=== PATIENT | female | born 1940 | race Caucasian/White ===

== ENCOUNTER 2016-07-24 18:14 | Emergency (ER) | payer MEDICARE, OTHER ==
[~2016-07-24 18:14] MED LIST: /CELE20CA OR; ARTISOL10 OU; AVAP150T OR; BABY81CH OR; CLARINEX OR; Centrum Silver OR; GLUC500T3 OR; HYDR25TA6 OR; NORV5TAB OR; ROSU10TA OR; SYNT100T OR; VIACTIVE OR; tylenol OR
[2016-07-24] MEDS ORDERED: traMADol 50 MG TAB As Ordered ONE (23:08)
--- NOTE | 2016-07-24 23:31 | EDDOCDS ---
Nurse's Notes [facility] Name: Rocio Lyles Age: 76 yrs Sex: Female : 1940 Arrival Date: 07/24/2016 Time: 18:14 Bed 8 Private MD: Omar Cifuentes A. Diagnosis: Nondisplaced fracture of lateral malleolus of left fibula;Contusion of left hip Presentation: 07/24 18:25 Presenting complaint: EMS states: pain to left ankle left hip after fall around 1400 ttb today on ice. No LOC. Adult Sepsis Screening: The patient does not have new or worsening altered mentation. Patient's respiratory rate is less than 22. Systolic blood pressure is greater than 100. Patient has a qSOFA score of 0- Negative Sepsis Screen. Suicide/Homicide risk assessment- the patient denies having any suicidal and/or homicidal ideations and does not present with any other emotional, behavioral or mental health complaints. Status: Patient is not a inpatient services director or dependent. Transition of care: patient was not received from another setting of care. 18:25 Acuity: ELIZABETH Level 4 ttb 18:25 Method Of Arrival: Ambulance ttb Triage Assessment: 18:30 General: Appears in no apparent distress, comfortable, well nourished, well groomed, ttb Behavior is anxious, appropriate for age, cooperative, pleasant. Pain: Location: left ankle. Neurological: Level of Consciousness is awake, alert. Cardiovascular: Chest pain is denied. Respiratory: No deficits noted. Airway is patent Denies cough, shortness of breath. GI: Denies nausea, vomiting, pain. Derm: Skin is normal. Musculoskeletal: Reports pain in left ankle. Musculoskeletal: Reports pain in left hip. Injury Description: pt fell from standing. Historical: - Allergies: Bactrimmouth sores; Codeine Sulfate (Upset stomach); Ibuprofen (Hives); Latextrouble breathing; PENICILLINS (Hives); - Home Meds: 1. amlodipine 2.5 mg Oral tab 1 tab once daily (Last dose: 07/23/2016) 2. irbesartan-hydrochlorothiazide 150-12.5 mg oral tab 2 tabs once daily (Last dose: 07/24/2016 08:00) 3. azelastine 0.15 % (205.5 mcg) nasal spry 2 sprays 2 times per day (Last dose: 07/23/2016) 4. Synthroid 100 mcg Oral tab 1 tab once daily (Last dose: 07/24/2016 07:00) 5. metoprolol tartrate 25 mg Oral tab 1 tab once daily (Last dose: 07/23/2016) 6. Clarinex 5 mg Oral tab 1 tab once daily (Last dose: 07/24/2016 08:00) 7. Crestor 10 mg Oral tab 1 tab once daily (Last dose: 07/23/2016) 8. Sertraline 50 mg daily (Last dose: 07/23/2016 17:00) 9. meloxicam 15 mg oral tab 1 tab once daily (Last dose: 07/23/2016 17:00) - PMHx: High Cholesterol; Hypertension; Hypothyroidism; melanoma; neck pain; Anxiety; - PSHx: incisional hernia repair; melanoma removal; cardiac cath; vaginal polypectomy; Cataract Surgery- Bilateral; D & C; Hysterectomy; Cholecystectomy; - The history from nurses notes was reviewed: and I agree with what is documented. - Social history: Smoking status: Patient states former smoker of tobacco. Patient uses alcohol on a daily basis. Patient/guardian denies using street drugs, No barriers to communication noted, The patient speaks fluent Jamaican, Speaks appropriately for age. - : The pt / caregiver states he / she is not on anticoagulants. Home medication list is obtained from the patient. - Hospitalizations: : No recent hospitalization is reported. - Exposure Risk Screening:: None identified. - Immunization history:: All immunizations up-to-date. - Family history: Not pertinent. - Social history:: the patient is a non-smoker, the patient does not drink alcohol. Screenin:37 Screening information is obtained from the patient. Fall risk: At risk due to prior ttb history of falls, The following interventions are performed due to a positive Fall Risk Screen: Fall Risk is added to Special Handling on the patient Summary Screen. A Fall Risk Bracelet was applied to the patient. Side Rails are placed in the up position. A Call Austin is given with instruction to call for help when getting out of bed. Assistance ADL's: requires no assistance with activities of daily living. Abuse/DV Screen: The patient / caregiver reports he/she is: not in a situation that causes fear, pain or injury. Nutritional screening: No deficits noted. Advance Directives: Currently, there is no health care proxy. home support is adequate. Assessment: 18:37 General: see triage assessment. Pt resting on stretcher. NAD noted. . ttb 19:00 General: report given to JARRETT Alanis to continue care.. ttb 19:05 General: Verbal report given by Cathy Orozco RN. Assumed care of patient at this time..kas2 19:38 General: Appears in no apparent distress, uncomfortable, well nourished, well groomed, kas2 Behavior is appropriate for age, cooperative. Pain: Location: back and left ankle Pain currently is 7 out of 10 on a pain scale. Neurological: Level of Consciousness is awake, alert, Oriented to person, place, time. Cardiovascular: Capillary refill < 3 seconds Heart tones S1 S2 present Rhythm is regular. Respiratory: Airway is patent Respiratory effort is even, unlabored, Respiratory pattern is regular, symmetrical, Breath sounds are clear bilaterally. Derm: Skin is intact, Skin is dry, Skin is pink, warm & dry. Skin temperature is warm. Musculoskeletal: No deficits noted. Injury Description: No known injury. 19:45 Injury Description: pt fell from standing. kas2 20:45 General: Appears in no apparent distress, uncomfortable, Behavior is appropriate for kas2 age, cooperative. Neurological: Level of Consciousness is awake, alert, Oriented to person, place, time. Respiratory: Airway is patent Respiratory effort is even, unlabored, Respiratory pattern is regular, symmetrical. Derm: Skin is intact, Skin is dry, Skin is pink, warm & dry. Skin temperature is warm. 21:28 General: Patient being fed at this time.. kas2 22:51 General: Appears in no apparent distress, Behavior is appropriate for age, cooperative. kas2 Neurological: Level of Consciousness is awake, alert, Oriented to person, place, time. Respiratory: Airway is patent Respiratory effort is even, unlabored, Respiratory pattern is regular, symmetrical. Derm: Skin is intact, Skin is dry, Skin is pink, warm & dry. Skin temperature is warm. Vital Signs: 18:30 Pulse 76; Resp 20; Pulse Ox 96% on R/A; Weight 77.11 kg; Height 5 ft. 4 in. (162.56 ttb cm); Pain 5/10; 18:37 BP 179 / 78; ttb 20:32 Temp 98.0(O); mdr 23:05 BP 180 / 85; Pulse 78; Resp 18; Temp 97.6(O); Pulse Ox 96% on R/A; alex 18:30 Body Mass Index 29.18 (77.11 kg, 162.56 cm) ttb Vitals: 18:30 Log In Time N/A - ambulance arrival. ttb ED Course: 18:15 Patient visited by Jess Lofton, Needle Board Repairer. lbd 18:15 Omar Cifuentes is Private Physician. lbd 18:15 Patient moved to Waiting lbd 18:16 Patient moved to 8 lbd 18:26 Triage Initiated ttb 18:37 The patient / caregiver is instructed regarding the plan of care and ED course. Patient ttb has correct armband on for positive identification. Bed in low position. Call light in reach. Side rails up X2. 18:38 Patient visited by Cathy Carreon RN. ttb 19:03 Annabelle Perez RN is Primary Nurse. kas2 19:05 Patient visited by Annabelle Perez RN. kas2 19:46 Patient visited by Cathy Carreon RN. ttb 19:46 Patient visited by Annabelle Perez RN. kas2 20:25 Brayden Mejia MD is Attending Physician. pc 20:29 Patient visited by Brayden Mejia MD. pc 20:33 Patient visited by Jad Macias PCA. mdr 20:33 Patient visited by Annabelle Perez RN. kas2 20:46 Patient visited by Annabelle Perez RN. kas2 21:23 Patient visited by Annabelle Perez RN. kas2 21:24 Patient visited by Annabelle Perez RN. kas2 21:29 Patient visited by Annabelle Perez RN. kas2 22:08 Patient visited by Annabelle Perez RN. kas2 22:51 Patient visited by Annabelle Perez RN. kas2 22:52 Patient visited by Annabelle Perez RN. kas2 23:02 [facility] pc 23:05 Patient visited by Laurence Strickland PCA. alex 23:09 [facility] Payment Agreement was scanned into [employer] and attached to record. zo 23:15 Patient visited by Annabelle Perez RN. kas2 23:28 No IV's were initiated during this patient's visit. No procedures done that require kas2 assistance. Crutch training done. Administered Medications: 23:14 Drug: traMADol 50mg- 4 pack 1 packets [tramadol 50 mg tablet (1 tabs)] {Co-Signature: edda tm5 (Yeni Fox RN).} Route: PO; Order Results: There are currently no results for this order. Outcome: 23:02 Discharge ordered by Provider. 23:28 Discharge Assessment: patient administered narcotics - no. The following High Risk [facility] Discharge criteria are identified: None. Discharged to home via wheelchair, with crutches, with family. Condition: good Condition: stable Condition: improved. No special radiology studies were completed. Property :Personal belongings accompany Pt. 23:29 Patient left the ED. kas Signatures: Brayden Mejia MD MD pc Jess Lofton, Needle Board Repairer Unit lbd Katt Pryor Destiny, HEEL SEAT FILLER HEEL SEAT FILLER Cathy Smith RN RN ttb Jad Macias, HEEL SEAT FILLER HEEL SEAT FILLER Annabelle Ambriz RN RN kas2 Yeni Fox RN tm5 Corrections: (The following items were deleted from the chart) 18:37 18:21 Presenting complaint: ttb ttb MTDD
--- NOTE | 2016-07-24 23:31 | EDDOCDS ---
Physician Documentation [facility] Name: Rocio Lyles Age: 76 yrs Sex: Female : 1940 Arrival Date: 07/24/2016 Time: 18:14 Bed 8 Private MD: Omar Cifuentes A. Disposition: 07/24 22:59 Critical Care: Critical care not applicable. pc Disposition: 07/24/16 23:02 Discharged to Home/Self Care. Impression: Nondisplaced fracture of lateral malleolus of left fibula, Contusion of left hip. - Condition is Stable. - Discharge Instructions: Ankle Fracture, Contusion. - Prescriptions for Ultram 50 mg Oral Tablet - take 1 tablet by ORAL route every 6 hours As needed MDD: 4 tabs; 20 tablet. - Medication Reconciliation, [facility] Followup, Local Pharmacy Hours form. - Follow up: Orthopaedics, [facility]; When: Call to arrange an appointment; Reason: To establish care. - Problem is new. - Symptoms have improved. HPI: 20:30 This 76 yrs old Female presents to ER via Ambulance with complaints of Fall pc Injury. 20:30 The history is obtained from the patient. She slipped on an icy walkway at 2:30pm, pc twisting her left ankle and landing on her left hip. She complains of pain and swelling in her ankle and pain in her left hip laterally. She did not hit her head and did not have a LOC. At their worst, the symptoms were a 7 out of 10. In the emergency department, the symptoms are a 5 out of 10. The patient has not experienced similar symptoms in the past. The patient has been recently seen by their primary care provider, for a routine, regularly scheduled appointment. Historical: - Allergies: Bactrimmouth sores; Codeine Sulfate (Upset stomach); Ibuprofen (Hives); Latextrouble breathing; PENICILLINS (Hives); - Home Meds: 1. amlodipine 2.5 mg Oral tab 1 tab once daily (Last dose: 07/23/2016) 2. irbesartan-hydrochlorothiazide 150-12.5 mg oral tab 2 tabs once daily (Last dose: 07/24/2016 08:00) 3. azelastine 0.15 % (205.5 mcg) nasal spry 2 sprays 2 times per day (Last dose: 07/23/2016) 4. Synthroid 100 mcg Oral tab 1 tab once daily (Last dose: 07/24/2016 07:00) 5. metoprolol tartrate 25 mg Oral tab 1 tab once daily (Last dose: 07/23/2016) 6. Clarinex 5 mg Oral tab 1 tab once daily (Last dose: 07/24/2016 08:00) 7. Crestor 10 mg Oral tab 1 tab once daily (Last dose: 07/23/2016) 8. Sertraline 50 mg daily (Last dose: 07/23/2016 17:00) 9. meloxicam 15 mg oral tab 1 tab once daily (Last dose: 07/23/2016 17:00) - PMHx: High Cholesterol; Hypertension; Hypothyroidism; melanoma; neck pain; Anxiety; - PSHx: incisional hernia repair; melanoma removal; cardiac cath; vaginal polypectomy; Cataract Surgery- Bilateral; D & C; Hysterectomy; Cholecystectomy; - The history from nurses notes was reviewed: and I agree with what is documented. - Social history: Smoking status: Patient states former smoker of tobacco. Patient uses alcohol on a daily basis. Patient/guardian denies using street drugs, No barriers to communication noted, The patient speaks fluent Belarusian, Speaks appropriately for age. - : The pt / caregiver states he / she is not on anticoagulants. Home medication list is obtained from the patient. - Hospitalizations: : No recent hospitalization is reported. - Exposure Risk Screening:: None identified. - Immunization history:: All immunizations up-to-date. - Family history: Not pertinent. - Social history:: the patient is a non-smoker, the patient does not drink alcohol. ROS: 20:30 All systems are negative except as listed. pc Exam: 20:30 General Appearance: no acute distress, alert. pc 20:30 Extremities: grossly normal except: noted in the left hip: tenderness, ROM normal, NVT normal distally, noted in the left ankle: decreased ROM, ecchymosis, pain, swelling, NVT normal. 20:30 Neuro: no motor deficits, no sensory deficits. Vital Signs: 18:30 Pulse 76; Resp 20; Pulse Ox 96% on R/A; Weight 77.11 kg / 170 lbs; Height 5 ft. 4 in. ttb (162.56 cm); Pain 5/10; 18:37 BP 179 / 78; ttb 20:32 Temp 98.0(O); mdr 23:05 BP 180 / 85; Pulse 78; Resp 18; Temp 97.6(O); Pulse Ox 96% on R/A; alex 18:30 Body Mass Index 29.18 (77.11 kg, 162.56 cm) ttb Procedures: 23:00 Fracture care/splinting: (Restorative Care) Splint applied to left leg using Orthoglass pc splint, applied by myself. Examined by me, post splint application: neurovascular intact, 2+ distal pulses palpable, brisk capillary refill noted, Patient tolerated well. MDM: 20:31 Ankle, Complete Ordered. EDMS 20:31 Hip,AP,LAT to include Pelvis Ordered. EDMS 20:34 Differential Diagnosis: fall on ice; left hip contusion r/o fracture; left ankle sprain pc r/o fracture. Plan: analgesia (declined). imaging. 21:57 Financial registration complete. zo 22:59 Data reviewed: old medical records, vital signs, nurses notes, all radiology studies pc and available results. Test interpretation: X-RAY - interpreted by me, Ankle Left Fracture - distal fibula Transverse Hip Left Normal Pelvis Normal. The patient has been re-examined and re-evaluated. The patient's symptoms have markedly improved after treatment. Disposition: The historical points, examination findings, and any diagnostic results supporting the provided diagnosis, were discussed with the patient or legal guardian. The need for outpatient follow up with the provider listed on their discharge instructions was discussed. They were encouraged to return to [facility], or the nearest ED, if symptoms worsen/persist, or for any other questions/concerns. 23:01 traMADol 50mg- 4 pack 1 packets PO Per package directions; Dispense with patient. 1 po pc q6h prn ordered. 23:01 Crutches ordered. pc 23:09 [facility] [place] Payment Agreement was scanned into [email or web address] and attached to record. zo Administered Medications: 23:14 Drug: traMADol 50mg- 4 pack 1 packets [tramadol 50 mg tablet (1 tabs)] {Co-Signature: [email or web address] tm5 (Yeni Fox RN).} Route: PO; Signatures: Dispatcher [employer] EDMS Brayden Mejia MD MD pc Olin, Zoeann zo Conner, Teresa, RN RN ttb Annabelle Perez RN RN kas2 Yeni Fox RN tm5 The chart was reviewed and I authenticate all verbal orders and agree with the evaluation and treatment provided.Attachments: 23:09 [facility] Payment Agreement zo MTDD
--- NOTE | 2016-07-25 08:41 | REP ---
Pelvis, left hip: Three views. History: Trauma. Findings: The bony pelvic ring is intact. No pelvic, hip or sacral fracture is seen. Left femoral head is smooth and rounded and hip joint space is intact. Periarticular soft tissues are unremarkable. Impression: No fracture noted. Signed by Damon Barcenas MD 07/25/2016 02:59 P
--- NOTE | 2016-07-25 08:41 | REP ---
Left ankle series: Four views. History: Trauma. Findings: There is a transverse fracture through the distal fibular metaphysis. There is diffuse osteoporosis. No displacement is seen. Osteoarthritic spurring is seen at the ankle. Plantar and Achilles calcaneal spurring and midfoot osteoarthritic spurring are seen. Anterolateral swelling. Impression: Distal fibular fracture nondisplaced. Osteoporosis and heel and midfoot and ankle osteoarthritic spurring. Signed by Damon Barcenas MD 07/25/2016 02:59 P
--- NOTE | 2016-07-27 00:29 | EDDOCDS ---
Physician Documentation [facility] Name: Rocio Lyles Age: 76 yrs Sex: Female : 1940 Arrival Date: 07/24/2016 Time: 18:14 Bed 8 Private MD: Omar Cifuentes A. Disposition: 07/24 22:59 Critical Care: Critical care not applicable. pc Disposition: 07/24/16 23:02 Discharged to Home/Self Care. Impression: Nondisplaced fracture of lateral malleolus of left fibula, Contusion of left hip. - Condition is Stable. - Discharge Instructions: Ankle Fracture, Contusion. - Prescriptions for Ultram 50 mg Oral Tablet - take 1 tablet by ORAL route every 6 hours As needed MDD: 4 tabs; 20 tablet. - Medication Reconciliation, [facility] Followup, Local Pharmacy Hours form. - Follow up: Orthopaedics, [facility]; When: Call to arrange an appointment; Reason: To establish care. - Problem is new. - Symptoms have improved. HPI: 20:30 This 76 yrs old Female presents to ER via Ambulance with complaints of Fall pc Injury. 20:30 The history is obtained from the patient. She slipped on an icy walkway at 2:30pm, pc twisting her left ankle and landing on her left hip. She complains of pain and swelling in her ankle and pain in her left hip laterally. She did not hit her head and did not have a LOC. At their worst, the symptoms were a 7 out of 10. In the emergency department, the symptoms are a 5 out of 10. The patient has not experienced similar symptoms in the past. The patient has been recently seen by their primary care provider, for a routine, regularly scheduled appointment. Historical: - Allergies: Bactrimmouth sores; Codeine Sulfate (Upset stomach); Ibuprofen (Hives); Latextrouble breathing; PENICILLINS (Hives); - Home Meds: 1. amlodipine 2.5 mg Oral tab 1 tab once daily (Last dose: 07/23/2016) 2. irbesartan-hydrochlorothiazide 150-12.5 mg oral tab 2 tabs once daily (Last dose: 07/24/2016 08:00) 3. azelastine 0.15 % (205.5 mcg) nasal spry 2 sprays 2 times per day (Last dose: 07/23/2016) 4. Synthroid 100 mcg Oral tab 1 tab once daily (Last dose: 07/24/2016 07:00) 5. metoprolol tartrate 25 mg Oral tab 1 tab once daily (Last dose: 07/23/2016) 6. Clarinex 5 mg Oral tab 1 tab once daily (Last dose: 07/24/2016 08:00) 7. Crestor 10 mg Oral tab 1 tab once daily (Last dose: 07/23/2016) 8. Sertraline 50 mg daily (Last dose: 07/23/2016 17:00) 9. meloxicam 15 mg oral tab 1 tab once daily (Last dose: 07/23/2016 17:00) - PMHx: High Cholesterol; Hypertension; Hypothyroidism; melanoma; neck pain; Anxiety; - PSHx: incisional hernia repair; melanoma removal; cardiac cath; vaginal polypectomy; Cataract Surgery- Bilateral; D & C; Hysterectomy; Cholecystectomy; - The history from nurses notes was reviewed: and I agree with what is documented. - Social history: Smoking status: Patient states former smoker of tobacco. Patient uses alcohol on a daily basis. Patient/guardian denies using street drugs, No barriers to communication noted, The patient speaks fluent Welsh, Speaks appropriately for age. - : The pt / caregiver states he / she is not on anticoagulants. Home medication list is obtained from the patient. - Hospitalizations: : No recent hospitalization is reported. - Exposure Risk Screening:: None identified. - Immunization history:: All immunizations up-to-date. - Family history: Not pertinent. - Social history:: the patient is a non-smoker, the patient does not drink alcohol. ROS: 20:30 All systems are negative except as listed. pc Exam: 20:30 General Appearance: no acute distress, alert. pc 20:30 Extremities: grossly normal except: noted in the left hip: tenderness, ROM normal, NVT normal distally, noted in the left ankle: decreased ROM, ecchymosis, pain, swelling, NVT normal. 20:30 Neuro: no motor deficits, no sensory deficits. Vital Signs: 18:30 Pulse 76; Resp 20; Pulse Ox 96% on R/A; Weight 77.11 kg / 170 lbs; Height 5 ft. 4 in. ttb (162.56 cm); Pain 5/10; 18:37 BP 179 / 78; ttb 20:32 Temp 98.0(O); mdr 23:05 BP 180 / 85; Pulse 78; Resp 18; Temp 97.6(O); Pulse Ox 96% on R/A; alex 18:30 Body Mass Index 29.18 (77.11 kg, 162.56 cm) ttb Procedures: 23:00 Fracture care/splinting: (Restorative Care) Splint applied to left leg using Orthoglass pc splint, applied by myself. Examined by me, post splint application: neurovascular intact, 2+ distal pulses palpable, brisk capillary refill noted, Patient tolerated well. MDM: 20:31 Ankle, Complete Ordered. EDMS 20:31 Hip,AP,LAT to include Pelvis Ordered. EDMS 20:34 Differential Diagnosis: fall on ice; left hip contusion r/o fracture; left ankle sprain pc r/o fracture. Plan: analgesia (declined). imaging. 21:57 Financial registration complete. zo 22:59 Data reviewed: old medical records, vital signs, nurses notes, all radiology studies pc and available results. Test interpretation: X-RAY - interpreted by me, Ankle Left Fracture - distal fibula Transverse Hip Left Normal Pelvis Normal. The patient has been re-examined and re-evaluated. The patient's symptoms have markedly improved after treatment. Disposition: The historical points, examination findings, and any diagnostic results supporting the provided diagnosis, were discussed with the patient or legal guardian. The need for outpatient follow up with the provider listed on their discharge instructions was discussed. They were encouraged to return to [facility], or the nearest ED, if symptoms worsen/persist, or for any other questions/concerns. 23:01 traMADol 50mg- 4 pack 1 packets PO Per package directions; Dispense with patient. 1 po pc q6h prn ordered. 23:01 Crutches ordered. pc 23:09 [facility] Payment Agreement was scanned into [email or web address] and attached to record. zo 07/25 10:12 PCR was scanned into [email or web address] and attached to record. gb Administered Medications: 07/24 23:14 Drug: traMADol 50mg- 4 pack 1 packets [tramadol 50 mg tablet (1 tabs)] {Co-Signature: [email or web address] [email or web address] (Yeni Fox RN).} Route: PO; Signatures: Dispatcher [employer] EDMS Chafe, Brayden, MD MD pc Barnhardt, Fabiola, Tavo Reg Katt Brown Teresa RN RN ttb Annabelle Perez RN RN kas2 Yeni Fox RN tm5 The chart was reviewed and I authenticate all verbal orders and agree with the evaluation and treatment provided.Attachments: 23:09 [facility] Payment Agreement zo Chart Complete MTDD
--- NOTE | 2016-07-27 00:29 | EDDOCDS ---
Physician Documentation [facility] Name: Rocio Lyles Age: 76 yrs Sex: Female : 1940 Arrival Date: 07/24/2016 Time: 18:14 Bed 8 Private MD: Omar Cifuentes A. Disposition: 07/24 22:59 Critical Care: Critical care not applicable. pc Disposition: 07/24/16 23:02 Discharged to Home/Self Care. Impression: Nondisplaced fracture of lateral malleolus of left fibula, Contusion of left hip. - Condition is Stable. - Discharge Instructions: Ankle Fracture, Contusion. - Prescriptions for Ultram 50 mg Oral Tablet - take 1 tablet by ORAL route every 6 hours As needed MDD: 4 tabs; 20 tablet. - Medication Reconciliation, [facility] Followup, Local Pharmacy Hours form. - Follow up: Orthopaedics, [facility]; When: Call to arrange an appointment; Reason: To establish care. - Problem is new. - Symptoms have improved. HPI: 20:30 This 76 yrs old Female presents to ER via Ambulance with complaints of Fall pc Injury. 20:30 The history is obtained from the patient. She slipped on an icy walkway at 2:30pm, pc twisting her left ankle and landing on her left hip. She complains of pain and swelling in her ankle and pain in her left hip laterally. She did not hit her head and did not have a LOC. At their worst, the symptoms were a 7 out of 10. In the emergency department, the symptoms are a 5 out of 10. The patient has not experienced similar symptoms in the past. The patient has been recently seen by their primary care provider, for a routine, regularly scheduled appointment. Historical: - Allergies: Bactrimmouth sores; Codeine Sulfate (Upset stomach); Ibuprofen (Hives); Latextrouble breathing; PENICILLINS (Hives); - Home Meds: 1. amlodipine 2.5 mg Oral tab 1 tab once daily (Last dose: 07/23/2016) 2. irbesartan-hydrochlorothiazide 150-12.5 mg oral tab 2 tabs once daily (Last dose: 07/24/2016 08:00) 3. azelastine 0.15 % (205.5 mcg) nasal spry 2 sprays 2 times per day (Last dose: 07/23/2016) 4. Synthroid 100 mcg Oral tab 1 tab once daily (Last dose: 07/24/2016 07:00) 5. metoprolol tartrate 25 mg Oral tab 1 tab once daily (Last dose: 07/23/2016) 6. Clarinex 5 mg Oral tab 1 tab once daily (Last dose: 07/24/2016 08:00) 7. Crestor 10 mg Oral tab 1 tab once daily (Last dose: 07/23/2016) 8. Sertraline 50 mg daily (Last dose: 07/23/2016 17:00) 9. meloxicam 15 mg oral tab 1 tab once daily (Last dose: 07/23/2016 17:00) - PMHx: High Cholesterol; Hypertension; Hypothyroidism; melanoma; neck pain; Anxiety; - PSHx: incisional hernia repair; melanoma removal; cardiac cath; vaginal polypectomy; Cataract Surgery- Bilateral; D & C; Hysterectomy; Cholecystectomy; - The history from nurses notes was reviewed: and I agree with what is documented. - Social history: Smoking status: Patient states former smoker of tobacco. Patient uses alcohol on a daily basis. Patient/guardian denies using street drugs, No barriers to communication noted, The patient speaks fluent Kinyarwanda, Speaks appropriately for age. - : The pt / caregiver states he / she is not on anticoagulants. Home medication list is obtained from the patient. - Hospitalizations: : No recent hospitalization is reported. - Exposure Risk Screening:: None identified. - Immunization history:: All immunizations up-to-date. - Family history: Not pertinent. - Social history:: the patient is a non-smoker, the patient does not drink alcohol. ROS: 20:30 All systems are negative except as listed. pc Exam: 20:30 General Appearance: no acute distress, alert. pc 20:30 Extremities: grossly normal except: noted in the left hip: tenderness, ROM normal, NVT normal distally, noted in the left ankle: decreased ROM, ecchymosis, pain, swelling, NVT normal. 20:30 Neuro: no motor deficits, no sensory deficits. Vital Signs: 18:30 Pulse 76; Resp 20; Pulse Ox 96% on R/A; Weight 77.11 kg / 170 lbs; Height 5 ft. 4 in. ttb (162.56 cm); Pain 5/10; 18:37 BP 179 / 78; ttb 20:32 Temp 98.0(O); mdr 23:05 BP 180 / 85; Pulse 78; Resp 18; Temp 97.6(O); Pulse Ox 96% on R/A; alex 18:30 Body Mass Index 29.18 (77.11 kg, 162.56 cm) ttb Procedures: 23:00 Fracture care/splinting: (Restorative Care) Splint applied to left leg using Orthoglass pc splint, applied by myself. Examined by me, post splint application: neurovascular intact, 2+ distal pulses palpable, brisk capillary refill noted, Patient tolerated well. MDM: 20:31 Ankle, Complete Ordered. EDMS 20:31 Hip,AP,LAT to include Pelvis Ordered. EDMS 20:34 Differential Diagnosis: fall on ice; left hip contusion r/o fracture; left ankle sprain pc r/o fracture. Plan: analgesia (declined). imaging. 21:57 Financial registration complete. zo 22:59 Data reviewed: old medical records, vital signs, nurses notes, all radiology studies pc and available results. Test interpretation: X-RAY - interpreted by me, Ankle Left Fracture - distal fibula Transverse Hip Left Normal Pelvis Normal. The patient has been re-examined and re-evaluated. The patient's symptoms have markedly improved after treatment. Disposition: The historical points, examination findings, and any diagnostic results supporting the provided diagnosis, were discussed with the patient or legal guardian. The need for outpatient follow up with the provider listed on their discharge instructions was discussed. They were encouraged to return to [facility], or the nearest ED, if symptoms worsen/persist, or for any other questions/concerns. 23:01 traMADol 50mg- 4 pack 1 packets PO Per package directions; Dispense with patient. 1 po pc q6h prn ordered. 23:01 Crutches ordered. pc 23:09 [facility] Payment Agreement was scanned into [employer] and attached to record. zo 07/25 10:12 PCR was scanned into [employer] and attached to record. gb Administered Medications: 07/24 23:14 Drug: traMADol 50mg- 4 pack 1 packets [tramadol 50 mg tablet (1 tabs)] {Co-Signature: kas2 tm5 (Yeni Fox RN).} Route: PO; Signatures: Dispatcher [employer] EDMS Chafe, Brayden, MD MD pc Barnhardt, Fabiola, Tavo Reg Katt Brown Teresa RN RN ttb Annabelle Perez RN RN kas2 Yeni Fox RN tm5 The chart was reviewed and I authenticate all verbal orders and agree with the evaluation and treatment provided.Attachments: 23:09 [facility] Payment Agreement zo Chart Complete MTDD
--- NOTE | 2016-07-27 00:29 | EDDOCDS ---
Nurse's Notes [facility] Name: Rocio Lyles Age: 76 yrs Sex: Female : 1940 Arrival Date: 07/24/2016 Time: 18:14 Bed 8 Private MD: Omar Cifuentes A. Diagnosis: Nondisplaced fracture of lateral malleolus of left fibula;Contusion of left hip Presentation: 07/24 18:25 Presenting complaint: EMS states: pain to left ankle left hip after fall around 1400 ttb today on ice. No LOC. Adult Sepsis Screening: The patient does not have new or worsening altered mentation. Patient's respiratory rate is less than 22. Systolic blood pressure is greater than 100. Patient has a qSOFA score of 0- Negative Sepsis Screen. Suicide/Homicide risk assessment- the patient denies having any suicidal and/or homicidal ideations and does not present with any other emotional, behavioral or mental health complaints. Status: Patient is not a agricultural services director or dependent. Transition of care: patient was not received from another setting of care. 18:25 Acuity: ELIZABETH Level 4 ttb 18:25 Method Of Arrival: Ambulance ttb Triage Assessment: 18:30 General: Appears in no apparent distress, comfortable, well nourished, well groomed, ttb Behavior is anxious, appropriate for age, cooperative, pleasant. Pain: Location: left ankle. Neurological: Level of Consciousness is awake, alert. Cardiovascular: Chest pain is denied. Respiratory: No deficits noted. Airway is patent Denies cough, shortness of breath. GI: Denies nausea, vomiting, pain. Derm: Skin is normal. Musculoskeletal: Reports pain in left ankle. Musculoskeletal: Reports pain in left hip. Injury Description: pt fell from standing. Historical: - Allergies: Bactrimmouth sores; Codeine Sulfate (Upset stomach); Ibuprofen (Hives); Latextrouble breathing; PENICILLINS (Hives); - Home Meds: 1. amlodipine 2.5 mg Oral tab 1 tab once daily (Last dose: 07/23/2016) 2. irbesartan-hydrochlorothiazide 150-12.5 mg oral tab 2 tabs once daily (Last dose: 07/24/2016 08:00) 3. azelastine 0.15 % (205.5 mcg) nasal spry 2 sprays 2 times per day (Last dose: 07/23/2016) 4. Synthroid 100 mcg Oral tab 1 tab once daily (Last dose: 07/24/2016 07:00) 5. metoprolol tartrate 25 mg Oral tab 1 tab once daily (Last dose: 07/23/2016) 6. Clarinex 5 mg Oral tab 1 tab once daily (Last dose: 07/24/2016 08:00) 7. Crestor 10 mg Oral tab 1 tab once daily (Last dose: 07/23/2016) 8. Sertraline 50 mg daily (Last dose: 07/23/2016 17:00) 9. meloxicam 15 mg oral tab 1 tab once daily (Last dose: 07/23/2016 17:00) - PMHx: High Cholesterol; Hypertension; Hypothyroidism; melanoma; neck pain; Anxiety; - PSHx: incisional hernia repair; melanoma removal; cardiac cath; vaginal polypectomy; Cataract Surgery- Bilateral; D & C; Hysterectomy; Cholecystectomy; - The history from nurses notes was reviewed: and I agree with what is documented. - Social history: Smoking status: Patient states former smoker of tobacco. Patient uses alcohol on a daily basis. Patient/guardian denies using street drugs, No barriers to communication noted, The patient speaks fluent Mauritian, Speaks appropriately for age. - : The pt / caregiver states he / she is not on anticoagulants. Home medication list is obtained from the patient. - Hospitalizations: : No recent hospitalization is reported. - Exposure Risk Screening:: None identified. - Immunization history:: All immunizations up-to-date. - Family history: Not pertinent. - Social history:: the patient is a non-smoker, the patient does not drink alcohol. Screenin:37 Screening information is obtained from the patient. Fall risk: At risk due to prior ttb history of falls, The following interventions are performed due to a positive Fall Risk Screen: Fall Risk is added to Special Handling on the patient Summary Screen. A Fall Risk Bracelet was applied to the patient. Side Rails are placed in the up position. A Call [place] is given with instruction to call for help when getting out of bed. Assistance ADL's: requires no assistance with activities of daily living. Abuse/DV Screen: The patient / caregiver reports he/she is: not in a situation that causes fear, pain or injury. Nutritional screening: No deficits noted. Advance Directives: Currently, there is no health care proxy. home support is adequate. Assessment: 18:37 General: see triage assessment. Pt resting on stretcher. NAD noted. . ttb 19:00 General: report given to JARRETT Alanis to continue care.. ttb 19:05 General: Verbal report given by Cathy Orozco RN. Assumed care of patient at this time..kas2 19:38 General: Appears in no apparent distress, uncomfortable, well nourished, well groomed, kas2 Behavior is appropriate for age, cooperative. Pain: Location: back and left ankle Pain currently is 7 out of 10 on a pain scale. Neurological: Level of Consciousness is awake, alert, Oriented to person, place, time. Cardiovascular: Capillary refill < 3 seconds Heart tones S1 S2 present Rhythm is regular. Respiratory: Airway is patent Respiratory effort is even, unlabored, Respiratory pattern is regular, symmetrical, Breath sounds are clear bilaterally. Derm: Skin is intact, Skin is dry, Skin is pink, warm & dry. Skin temperature is warm. Musculoskeletal: No deficits noted. Injury Description: No known injury. 19:45 Injury Description: pt fell from standing. kas2 20:45 General: Appears in no apparent distress, uncomfortable, Behavior is appropriate for kas2 age, cooperative. Neurological: Level of Consciousness is awake, alert, Oriented to person, place, time. Respiratory: Airway is patent Respiratory effort is even, unlabored, Respiratory pattern is regular, symmetrical. Derm: Skin is intact, Skin is dry, Skin is pink, warm & dry. Skin temperature is warm. 21:28 General: Patient being fed at this time.. kas2 22:51 General: Appears in no apparent distress, Behavior is appropriate for age, cooperative. kas2 Neurological: Level of Consciousness is awake, alert, Oriented to person, place, time. Respiratory: Airway is patent Respiratory effort is even, unlabored, Respiratory pattern is regular, symmetrical. Derm: Skin is intact, Skin is dry, Skin is pink, warm & dry. Skin temperature is warm. Vital Signs: 18:30 Pulse 76; Resp 20; Pulse Ox 96% on R/A; Weight 77.11 kg; Height 5 ft. 4 in. (162.56 ttb cm); Pain 5/10; 18:37 BP 179 / 78; ttb 20:32 Temp 98.0(O); mdr 23:05 BP 180 / 85; Pulse 78; Resp 18; Temp 97.6(O); Pulse Ox 96% on R/A; alex 18:30 Body Mass Index 29.18 (77.11 kg, 162.56 cm) ttb Vitals: 18:30 Log In Time N/A - ambulance arrival. ttb ED Course: 18:15 Patient visited by Jess Lofton, Services Mgr. lbd 18:15 Omar Cifuentes is Private Physician. lbd 18:15 Patient moved to Waiting lbd 18:16 Patient moved to 8 lbd 18:26 Triage Initiated ttb 18:37 The patient / caregiver is instructed regarding the plan of care and ED course. Patient ttb has correct armband on for positive identification. Bed in low position. Call light in reach. Side rails up X2. 18:38 Patient visited by Cathy Carreon RN. ttb 19:03 Annabelle Perez RN is Primary Nurse. kas2 19:05 Patient visited by Annabelle Perez RN. kas2 19:46 Patient visited by Cathy Carreon RN. ttb 19:46 Patient visited by Annabelle Perez RN. kas2 20:25 Brayden Mejia MD is Attending Physician. pc 20:29 Patient visited by Brayden Mejia MD. pc 20:33 Patient visited by Jad Macias PCA. mdr 20:33 Patient visited by Annabelle Perez RN. kas2 20:46 Patient visited by Annabelle Perez RN. kas2 21:23 Patient visited by Annabelle Perez RN. kas2 21:24 Patient visited by Annabelle Perez RN. kas2 21:29 Patient visited by Annabelle Perez RN. kas2 22:08 Patient visited by Annabelle Perez RN. kas2 22:51 Patient visited by Annabelle Perez RN. kas2 22:52 Patient visited by Annabelle Perez RN. kas2 23:[facility] pc 23:05 Patient visited by Laurence Strickland PCA. alex 23:09 [facility] Payment Agreement was scanned into [employer] and attached to record. zo 23:15 Patient visited by Annabelle Perez RN. kas2 23:28 No IV's were initiated during this patient's visit. No procedures done that require kas2 assistance. Crutch training done. 07/25 09:03 Hip,AP,LAT to include Pelvis Returned. EDMS 09:03 Ankle, Complete Returned. EDMS 10:12 PCR was scanned into [employer] and attached to record. gb Administered Medications: 07/24 23:14 Drug: traMADol 50mg- 4 pack 1 packets [tramadol 50 mg tablet (1 tabs)] {Co-Signature: kas2 tm5 (Yeni Fox RN).} Route: PO; Order Results: Radiology Order: Ankle, Complete Test: Ankle, Complete REASON FOR EXAMINATION: Trauma; Left ankle series: Four views.; ; History: Trauma.; ; Findings: There is a transverse fracture through the distal fibular metaphysis.; There is diffuse osteoporosis. No displacement is seen. Osteoarthritic spurring; is seen at the ankle. Plantar and Achilles calcaneal spurring and midfoot; osteoarthritic spurring are seen. Anterolateral swelling.; ; Impression:; ; Distal fibular fracture nondisplaced. Osteoporosis and heel and midfoot and; ankle osteoarthritic spurring.; ; ; Signed by; Damon Barcenas MD 07/25/2016 02:59 P; Radiology Order: Hip,AP,LAT to include Pelvis Test: Hip,AP,LAT to include Pelvis REASON FOR EXAMINATION: Trauma; Pelvis, left hip: Three views.; ; History: Trauma.; ; Findings: The bony pelvic ring is intact. No pelvic, hip or sacral fracture is; seen. Left femoral head is smooth and rounded and hip joint space is intact.; Periarticular soft tissues are unremarkable.; ; Impression:; ; No fracture noted.; ; ; Signed by; Damon Barcenas MD 07/25/2016 02:59 P; Outcome: 23:02 Discharge ordered by Provider. pc 23:28 Discharge Assessment: patient administered narcotics - no. The following High Risk kas2 Discharge criteria are identified: None. Discharged to home via wheelchair, with crutches, with family. Condition: good Condition: stable Condition: improved. No special radiology studies were completed. Property :Personal belongings accompany Pt. 23:29 Patient left the ED. kas2 Signatures: Dispatcher [employer] EDMS Brayden Mejia MD MD pc Jess Lofton, Services Mgr Unit lbd Fabiola Soto, Reg Reg gb Katt Pryor Destiny, MANAGER CARDIAC CATH MANAGER CARDIAC CATH alex Cathy Carreon RN RN ttb Jad Macias, MANAGER CARDIAC CATH MANAGER CARDIAC CATH Annabelle Ambriz RN RN kas2 Yeni Fox RN tm5 Corrections: (The following items were deleted from the chart) 18:37 18:21 Presenting complaint: leo bailey Chart Complete MTDD
== END 2016-07-24 23:29 | disposition home or self-care (01) ==
LOC: M ED 18:14
DX: S82.65XA Nondisplaced fracture of lateral malleolus of left fibula, initial encounter for closed fracture (principal); S70.02XA Contusion of left hip, initial encounter; W00.0XXA Fall on same level due to ice and snow, initial encounter; Y92.89 Other specified places as the place of occurrence of the external cause; Y93.01 Activity, walking, marching and hiking; Y99.8 Other external cause status; E78.00 Pure hypercholesterolemia, unspecified; I10 Essential (primary) hypertension; E03.9 Hypothyroidism, unspecified; M54.2 Cervicalgia; F41.9 Anxiety disorder, unspecified; Z85.820 Personal history of malignant melanoma of skin; Z87.891 Personal history of nicotine dependence; Z79.899 Other long term (current) drug therapy; Z88.2 Allergy status to sulfonamides; Z88.5 Allergy status to narcotic agent; Z88.6 Allergy status to analgesic agent; Z91.040 Latex allergy status; Z88.0 Allergy status to penicillin

== ENCOUNTER 2016-11-09 19:23 | Emergency (ER) | payer MEDICARE, OTHER ==
[~2016-11-09] VITALS: Ht 162.6 cm; Wt 75.7 kg
[2016-11-09 19:32] VITALS: BP 162/115
[2016-11-09] MEDS ORDERED: SERT-155 (19:44)
[2016-11-09] MEDS ORDERED: IRBE150T14 (19:44)
[2016-11-09] MEDS ORDERED: CEFD1CAP8 (19:44)
[2016-11-09] MEDS ORDERED: MELO15TA4 (19:44)
--- NOTE | 2016-11-09 21:20 | REPUSA ---
Clinical history: Pain, swelling. Findings: The right common femoral, superficial femoral, popliteal, and other deep venous structures compress normally and demonstrate normal color Doppler flow. Normal venous waveforms with augmentatio n are seen. Impression: No evidence of deep vein thrombosis in the right femoral popliteal venous system.
--- NOTE | 2016-11-10 07:55 | REP ---
Clinical: Posterior knee pain. Technique: AP, lateral, bilateral oblique and sunrise views of the right knee. Findings: Advanced tricompartmental osteoarthritic degenerative changes are appreciated. Findings include osteophytosis, subchondral heterogeneity and cystic changes, joint space narrowing and elements of chondrocalcinosis. Overlying soft tissue swelling is appreciated and subtle joint effusion cannot be excluded. Impression: Advanced tricompartmental osteoarthritic degenerative changes. No obvious acute fracture. Anterior swelling. Signed by Ovi Negrete MD 11/10/2016 07:46 A
== END 2016-11-09 22:05 | disposition home or self-care (01) ==
LOC: M ED 20:16
DX: M17.11 Unilateral primary osteoarthritis, right knee (principal); M79.89 Other specified soft tissue disorders; I10 Essential (primary) hypertension; J45.909 Unspecified asthma, uncomplicated; E78.9 Disorder of lipoprotein metabolism, unspecified; E07.9 Disorder of thyroid, unspecified; Z79.899 Other long term (current) drug therapy; Z79.82 Long term (current) use of aspirin; Z88.5 Allergy status to narcotic agent; Z88.0 Allergy status to penicillin; Z88.8 Allergy status to other drugs, medicaments and biological substances; Z91.040 Latex allergy status

== ENCOUNTER → 2016-11-28 | Outpatient (CLI) | payer MEDICARE, OTHER ==
[~2016-11-28] MED LIST changes: +ACET-683 PO; +ACET50TAOT PO; +AMLO2.5T PO; +AMLO25TA PO; +CEFD1CAP8; +CIPR-249 PO; +COUM1TAB17 PO; +COUM2.5T17 PO; +CRES10TA32 PO; +DESL5TAB4 PO; +DOCU100C16 PO; +FLON1SPR; +FLUT1LOT; +IMIQ5CRE EXT; +IRBE150T14; +IRBE150T14 PO; +LEVO100T5 PO; +MELO15TA4; +METO-346 PO; +METO1TAB87 PO; +METO37.5 PO; +NUCY50TA6 PO; +REFR0.5D8 OU; +SALI0.6523; +SERT-155; +SERT50TA PO; +STOO100C PO
--- NOTE | 2016-11-28 16:26 | REP ---
BILATERAL MAMMOGRAM: FAMILY HISTORY: Sister with breast cancer. MLO and CC views of both breasts performed and compared to multiple prior exams, the most recent of which is 06/23/2015. Heterogeneous moderate fibroglandular tissue is again seen bilaterally. There is a questionable spiculated nodule in the lower outer left breast. Recommend spot compression views and ultrasound to further evaluate. No other definite mass is seen and there is no evidence of clustered microcalcifications. IMPRESSION: ACR 0 incomplete. Possible spiculated nodule lower outer left breast measuring approximately 8 mm in diameter. Spot compression views and ultrasound are recommended to further evaluate. BI-RADS/ACR category 0 mammogram. Incomplete. Additional imaging and/or prior images are needed before a final assessment can be assigned. This mammogram was interpreted with the aid of an FDA-approved computer-aided detection system. The patient states she/he had a clinical breast exam in November 2016. The patient letter being requested is M0.
== END ==
LOC: M WHC 13:54
PROVIDERS: ATTEND Nurse Practitioner Women's Health
DX: Z12.31 Encounter for screening mammogram for malignant neoplasm of breast (principal); R92.8 Other abnormal and inconclusive findings on diagnostic imaging of breast; Z80.3 Family history of malignant neoplasm of breast; N95.2 Postmenopausal atrophic vaginitis; Z12.39 Encounter for other screening for malignant neoplasm of breast
CPT/HCPCS: G0101; G0202

== ENCOUNTER → 2017-01-08 | Outpatient (CLI) | payer MEDICARE, OTHER ==
[~2017-01-08] MED LIST changes: +LIDOCAINE 1% MDV 20ML VIAL As Ordered ONE
--- NOTE | 2017-01-08 15:18 | REP ---
POST BIOPSY MAMMOGRAM LEFT BREAST: Post biopsy mammogram left breast performed in the ML and CC projections, following and ultrasound guided biopsy of a nodule in the lower outer left breast. A metallic clip is seen at the site of the nodule. Signed by Aniket Jones MD 01/08/2017 03:32 P
--- NOTE | 2017-01-08 17:33 | REP ---
ULTRASOUND GUIDED LEFT BREAST BIOPSY: The procedure was performed under the direct supervision of Dr. Jones. The patient has a history of an irregular nodule in the 3 o'clock position of the left breast seen on a previous ultrasound performed at [facility] on 12/04/2016. The risks and benefits of the procedure were explained to the patient and informed consent was obtained. The left breast nodule was localized using ultrasound guidance. The skin was prepped and draped in a sterile fashion 1% Xylocaine was used as a local anesthetic. Using ultrasound guidance a 13-gauge suction assisted mammotome needle was inserted and 5 core biopsy samples were obtained and sent to the lab. A marker clip was placed at the biopsy site. The patient tolerated the procedure well and there were no immediate complications. After the appropriate amount of monitored convalescence the patient was discharged from the department. Reviewed by KRISHNA Grigsby 01/09/2017 01:40 PEdited and Signed by Aniket Jones MD 01/10/2017 05:38 P
== END ==
LOC: M RADPRO 12:17
PROVIDERS: ATTEND Surgery
DX: C50.919 Malignant neoplasm of unspecified site of unspecified female breast (principal); Z88.5 Allergy status to narcotic agent; Z88.0 Allergy status to penicillin; Z88.8 Allergy status to other drugs, medicaments and biological substances; Z91.040 Latex allergy status
CPT/HCPCS: 19083; 88305; G0206

== ENCOUNTER 2017-01-24 10:37 | Day surgery (SDC) | payer MEDICARE, OTHER ==
[~2017-01-24] VITALS: Ht 162.6 cm; Wt 74.4 kg
[2017-01-24] MEDS: LR 1,000 ML IV SCH ×2 (10:00→12:45)
[~2017-01-24 10:37] MED LIST changes: -ACET-683 PO; -ACET50TAOT PO; -AMLO2.5T PO; -CIPR-249 PO; -COUM1TAB17 PO; -COUM2.5T17 PO; -DESL5TAB4 PO; -DOCU100C16 PO; -FLON1SPR; -IRBE150T14 PO; -LIDOCAINE 1% MDV 20ML VIAL As Ordered ONE; -METO-346 PO; -METO1TAB87 PO; -NUCY50TA6 PO; -SALI0.6523; -SERT50TA PO
[2017-01-24] MEDS ORDERED: METO-346 PO (11:45)
[2017-01-24] MEDS ORDERED: LIDOCAINE 1% MDV 20ML VIAL As Ordered ONE (12:11)
[2017-01-24] MEDS ORDERED: LIDOCAINE 2% INJ 100 MG/5 ML SDV (FOR ANES.) As Ordered ONE (13:09)
[2017-01-24] MEDS ORDERED: fentaNYL 100 MCG/2 ML INJECTION (J3010) As Ordered ONE (13:09)
[2017-01-24] MEDS ORDERED: MIDAZOLAM INJ 2 MG/2 ML VIAL (J2250) As Ordered ONE (13:09)
[2017-01-24] MEDS ORDERED: PROPOFOL 200 MG/20 ML VIAL As Ordered ONE (13:09)
[2017-01-24] MEDS ORDERED: BUPIVACAINE HCL 0.25% 30 ML VIAL As Ordered ONE (13:35)
[2017-01-24] MEDS ORDERED: LIDOCAINE 1% SDV INJ 30 ML VIAL As Ordered ONE (13:35)
[2017-01-24] MEDS ORDERED: KETOROLAC 60 MG/2 ML VIAL (J1885) As Ordered ONE (15:13)
[2017-01-24] MEDS ORDERED: ONDANSETRON 4MG/2ML VIAL (J2405) As Ordered ONE (15:13)
[2017-01-24] MEDS ORDERED: dexameTHASONE 4 MG/ML 1ML VIAL (J1100) As Ordered ONE (15:13)
[2017-01-24] MEDS ORDERED: HYDROmorphone HCL 2 MG/ML 1ML VIAL (J1170) As Ordered ONE (15:23)
[2017-01-24] MEDS: LABETALOL HCL 100 MG/20 ML VIAL IV SCH ×2 (16:10→16:26)
[2017-01-24 16:26] VITALS: BP 156/66
[2017-01-24] MEDS ORDERED: LR 1,000 ML IV SCH (16:30)
[2017-01-24] MEDS ORDERED: ACETAMINOPHEN TAB 650MG DOSE (2X325MG) PO PRN (16:30)
[2017-01-24] MEDS ORDERED: ONDANSETRON 4MG/2ML VIAL (J2405) IV PRN (16:30)
[2017-01-24] MEDS ORDERED: fentaNYL 100 MCG/2 ML INJECTION (J3010) IV PRN (16:30)
--- NOTE | 2017-01-24 17:05 | REP ---
SPECIMEN RADIOGRAPH: A specimen radiograph performed following lumpectomy. The patient underwent needle localization of a previously biopsied site which was positive for malignancy. Metallic clip marked the biopsy site. The metallic clip is seen in the specimen. Signed by Aniket Jones MD 01/25/2017 05:03 P
[2017-01-24] MEDS ORDERED: oxyCODONE 5MG TAB PO SCH (18:15)
[2017-01-24 18:30] VITALS: BP 167/77
--- NOTE | 2017-01-24 19:11 | REP ---
LEFT BREAST LOCALIZATION: The procedure was performed under the direct supervision of Dr. Jones. The patient has a history of an irregular nodule in the 3-o'clock position of the left breast seen on a previous ultrasound performed at [facility] on 12/04/2016. The patient had an ultrasound guided left breast biopsy performed on 01/08/2017. A marker clip was placed at the biopsy site. The risks and benefits of the procedure were explained to the patient and informed consent was obtained. A lateral medial approach was utilized. The marker clip was localized using mammographic guidance. The skin was prepped and draped in a sterile fashion. 1% Xylocaine was used as a local anesthetic. A 5 cm [place] needle wire system was inserted. Followup mammographic images demonstrate good needle placement. The patient tolerated the procedure well and there were no immediate complications. Reviewed by KRISHNA Grigsby 01/25/2017 05:12 PEdited and Signed by Aniket Jones MD 01/25/2017 05:19 P
--- NOTE | 2017-01-26 14:35 | RO ---
DATE OF PROCEDURE: 01/24/2017 PREOPERATIVE DIAGNOSIS: Invasive ductal carcinoma of left breast, lower outer quadrant. POSTOPERATIVE DIAGNOSIS: Invasive ductal carcinoma of left breast, lower outer quadrant. PROCEDURE PERFORMED: Needle localized left partial mastectomy(lumpectomy). SURGEON: Dr. Guille Llanes COINING PRESS OPERATOR: ANESTHESIA: General. INDICATIONS FOR PROCEDURE: The patient is a very pleasant 76-year-old woman who had undergone a mammogram in November of 2016 that suggested a spiculated nodule in the lower outer quadrant of the left breast. This was confirmed on diagnostic imaging, and an ultrasound showed an approximately 6 mm irregular density. An ultrasound-guided biopsy of this lesion was obtained. The pathology reported a minute focus (1 mm) of invasive ductal carcinoma with apocrine features. The specimen was too small to allow testing for estrogen and progesterone receptors and HER2/marisol. The patient is now for a needle localized left partial mastectomy (lumpectomy). DESCRIPTION OF PROCEDURE: The patient was taken to the x-ray department where a localizing wire was placed. She was moved to the operating room and placed on the operating table in the supine position. She was placed under general endotracheal anesthesia. The patient's left breast and chest wall were prepped and draped in a sterile fashion. The localizing wire entered the lower outer quadrant of the breast and was directed primarily superiorly, roughly paralleling the chest wall. A 4 cm needle had been utilized with the guidewire. The approximate position of the specimen was outlined on the skin, and the images from the localizing procedure were reviewed. A slightly oblique transversely oriented ellipse of skin approximately 5 cm in length x 1-1/2 cm in width was outlined encompassing the needle entry point. Approximately two-thirds of this ellipse was lateral to the entry point of the guidewire. The skin was incised using a scalpel, and the dissection was carried down into the breast using the needle-tip cautery. Retractors were utilized to open the wound and a core of tissue was excised deeply into the breast, completely surrounding the guidewire. A piece of tissue approximately 5 cm deep x 5 cm in width x 4 cm in length was excised. There was no definite mass palpable within the specimen. The specimen was labeled using the Vector margin marker system. A specimen image was obtained using the [employer] device. This showed the marker clip from her biopsy centrally located within the specimen with the guidewire passing close to this. The specimen was sent for permanent pathology. The wound was inspected and hemostasis was ensured with electrocautery. The subcutaneous tissues were approximated with buried #2-0 Vicryl sutures. The skin edges were approximated with a running subcuticular #4-0 Vicryl and Steri- Strips. 10-15 mL of 0.25% Marcaine had been infiltrated about the wound prior to closure. A bulky bandage was applied, held in place with paper tape. The patient tolerated the procedure well without apparent complication. She was awakened in the operating room, extubated and moved to the recovery room in stable condition. PEDRO LUIS
[2017-02-15] MEDS ORDERED: METO1TAB87 PO (10:44)
[2017-02-15] MEDS ORDERED: ACET-683 PO (10:44)
== END 2017-01-24 18:35 | disposition home or self-care (01) ==
LOC: M SDC 10:37
PROVIDERS: ATTEND Surgery
DX: D05.12 Intraductal carcinoma in situ of left breast (principal); I10 Essential (primary) hypertension; R21 Rash and other nonspecific skin eruption; E78.00 Pure hypercholesterolemia, unspecified; F41.9 Anxiety disorder, unspecified; E07.9 Disorder of thyroid, unspecified; G96.9 Disorder of central nervous system, unspecified; G47.9 Sleep disorder, unspecified; Z88.5 Allergy status to narcotic agent; Z88.8 Allergy status to other drugs, medicaments and biological substances; Z88.0 Allergy status to penicillin; Z88.1 Allergy status to other antibiotic agents; Z91.040 Latex allergy status; Z79.899 Other long term (current) drug therapy
CPT/HCPCS: 19125; 72265; 76098; 88307; J1100; J1170; J1885; J2250; J2405; J3010

== ENCOUNTER → 2017-02-15 | Outpatient (CLI) | payer MEDICARE, OTHER ==
[~2017-02-15] MED LIST changes: +ACET-683 PO; +ACET50TAOT PO; +AMLO2.5T PO; +CIPR-249 PO; +COUM1TAB17 PO; +COUM2.5T17 PO; +DESL5TAB4 PO; +DOCU100C16 PO; +FLON1SPR; +IRBE150T14 PO; +METO-346 PO; +METO1TAB87 PO; +NUCY50TA6 PO; +SALI0.6523; +SERT50TA PO
[2017-02-15 13:10] LABS: INR 0.98
[2017-02-15 13:12] LABS: MEAN CORPUSCULAR HGB CONC 32.2 g/dl (32.0-36.5); MEAN CORPUSCULAR VOLUME 86.9 fl (80.0-96.0); WHITE BLOOD COUNT 6.9 K/mm3 (4.0-10.0)
[2017-02-15 13:23] LABS: ALBUMIN 3.7 GM/DL (3.2-5.2); ALBUMIN/GLOBULIN RATIO 1.19 (1.00-1.93); BILIRUBIN,TOTAL 0.5 MG/DL (0.2-1.0); CALCIUM LEVEL 9.1 MG/DL (8.8-10.2); CREATININE FOR GFR 1.01 MG/DL (0.55-1.02); GLOMERULAR FILTRATION RATE 56.4 (>39); POTASSIUM SERUM 3.8 MEQ/L (3.5-5.1); TOTAL PROTEIN 6.8 GM/DL (6.4-8.2)
--- NOTE | 2017-02-15 18:17 | REP ---
Chest x-ray: Two views: History: Hypertension. Elevated cholesterol. Comparison study: 04/17/2016. Findings: There is mild to moderate cardiomegaly. Cardiothoracic ratio measures 17.3 cm over 29.5 cm. The aorta is tortuous and calcific. Pulmonary vasculature is not increased. There are calcific granulomatous lymph node residuals in the mediastinum. There is a granulomatous calcification in the right lower lobe of the lung. Pleural angles are sharp. There are degenerative changes in the thoracic spine. Impression: Moderate cardiomegaly. Old granulomas calcific gwendolyn residuals. Otherwise no active disease. Signed by Damon Barcenas MD 02/19/2017 08:17 A
--- NOTE | 2017-02-16 09:39 | ECGEPIP ---
Stationary ECG Study [facility] Test Date: 2017-02-15 Pat Name: THOR LAST Department: Room: - Gender: F Chief Compliance Officer: : 1940 Requested By: Venu Gary Order Number: [id number] Reading MD: Chandrakant Del Valle Measurements Intervals [place] Rate: 61 P: 87 OR: 187 QRS: 21 QRSD: 86 T: 32 QT: 424 QTc: 429 Interpretive Statements SINUS RHYTHM Normal Electronically Signed On 02-16-2017 9:39:32 EDT by Chandrakant Del Valle
== END ==
LOC: M ADMPAT 10:25
PROVIDERS: ATTEND Orthopaedic Surgery
DX: Z01.818 Encounter for other preprocedural examination (principal); M17.11 Unilateral primary osteoarthritis, right knee; I42.9 Cardiomyopathy, unspecified; I10 Essential (primary) hypertension

== ENCOUNTER 2017-03-04 10:08 | Inpatient (IN) | payer MEDICARE, OTHER ==
[2017-02-15 11:16] VITALS: BP 132/82
--- NOTE | 2017-03-01 17:00 | HPE ---
DATE OF ADMISSION: 03/04/2017 CHIEF COMPLAINT: Right knee pain. HISTORY OF PRESENT ILLNESS: This is a pleasant, 76-year-old female with progressively worsening right knee pain and stiffness. She has failed to improve with conservative treatment. She is elected for surgery for her continued symptoms. She has pain with weightbearing activities and her activities of daily living. X-rays of her knee are notable for advanced osteoarthritis of the right knee joint. She has consented for a right total knee arthroplasty by Dr. Abdirahman Mott. Medical optimization was performed by Dr. Cifuentes. ALLERGIES: PENICILLIN, IBUPROFEN, FLOXIN, LATEX, and BACTRIM. CURRENT MEDICATIONS: - acetaminophen 160 mg as needed - amlodipine 5 mg one by mouth every day - Astelin HCL nasal 0.1% - clobetasol 0.05% as needed - Crestor 10 mg once a day - desloratadine 5 mg once a day - desonide 0.05% powder - Fiber Choice 1.5 grams two by mouth every day - irbesartan/hydrochlorothiazide 150/12.5 once a day - meloxicam 15 mg every day - metoprolol 25 mg two by mouth every day - Refresh Celluvisc 1% - stool softener 100 mg two by mouth twice a day - Synthroid 100 mcg one by mouth every day - Viactiv 500/500/40 once a day PAST MEDICAL HISTORY: 1. Hypothyroidism. 2. Seasonal allergies. 3. Hypertension. 4. Hyperlipidemia. PAST SURGICAL HISTORY: 1. Cholecystectomy. 2. Hysterectomy. 3. Right breast biopsy. 4. Surgical hernia repair. 5. Right and left cataracts removal. SOCIAL HISTORY: This patient quit smoking 25 years ago. She has one drink of alcohol every day, and she is retired. FAMILY HISTORY: Noncontributory. REVIEW OF SYSTEMS: She denies chest pain, heart palpitations, cough, wheezing, difficulty breathing, shortness of breath. She denies abdominal pain, nausea, vomiting or diarrhea or constipation. She denies recent upper respiratory infection or urinary tract infection symptoms. She does complain of persistent pain in her right knee with weightbearing activities and activities of daily living. PHYSICAL EXAMINATION: GENERAL: She is a well-nourished, well-developed, in no acute distress alert female patient. She ambulated with a moderate limp favoring the right lower extremity. She is not using assistive devices. VITAL SIGNS: She is 63 inches tall, weighs 168 pounds, has a temperature of 97.5, blood pressure 160/78, pulse of 62, and respirations of 18. NECK: Supple without adenopathy or jugular venous distention. LUNGS: Clear to auscultation without rales or wheeze throughout. HEART: Regular rate and rhythm. ABDOMEN: Bowel sounds were present. EXTREMITIES: Examination of the knee revealed intact skin. She had decreased range of motion on exam secondary to pain and stiffness. The limb is neurovascularly intact. LABORATORY DATA: Chest x-ray showed moderate cardiomegaly with old granulomas; otherwise, no acute active disease. EKG showed sinus rhythm at 61 beats per minute. Nasal and sinus culture showed normal laureen. Urinalysis (UA) showed trace leukocyte esterase and 1+ bacteria; otherwise within normal limits with a specific gravity of 1.018. Prothrombin time 13.1, INR 0.98, glucose 93, BUN 30, creatinine 1.01. Sodium 142, potassium 3.8. CBC showed hemoglobin of 11.3, hematocrit of 35, red cell distribution width of 15, otherwise within normal limits. Sed rate was 41. Urine culture showed no growth. IMPRESSION: Symptomatic osteoarthritis of the right knee. PLAN: Consented for a right total knee by Dr. Abdirahman Mott.
[~2017-03-04] VITALS: Ht 162.6 cm; Wt 74.8 kg
[~2017-03-04 10:08] MED LIST changes: -ACET50TAOT PO; -AMLO2.5T PO; -CIPR-249 PO; -COUM1TAB17 PO; -COUM2.5T17 PO; -DESL5TAB4 PO; -DOCU100C16 PO; -FLON1SPR; -IRBE150T14 PO; +LR 1,000 ML IV ONE; -NUCY50TA6 PO; -SALI0.6523; -SERT50TA PO
[2017-03-04] MEDS ORDERED: ceFAZolin 1GM INJ (J0690) As Ordered ONE (10:16)
[2017-03-04] MEDS ORDERED: TRANEXAMIC ACID 100 MG/ML 10ML VIAL As Ordered ONE (10:16)
[2017-03-04] MEDS ORDERED: EPINEPHrine INJ 1 MG/ML 1ML AMP As Ordered ONE (10:16)
[2017-03-04] MEDS ORDERED: BUPIVACAINE LIPOSOME/PF 1.3% 20 ML VIAL (13.3MG/ML)(EXPAREL) As Ordered ONE (10:17)
[2017-03-04] MEDS ORDERED: CLINDAMYCIN INJ 900MG/6ML VIAL As Ordered ONE (10:23)
[2017-03-04] MEDS ORDERED: LIDOCAINE 1% SDV 5 ML VIAL SQ ONE (10:30)
[2017-03-04] MEDS ORDERED: ACETAMINOPHEN 500 MG TAB PO ONE ×3 (10:30→11:00)
[2017-03-04] MEDS ORDERED: COUM1TAB17 PO (11:13)
[2017-03-04] MEDS ORDERED: fentaNYL 100 MCG/2 ML INJECTION (J3010) As Ordered ONE ×2 (11:45→12:52)
[2017-03-04] MEDS ORDERED: MIDAZOLAM INJ 2 MG/2 ML VIAL (J2250) As Ordered ONE ×2 (11:45→12:52)
[2017-03-04] MEDS ORDERED: fentaNYL 100 MCG/2 ML INJECTION (J3010) IV ONE (12:30)
[2017-03-04] MEDS ORDERED: MIDAZOLAM INJ 2 MG/2 ML VIAL (J2250) IV ONE (12:30)
[2017-03-04] MEDS ORDERED: ROPIvacaine 0.5% 30 ML INJECTION (J2795) ONE (12:48)
[2017-03-04] MEDS ORDERED: LIDOCAINE 1% MDV 20ML VIAL ONE (12:48)
[2017-03-04] MEDS ORDERED: dexameTHASONE 10 MG/1 ML VIAL PRES.FREE (J1100) ONE (12:48)
[2017-03-04] MEDS ORDERED: LIDOCAINE 2% INJ 100 MG/5 ML SDV (FOR ANES.) As Ordered ONE (12:52)
[2017-03-04] MEDS ORDERED: PROPOFOL 200 MG/20 ML VIAL As Ordered ONE (12:52)
[2017-03-04] MEDS ORDERED: MORPHINE 1MG/ML IN 0.9% NACL 100ML IV BAG As Ordered ONE (14:06)
[2017-03-04] MEDS ORDERED: LR 1,000 ML IV SCH (15:00)
[2017-03-04] MEDS ORDERED: ACETAMINOPHEN TAB 650MG DOSE (2X325MG) PO PRN (15:00)
[2017-03-04] MEDS ORDERED: MORPHINE 1MG/ML IN 0.9% NACL 100ML IV BAG IV PRN (15:00)
[2017-03-04] MEDS ORDERED: diphenhydrAMINE INJ 50MG/ML VIAL (J1200) IV PRN (15:00)
[2017-03-04] MEDS ORDERED: EPIDURAL/PCA KEYS XX PRN (15:00)
[2017-03-04] MEDS ORDERED: FLEET ENEMA PR PRN (15:00)
[2017-03-04] MEDS ORDERED: NALOXONE INJ 0.4 MG/1 ML VIAL (J2310) IV PRN (15:00)
[2017-03-04] MEDS ORDERED: ONDANSETRON 4MG/2ML VIAL (J2405) IV PRN ×2 (15:00)
[2017-03-04] MEDS ORDERED: NALBUPHINE HCL 10 MG/ML AMP (J2300) IV PRN (15:00)
[2017-03-04] MEDS ORDERED: fentaNYL 100 MCG/2 ML INJECTION (J3010) IV PRN (15:00)
[2017-03-04] MEDS ORDERED: LABETALOL HCL 100 MG/20 ML VIAL As Ordered ONE (15:15)
[2017-03-04] MEDS: LABETALOL HCL 100 MG/20 ML VIAL IV PRN ×2 (15:20→15:25)
--- NOTE | 2017-03-04 15:22 | CR ---
DATE OF CONSULTATION: 03/04/2017 PRIMARY CARE PROVIDER: Dr. Omar Cifuentes CABLE INSTALLER: Dr. Willis CONSULTING HOSPITALIST: Dr. Celeste Reynaga Postoperative medical consultation on Rocio Doxtater. Patient of Dr. Cifuentes who was seen after undergoing right knee replacement. She has a history of coronary artery disease. She underwent cardiac catheterization at [facility] in 03/31. Ejection fraction 70%. She had a 75% focal stenosis in the ramus, which is nonobstructive. Medical therapy was recommended. She had a preoperative clearance done by cardiology. Other cardiac history shows paroxysmal atrial fibrillation. She had a brief burst of atrial fibrillation during nuclear stress test. Had a Holter monitor, no atrial fibrillation was noted. Declined anticoagulation, did agree to oral aspirin. She probably has sleep apnea. She had an overnight oximetry done last year that reportedly was abnormal but she is not willing to use CPAP. Past history includes hypertension, hyperlipidemia, environmental allergies, hypothyroidism, mild intermittent asthma, anxiety, depression, left breast cancer in 01/31, status post lumpectomy with followup appointment with Dr. Laurel Patel of oncology pending. History of polymyalgia rheumatica on admission. MEDICATIONS: - metoprolol tartrate 25 mg once a day - amlodipine 2.5 mg daily - Avalide 12.5 two tablets daily - sertraline 50 mg daily - Flonase nasal spray - Crestor 10 mg daily - 15 mg daily - Synthroid 100 mcg daily - Clarinex 5 mg daily - aspirin daily ALLERGIES: PENICILLIN, LATEX, IBUPROFEN, FLOXIN OTIC DROPS, BACTRIM, FLU SHOT, TOPICAL DICLOFENAC. 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 SOCIAL HISTORY: Nonsmoker for over 10 years. Smoked one pack per day. REVIEW OF SYSTEMS: She denies any current chest pain, shortness of breath, palpitations. She feels well postoperatively. PHYSICAL EXAMINATION: VITAL SIGNS: As per flow sheet. GENERAL APPEARANCE: No distress. Pupils are equal, round and reactive to light. Tympanic membranes are normal. Oropharynx benign. NECK: No masses. LUNGS: Clear. HEART: Regular rate and rhythm. ABDOMEN: Soft, nontender. IMPRESSION: 1. Hypertension. Continue her beta imani therapy. She is on short-acting metoprolol 25 once a day, we will change this to 25 mg twice a day. At this point, we will hold her amlodipine and her Avalide to see what her postoperative blood pressures are like. 2. Depression. Continue sertraline 50 mg daily to avoid selective serotonin reuptake inhibitors (SSRIs) withdrawal syndrome. 3. Hyperlipidemia. Continue Crestor 10 mg daily. 4. Hypothyroidism. Continue levothyroxine [address] Reynaga will be assuming her medical care in the morning.
[2017-03-04 17:00] VITALS: BP 150/69
[2017-03-04] MEDS ORDERED: WARFARIN SOD 5 MG TAB PO ONE (17:00)
[2017-03-04 17:30] VITALS: BP 155/77
--- NOTE | 2017-03-04 17:58 | RO ---
DATE OF PROCEDURE: 03/04/2017 PREPROCEDURE DIAGNOSIS: Right knee degenerative arthritis. POSTPROCEDURE DIAGNOSIS: Right knee degenerative arthritis. PROCEDURE: Right total knee arthroplasty using a size 3 femoral component, size 3 tibial tray with a rotating platform 10 mm polyethylene insert and a 35 mm polyethylene button. All the components were cemented. Prosthesis was made by [employer]; it was a PFC knee. SURGEON: Dr. Venu Mott ESTATE MANAGER: Mr. Js Bae ANESTHESIA: Spinal with right femoral nerve block. COMPLICATIONS: None. ESTIMATED BLOOD LOSS: Less than 20 mL. SPECIMENS: Joint surface. DESCRIPTION OF PROCEDURE: Antibiotics were given intravenously preoperatively, then a successful right femoral nerve block and spinal anesthetic was induced. Tourniquet was placed on the right upper thigh, Paris catheter was placed and after appropriate time-out, the leg was elevated and the tourniquet was inflated and then a longitudinal incision was made for a medial parapatellar approach to the knee. Bovie cautery was used to coagulate the crossing vessels. Subperiosteal dissection around the proximal, medial and lateral tibial condyles was performed and then we everted the patella and flexed the knee. A drill was placed down the center of the femoral canal, followed by the intramedullary pramod and the distal femoral cutting block. It was set at a 10 mm resection level at 5 degree valgus for a right knee. Distal femoral cut was performed. The AP sizing jig measured for a size 3, which was then clamped in position followed by the 3-degree external rotation block and then the 4-in-1 block applied. Anterior, posterior, chamfer cuts were then performed taking great care to protect the surrounding soft tissues. We then exposed the proximal tibia, used the extramedullary pramod to estimate being parallel to the mechanical axis of the tibia. We referenced off the medial tibial condyle at 4 mm resection level, pinned the block in that position. A secondary check with the pramod confirmed we had good position and appeared to be parallel to the mechanical axis. Proximal tibial osteotomy was then performed. The lamina fly frame tender was then placed medially and performed a completion lateral meniscectomy, debridement of the posterolateral osteophytes. We then placed the lamina fly frame tender laterally and performed a completion medial meniscectomy, debridement of the posteromedial osteophytes. We then placed a spacer block, and a 10 mm actually fit nicely with good stability to varus, valgus stress testing both in flexion and in extension. We then exposed the proximal tibia and sized for a #3 tray, which was pinned into position, followed by the reamer and broach, and then a trial polyethylene was placed, followed by the trial femoral component, brought the knee into extension, everted the patella and performed a patellar osteotomy, sized for a size 35 button. Lug holes were drilled and patellofemoral tracking was anatomic. We then removed all of the trial components after drilling the lug holes for the femur. We then placed some tranexamic acid into the posterior aspect of the knee and around the periosteum of the femur medially and laterally along the capsular margins. Mr. Js Bae then mixed the cement on the back table as I prepared the bony surfaces for cementing with a copious amount of pulsatile lavage irrigant solution, dried the surfaces thoroughly. Then, we cemented the tibial tray, removed excess cement, placed the polyethylene, then cemented the femoral component, removed the excess cement, brought the knee into extension, cemented the polyethylene button, held it with a clamp until the cement hardened with knee in full extension after removing the cement. Once we copiously irrigated, we then instilled the tranexamic acid and then began closing the apex of the arthrotomy with two #1 PDS sutures, then one in the medial parapatellar area with #1 PDS suture. Flexion and extension showed that the capsule remained intact with good patellar tracking as we flexed and extended the knee. Then, we used a double arm #1 Stratafix to close the capsule, then released the tourniquet. We then irrigated between layers, closed the deep subdermal tissues with interrupted #2-0 PDS suture, skin was closed with yarelis, covered by Adaptic dry sterile bulky dressing. Mr. Js Bae was critical to the success of the procedure by helping to mix the cement, helped to manipulate the knee in flexion and extension many times throughout the operation, as well as helped with soft tissue retraction and closing the wound amongst many other tasks to allow me to do the operation smoothly and efficiently.
[2017-03-04 18:00] VITALS: BP 142/65
[2017-03-04] MEDS: SERTRALINE HCL 50 MG TAB PO SCH (18:22)
[2017-03-04] MEDS: LR 1,000 ML IV SCH (18:23)
[2017-03-04] MEDS: ROSUVASTATIN 10 MG TAB (CRESTOR) PO SCH (20:22)
[2017-03-04] MEDS: METOPROLOL TART 25 MG TABLET PO SCH (20:22)
[2017-03-04 22:00] VITALS: BP 173/85
[2017-03-05] MEDS: LR 1,000 ML IV SCH (01:13)
[2017-03-05 02:00] VITALS: BP 150/80
[2017-03-05 06:00] VITALS: BP_SYST 154; BP_DIAS 65; BP_DIAS 85
[2017-03-05] MEDS: LEVOTHYROXINE 100MCG TABLET (0.1MG) PO SCH (06:01)
[2017-03-05] MEDS ORDERED: traMADol 50 MG TAB PO PRN (06:45)
[2017-03-05 07:08] LABS: MEAN CORPUSCULAR HEMOGLOBIN 28.4 pg (27.0-33.0); MEAN CORPUSCULAR HGB CONC 32.9 g/dl (32.0-36.5); MEAN CORPUSCULAR VOLUME 86.2 fl (80.0-96.0); RED CELL DISTRIBUTION WIDTH 14.6 % (11.5-14.5); WHITE BLOOD COUNT 8.5 K/mm3 (4.0-10.0)
[2017-03-05 07:13] LABS: INR 1.14
[2017-03-05 07:30] LABS: CALCIUM LEVEL 8.8 MG/DL (8.8-10.2); CREATININE FOR GFR 0.97 MG/DL (0.55-1.02); GLOMERULAR FILTRATION RATE 59.1 (>39); POTASSIUM SERUM 3.7 MEQ/L (3.5-5.1)
[2017-03-05] MEDS: MIRALAX *UNIT DOSE* 17GM PACKET PO SCH (09:06)
[2017-03-05] MEDS: SENOKOT S TAB PO SCH ×2 (09:06→21:33)
[2017-03-05] MEDS: MOM 30ML SUSPENSION UDC PO SCH (09:06)
[2017-03-05] MEDS: METOPROLOL TART 25 MG TABLET PO SCH ×2 (09:07→21:33)
[2017-03-05] MEDS: SERTRALINE HCL 50 MG TAB PO SCH (09:07)
[2017-03-05] MEDS: traMADol 50 MG TAB PO PRN ×3 (09:08→21:33)
[2017-03-05 10:00] VITALS: BP 148/82
--- NOTE | 2017-03-05 10:29 | CR.PDOC ---
[facility] Consultation Consultation DATE OF CONSULTATION: PRIMARY CARE PHYSICIAN: Dr. Cifuentes REFERRING PROVIDER: Dr. Mott ATTENDING PHYSICIAN: Dr. Collins REASON FOR CONSULTATION/CHIEF COMPLAINT: management of htn, hypothyroidism, hyperlipidemia HISTORY OF PRESENT ILLNESS: 76 y/o female who is s/p right knee arthroplasty one day ago. Pt. states that her knee pain is tolerable but that her chronic neck pain seems to be bothering her more at this point in time. She states she has not eaten yet this morning but that she is hungry. She admits to a past medical history of high blood pressure, hypothyroidism and hyperlipidemia. She is very concerned that she has no one to help care for her at home when she is discharged. She is also complaining that her oxygen nasal cannula is drying out her nose and questions why she has it. ALLERGIES: Please see below. HOME MEDICATIONS: Please see below. PAST MEDICAL HISTORY: 1. HTN 2. Hyperlipidemia 3. Hypothyroidism 4. CAD 5. Anxiety/depression PAST SURGICAL HISTORY: 1. cholecystectomy 2. Hysterectomy 3. Right breast bx 4. Surgicial hernia repair 5. Right and left cataract removal FAMILY HISTORY: Father: non-contributory Mother: non-contributory Siblings: non-contributory Children: non-contributory Hereditary Diseases: non-contributory SOCIAL HISTORY: Marital status and/or living arrangements: pt lives at home by herself Employment: retired Tobacco use: quit smoking 25 years ago ETOH: daily alcohol use of one drink Illicit drug use: no IV drug use: no Other relevant social factors: pt lives at home by herself and is unable to care for herself REVIEW OF SYSTEMS: CONSTITUTIONAL: Denied change in sleep pattern but does admit that it is hard to rest in the hospital HEENT: denied headache or change in vision CARDIOVASCULAR: no dizzyness, no chest pain, no SOB RESPIRATORY: no SOB or cough, denied wheezing GENITOURINARY: no pain with urination, no blood in urine. MUSCULOSKELETAL: describes chronic neck pain intensified, minimal pain in right knee, has not tried weight bearing as of yet GASTROINTESTINAL: no n/v, no diarrhea, no constipation SKIN: no rashes or lesions NEUROLOGICAL: no headache or change in vision HEMATOLOGIC/LYMPHATIC: no easy bruising appreciated PHYSICAL EXAMINATION: VITAL SIGNS: Please see below. GENERAL APPEARANCE: AAOx3, NAD, laying comfortably in bed resting HEENT: EOMI, clear conjunctiva, nares patent b/l, moist mucus membranes RESPIRATORY: clear to auscultation b/l, no rhonchi or wheezes appreciated, no crackles, diminshed air entry likely secondary to body habitus. CARDIOVASCULAR: RRR, normal s1 and s2, no murmurs, rubs or gallops appreciated. ABDOMEN: NABSx4, obese, soft, non-distended, no rebound ridgity or guarding appreciated EXTREMITIES: no cyanosis, edema or clubbing appreciated NEUROLOGICAL: no focal deficits appreciated PSYCHIATRIC: affect appropriate LABORATORY DATA: Please see below. ASSESSMENT/PLAN: 1. As for the patients hypertension, will continue her home medications of amlodipine, metoprolol and irbsartan/hctz. 2. Will continue her home synthroid dose. 3. Continued crestor for hyperlipidemia. 4. Right knee surgery-will continue to work with PT, pending their eval., will anticipate d/c after this. 5. Depression - continue home SSRI 6. CAD - no current chest pain; continue home beta imani and statin; holding home ASA while on coumadin Vital Signs/I&O Vital Signs Date Time Temp Pulse Resp B/P (MAP) Pulse Ox O2 Delivery O2 Flow Rate FiO2 03/05/17 09:08 18 03/05/17 09:07 78 154/85 03/05/17 06:00 97.3 100 Room Air 03/04/17 20:25 2.0 I&O- Last 24 Hours up to 6 AM 03/05/17 06:00 Intake Total 1940 ml Output Total 1130 ml Balance 810 ml Laboratory Data Labs 24H Laboratory Tests 2 03/05/17 06:31: Prothrombin Time 14.8H, Prothromb Time International Ratio 1.14, Anion Gap 6L, Glomerular Filtration Rate 59.1, Blood Urea Nitrogen 24H, Creatinine 0.97, Sodium Level 139, Potassium Level 3.7, Chloride Level 101, Carbon Dioxide Level 32, Calcium Level 8.8 CBC/BMP Laboratory Tests 03/05/17 06:31 Red Blood Count 3.39 L, Mean Corpuscular Volume 86.2, Mean Corpuscular Hemoglobin 28.4, Mean Corpuscular Hemoglobin Concent 32.9, Red Cell Distribution Width 14.6 H, Calcium Level 8.8 Allergies Coded Allergies: Ibuprofen (Verified Allergy, Intermediate, HIVES - MOTRIN BRAND, 03/04/17) GENERIC IBUPROFEN [place] Penicillins (Verified Allergy, Intermediate, HIVES, 03/04/17) Penicillins Cross Reactors (Verified Allergy, Intermediate, HIVES, 03/04/17 ) Latex (Verified Allergy, Unknown, 02/15/17) Quinolones (Verified Allergy, Unknown, 02/15/17) Sulfamethoxazole w/Trimethoprim (Verified Allergy, Unknown, HIVES, 02/15/17) Codeine (Verified Adverse Reaction, Mild, N/V, 03/04/17) Home Medications Scheduled Acetaminophen (Acetaminophen Extra Stren) 500 Mg Tab, 1,000 MG PO QHS, (Reported ) Amlodipine Besylate (Norvasc) 2.5 Mg Tab, 2.5 MG PO DAILY, (Reported) Carboxymethylcellulose Sodium (Refresh Tears) 0.5 % Prakash, 0.5 % OU DAILY, ( Reported) Docusate Sodium (Stool Softener) 100 Mg Cap, 100 MG PO DAILY, (Reported) Fluticasone Propionate (Fluticasone Propionate) 0.05 % Lot, 0.05 % NA DAILY, ( Reported) Levothyroxine Sodium (Synthroid) 100 Mcg Tab, 100 MCG PO DAILY, (Reported) Metoprolol Tartrate (Metoprolol Tartrate) 25 Mg Tab, 25 MG PO DAILY, (Reported) Rosuvastatin (Crestor) 10 Mg Tab, 10 MG PO DAILY, (Reported) Warfarin Sod (Coumadin) 5 Mg Tab, 5 MG PO ONCE, (Reported) [Clarinex] , 5 MG OR DAILY, (Reported) Miscellaneous Medications (Irbesartan/Hydrochlorothi 150-12.5 mg) 1 Tab Tab, #60 (Reported) (Sertraline HCl) 50 Mg Tab, #30 (Reported) Meloxicam (Meloxicam) 15 Mg Tab, #30 (Reported) GME ATTESTATION GME ATTESTATION My preceptor for this patient encounter was physically present in the building during the encounter and was fully available. As needed, all aspects of the patient interview, examination, medical decision making process, and medical care plan development were reviewed and approved by the preceptor. Preceptor is aware and concurs with the plan as stated in the body of this note and will attest to such by his/her cosignature. BUTCH MOHAMUD DO Mar 05, 2017 10:29 RIN GOLDSTEIN Mar 05, 2017 13:50
[2017-03-05] MEDS: ONDANSETRON 4 MG TAB (S0181) PO PRN ×2 (12:12→16:29)
[2017-03-05] MEDS ORDERED: amLODIPine 5 MG TAB PO ONE (13:00)
[2017-03-05] MEDS: hydroCHLOROthiazide 12.5 MG CAPSULE PO SCH (13:45)
[2017-03-05] MEDS: IRBESARTAN 150 MG TAB PO SCH (13:46)
[2017-03-05 14:00] VITALS: BP 150/81
[2017-03-05] MEDS ORDERED: WARFARIN SOD 5 MG TAB PO ONE ×3 (17:00)
[2017-03-05 18:00] VITALS: BP 147/79
[2017-03-05] MEDS: ROSUVASTATIN 10 MG TAB (CRESTOR) PO SCH (21:33)
[2017-03-05 22:00] VITALS: BP 156/84
--- NOTE | 2017-03-06 00:13 | REP ---
Right knee two views postoperative study: There is a total hip arthroplasty with the components tightly applied and in satisfactory positions alignment. Skin yarelis are incidentally noted. Signed by Aniket Kessler MD 03/05/2017 03:28 P
[2017-03-06] MEDS: LEVOTHYROXINE 100MCG TABLET (0.1MG) PO SCH (05:02)
[2017-03-06] MEDS: traMADol 50 MG TAB PO PRN (05:04)
[2017-03-06 06:00] VITALS: BP 148/60
[2017-03-06 07:11] LABS: MEAN CORPUSCULAR HEMOGLOBIN 28.5 pg (27.0-33.0); MEAN CORPUSCULAR HGB CONC 33.2 g/dl (32.0-36.5); MEAN CORPUSCULAR VOLUME 85.7 fl (80.0-96.0); RED CELL DISTRIBUTION WIDTH 14.6 % (11.5-14.5); WHITE BLOOD COUNT 7.5 K/mm3 (4.0-10.0)
[2017-03-06 07:12] LABS: INR 1.85
[2017-03-06 07:12] LABS: ANION GAP 7 MEQ/L (8-16); BLOOD UREA NITROGEN 14 MG/DL (7-18); CALCIUM LEVEL 9.1 MG/DL (8.8-10.2); CARBON DIOXIDE LEVEL 34 MEQ/L (21-32); CHLORIDE LEVEL 99 MEQ/L (98-107); CREATININE FOR GFR 0.77 MG/DL (0.55-1.02); GLOMERULAR FILTRATION RATE > 60.0 (>39); GLUCOSE, FASTING 104 MG/DL (83-110); POTASSIUM SERUM 3.3 MEQ/L (3.5-5.1); SODIUM LEVEL 140 MEQ/L (136-145)
[2017-03-06] MEDS: IRBESARTAN 150 MG TAB PO SCH (08:40)
[2017-03-06] MEDS: hydroCHLOROthiazide 12.5 MG CAPSULE PO SCH (08:40)
[2017-03-06] MEDS: MOM 30ML SUSPENSION UDC PO SCH (08:40)
[2017-03-06] MEDS: SENOKOT S TAB PO SCH ×2 (08:40→21:19)
[2017-03-06] MEDS: SERTRALINE HCL 50 MG TAB PO SCH (08:41)
[2017-03-06] MEDS: METOPROLOL TART 25 MG TABLET PO SCH ×2 (08:41→21:18)
[2017-03-06] MEDS: TAPENTADOL 50 MG TABLET (NUCYNTA) PO PRN ×3 (08:42→21:20)
[2017-03-06] MEDS: MIRALAX *UNIT DOSE* 17GM PACKET PO SCH (08:44)
--- NOTE | 2017-03-06 10:33 | IPNPDOC ---
Subjective Date Seen The patient was seen on 03/06/17. Subjective Chief Complaint/HPI The patient is a 76-year-old female admitted with a reason for visit of Right Knee Arthritis. General: Denies: Chills, Night Sweats Constitutional: Reports: Weakness, Other (pt states she is a bit nauseated after all of her pain meds), Denies: Chills, Fever, Malaise Skin: Denies: Rash, Lesions Pulmonary: Denies: Dyspnea, Cough Cardiovascular: Denies: Chest Pain, Palpitations Gastrointestinal: Denies: Nausea, Vomiting Musculoskeletal: Reports: Other Symptoms (right knee pain after surgery) Neurological: Denies: Weakness Psych: Reports: Mood Normal Objective Physical Examination General Exam: Positive: Alert, Cooperative, No Acute Distress Eye Exam: Positive: Conjunctiva & lids normal, EOMI, Negative: Sclera icteric, Ptosis ENT Exam: Positive: Atraumatic, Mucous membr. moist/pink Chest Exam: Positive: Clear to auscultation, Diminished, Negative: Rales, Rhonchi, Wheezing Heart Exam: Positive: Rate Normal, Normal S1, Normal S2, Murmurs () Abdomen Exam: Positive: Normal bowel sounds Female Exam: Negative: Lesions Extremity Exam: Positive: Normal pulses, Negative: Clubbing, Cyanosis, Edema Assessment /Plan Problems (1) History of arthroplasty of right knee Status: Acute Response to Treatment: Stable Problem Text: pt still complains of pain in right knee but that it is tolerable with pain meds will continue to work with PT for ambulation (2) HTN (hypertension) Status: Chronic Response to Treatment: Stable Problem Text: 148/60 stable c/w home HTN medications (3) Nausea Status: Acute Response to Treatment: Stable Problem Text: will schedule zofran as needed (4) Hypothyroid Status: Chronic Response to Treatment: Stable Problem Text: c/w home synthroid use (5) Hyperlipidemia (6) Depression Status: Chronic Response to Treatment: Stable Problem Text: c/w home SSRI pt seems anxious about going home and being unable to care for herself, reassured she will be working with PT and that social sciences chair have been spoken to regarding potential home health or even jail placement if pt qualifies and is willing to go. (7) CAD (coronary artery disease) Status: Chronic Response to Treatment: Stable Problem Text: will continue with pts home BB and statin therapy holding home ASA with concurrent Coumadin therapy pt denies CP or SOB Plan/VTE VTE Prophylaxis Ordered?: Yes VS, I&O, 24H, Fishbone Vital Signs/I&O Vital Signs Date Time Temp Pulse Resp B/P (MAP) Pulse Ox O2 Delivery O2 Flow Rate FiO2 03/06/17 08:42 18 03/06/17 08:41 64 148/60 03/06/17 06:00 97.4 94 Room Air 03/04/17 20:25 2.0 I&O- Last 24 Hours up to 6 AM 03/07/17 05:59 Intake Total 20 ml Output Total 200 ml Balance -180 ml Laboratory Data 24H LABS Laboratory Tests 2 03/06/17 06:35: Prothrombin Time 21.9H, Prothromb Time International Ratio 1.85 03/06/17 06:36: Anion Gap 7L, Glomerular Filtration Rate > 60.0, Blood Urea Nitrogen 14, Creatinine 0.77, Sodium Level 140, Potassium Level 3.3L, Chloride Level 99, Carbon Dioxide Level 34H, Calcium Level 9.1, Magnesium Level 2.0 CBC/BMP Laboratory Tests 03/06/17 06:36 Red Blood Count 3.40 L, Mean Corpuscular Volume 85.7, Mean Corpuscular Hemoglobin 28.5, Mean Corpuscular Hemoglobin Concent 33.2, Red Cell Distribution Width 14.6 H, Calcium Level 9.1 GME ATTESTATION GME ATTESTATION My preceptor for this patient encounter was physically present in the building during the encounter and was fully available. As needed, all aspects of the patient interview, examination, medical decision making process, and medical care plan development were reviewed and approved by the preceptor. Preceptor is aware and concurs with the plan as stated in the body of this note and will attest to such by his/her cosignature. BUTCH MOHAMUD DO Mar 06, 2017 10:33
[2017-03-06 14:00] VITALS: BP 164/71
[2017-03-06] MEDS: ONDANSETRON 4 MG TAB (S0181) PO PRN (14:39)
[2017-03-06] MEDS ORDERED: WARFARIN SOD 2.5 MG TAB PO ONE (17:00)
[2017-03-06] MEDS: ROSUVASTATIN 10 MG TAB (CRESTOR) PO SCH (21:19)
[2017-03-06 22:00] VITALS: BP 124/55
[2017-03-07 06:00] VITALS: BP 150/75
[2017-03-07] MEDS: TAPENTADOL 50 MG TABLET (NUCYNTA) PO PRN (06:17)
[2017-03-07] MEDS: LEVOTHYROXINE 100MCG TABLET (0.1MG) PO SCH (06:17)
[2017-03-07 06:41] LABS: INR 1.94
[2017-03-07] MEDS: MIRALAX *UNIT DOSE* 17GM PACKET PO SCH (08:35)
[2017-03-07] MEDS: MOM 30ML SUSPENSION UDC PO SCH (08:35)
[2017-03-07] MEDS: SENOKOT S TAB PO SCH (08:35)
[2017-03-07] MEDS: IRBESARTAN 150 MG TAB PO SCH (08:36)
[2017-03-07] MEDS: hydroCHLOROthiazide 12.5 MG CAPSULE PO SCH (08:36)
[2017-03-07] MEDS: SERTRALINE HCL 50 MG TAB PO SCH (08:36)
[2017-03-07 08:37] VITALS: BP 150/75
[2017-03-07] MEDS: METOPROLOL TART 25 MG TABLET PO SCH (08:37)
--- NOTE | 2017-03-07 08:43 | IPNPDOC ---
Subjective Date Seen The patient was seen on 03/07/17. Subjective Chief Complaint/HPI The patient is a 76-year-old female admitted with a reason for visit of Right Knee Arthritis. General: Denies: Chills, Night Sweats Constitutional: Reports: Other (admits to decrease in appetite ), Denies: Chills, Fever, Malaise Eyes: Denies: Pain, Vision change, Conjunctivae inflammation ENT: Denies: Head Aches Skin: Denies: Rash, Lesions, Jaundice, Bruising Cardiovascular: Denies: Chest Pain, Palpitations Gastrointestinal: Denies: Nausea, Vomiting, Abdominal Pain, Diarrhea, Constipation Genitourinary: Denies: Dysuria Musculoskeletal: Reports: Other Symptoms (states right knee pain is much improved) Neurological: Denies: Weakness, Numbness Psych: Reports: Mood Normal, Anxiety Objective Physical Examination General Exam: Positive: Alert, Cooperative, No Acute Distress Eye Exam: Positive: Conjunctiva & lids normal, EOMI, Negative: Sclera icteric, Ptosis ENT Exam: Positive: Atraumatic, Mucous membr. moist/pink Neck Exam: Positive: Supple Chest Exam: Positive: Clear to auscultation, Diminished, Negative: Rales, Rhonchi, Wheezing Heart Exam: Positive: Rate Normal, Normal S1, Normal S2, Murmurs () Abdomen Exam: Positive: Normal bowel sounds, Soft, Negative: Tenderness, Hepatospenomegaly Female Exam: Negative: Lesions Extremity Exam: Positive: Normal pulses, Negative: Clubbing, Cyanosis, Edema Skin Exam: Negative: Breakdown Assessment /Plan Problems (1) History of arthroplasty of right knee Status: Acute Response to Treatment: Stable Problem Text: pt states she is "finally beginning to feel like her old self again" pt states that pain in right knee is improved and is tolerable She has been doing well with physical therapy Apparently she is concerned/anxious she will not be able to completely take care of herself when she is d/c, she has been reassured that social sciences professor is trying to assist with this for possible home health. According to Ortho. she is OK to d/c potentially tomorrow, as long as she continues to do well with PT. will continue to work with PT for ambulation (2) HTN (hypertension) Status: Chronic Response to Treatment: Stable Problem Text: 150/75 stable c/w home HTN medications (3) Nausea Status: Acute Response to Treatment: Stable Problem Text: will schedule zofran as needed (4) Hypothyroid Status: Chronic Response to Treatment: Stable Problem Text: c/w home synthroid use (5) Hyperlipidemia Response to Treatment: Stable Problem Text: continue with home crestor (6) Depression Status: Chronic Response to Treatment: Stable Problem Text: c/w home SSRI pt seems anxious about going home and being unable to care for herself, reassured she will be working with PT and that social sciences professor have been spoken to regarding potential home health or even senior care placement if pt qualifies and is willing to go. (7) CAD (coronary artery disease) Status: Chronic Response to Treatment: Stable Problem Text: will continue with pts home BB and statin therapy holding home ASA with concurrent Coumadin therapy pt denies CP or SOB Plan/VTE VTE Prophylaxis Ordered?: Yes VS, I&O, 24H, Fishbone Vital Signs/I&O Vital Signs Date Time Temp Pulse Resp B/P (MAP) Pulse Ox O2 Delivery O2 Flow Rate FiO2 03/07/17 06:47 18 03/07/17 06:00 98.0 68 150/75 (100) 94 Room Air 03/04/17 20:25 2.0 Laboratory Data 24H LABS Laboratory Tests 2 03/07/17 06:25: Prothrombin Time 22.8H, Prothromb Time International Ratio 1.94 GME ATTESTATION GME ATTESTATION My preceptor for this patient encounter was physically present in the building during the encounter and was fully available. As needed, all aspects of the patient interview, examination, medical decision making process, and medical care plan development were reviewed and approved by the preceptor. Preceptor is aware and concurs with the plan as stated in the body of this note and will attest to such by his/her cosignature. BUTCH MOHAMUD DO Mar 07, 2017 08:43
[2017-03-07] MEDS ORDERED: COUM2.5T17 PO (12:22)
[2017-03-07] MEDS ORDERED: NUCY50TA6 PO (12:22)
[2017-03-07] MEDS ORDERED: WARFARIN SOD 2.5 MG TAB PO ONE (17:00)
--- NOTE | 2017-03-13 11:01 | DSES ---
DATE OF ADMISSION: 03/04/2017 DATE OF DISCHARGE: 03/07/2017 ATTENDING PHYSICIAN: Dr. Venu Mott. ADMISSION DIAGNOSIS: Osteoarthritis right knee. OTHER DIAGNOSES: Coronary artery disease. Hypertension. Hypothyroidism. Elevated lipids. Depression. DISCHARGE DIAGNOSIS: Osteoarthritis right knee status post right total knee arthroplasty. OPERATION PERFORMED: Right total knee arthroplasty. HISTORY: This is a 76-year-old female patient with progressively worsening right knee pain and stiffness. She failed to improve with conservative management. She was admitted for elective knee replacement on the right side. HOSPITAL COURSE: The patient was admitted on day of surgery and underwent a right total knee arthroplasty which was uneventful. She did well in the postoperative period and her hospital course was without complications. She was up with physical therapy per their protocol and pain was controlled. On day of discharge, she was doing well, weightbearing as tolerated on her right lower extremity. She will move her right knee to prevent stiffness. She will use adjusted dose Coumadin and FLETCHER stockings for 30 days postoperative for deep venous thrombosis (DVT) prophylaxis. She will resume her preoperative medications and diet. She was given instructions to include but not limited to wound monitoring and activity limitations. Please refer to the medical record for further detail. cc: Venu Mott
== END 2017-03-07 13:05 | DRG 470 ==
LOC: M OR 10:08 → M MS5PR 16:00
PROVIDERS: ADMIT Orthopaedic Surgery; ATTEND Orthopaedic Surgery
PROC: 0SRC0J9 Replacement of Right Knee Joint with Synthetic Substitute, Cemented, Open Approach (ICD-10-PCS; principal; 2017-03-04 12:30)
DX: M17.11 Unilateral primary osteoarthritis, right knee (principal); E03.9 Hypothyroidism, unspecified; J30.2 Other seasonal allergic rhinitis; F32.9 Major depressive disorder, single episode, unspecified; R11.0 Nausea; I10 Essential (primary) hypertension; E78.5 Hyperlipidemia, unspecified; I25.10 Atherosclerotic heart disease of native coronary artery without angina pectoris; Z90.49 Acquired absence of other specified parts of digestive tract; Z90.710 Acquired absence of both cervix and uterus; Z98.41 Cataract extraction status, right eye; Z98.42 Cataract extraction status, left eye; Z87.891 Personal history of nicotine dependence; Z91.040 Latex allergy status; Z88.0 Allergy status to penicillin; Z88.1 Allergy status to other antibiotic agents; Z79.899 Other long term (current) drug therapy; Z88.6 Allergy status to analgesic agent

== ENCOUNTER → 2017-03-09 | Outpatient (REF) | payer MEDICARE, OTHER ==
[~2017-03-09] MED LIST changes: +ACET50TAOT PO; +AMLO2.5T PO; +CIPR-249 PO; +COUM1TAB17 PO; +COUM2.5T17 PO; +DESL5TAB4 PO; +DOCU100C16 PO; +FLON1SPR; +IRBE150T14 PO; -LR 1,000 ML IV ONE; +NUCY50TA6 PO; +SALI0.6523; +SERT50TA PO
[2017-03-09 14:12] LABS: INR 1.85
== END ==
LOC: M LAB REF 13:35
PROVIDERS: ATTEND Internal Medicine
DX: Z79.01 Long term (current) use of anticoagulants (principal)

== ENCOUNTER → 2017-03-14 | Outpatient (REF) | payer MEDICARE, OTHER ==
[2017-03-14 15:49] LABS: INR 2.13
== END ==
LOC: M SHH 14:30 → M LAB REF 14:30
PROVIDERS: ATTEND Orthopaedic Surgery
DX: Z79.01 Long term (current) use of anticoagulants (principal)

== ENCOUNTER → 2017-03-18 | Outpatient (REF) | payer MEDICARE, OTHER ==
[2017-03-18 15:34] LABS: INR 1.64
== END ==
LOC: M SHH 14:57
PROVIDERS: ATTEND Orthopaedic Surgery
DX: Z79.01 Long term (current) use of anticoagulants (principal)

== ENCOUNTER → 2017-03-21 | Outpatient (REF) | payer MEDICARE, OTHER ==
[2017-03-21 11:32] LABS: INR 2.1
== END ==
LOC: M LABDRAW1 10:17
PROVIDERS: ATTEND Orthopaedic Surgery
DX: Z79.01 Long term (current) use of anticoagulants (principal)

== ENCOUNTER → 2017-03-25 | Outpatient (REF) | payer MEDICARE, OTHER ==
[2017-03-25 14:27] LABS: INR 1.55
== END ==
LOC: M SHH 14:00
PROVIDERS: ATTEND Orthopaedic Surgery
DX: Z51.81 Encounter for therapeutic drug level monitoring (principal); Z79.01 Long term (current) use of anticoagulants

== ENCOUNTER → 2017-03-28 | Outpatient (REF) | payer MEDICARE, OTHER ==
[2017-03-28 14:35] LABS: INR 1.95
== END ==
LOC: M LAB REF 14:14 → M SHH 14:14
PROVIDERS: ATTEND Orthopaedic Surgery
DX: Z51.81 Encounter for therapeutic drug level monitoring (principal); Z79.01 Long term (current) use of anticoagulants

== ENCOUNTER → 2017-04-01 | Outpatient (REF) | payer MEDICARE, OTHER ==
[2017-04-01 13:22] LABS: INR 1.63
== END ==
LOC: M SHH 12:44
PROVIDERS: ATTEND Orthopaedic Surgery
DX: Z51.81 Encounter for therapeutic drug level monitoring (principal); Z79.899 Other long term (current) drug therapy

== ENCOUNTER → 2017-04-04 | Outpatient (REF) | payer MEDICARE, OTHER ==
[2017-04-04 15:58] LABS: BASO % 0.5 % (0.0-1.0); EOS # 0.1 10^3/uL (0.0-0.50); EOS % 0.9 % (0.0-3.0); IMMATURE GRANULOCYTE % 0.3 % (0-0); LYMPH # 2.4 10^3/uL (1.5-4.5); LYMPH % 35.6 % (24.0-44.0); MEAN CORPUSCULAR HEMOGLOBIN 28.1 pg (27.0-33.0); MEAN CORPUSCULAR HGB CONC 31.6 g/dl (32.0-36.5); MEAN CORPUSCULAR VOLUME 88.8 fl (80.0-96.0); MONO # 0.6 10^3/uL (0.0-0.8); MONO % 9.2 % (0.0-5.0); NEUTROPHILS # 3.5 10^3/uL (1.8-7.7); NEUTROPHILS % 53.5 % (36.0-66.0); PLATELET COUNT, AUTOMATED 258 10^3/uL (150-450); WHITE BLOOD COUNT 6.6 10^3/uL (4.0-10.0)
[2017-04-04 17:49] LABS: ALBUMIN 3.7 GM/DL (3.2-5.2); ALBUMIN/GLOBULIN RATIO 1.32 (1.00-1.93); ALKALINE PHOSPHATASE 86 U/L (45-117); ALT/SGPT 14 U/L (12-78); ANION GAP 7 MEQ/L (8-16); AST/SGOT 5 U/L (15-37); BILIRUBIN,TOTAL 0.4 MG/DL (0.2-1.0); BLOOD UREA NITROGEN 13 MG/DL (7-18); CALCIUM LEVEL 9.3 MG/DL (8.8-10.2); CARBON DIOXIDE LEVEL 32 MEQ/L (21-32); CHLORIDE LEVEL 97 MEQ/L (98-107); CREATININE FOR GFR 0.91 MG/DL (0.55-1.02); GLOMERULAR FILTRATION RATE > 60.0 (>39); GLUCOSE, FASTING 93 MG/DL (83-110); POTASSIUM SERUM 3.4 MEQ/L (3.5-5.1); SODIUM LEVEL 136 MEQ/L (136-145); TOTAL PROTEIN 6.5 GM/DL (6.4-8.2)
== END ==
LOC: M LAB REF 15:33
PROVIDERS: ATTEND Family Medicine
DX: R11.0 Nausea (principal)

== ENCOUNTER 2017-04-20 10:08 | Observation (INO) | payer MEDICARE, OTHER ==
[~2017-04-20] VITALS: Ht 162.6 cm; Wt 74.5 kg
[~2017-04-20 10:08] MED LIST changes: -ACET50TAOT PO; -AMLO2.5T PO; -CIPR-249 PO; -DESL5TAB4 PO; -DOCU100C16 PO; -FLON1SPR; -IRBE150T14 PO; -SALI0.6523; -SERT50TA PO
[2017-04-20] MEDS ORDERED: NS 1,000 ML IV ONE (10:30)
[2017-04-20] MEDS ORDERED: ONDANSETRON 4MG/2ML VIAL (J2405) IV ONE (10:30)
[2017-04-20] MEDS ORDERED: METO37.5 PO (10:36)
[2017-04-20 11:12] LABS: BASO % 0.3 % (0.0-1.0); EOS # 0.2 10^3/uL (0.0-0.50); EOS % 2.6 % (0.0-3.0); IMMATURE GRANULOCYTE % 0.3 % (0-0); LYMPH # 1.2 10^3/uL (1.5-4.5); LYMPH % 16.6 % (24.0-44.0); MEAN CORPUSCULAR HEMOGLOBIN 28.2 pg (27.0-33.0); MEAN CORPUSCULAR HGB CONC 33.1 g/dl (32.0-36.5); MEAN CORPUSCULAR VOLUME 85.2 fl (80.0-96.0); MONO # 0.7 10^3/uL (0.0-0.8); MONO % 10.3 % (0.0-5.0); NEUTROPHILS # 4.9 10^3/uL (1.8-7.7); NEUTROPHILS % 69.9 % (36.0-66.0); PLATELET COUNT, AUTOMATED 232 10^3/uL (150-450); RED CELL DISTRIBUTION WIDTH 14.7 % (11.5-14.5)
[2017-04-20 11:36] LABS: ALBUMIN 3.9 GM/DL (3.2-5.2); ALBUMIN/GLOBULIN RATIO 1.26 (1.00-1.93); BILIRUBIN,DIRECT 0.2 MG/DL (0.0-0.2); BILIRUBIN,TOTAL 0.6 MG/DL (0.2-1.0); CALCIUM LEVEL 9.3 MG/DL (8.8-10.2); CREATININE FOR GFR 0.97 MG/DL (0.55-1.02); GLOMERULAR FILTRATION RATE 59.1 (>39); POTASSIUM SERUM 3.2 MEQ/L (3.5-5.1)
[2017-04-20] MEDS ORDERED: POTASSIUM CHLORIDE 10 MEQ SR TABLET PO ONE (12:00)
[2017-04-20] MEDS ORDERED: ISOVUE-370 76% 100ML VIAL (Q9967) As Ordered ONE (12:04)
--- NOTE | 2017-04-20 12:09 | REP ---
CHEST X-RAY, PA AND LATERAL: 04/20/2017. Comparison: 02/15/2017, 04/17/2016. Clinical history: Abdominal pain. Findings: Lungs marginally adequate in the degree of inflation. There is cardiomegaly with left atrial and ventricular enlargement somewhat exaggerated by the level of inflation but similar to prior studies. No definite effusion or acute infiltrate. Some underlying minor basilar fibrotic change. Calcified tortuous aorta at the arch but without aneurysm. Airway intact. Bony thorax without compression deformity. No free air under the diaphragm. There are right upper quadrant clips from prior cholecystectomy. Impression. 1. Cardiomegaly with left atrial and ventricular enlargement without pulmonary edema, definite effusion or infiltrate. 2. Tortuous calcified aorta without aneurysm. Appearance unchanged. 3. Degenerative changes in the spine. Stable exam from 02/15/2017. Signed by Maurice Christy MD 04/20/2017 07:24 P
--- NOTE | 2017-04-20 13:12 | REP ---
CT ABDOMEN AND PELVIS WITH IV CONTRAST: 04/20/2017. Technique: 100 ml Isovue 370. Scanning through the abdomen pelvis with coronal and sagittal reconstructions. No oral contrast requested. Clinical history: Abdominal pain. Pancreatitis. Comparison: CT abdomen and pelvis 02/24/2007. Findings: CT abdomen: Lung bases were clear with a small calcified granuloma in the lateral basal segment on the right but nothing acute. Heart is enlarged with left atrial and ventricular enlargement. No pericardial thickening or effusion. No definite hiatal hernia. There is no hepatosplenomegaly, focal hepatic or splenic mass nor intrahepatic biliary dilatation. Clips from prior cholecystectomy are noted with postcholecystectomy changes of the common duct in the tim hepatis. Pancreas shows the common duct without calcified stone in the head. No ductal dilatation in the pancreas. There are no inflammatory changes adjacent to the pancreas or fluid collections. No mass or adenopathy about the pancreas. Adrenal glands are normal. There is progressive atrophy of the right kidney which still shows function. The left kidney shows some compensatory hypertrophy with good function. There is no hydronephrosis on either side. The ureters show normal course to the bladder and caliber and are without a stone. Small bowel loops in the mesentery are without dilatation or wall thickening. Abdominal portions of the colon shows stool, gas and fluid. They are not dilated. The left colon below the splenic flexure shows collapse and slight wall thickening to the sigmoid. I do not see inflammatory changes that would clearly define colitis. Lung window review of all CT slices shows no perforation, free air or abscess. There are degenerative disc changes throughout lumbar and lower thoracic spine with vacuum phenomena at L4-5 and L5-S1, marked narrowing at the L5-S1 level and a few millimeters anterolisthesis of L4 on 5. No compression deformities. Visualized ribs intact. CT pelvis: Sacrum, SI joints, pelvis and hips with degenerative changes but no destructive lesion or fracture. There is atherosclerotic calcification of the aorta without aneurysm. Ectasia of the iliac vessels without aneurysm or stenosis. No inguinal adenopathy or inguinal hernia. Bladder without wall thickening, mass or stone. Uterus absent. Vaginal cuff intact. The rectum was grossly intact without inflammatory changes adjacent. No pelvic mass, adenopathy or free fluid. Impression: 1. Some mild thickening of the wall of the left colon to the proximal sigmoid without infiltration of fat that would clearly define colitis. Mild colitis is not excluded. I see only small amounts of calcification at the origins of the SMA and celiac axis. No evidence for ischemic bowel. 2. There are no inflammatory changes about the pancreas and no adenopathy, pseudocyst, abscess, ascites or free air. 3. Liver, spleen, adrenal glands and left kidney intact. The right kidney shows progressive atrophy over the past decade but still has function. 4. Atherosclerotic calcifications of the aorta without aneurysm or dissection. 5. Prior cholecystectomy and hysterectomy. Degenerative changes in the spine and hips. Signed by Maurice Christy MD 04/20/2017 07:26 P
[2017-04-20] MEDS ORDERED: LEVO100T5 PO (13:56)
[2017-04-20] MEDS ORDERED: CRES10TA32 PO (13:56)
[2017-04-20] MEDS ORDERED: DESL5TAB4 PO (13:56)
[2017-04-20] MEDS ORDERED: IRBE150T14 PO (13:56)
[2017-04-20] MEDS ORDERED: REFR0.5D8 OU (13:56)
[2017-04-20] MEDS ORDERED: ACET50TAOT PO (13:56)
[2017-04-20] MEDS ORDERED: DOCU100C16 PO (13:56)
[2017-04-20] MEDS ORDERED: AMLO2.5T PO (13:56)
[2017-04-20] MEDS ORDERED: SERT50TA PO (13:56)
[2017-04-20] MEDS ORDERED: SALI0.6523 (13:56)
[2017-04-20] MEDS ORDERED: METO1TAB87 PO (13:56)
[2017-04-20] MEDS ORDERED: FLON1SPR (13:56)
[2017-04-20] MEDS ORDERED: ONDANSETRON 4MG/2ML VIAL (J2405) IV PRN (14:15)
[2017-04-20 16:50] VITALS: BP 172/78
[2017-04-20] MEDS: ACETAMINOPHEN 500 MG TAB PO PRN ×2 (17:27→23:33)
[2017-04-20] MEDS: KCL 40MEQ in NS 1000ML 1,000 ML IV SCH (17:28)
[2017-04-20] MEDS: SERTRALINE HCL 50 MG TAB PO SCH (17:28)
[2017-04-20] MEDS: METOPROLOL TART 25 MG TABLET PO SCH (17:28)
--- NOTE | 2017-04-20 19:17 | ECGEPIP ---
Stationary ECG Study [facility] - ED Test Date: 2017-04-20 Pat Name: THOR LAST Department: Room: - Gender: F [employer]: sam : 1940 Requested By: Igor Tariq Order Number: [id number] Reading MD: Igor Tariq Measurements Intervals [place] Rate: 78 P: 74 MS: 181 QRS: 5 QRSD: 94 T: 12 QT: 371 QTc: 425 Interpretive Statements SINUS RHYTHM NONSPECIFIC ST T WAVE CHANGES DELAYED R WAVE PROGRESSION CW 02/15/[address] T WAVE CHANGES Electronically Signed On 04-20-2017 19:17:36 EDT by Igor Tariq
[2017-04-20] MEDS: ROSUVASTATIN 10 MG TAB (CRESTOR) PO SCH (21:05)
[2017-04-20] MEDS: PANTOPRAZOLE 40MG INJ (PROTONIX) (C9113) IV SCH (21:07)
[2017-04-20] MEDS: SODIUM CHLORIDE NASAL 0.65% SPRAY BTL (OCEAN) SCH (21:08)
[2017-04-20 22:00] VITALS: BP 123/58
[2017-04-21] MEDS: KCL 40MEQ in NS 1000ML 1,000 ML IV SCH (01:32)
[2017-04-21] MEDS: LEVOTHYROXINE 100MCG TABLET (0.1MG) PO SCH (05:47)
[2017-04-21 06:00] VITALS: BP 130/72
[2017-04-21 06:29] LABS: BASO % 0.4 % (0.0-1.0); EOS # 0.3 10^3/uL (0.0-0.50); EOS % 4.4 % (0.0-3.0); IMMATURE GRANULOCYTE % 0.4 % (0-0); LYMPH # 2.3 10^3/uL (1.5-4.5); LYMPH % 40.1 % (24.0-44.0); MEAN CORPUSCULAR HEMOGLOBIN 28.2 pg (27.0-33.0); MEAN CORPUSCULAR HGB CONC 32.1 g/dl (32.0-36.5); MEAN CORPUSCULAR VOLUME 87.9 fl (80.0-96.0); MONO # 0.8 10^3/uL (0.0-0.8); MONO % 14.3 % (0.0-5.0); NEUTROPHILS # 2.3 10^3/uL (1.8-7.7); NEUTROPHILS % 40.4 % (36.0-66.0); PLATELET COUNT, AUTOMATED 187 10^3/uL (150-450); RED CELL DISTRIBUTION WIDTH 15.3 % (11.5-14.5); WHITE BLOOD COUNT 5.7 10^3/uL (4.0-10.0)
[2017-04-21 06:43] LABS: ANION GAP 5 MEQ/L (8-16); BLOOD UREA NITROGEN 14 MG/DL (7-18); CALCIUM LEVEL 8.6 MG/DL (8.8-10.2); CARBON DIOXIDE LEVEL 27 MEQ/L (21-32); CHLORIDE LEVEL 106 MEQ/L (98-107); CREATININE FOR GFR 0.78 MG/DL (0.55-1.02); GLOMERULAR FILTRATION RATE > 60.0 (>39); GLUCOSE, FASTING 93 MG/DL (83-110); SODIUM LEVEL 138 MEQ/L (136-145)
[2017-04-21 06:51] LABS: POTASSIUM SERUM 4.3 MEQ/L (3.5-5.1)
[2017-04-21] MEDS: FLUTICASONE PROP 0.05% NASAL SPRAY 16 GM (FLONASE) SCH (09:06)
[2017-04-21] MEDS: IRBESARTAN 150 MG TAB PO SCH (09:08)
[2017-04-21] MEDS: ENOXAPARIN 40 MG/0.4 ML SYRINGE (J1650) SC SCH (09:08)
[2017-04-21] MEDS: ACETAMINOPHEN 500 MG TAB PO PRN ×2 (09:11→20:48)
[2017-04-21 14:00] VITALS: BP 164/74
[2017-04-21] MEDS: SERTRALINE HCL 50 MG TAB PO SCH (15:05)
[2017-04-21] MEDS: METOPROLOL TART 25 MG TABLET PO SCH (15:05)
[2017-04-21] MEDS: LACTOBACILLUS ACIDOPHILUS CAP (BACID) PO SCH (17:45)
[2017-04-21] MEDS: PANTOPRAZOLE 40MG INJ (PROTONIX) (C9113) IV SCH (20:31)
[2017-04-21] MEDS: SODIUM CHLORIDE NASAL 0.65% SPRAY BTL (OCEAN) SCH (20:31)
[2017-04-21] MEDS: ROSUVASTATIN 10 MG TAB (CRESTOR) PO SCH (20:31)
[2017-04-21 22:00] VITALS: BP 158/74
[2017-04-22 06:00] VITALS: BP 163/73
[2017-04-22 06:00] LABS: BASO % 0.2 % (0.0-1.0); EOS # 0.3 10^3/uL (0.0-0.50); EOS % 4.1 % (0.0-3.0); IMMATURE GRANULOCYTE % 0.3 % (0-0); LYMPH % 44.6 % (24.0-44.0); MEAN CORPUSCULAR HGB CONC 32.1 g/dl (32.0-36.5); MEAN CORPUSCULAR VOLUME 87.3 fl (80.0-96.0); MONO # 0.6 10^3/uL (0.0-0.8); MONO % 9.5 % (0.0-5.0); NEUTROPHILS # 2.7 10^3/uL (1.8-7.7); NEUTROPHILS % 41.3 % (36.0-66.0); PLATELET COUNT, AUTOMATED 184 10^3/uL (150-450); RED CELL DISTRIBUTION WIDTH 15.2 % (11.5-14.5); WHITE BLOOD COUNT 6.6 10^3/uL (4.0-10.0)
[2017-04-22] MEDS: LEVOTHYROXINE 100MCG TABLET (0.1MG) PO SCH (06:04)
[2017-04-22 06:10] LABS: ANION GAP 5 MEQ/L (8-16); BLOOD UREA NITROGEN 13 MG/DL (7-18); CALCIUM LEVEL 8.8 MG/DL (8.8-10.2); CARBON DIOXIDE LEVEL 29 MEQ/L (21-32); CHLORIDE LEVEL 105 MEQ/L (98-107); CREATININE FOR GFR 0.72 MG/DL (0.55-1.02); GLOMERULAR FILTRATION RATE > 60.0 (>39); GLUCOSE, FASTING 91 MG/DL (83-110); SODIUM LEVEL 139 MEQ/L (136-145)
--- NOTE | 2017-04-22 06:15 | IPN ---
DATE: 04/21/2017 Note: At the time of this dictation, there is no history and physical available in the chart. In brief, this is a 76-year-old female who underwent surgery in February. Since discharge, she has been taking stool softeners and reports having three episodes of diarrhea every single day. She was seen by her primary care provider who put her on antibiotics, did not resolve her symptoms whatsoever. They continued to the point that she felt very weak and unsteady, which prompted her to present to the emergency room yesterday afternoon. SUBJECTIVE: This morning, the patient tells me that she had one episode of diarrhea overnight that was not collected as a sample, but otherwise she denies any further episodes. She tells me that she has had a poor appetite of late. However, last night she did feel better and ate a whole hamburger. This morning, she was looking forward to breakfast. She states that she is feeling better, but she is worried that the diarrhea will come back again. Also, of note, the patient denies nausea, vomiting, abdominal pain. OBJECTIVE: VITAL SIGNS: Temperature 99.6, pulse 76, respiratory rate 19, blood pressure 130/72, oxygen saturation 96% on room air. GENERAL: She is a pleasant, elderly female who sits up in bed to greet me as I enter the room. She does not appear to be in any acute distress whatsoever. HEENT: Cranial nerves II-XII are grossly intact. She has moist mucous membranes. No elevation of central venous pressure (CVP). CARDIOVASCULAR EXAM: S1, S2, regular. RESPIRATORY EXAM: Clear. ABDOMINAL EXAM: Bowel sounds are present. The abdomen is soft but is actually quite benign. EXTREMITIES: No clubbing, cyanosis, or edema. LABORATORY STUDIES: WBC 5.7, hemoglobin 9.8, platelet count 187. Chemistry panel: Sodium 138, potassium 4.3, chloride 106, bicarbonate 27. Potassium up from 3.2. Sodium 138 up from 133. BUN 14, creatinine 0.7 down from 0.9. At the time of admission, the patient had a mildly elevated lipase of 520. A urinalysis (UA) is unremarkable. Microbiology: Urine culture is negative. Blood cultures are negative thus far. IMAGING: The patient had a CT scan of the abdomen and pelvis, which revealed mild thickening of the wall of the left colon to the proximal sigmoid without infiltration of fat that would clearly define colitis. Small amounts of calcification at the origin of the SMA and celiac axis. No evidence of ischemic bowel. No inflammatory changes about the pancreas and no adenopathy, pseudocyst, abscess, ascites of free air. Liver, spleen, adrenal glands and left kidney all intact. Progressive atrophy of the right kidney. Atherosclerotic calcification of the aorta without aneurysm or dissection. Prior cholecystectomy and hysterectomy. Degenerative changes in the spine and hips. ASSESSMENT AND PLAN: This is a 76-year-old female presenting with diarrhea. Problem #1: Diarrhea. Patient is postoperative within the last 2 months. She has also had a recent course of antibiotics, although she cannot remember which one. As such, a GI PCR panel has been ordered and is currently pending. We await another sample. However, since last night, she has not had any further episodes of diarrhea, which is a reassuring sign as well. The patient was also taking laxatives for the last several weeks and since these have been discontinued, I am optimistic that it may resolve. She does not appear to be septic at all at this time. She did appear to be mildly dehydrated secondary to the diarrhea, which has resolved with fluid resuscitation. I will discontinue intravenous (IV) fluids and the patient's diet is returning. If her GI PCR panel is negative, could likely provide her with some Imodium if her diarrhea persists. However, at this time, she appears to be improving. Will continue to monitor. Problem #2: Allergic rhinitis. Continue with Flonase. Problem #3: Hypertension. Controlled with irbesartan, Norvasc, metoprolol. Problem #4: Mood disorder. Continue with Zoloft. Problem #5: Dyslipidemia. Continue with Crestor. Problem #6: Hypothyroidism. Continue with Synthroid. Problem #7: Deep vein thrombosis (DVT) prophylaxis. Patient is on Lovenox. DISPOSITION: Pending clinical improvement, she may be ready for discharge within the next 24-48 hours.
--- NOTE | 2017-04-22 06:17 | HPE ---
DATE OF ADMISSION: 04/20/2017 PRIMARY CARE PROVIDER: Dr. Cifuentes. CHIEF COMPLAINT: Abnormal bowel movement going on for the past three weeks, alternating diarrhea, constipation, and again diarrhea for the past three days, dry heaves this morning multiple times, and extreme weakness and tiredness from yesterday, along with dizziness. PAST MEDICAL HISTORY: 1. Coronary artery disease. 2. Hypertension. 3. Hypothyroidism. 4. Hyperlipidemia. 5. Breast cancer, status post lumpectomy of the left in 01/2017. 6. Paroxysmal atrial fibrillation. Declined anticoagulation. 7. Obesity and possible sleep apnea. Unwilling to use continuous positive airway pressure (CPAP). 8. Environmental allergies. 9. Mild intermittent asthma. 10. Anxiety and depression. 11. History of polymyalgia rheumatica in remission. HISTORY OF PRESENT ILLNESS: This is a 76-year-old female who recently had a knee surgery on 03/04/2017, where she had a right total knee replacement. After that, she was in rehabilitation and since discharge from rehab about three weeks ago, she has been having diarrhea 4-5 times a day, which then changed to diarrhea with some pellets of stool in it. She went to see her primary care, and she was prescribed a one-week course of antibiotics which she finished three days ago. However, she is again having liquid brownish-greenish diarrhea several times since yesterday. She has been feeling very weak and tired and dizzy, and this morning she woke up having nausea and severe dry heaves. She was very weak and could hardly get out of bed, so she came to the emergency room for evaluation. In the emergency department (ED), the patient was found to be dehydrated and seen with elevated hemoglobin compared to her baseline, low sodium and low potassium levels. The patient is being admitted to the hospitalist service for diarrhea and dehydration. The patient's lipase was also noted to be elevated in her blood work, so the patient had a CT scan done which showed mild thickening of the wall of the left colon to the proximal sigmoid colon without any infiltration of fat that would clearly define colitis, though mild colitis is not excluded. There was no evidence of ischemic bowel. No signs of pancreatitis, pseudocyst or abscess or ascites. Right kidney shows atrophy. There are atherosclerotic calcifications of the aorta without aneurysm or dissection. There is prior cholecystectomy and hysterectomy. There are degenerative changes in the lumbar and lower thoracic spine. The patient complained also of noting a temperature of 101 at home this morning, and 100 yesterday. She also was subjectively very cold at home. Since coming to the emergency room, she has not had any bowel movements. PAST SURGICAL HISTORY: 1. Left lumpectomy in January 2017. 2. Right total knee replacement in February 2017. 3. Cholecystectomy in the past. 4. Hysterectomy in the past. 5. Surgical hernia repair. 6. Right and left cataracts removal. FAMILY HISTORY: Nothing contributory. SOCIAL HISTORY: The patient quit smoking 25 years ago. Drinks about one drink daily. Does not abuse any recreational drugs. ALLERGIES: CODEINE, IBUPROFEN, LATEX, PENICILLIN, QUINOLONES, SULFAMETHOXAZOLE with TRIMETHOPRIM. REVIEW OF SYSTEMS: All 10-point review of systems was negative except those mentioned in the history of present illness (HPI). PHYSICAL EXAMINATION: VITAL SIGNS: Temperature 99.2, pulse 76, respiratory rate 16, blood pressure 159/67. Pulse oximetry 95% on room air. GENERAL: Patient awake, alert, and oriented times three. Lying down in bed in no acute distress. HEENT: Normocephalic, atraumatic. Moist mucous membranes. Anicteric eyes. CHEST: Clear to auscultation. CARDIOVASCULAR: S1, S2. Regular. No rub, murmur or gallop. ABDOMEN: Soft, nontender. Bowel sounds present. EXTREMITIES: No edema. LABORATORY DATA: WBC seven, hemoglobin 12, platelets 232. Sodium 133, potassium 3.2, chloride 93, bicarbonate 31, BUN 10, creatinine 0.9, glucose 147, lactate 1.4. Liver function tests are normal. Lipase of 520. UA is pending. IMAGING: CT scan of the abdomen and pelvis as mentioned above, with possible signs of colitis in it. ASSESSMENT AND PLAN: This is a 76-year-old female admitted for diarrhea and dehydration. PLAN: 1. For diarrhea, we will send stool for gastrointestinal panel. At present, no further bowel movement. We will hold all stool softeners and laxatives. We will continue with intravenous (IV) fluids for dehydration and replace potassium. 2. Hypertension. We will continue with amlodipine, metoprolol, irbesartan. We will hold hydrochlorothiazide at present. 3. Hypothyroidism. Will continue with Synthroid. 4. History of paroxysmal atrial fibrillation. We will continue with metoprolol. The patient had refused anticoagulation in the past. 5. Anxiety and insomnia. We will continue with Sertraline. 6. Deep venous thrombosis (DVT) prophylaxis has been ordered. 7. Recent knee surgery. Will continue with Tylenol for pain control and we will request physical therapy (PT) to follow her in the hospital.
[2017-04-22] MEDS ORDERED: PREVNAR 13 VACCINE SYRINGE (CPT CODE:90670) IM ONE (09:00)
[2017-04-22] MEDS: LACTOBACILLUS ACIDOPHILUS CAP (BACID) PO SCH ×2 (09:02→17:58)
[2017-04-22] MEDS: IRBESARTAN 150 MG TAB PO SCH (09:04)
[2017-04-22] MEDS: ENOXAPARIN 40 MG/0.4 ML SYRINGE (J1650) SC SCH (09:05)
[2017-04-22] MEDS: FLUTICASONE PROP 0.05% NASAL SPRAY 16 GM (FLONASE) SCH (09:05)
[2017-04-22] MEDS ORDERED: ONDANSETRON 4 MG ORAL DISINTEGRATING TAB (S0181) SL PRN (11:45)
[2017-04-22] MEDS: METOPROLOL TART 25 MG TABLET PO SCH (13:57)
[2017-04-22] MEDS: SERTRALINE HCL 50 MG TAB PO SCH (13:57)
[2017-04-22 14:00] VITALS: BP 172/74
[2017-04-22 14:07] VITALS: BP 164/86
[2017-04-22 16:00] VITALS: BP 148/86
[2017-04-22] MEDS: ACETAMINOPHEN 500 MG TAB PO PRN (18:01)
[2017-04-22] MEDS: ROSUVASTATIN 10 MG TAB (CRESTOR) PO SCH (21:06)
[2017-04-22] MEDS: SODIUM CHLORIDE NASAL 0.65% SPRAY BTL (OCEAN) SCH (21:06)
[2017-04-22 22:00] VITALS: BP 150/72
--- NOTE | 2017-04-23 00:29 | IPN ---
DATE OF SERVICE: 04/22/2017 SUBJECTIVE: This morning, the patient tells me that she is constipated now and that she is passing large amounts of gas. She denies abdominal pain. She tells me that her appetite is up and down. She did eat quite well yesterday, but this morning does not feel like eating. She has some mild nausea. Denies chest pain, fevers, chills, or shortness of breath. OBJECTIVE: VITAL SIGNS: Temperature 97.7, pulse 74, respiratory rate 18, blood pressure 148/86, oxygen saturation 96% on room air. GENERAL: She is a very pleasant, elderly female who sits up to greet me in her bed as I enter the room. She does not appear to be in any acute distress whatsoever. HEENT: Cranial nerves II-XII are grossly intact. She has moist mucous membranes. No elevation of central venous pressure (CVP). CARDIOVASCULAR EXAM: S1, S2, regular. RESPIRATORY EXAM: Clear. ABDOMINAL EXAM: Completely benign. EXTREMITIES: No clubbing, cyanosis, or edema. LABORATORY STUDIES: Today WBC 6.6, hemoglobin 9.5, platelet count 184. Chemistry panel: Sodium 139, potassium 4.0, chloride 105, bicarbonate 29, BUN 13, creatinine 0.7. Microbiology: Clostridium (C) difficile stool culture is pending. Urine culture is negative. Blood cultures are negative at 48 hours. ASSESSMENT AND PLAN: This is a 76-year-old female who presented with diarrhea. PROBLEMS: 1. Diarrhea. The patient is postoperative the last 2 months. Did have a recent course of antibiotics. She thinks it was metronidazole for Clostridium (C) difficile, but she cannot tell me if she ever tested positive. She did complete the course and stated no change in her symptoms; however, at the time she was on laxatives. I suspect that her symptoms were all secondary to this. Since arriving here, she has actually told me that she is constipated. If she has any further episodes of diarrhea, would collect a gastrointestinal (GI) PCR panel to rule out any other pathology. For the time being, she has remained off antibiotics and has remained quite stable and does not appear to be septic at all. She did appear to be dehydrated and hypokalemic at the time of her admission, but this has resolved with some gentle intravenous (IV) fluids, which have since been discontinued. 2. Allergic rhinitis. Continue with Flonase. 3. Hypertension. Controlled with irbesartan, Norvasc, metoprolol. 4. Mood disorder. Continue with Zoloft. 5. Dyslipidemia. Continue with Crestor. 6. Hypothyroidism. Continue with Synthroid. 7. Coronary artery disease. The patient is on a statin, beta imani, not on aspirin. Will defer to her outpatient providers. 8. Breast cancer. She is status post a lumpectomy on the left in January of 2017. She tells me she has a referral to see Dr. Laurel Patel. She is very concerned that she has another form of cancer as there is a history of cancer in her family. She initially asked for indiscriminate testing for all cancers while she is in the hospital. However, after a lengthy time spent at bedside reassuring the patient, I have suggested to her that she followup her cancer discussions with Dr. Laurel Patel of oncology when she sees her at an outpatient appointment which is in the process of being scheduled. 9. Obstructive sleep apnea. The patient is not willing to even attempt or consider continuous positive airway pressure (CPAP) and has refused testing. 10. Paroxysmal atrial fibrillation. She is rate controlled with metoprolol. She has declined anticoagulation in the past. 11. Mild intermittent asthma. Symptoms appear to be well controlled without any medications. 12. Polymyalgia rheumatica in remission. 13. Deep venous thrombosis (DVT) prophylaxis. Patient is on Lovenox. DISPOSITION: She is cleared by physical therapy should she not have any significant gastrointestinal infection. I suspect she will be discharged to followup with primary care provider possibly within the next 24-48 hours.
[2017-04-23] MEDS: LEVOTHYROXINE 100MCG TABLET (0.1MG) PO SCH (05:32)
[2017-04-23 06:00] VITALS: BP 160/68
[2017-04-23 07:00] LABS: BASO % 0.3 % (0.0-1.0); EOS # 0.2 10^3/uL (0.0-0.50); EOS % 3.9 % (0.0-3.0); IMMATURE GRANULOCYTE % 0.2 % (0-0); LYMPH # 2.6 10^3/uL (1.5-4.5); LYMPH % 42.1 % (24.0-44.0); MEAN CORPUSCULAR HEMOGLOBIN 27.8 pg (27.0-33.0); MEAN CORPUSCULAR VOLUME 86.9 fl (80.0-96.0); MONO # 0.5 10^3/uL (0.0-0.8); NEUTROPHILS # 2.8 10^3/uL (1.8-7.7); NEUTROPHILS % 45.5 % (36.0-66.0); PLATELET COUNT, AUTOMATED 196 10^3/uL (150-450); RED CELL DISTRIBUTION WIDTH 15.1 % (11.5-14.5); WHITE BLOOD COUNT 6.1 10^3/uL (4.0-10.0)
[2017-04-23 07:14] LABS: ANION GAP 6 MEQ/L (8-16); BLOOD UREA NITROGEN 13 MG/DL (7-18); CARBON DIOXIDE LEVEL 29 MEQ/L (21-32); CHLORIDE LEVEL 103 MEQ/L (98-107); CREATININE FOR GFR 0.66 MG/DL (0.55-1.02); GLOMERULAR FILTRATION RATE > 60.0 (>39); GLUCOSE, FASTING 95 MG/DL (83-110); POTASSIUM SERUM 3.8 MEQ/L (3.5-5.1); SODIUM LEVEL 138 MEQ/L (136-145)
[2017-04-23] MEDS: ENOXAPARIN 40 MG/0.4 ML SYRINGE (J1650) SC SCH (09:31)
[2017-04-23] MEDS: CIPROFLOXACIN 500 MG TAB PO SCH ×2 (09:32→17:54)
[2017-04-23] MEDS: IRBESARTAN 150 MG TAB PO SCH (09:32)
[2017-04-23] MEDS: FLUTICASONE PROP 0.05% NASAL SPRAY 16 GM (FLONASE) SCH (09:32)
[2017-04-23] MEDS: LACTOBACILLUS ACIDOPHILUS CAP (BACID) PO SCH ×2 (09:32→17:54)
[2017-04-23 12:45] VITALS: BP 144/90
[2017-04-23] MEDS: METOPROLOL TART 25 MG TABLET PO SCH (14:11)
[2017-04-23] MEDS: SERTRALINE HCL 50 MG TAB PO SCH (14:11)
[2017-04-23] MEDS: ACETAMINOPHEN 500 MG TAB PO PRN (14:12)
--- NOTE | 2017-04-23 15:21 | IPNPDOC ---
Date Seen The patient was seen on 04/23/17. Progress Note SUBJECTIVE: Patient is a 76 yo female seen at bedside, no overnight issues. Complains this morning of abdominal cramps and loose stool. Tolerated breakfast. No CP, SOB, n/v. OBJECTIVE PHYSICAL EXAMINATION: VITAL SIGNS: Please see below. GENERAL: NAD A&OX3 HEENT: PERRLA, throat clear, neck supple CARDIOVASCULAR: RRR. RESPIRATORY: CTA Bilaterally. ABDOMINAL: Soft, NT/ND, Normoactive bowel sounds, no rebound tenderness EXTREMITIES: no edema, no calf tenderness NEUROLOGICAL: CN II-XII grossly intact without motor or sensory deficit PSYCHOLOGICAL: negative LABORATORY DATA: Please see below. MICROBIOLOGY: Please see below. DVT prophylaxis ordered?: yes ASSESSMENT AND PLAN: This is a 76 yo female with abdominal discomfort and GI panel positive for enteropathogenic E. coli. PROBLEMS: 1. Diarrhea: positive GI panel for enteropathogenic E. coli. Explained to patient it's typically treated with supportive therapy; however, since she has had prolonged symptoms will treat with course of oral cipro. 2. Allergic rhinitis. Continue with Flonase. 3. Hypertension. Controlled with irbesartan, Norvasc, metoprolol. 4. Mood disorder. Continue with Zoloft. 5. Dyslipidemia. Continue with Crestor. 6. Hypothyroidism. Continue with Synthroid. 7. Coronary artery disease. The patient is on a statin, beta imani, not on aspirin. Will defer to her outpatient providers. 8. Breast cancer: again brief discussion as outlined yesterday and defer further screening to her out patient providers. 9. Obstructive sleep apnea. The patient is not willing to even attempt or consider continuous positive airway pressure (CPAP) and has refused testing. 10. Paroxysmal atrial fibrillation. She is rate controlled with metoprolol. She has declined anticoagulation in the past. (Can be further addressed by outpatient provider) 11. Mild intermittent asthma. Symptoms appear to be well controlled without any medications. 12. Polymyalgia rheumatica in remission. 13. Deep venous thrombosis (DVT) prophylaxis. Patient is on Lovenox. DISPOSITION: would like to see how she tolerates Cipro. If doing well in morning will anticipate home discharge. VS, I&O, 24H, Fishbone Vital Signs/I&O Vital Signs Date Time Temp Pulse Resp B/P (MAP) Pulse Ox O2 Delivery O2 Flow Rate FiO2 04/23/17 14:11 66 144/90 04/23/17 12:45 98.0 18 99 Room Air I&O- Last 24 Hours up to 6 AM 04/24/17 06:00 Intake Total 240 ml Output Total 400 ml Balance -160 ml Laboratory Data 24H LABS Laboratory Tests 2 04/23/17 06:38: Immature Granulocyte % (Auto) 0.2H, White Blood Count 6.1, Red Blood Count 3.67L , Hemoglobin 10.2L, Hematocrit 31.9L, Mean Corpuscular Volume 86.9, Mean Corpuscular Hemoglobin 27.8, Mean Corpuscular Hemoglobin Concent 32.0, Red Cell Distribution Width 15.1H, Platelet Count 196, Neutrophils (%) (Auto) 45.5, Lymphocytes (%) (Auto) 42.1, Monocytes (%) (Auto) 8.0H, Eosinophils (%) (Auto) 3.9H, Basophils (%) (Auto) 0.3, Neutrophils # (Auto) 2.8, Lymphocytes # (Auto) 2.6, Monocytes # (Auto) 0.5, Eosinophils # (Auto) 0.2, Basophils # (Auto) 0.0, Immature Granulocyte # (Auto) 0.0, Nucleated Red Blood Cells % (auto) 0.0, Anion Gap 6L, Glomerular Filtration Rate > 60.0, Blood Urea Nitrogen 13, Creatinine 0.66, Sodium Level 138, Potassium Level 3.8, Chloride Level 103, Carbon Dioxide Level 29, Calcium Level 9.0 CBC/BMP Laboratory Tests 04/23/17 06:38 Red Blood Count 3.67 L, Mean Corpuscular Volume 86.9, Mean Corpuscular Hemoglobin 27.8, Mean Corpuscular Hemoglobin Concent 32.0, Red Cell Distribution Width 15.1 H, Neutrophils (%) (Auto) 45.5, Lymphocytes (%) (Auto) 42.1, Monocytes (%) (Auto) 8.0 H, Eosinophils (%) (Auto) 3.9 H, Basophils (%) ( Auto) 0.3, Neutrophils # (Auto) 2.8, Lymphocytes # (Auto) 2.6, Monocytes # (Auto ) 0.5, Eosinophils # (Auto) 0.2, Basophils # (Auto) 0.0, Calcium Level 9.0 Microbiology Microbiology 04/20/17 Blood Culture - Preliminary, Resulted No Growth after 72 hours. All specime... 04/20/17 Blood Culture - Preliminary, Resulted No Growth after 72 hours. All specime... 04/22/17 Gastrointestinal Tract Panel (PCR) - Final, Complete Enteropathogenic E.coli 04/22/17 Clostridium difficile (PCR) - Final, Complete 04/20/17 Urine Culture - Final, Complete KURT GUEVARA DO Apr 23, 2017 15:21
[2017-04-23] MEDS ORDERED: CIPR-249 PO (15:31)
[2017-04-23] MEDS: ROSUVASTATIN 10 MG TAB (CRESTOR) PO SCH (20:18)
[2017-04-23] MEDS: SODIUM CHLORIDE NASAL 0.65% SPRAY BTL (OCEAN) SCH (20:19)
[2017-04-24] MEDS: CIPROFLOXACIN 500 MG TAB PO SCH (05:34)
[2017-04-24] MEDS: LEVOTHYROXINE 100MCG TABLET (0.1MG) PO SCH (05:34)
[2017-04-24 06:00] VITALS: BP 157/72
[2017-04-24 06:35] LABS: BASO % 0.3 % (0.0-1.0); EOS # 0.2 10^3/uL (0.0-0.50); EOS % 3.5 % (0.0-3.0); IMMATURE GRANULOCYTE % 0.4 % (0-0); LYMPH # 2.9 10^3/uL (1.5-4.5); LYMPH % 42.9 % (24.0-44.0); MEAN CORPUSCULAR HEMOGLOBIN 27.3 pg (27.0-33.0); MEAN CORPUSCULAR HGB CONC 31.9 g/dl (32.0-36.5); MEAN CORPUSCULAR VOLUME 85.8 fl (80.0-96.0); MONO # 0.6 10^3/uL (0.0-0.8); MONO % 8.2 % (0.0-5.0); NEUTROPHILS # 3.1 10^3/uL (1.8-7.7); NEUTROPHILS % 44.7 % (36.0-66.0); PLATELET COUNT, AUTOMATED 220 10^3/uL (150-450); RED CELL DISTRIBUTION WIDTH 15.1 % (11.5-14.5); WHITE BLOOD COUNT 6.9 10^3/uL (4.0-10.0)
[2017-04-24 06:48] LABS: ANION GAP 8 MEQ/L (8-16); BLOOD UREA NITROGEN 15 MG/DL (7-18); CALCIUM LEVEL 9.2 MG/DL (8.8-10.2); CARBON DIOXIDE LEVEL 29 MEQ/L (21-32); CHLORIDE LEVEL 101 MEQ/L (98-107); CREATININE FOR GFR 0.75 MG/DL (0.55-1.02); GLOMERULAR FILTRATION RATE > 60.0 (>39); GLUCOSE, FASTING 100 MG/DL (83-110); POTASSIUM SERUM 3.5 MEQ/L (3.5-5.1); SODIUM LEVEL 138 MEQ/L (136-145)
[2017-04-24] MEDS ORDERED: CIPR-249 PO (07:28)
[2017-04-24] MEDS: ENOXAPARIN 40 MG/0.4 ML SYRINGE (J1650) SC SCH (09:00)
[2017-04-24 09:15] VITALS: BP 167/80
[2017-04-24 10:11] VITALS: BP 167/80
[2017-04-24] MEDS: IRBESARTAN 150 MG TAB PO SCH (10:11)
[2017-04-24] MEDS: LACTOBACILLUS ACIDOPHILUS CAP (BACID) PO SCH (10:12)
[2017-04-24] MEDS: ACETAMINOPHEN 500 MG TAB PO PRN (10:18)
--- NOTE | 2017-04-24 11:21 | DS.PDOC ---
Discharge Summary General Date of Admission Apr 20, 2017 at 14:08 Date of Discharge APR 24, 2018 Primary Care Physician: RUTH MARQUEZ MD [facility] Attending Physician: KURT GUEVARA DO Discharge Summary PROCEDURES PERFORMED DURING STAY: None. CONSULTANTS: None COMPLICATIONS: None ADMITTING DIAGNOSES / DISCHARGE DIAGNOSES: 1. Generalized maliase and Diarrhea for >1month 2. Allergic rhinitis 3. Hypertension. 4. Mood disorder. 5. Dyslipidemia. 6. Hypothyroidism. 7. Coronary artery disease. 8. h/o Breast cancer 9. Obstructive sleep apnea. 10. Paroxysmal atrial fibrillation. She is rate controlled with metoprolol. She has declined anticoagulation in the past. (Can be further addressed by outpatient provider) 11. Mild intermittent asthma. 12. Polymyalgia rheumatica in remission. COMPLICATIONS/CHIEF COMPLAINT: Malaise. HOSPITAL COURSE: [Briefly the patient has had vague complaints of generalized malaise, abdominal bloating, loose stool/diarrhea without hematochezia or melena for several weeks. She feels it may have been related to recent antibiotic use versus sick contacts. Any rate, she was admitted because the ED provider felt she was unsafe for home discharge at the time because of the loose stool and lethargy. Her GI panel did return with Enteropathogenic e.Coli. I discusssed quite extensively with the patient that typically this is treated supportively; however, due to her prolonged symptoms we collectively decided to treat with a course of Cipro. She had a recorded allergy on the chart regarding quinolones but the history was vague and nonspecific. She was given a few doses in house the day before discharge and tolerated it. I guess this may have been a prior side effect that she had experience. Will plan on discharging her to take for another 7-10 days and follow up outpatient. DISCHARGE MEDICATIONS: Please see below. ALLERGIES: Please see below. PHYSICAL EXAMINATION ON DISCHARGE: VITAL SIGNS: Please see below. PHYSICAL EXAMINATION: VITAL SIGNS: Please see below. GENERAL: NAD A&OX3 HEENT: PERRLA, throat clear, neck supple CARDIOVASCULAR: RRR. RESPIRATORY: CTA Bilaterally. ABDOMINAL: Soft, NT/ND, Normoactive bowel sounds, no rebound tenderness EXTREMITIES: no edema, no calf tenderness NEUROLOGICAL: CN II-XII grossly intact without motor or sensory deficit PSYCHOLOGICAL: negative LABORATORY DATA: Please see below. DISPOSITION: discharge home DISCHARGE CONDITION: Stable DISCHARGE PLAN: ACTIVITY: As tolerated. DIET: bland and avoid milk products for 1-2 weeks. DISCHARGE INSTRUCTIONS: [place] diet, avoid milk products, finish antibiotics. Seek medical attention should symptoms worsen. She voices understanding. TRANSITION OF CARE ISSUES: None. TIME SPENT ON DISCHARGE: Greater than 35 minutes. Vital Signs/I&Os Vital Signs Date Time Temp Pulse Resp B/P (MAP) Pulse Ox O2 Delivery O2 Flow Rate FiO2 04/24/17 10:11 167/80 04/24/17 06:00 98.7 71 18 100 Nasal Cannula I&O- Last 24 Hours up to 6 AM 04/25/17 06:00 Intake Total 0 ml Output Total 0 ml Balance 0 ml Laboratory Data Labs 24H Laboratory Tests 2 04/24/17 06:19: Immature Granulocyte % (Auto) 0.4H, White Blood Count 6.9, Red Blood Count 3.73L , Hemoglobin 10.2L, Hematocrit 32.0L, Mean Corpuscular Volume 85.8, Mean Corpuscular Hemoglobin 27.3, Mean Corpuscular Hemoglobin Concent 31.9L, Red Cell Distribution Width 15.1H, Platelet Count 220, Neutrophils (%) (Auto) 44.7, Lymphocytes (%) (Auto) 42.9, Monocytes (%) (Auto) 8.2H, Eosinophils (%) (Auto) 3.5H, Basophils (%) (Auto) 0.3, Neutrophils # (Auto) 3.1, Lymphocytes # (Auto) 2.9, Monocytes # (Auto) 0.6, Eosinophils # (Auto) 0.2, Basophils # (Auto) 0.0, Immature Granulocyte # (Auto) 0.0, Nucleated Red Blood Cells % (auto) 0.0, Anion Gap 8, Glomerular Filtration Rate > 60.0, Blood Urea Nitrogen 15, Creatinine 0.75, Sodium Level 138, Potassium Level 3.5, Chloride Level 101, Carbon Dioxide Level 29, Calcium Level 9.2 CBC/BMP Laboratory Tests 04/24/17 06:19 Red Blood Count 3.73 L, Mean Corpuscular Volume 85.8, Mean Corpuscular Hemoglobin 27.3, Mean Corpuscular Hemoglobin Concent 31.9 L, Red Cell Distribution Width 15.1 H, Neutrophils (%) (Auto) 44.7, Lymphocytes (%) (Auto) 42.9, Monocytes (%) (Auto) 8.2 H, Eosinophils (%) (Auto) 3.5 H, Basophils (%) ( Auto) 0.3, Neutrophils # (Auto) 3.1, Lymphocytes # (Auto) 2.9, Monocytes # (Auto ) 0.6, Eosinophils # (Auto) 0.2, Basophils # (Auto) 0.0, Calcium Level 9.2 Microbiology Microbiology 04/20/17 Blood Culture - Preliminary, Resulted No Growth after 72 hours. All specime... 04/20/17 Blood Culture - Preliminary, Resulted No Growth after 72 hours. All specime... 04/22/17 Gastrointestinal Tract Panel (PCR) - Final, Complete Enteropathogenic E.coli 04/22/17 Clostridium difficile (PCR) - Final, Complete 04/20/17 Urine Culture - Final, Complete Discharge Medications Scheduled (Flonase Allergy Relief) 50 Mcg/Act Spr, 1 SPRAY NA DAILY, (Reported) (Irbesartan/Hydrochlorothi 150-12.5 mg) 1 Tab Tab, 2 TAB PO DAILY, (Reported) (Saline Nasal Sparks) 0.65 % Spr, 1 SPRAY NA QHS, (Reported) Amlodipine Besylate (Amlodipine Besylate) 2.5 Mg Tab, 2.5 MG PO QHS, (Reported) Carboxymethylcellulose Sodium (Refresh Tears) 0.5 % Prakash, 1 DROP OU BID, ( Reported) Ciprofloxacin HCl (Cipro) 500 Mg Tab, 500 MG PO BID@ Desloratadine (Desloratadine) 5 Mg Tab, 5 MG PO DAILY, (Reported) Docusate Sodium (Docusate Sodium) 100 Mg Cap, 100 MG PO DAILY, (Reported) Levothyroxine Sodium (Synthroid) 100 Mcg Tab, 100 MCG PO DAILY, (Reported) Metoprolol Tartrate (Metoprolol Tartrate) 25 Mg Tab, 25 MG PO QPM, (Reported) TAKES IN AFTERNOON Rosuvastatin (Crestor) 10 Mg Tab, 10 MG PO QHS, (Reported) Sertraline Hcl (Sertraline HCl) 50 Mg Tab, 50 MG PO QPM, (Reported) TAKES IN AFTERNOON Scheduled PRN Acetaminophen (Acetaminophen) 500 Mg Tab, 1,000 MG PO Q4H PRN for PAIN, ( Reported) Allergies Coded Allergies: Ibuprofen (Verified Allergy, Intermediate, HIVES - MOTRIN BRAND, 03/04/17) GENERIC IBUPROFEN OK Penicillins (Verified Allergy, Intermediate, HIVES, 03/04/17) Penicillins Cross Reactors (Verified Allergy, Intermediate, HIVES, 03/04/17 ) Latex (Verified Allergy, Unknown, 02/15/17) Quinolones (Verified Allergy, Unknown, 02/15/17) Sulfamethoxazole w/Trimethoprim (Verified Allergy, Unknown, HIVES, 02/15/17) Codeine (Verified Adverse Reaction, Mild, N/V, 03/04/17) KURT GUEVARA DO Apr 24, 2017 11:21
[2017-04-24] MEDS: FLUTICASONE PROP 0.05% NASAL SPRAY 16 GM (FLONASE) SCH (11:39)
== END 2017-04-24 12:20 | disposition home or self-care (01) ==
LOC: EDBD 10:08 → M ED 10:08 → M ED INP 14:08 → M MSPAV 14:08 → UNDOADMOB 14:08 → M ED INP 16:46 → M MSPAV 16:46 → UNDODISOB 04-24 12:20
PROVIDERS: ADMIT Internal Medicine; ATTEND Hospitalist
DX: R53.81 Other malaise (principal); R10.9 Unspecified abdominal pain; R19.7 Diarrhea, unspecified; E86.0 Dehydration; I10 Essential (primary) hypertension; E03.9 Hypothyroidism, unspecified; I48.0 Paroxysmal atrial fibrillation; I25.10 Atherosclerotic heart disease of native coronary artery without angina pectoris; E78.5 Hyperlipidemia, unspecified; G47.33 Obstructive sleep apnea (adult) (pediatric); G47.00 Insomnia, unspecified; J45.20 Mild intermittent asthma, uncomplicated; J30.89 Other allergic rhinitis; F41.9 Anxiety disorder, unspecified; E66.9 Obesity, unspecified; Z85.3 Personal history of malignant neoplasm of breast; Z87.891 Personal history of nicotine dependence; Z88.5 Allergy status to narcotic agent; Z88.2 Allergy status to sulfonamides; Z88.8 Allergy status to other drugs, medicaments and biological substances; Z88.0 Allergy status to penicillin; Z91.040 Latex allergy status; Z88.6 Allergy status to analgesic agent; Z23 Encounter for immunization
CPT/HCPCS: 36415; 71020; 74177; 80048; 80076; 81001; 83605; 83690; 85025; 87040; 87086; 87507; 90670; 93005; 93041; 96361; 96374; 96375; 97162; 99285; C9113; G0009; G0378; G8978; G8979; G8980; J1650; J2405; Q9967

== ENCOUNTER → 2017-12-02 | Outpatient (CLI) | payer MEDICARE, OTHER | LOC: M WHC 13:34 | DX: Z12.31 Encounter for screening mammogram for malignant neoplasm of breast (principal) | CPT/HCPCS: 77067 ==

== ENCOUNTER → 2017-12-27 | Outpatient (CLI) | payer MEDICARE, OTHER ==
[~2017-12-27] MED LIST changes: -/CELE20CA OR; -ACET-683 PO; -AMLO25TA PO; -ARTISOL10 OU; -AVAP150T OR; -BABY81CH OR; -CEFD1CAP8; -CLARINEX OR; -COUM1TAB17 PO; -COUM2.5T17 PO; -CRES10TA32 PO; -Centrum Silver OR; +E-Z-GAS II EFFERVESCENT PACKET (SODIUM BICARB./CITRIC ACID/SIMETHICONE) As Ordered; +E-Z-HD 98% w/w 340GM SUSP BTL As Ordered; +E-Z-PAQUE 96% w/w SUSP 176GM BTL As Ordered; -FLUT1LOT; -GLUC500T3 OR; -HYDR25TA6 OR; -IMIQ5CRE EXT; -IRBE150T14; -LEVO100T5 PO; -MELO15TA4; -METO-346 PO; -METO1TAB87 PO; -METO37.5 PO; -NORV5TAB OR; -NUCY50TA6 PO; -REFR0.5D8 OU; -ROSU10TA OR; -SERT-155; -STOO100C PO; -SYNT100T OR; -VIACTIVE OR; -tylenol OR
== END ==
LOC: M RAD 08:48
DX: M50.321 Other cervical disc degeneration at C4-C5 level (principal); R13.10 Dysphagia, unspecified
CPT/HCPCS: 74220

== ENCOUNTER → 2018-08-25 | Outpatient (REF) | payer MEDICARE, OTHER ==
[~2018-08-25] MED LIST changes: +/CELE20CA OR; +ACET-683 PO; +ACET500T15 PO; +AMLO2.5T3 PO; +AMLO25TA PO; +ARTISOL10 OU; +AVAP150T OR; +BABY81CH OR; +CEFD1CAP8; +CIPR-249 PO; +CLARINEX OR; +CLOB05OI TOP; +COUM1TAB17 PO; +COUM2.5T17 PO; +CRES10TA32 PO; +Centrum Silver OR; +DESL5TAB4 PO; +DOCU100C16 PO; -E-Z-GAS II EFFERVESCENT PACKET (SODIUM BICARB./CITRIC ACID/SIMETHICONE) As Ordered; -E-Z-HD 98% w/w 340GM SUSP BTL As Ordered; -E-Z-PAQUE 96% w/w SUSP 176GM BTL As Ordered; +FLON1SPR; +FLUT1LOT; +GLUC500T3 OR; +HYDR25TA6 OR; +IMIQ5CRE EXT; +IRBE150T14; +IRBE150T14 PO; +LEVO100T5 PO; +MELO15TA28; +MELO15TA28 PO; +METO-346 PO; +METO1TAB87 PO; +METO37.5 PO; +NORV5TAB OR; +NUCY50TA19 PO; +PRESCAP PO; +REFR0.5D8 OU; +ROSU10TA OR; +SALI0.6528; +SERT-155; +SERT50TA PO; +STOO100C PO; +SYNT100T OR; +VIACTIVE OR; +tylenol OR
== END ==
LOC: M SFHCPLAZ 13:47
PROVIDERS: ATTEND Dermatology
DX: C44.310 Basal cell carcinoma of skin of unspecified parts of face (principal); L57.0 Actinic keratosis

== ENCOUNTER → 2018-08-26 | Outpatient (CLI) | payer MEDICARE, OTHER ==
--- NOTE | 2018-08-26 12:46 | REP ---
Whole body abdominal ultrasound for umbilical hernia and hepatic size: Comparison is the CT of the abdomen pelvis dated 04/20/2017. Ultrasonography over the umbilicus reveals a fat-containing umbilical hernia that does not increased size with Valsalva. The peritoneal defect measures 0.5 cm. The hernia sac measures 1.8 cm transversely by 1.0 cm in depth. On the comparison CT there was only a tiny fat containing umbilical hernia. The peritoneal defect and the hernia sac previously measured 4 mm transversely. The liver measures 16.2 cm craniocaudad length and is upper normal size. The common biliary duct measures 6 mm transverse diameter. This is normal size and a post cholecystectomy patient. The visualized portion of the pancreatic head is unremarkable. The remainder of the pancreas is obscured by bowel. The spleen is normal size measuring 9.6 x 9.2 x 3.7 cm for a volume of 317 ml. Small granulomas are incidentally identified in the spleen. The right kidney measures 8.3 x 4.0 x 3 point 0 cm and is atrophic size. The left kidney measures 11.3 x 5 over 4.7 meters and is normal size. There is a 0.7 cm right renal cyst. There is no right renal solid mass, hydronephrosis or calculus. There are linear echogenic foci in the left renal pelvis, likely vascular atheroma. There are no left renal solid or cystic masses, calculus or hydronephrosis. There is no abdominal aortic aneurysm. At the diaphragm. The aorta measures 2.8 cm diameter, at the renal arteries to 0.6 cm diameter and at the bifurcation 2.0 cm diameter. There is no free fluid in the abdomen. Impression: Fat-containing umbilical hernia as described. Liver upper normal size. To focal hyperechoic tears are identified near the tim hepatis. Followup MRI is recommended as discussed. Pancreas is obscured by bowel. Granulomas in the spleen. Atrophic right kidney and small right renal cyst. Near the hepatic tim hepatis. There are too focal hyperechoic areas measuring up to 1.5 cm diameter each. These are nonspecific but could possibly represent hemangiomas or focal nodular hyperplasia. Follow-up hepatic MRI is recommended for further evaluation. The hepatic parenchyma is otherwise homogeneous and unremarkable. There is a cholecystectomy. There is no intrahepatic or extrahepatic biliary duct dilatation. Electronically Signed by Aniket Kessler MD 08/26/2018 12:37 P
== END ==
LOC: M RAD 09:35
PROVIDERS: ATTEND Internal Medicine Gastroenterology
DX: K42.9 Umbilical hernia without obstruction or gangrene (principal); N26.1 Atrophy of kidney (terminal); N28.1 Cyst of kidney, acquired; R93.429 Abnormal radiologic findings on diagnostic imaging of unspecified kidney; R93.89 Abnormal findings on diagnostic imaging of other specified body structures

== ENCOUNTER → 2018-11-06 | Outpatient (CLI) | payer MEDICARE, OTHER ==
[~2018-11-06] MED LIST changes: -/CELE20CA OR; +CELE1CAP4 OR; +CRES10TA PO; +CRES10TA32 OR; -CRES10TA32 PO; +D-101000 PO; +GASTROGRAFIN SOLUTION 30ML (Q9963) As Ordered ONE; +ISOVUE-370 76% 100ML VIAL (Q9967) As Ordered ONE; -ROSU10TA OR; +SERT-141 PO; -SERT50TA PO
--- NOTE | 2018-11-06 17:14 | REP ---
Clinical: Obstipation. Technique: Axial contrast enhanced images from the lung bases to the pubic symphysis using oral (per protocol) and 100 ml Isovue 370 intravenous contrast material with delayed images of the abdomen as well as coronal and sagittal re-formations. Comparison: 04/20/2017. Findings: Lung bases demonstrate mild chronic changes and calcified granulomata. Liver, spleen, pancreas, and bilateral adrenal glands are normal. The patient is status post cholecystectomy with mild compensatory biliary ductal dilatation. Right kidney appears atrophic but with symmetric enhancement as compared to the left kidney which appears relatively normal and includes 1 mm nonobstructing calculus. The enteric system is without obstruction or acute inflammatory process normal terminal ileum and cecum identified in the right lower quadrant. Mild/moderate fecal stasis suggested. Pelvis demonstrates normal bladder and evidence for prior hysterectomy. No ascites. No free air. No adenopathy. Atherosclerotic changes to the aorta and vasculature without aneurysm or dissection. Musculoskeletal structures demonstrate degenerative changes without focal osseous abnormality. Impression: 1. Stable atrophic appearance of the right kidney and 1 mm nonobstructing left renal calculus. 2. Mild/moderate fecal stasis without obstruction. 3. Atherosclerotic changes of the vasculature and degenerative changes of the thoracolumbar spine. 4. Prior cholecystectomy and hysterectomy. 5. No further acute abdominopelvic pathology appreciated. Specifically, no ascites, adenopathy, or focal inflammatory stranding. Electronically Signed by Ovi Negrete MD 11/06/2018 05:05 P
== END ==
LOC: M RAD 14:07
PROVIDERS: ATTEND Internal Medicine Medical Oncology
DX: K59.00 Constipation, unspecified (principal); Z85.3 Personal history of malignant neoplasm of breast; Z80.0 Family history of malignant neoplasm of digestive organs; N20.0 Calculus of kidney; Z90.49 Acquired absence of other specified parts of digestive tract; M51.37 Other intervertebral disc degeneration, lumbosacral region
CPT/HCPCS: 74177; Q9963; Q9967

== ENCOUNTER → 2018-12-04 | Outpatient (CLI) | payer MEDICARE, OTHER ==
[~2018-12-04] MED LIST changes: -GASTROGRAFIN SOLUTION 30ML (Q9963) As Ordered ONE; -ISOVUE-370 76% 100ML VIAL (Q9967) As Ordered ONE
--- NOTE | 2018-12-04 10:26 | REPMRS ---
Patient History The patient states she had a clinical breast exam in October 2018. Family history of breast cancer at age 50 or over in sister, colorectal cancer in paternal uncle, colorectal cancer in maternal cousin, colorectal cancer in paternal cousin. Malignant radio exam breast specimen of the left breast, January 24, 2017. Malignant localization of breast nodule of the left breast, January 24, 2017. Malignant US guided breast biopsy of the left breast, January 08, 2017. Benign excisional biopsy of the right breast, 1979. No Hormone Replacement Therapy 3D TOMOSYNTHESIS WAS PERFORMED. Digital Mammo Screening Bilat: December 04, 2018 - Exam #: [id number] Bilateral CC and MLO view(s) were taken. Technologist: Jacey Escobar, Technologist Prior study comparison: December 02, 2017, bilateral digital woman screen mammo, performed at [facility]. January 08, 2017, left breast digital mammo diagnostic unilateral performed at [facility]. FINDINGS: The breast tissue is heterogeneously dense. This may lower the sensitivity of mammography. There has been no change in the appearance of the mammogram from the prior studies. There is a moderate amount of residual fibroglandular tissue which is fairly symmetric. There is no interval development of dominant mass, areas of architectural distortion, or clustered microcalcification typical of malignancy. Assessment: BI-RADS/ACR category 1 mammogram. Negative Mammogram. Recommendation Routine screening mammogram in 1 year (for women over age 40). This mammogram was interpreted with the aid of an FDA-approved computer-aided dectection system. Electronically Signed By: Aniket Jones MD 12/04/18 [id number]
== END ==
LOC: M RAD 09:41
PROVIDERS: ATTEND Internal Medicine Medical Oncology
DX: Z12.31 Encounter for screening mammogram for malignant neoplasm of breast (principal); Z85.3 Personal history of malignant neoplasm of breast; Z80.3 Family history of malignant neoplasm of breast; R92.8 Other abnormal and inconclusive findings on diagnostic imaging of breast

== ENCOUNTER → 2019-12-21 | Outpatient (CLI) | payer MEDICARE, BC ==
[~2019-12-21] MED LIST changes: +DESL1TAB3 PO; -DESL5TAB4 PO; +MM S100C PO; +NASA1SPR NARES; +PROBCAP14 PO; +PX S0.65 NARES; -SERT-155; +SERT50TA29; +SIME180C PO; -STOO100C PO
--- NOTE | 2019-12-22 08:10 | REP ---
BILATERAL MAMMOGRAM WITH 3D TOMOSYNTHESIS: HISTORY: Left breast cancer 2017. Family history of breast cancer in sister. COMPARISON: 12/04/2018 as well as other prior exams. Moderate fibroglandular tissue appears unchanged bilaterally. No new mass is seen. However, there appear to be increasing tiny calcifications in the lateral posterior right breast. Recommend magnification views to further evaluate. There are other scattered benign appearing calcifications bilaterally. IMPRESSION: BIRADS 0: BI-RADS/ACR category 0 mammogram, Incomplete: Need additional imaging evaluation and/or prior mammograms for comparison. ACR 0 incomplete. Increasing tiny calcifications laterally in the right breast, posterior third. Recommend magnification views to further evaluate. This mammogram was interpreted with the aid of an FDA-approved computer-aided detection system. A. Negative x-ray reports should not delay biopsy if a dominant or clinically suspicious mass is present. B. Four to eight percent of cancers are not identified by x-ray. C. Adenosis and dense breasts may obscure an underlying neoplasm. The patient states she/he had a clinical breast exam in November 2019. The patient letter being requested is M0.
== END ==
LOC: M WHC 13:53
PROVIDERS: ATTEND Internal Medicine Medical Oncology
DX: R92.2 Inconclusive mammogram (principal); Z85.3 Personal history of malignant neoplasm of breast

== ENCOUNTER → 2019-12-31 | Outpatient (CLI) | payer MEDICARE, BC ==
--- NOTE | 2019-12-31 17:33 | REP ---
DIAGNOSTIC MAMMOGRAM RIGHT BREAST: Multiple magnification views right breast performed and correlated with the recent mammogram of 12/21/2019. These magnification views confirm the presence of five or six clustered pleomorphic microcalcifications in the outer posterior right breast which are essentially new compared to the prior studies. Another grouping of tiny calcifications slightly medial to this have remained stable since approximately 2009. IMPRESSION: BIRADS 4: BI-RADS/ACR category 4 mammogram. Suspicious Abnormality - biopsy should be considered. ACR 4 suspicious. New clustered pleomorphic microcalcifications outer posterior right breast. Recommend stereotactic biopsy. Please note, another cluster of tiny calcifications just medial to this has remained stable for at least 10 years. The patient letter being requested is M4.
== END ==
LOC: M WHC 14:01
PROVIDERS: ATTEND Internal Medicine Medical Oncology
DX: R92.2 Inconclusive mammogram (principal)

== ENCOUNTER → 2020-01-15 | Outpatient (RCR) | payer MEDICARE, BC | LOC: M PT 12-29 13:38 | PROVIDERS: ATTEND Family Medicine | DX: M48.02 Spinal stenosis, cervical region (principal) ==

== ENCOUNTER 2020-01-18 10:30 | Outpatient (RCR) | payer MEDICARE, BC | END 2020-02-15 | LOC: M PT 10:30 | PROVIDERS: ATTEND Family Medicine | DX: M48.02 Spinal stenosis, cervical region (principal) ==

== ENCOUNTER → 2020-02-27 | Outpatient (REF) | payer MEDICARE, BC | LOC: M LAB REF 17:32 | PROVIDERS: ATTEND Physician Assistant | DX: L03.316 Cellulitis of umbilicus (principal) ==

== ENCOUNTER → 2020-04-18 | Outpatient (CLI) | payer MEDICARE, BC | LOC: M PLALAB 13:23 | PROVIDERS: ATTEND Surgery | DX: Z01.89 Encounter for other specified special examinations (principal) ==

== ENCOUNTER → 2020-05-17 | Outpatient (CLI) | payer MEDICARE, BC ==
[~2020-05-17] MED LIST changes: +D31000TA2 PO
== END ==
LOC: M WHCPRO 11:34
PROVIDERS: ATTEND Surgery
DX: R92.8 Other abnormal and inconclusive findings on diagnostic imaging of breast (principal); Z53.9 Procedure and treatment not carried out, unspecified reason

== ENCOUNTER → 2020-07-12 | Outpatient (CLI) | payer MEDICARE, BC ==
[2020-07-12 15:03] VITALS: BP 132/74
--- NOTE | 2020-07-12 15:54 | REP ---
INDICATION: R92.8 ABN RIGHT BREAST MAMMO/STERO BX. Marker clip placement views. COMPARISON: Comparison mammography December 31, 2019. Right breast study. TECHNIQUE: Craniocaudal and mediolateral views of the right breast are obtained. FINDINGS: Craniocaudal and mediolateral views of the right breast demonstrate a needle biopsy marker clip in excellent position at the site of the now removed new micro calcific grouping. There are microcalcifications within a cm of this marker clip however these are the previously noted stable microcalcifications that were not the target of today's biopsy. No hematoma is seen. IMPRESSION: Marker clip in good position. <Electronically signed by Shady Barcenas > 07/12/20 [id number]
--- NOTE | 2020-07-12 15:55 | REP ---
INDICATION: R92.8 ABN RIGHT BREAST MAMMO/STERO BX/CK CLIP PLACEMENT. COMPARISON: Comparison mammography December 31, 2019.. TECHNIQUE: Single-view specimen radiography. FINDINGS: Specimen radiograph demonstrates microcalcifications from the target grouping and 4 of the removed needle biopsy specimens. IMPRESSION: Specimen radiography shows microcalcifications from the target grouping. <Electronically signed by Shady Barcenas > 07/12/20 [id number]
--- NOTE | 2020-07-14 09:02 | REP ---
INDICATION: ABN RIGHT BREAST MAMMO/STEREO BX. COMPARISON: None. TECHNIQUE: The procedure was performed under the direct supervision of Dr. Barcenas. The patient has a history of new clustered pleomorphic microcalcifications in the outer posterior right breast seen on a previous mammogram dated 12/31/2019. The risks and benefits of the procedure were explained to the patient and informed consent was obtained. A caudal cranial approach was utilized. The calcifications were localized using stereotactic mammographic guidance. 1% Xylocaine was used as a local anesthetic. An 10 gauge, suction assisted Mammotome needle was inserted and 6 core biopsy samples were obtained. Specimen radiograph demonstrates the presence of calcifications to be within the specimen. A marker clip was placed at the biopsy site. The patient tolerated the procedure well and there were no immediate complications. After the appropriate amount of monitored convalescence, the patient was discharged from the department. FINDINGS: None IMPRESSION: Stereotactic right breast biopsy with marker clip placement. <Electronically signed by Shady Barcenas > 07/14/20 [id number]
== END ==
LOC: M WHCPRO 13:24
PROVIDERS: ATTEND Surgery
DX: N60.81 Other benign mammary dysplasias of right breast (principal); Z88.0 Allergy status to penicillin; Z88.5 Allergy status to narcotic agent; Z88.2 Allergy status to sulfonamides; Z88.1 Allergy status to other antibiotic agents

== ENCOUNTER → 2020-08-19 | Outpatient (CLI) | payer MEDICARE, BC ==
--- NOTE | 2020-08-19 14:47 | REP ---
INDICATION: NONTOXIC MULTINODULAR GOITER COMPARISON: None. TECHNIQUE: Internal rotation, external rotation, and Y view. FINDINGS: Acromioclavicular and glenohumeral joints are essentially age-appropriate. No overt arthritic changes are appreciated. Subacromial space is normal. No periarticular calcifications or loose bodies are identified. No evidence for fracture or dislocation. IMPRESSION: Age-appropriate right shoulder radiographs. <Electronically signed by Ovi Negrete > 08/19/20 [id number]
== END ==
LOC: M LAB 14:23
PROVIDERS: ATTEND Family Medicine
DX: E04.2 Nontoxic multinodular goiter (principal)

== ENCOUNTER → 2020-08-30 | Outpatient (CLI) | payer MEDICARE, BC ==
--- NOTE | 2020-08-30 14:43 | REP ---
INDICATION: GOTIER. COMPARISON: None. TECHNIQUE: Multiple ultrasonographic images of the thyroid. FINDINGS: The study is performed to evaluate for nontoxic multinodular goiter. The thyroid right lobe measures 4.9 x 2.8 x 2.4 cm and is upper normal size. The thyroid left lobe measures 3.6 x 1.9 x 1.6 cm and is normal size. The intra isthmus measures 9 mm thickness and is thickened. The thyroid parenchyma is diffusely heterogeneous, compatible with thyroid goiter. There are 2 focal right thyroid lobe nodules 1 in the upper pole measuring 10 x 8 x 7 mm and the other in the lower pole measuring 12 x 7 x 11 mm. No focal nodules are identified by ultrasound in the left lobe. Because of their size ultrasound-guided biopsy of the 2 right lobe nodules might be considered. IMPRESSION: The thyroid parenchyma is diffusely heterogeneous, compatible with goiter. There are 2 focal nodules in the right low 1 in the upper pole and 1 in the lower pole as described. Because of their size ultrasound-guided biopsy of these nodules might be considered. No other thyroid nodules are identified. <Electronically signed by Aniket Kessler > 08/30/20 [id number]
== END ==
LOC: M RAD 13:40
PROVIDERS: ATTEND Family Medicine
DX: E04.2 Nontoxic multinodular goiter (principal)

== ENCOUNTER 2020-09-26 10:38 | Emergency (ER) | payer MEDICARE, BC ==
[~2020-09-26] VITALS: Ht 162.6 cm; Wt 78.1 kg
[~2020-09-26 10:38] MED LIST changes: -SIME180C PO; +SIME180C25 PO
--- NOTE | 2020-09-26 11:21 | REP ---
INDICATION: CONSTIPATION. COMPARISON: 04/20/2017 FINDINGS: Supine and upright views of the abdomen show the intestinal gas pattern to be nonspecific. Gas and stool is seen throughout the colon within the rectosigmoid region. The organ silhouettes insofar as delineated appear unremarkable. No abdominal calcific densities are seen within the abdomen or pelvis. There are bilateral pelvic phleboliths. Surgical clips are seen in the right upper quadrant secondary to previous cholecystectomy. The accompanying single frontal view of the chest shows no free subdiaphragmatic air, infiltrates or effusions. There is mild cardiomegaly status quo. IMPRESSION: Nonspecific intestinal gas pattern. No acute disease. <Electronically signed by Dawson Plaza > 09/26/20 [id number]
[2020-09-26] MEDS ORDERED: NS 1,000 ML IV ONE (12:10)
[2020-09-26 12:57] LABS: BASO % 0.3 % (0.0-1.0); EOS # 0.1 10^3/uL (0.0-0.5); EOS % 0.9 % (0.0-3.0); HEMATOCRIT 39.2 % (36.0-47.0); HEMOGLOBIN 12.4 g/dl (12.0-15.5); LYMPH # 2.5 10^3/uL (1.5-5.0); LYMPH % 36.7 % (24.0-44.0); MEAN CORPUSCULAR HEMOGLOBIN 28.1 pg (27.0-33.0); MEAN CORPUSCULAR HGB CONC 31.6 g/dl (32.0-36.5); MEAN CORPUSCULAR VOLUME 88.9 fl (80.0-96.0); MONO # 0.8 10^3/uL (0.0-0.8); MONO % 11.4 % (2.0-8.0); NEUTROPHILS # 3.5 10^3/uL (1.5-8.5); NEUTROPHILS % 50.4 % (36.0-66.0); PLATELET COUNT, AUTOMATED 193 10^3/uL (150-450); RED BLOOD COUNT 4.41 10^6/uL (4.00-5.40); WHITE BLOOD COUNT 6.9 10^3/uL (4.0-10.0)
[2020-09-26] MEDS ORDERED: ISOVUE-370 76% 100ML VIAL As Ordered ONE (13:04)
[2020-09-26 13:31] LABS: BILIRUBIN,DIRECT 0.2 MG/DL (0.0-0.2); BILIRUBIN,TOTAL 0.6 MG/DL (0.2-1.0); TOTAL PROTEIN 7.1 GM/DL (6.4-8.2)
--- NOTE | 2020-09-26 13:46 | REP ---
INDICATION: rlq pain/constiption. COMPARISON: 05/10/2020 the latest prior TECHNIQUE: 100 cc Isovue 370. No oral bowel preparatory contrast was administered. FINDINGS: The lung bases are stable. Once again, there is mild intrahepatic ductal dilatation and again, likely consistent patient's post cholecystectomy state. The spleen, pancreas, adrenal glands, and kidneys are unchanged. Once again, there is right renal atrophic change status quo. The abdominal aorta and para-aortic regions are again seen to be within normal limits and unchanged. The bowel loops and the mesenteries are essentially unchanged. There is no free fluid or free air. There is no mass or adenopathy. There is no significant change in the imaged osseous structures. IMPRESSION: No significant change from the prior exam. No evidence of acute disease. <Electronically signed by Dawson Plaza > 09/26/20 [id number]
[2020-09-26] MEDS ORDERED: RA M1.74 PO ×2 (14:04→14:34)
[2020-09-26] MEDS ORDERED: MIRA3350 PO ×2 (14:04→14:34)
[2020-09-26 14:29] VITALS: BP 160/90
== END 2020-09-26 14:42 | disposition home or self-care (01) ==
LOC: M ED 10:38
DX: K59.00 Constipation, unspecified (principal); E78.5 Hyperlipidemia, unspecified; J45.909 Unspecified asthma, uncomplicated; E03.9 Hypothyroidism, unspecified; I10 Essential (primary) hypertension; Z78.0 Asymptomatic menopausal state; Z79.899 Other long term (current) drug therapy; Z88.0 Allergy status to penicillin; Z88.6 Allergy status to analgesic agent; Z91.040 Latex allergy status; Z88.8 Allergy status to other drugs, medicaments and biological substances
CPT/HCPCS: 74021; 74177; 80047; 80076; 83690; 85025; 96360; 99284; Q9967

== ENCOUNTER 2020-10-17 19:56 | Emergency (ER) | payer MEDICARE, BC ==
[~2020-10-17] VITALS: Ht 160 cm; Wt 78.1 kg
[~2020-10-17 19:56] MED LIST changes: +MIRA3350 PO; +RA M1.74 PO
[2020-10-17 19:57] VITALS: BP 148/85
[2020-10-17 21:06] LABS: BASO % 0.3 % (0.0-1.0); EOS # 0.1 10^3/uL (0.0-0.5); EOS % 1.8 % (0.0-3.0); HEMATOCRIT 38.7 % (36.0-47.0); HEMOGLOBIN 12.1 g/dl (12.0-15.5); LYMPH # 2.4 10^3/uL (1.5-5.0); LYMPH % 38.9 % (24.0-44.0); MEAN CORPUSCULAR HEMOGLOBIN 27.9 pg (27.0-33.0); MEAN CORPUSCULAR HGB CONC 31.3 g/dl (32.0-36.5); MEAN CORPUSCULAR VOLUME 89.4 fl (80.0-96.0); MONO # 0.7 10^3/uL (0.0-0.8); MONO % 11.3 % (2.0-8.0); NEUTROPHILS # 2.9 10^3/uL (1.5-8.5); NEUTROPHILS % 47.5 % (36.0-66.0); PLATELET COUNT, AUTOMATED 199 10^3/uL (150-450); RED BLOOD COUNT 4.33 10^6/uL (4.00-5.40); WHITE BLOOD COUNT 6.1 10^3/uL (4.0-10.0)
--- NOTE | 2020-10-17 21:27 | REPVR ---
PROCEDURE INFORMATION: Exam: XR Chest Exam date and time: 10/17/2020 8:21 PM Age: 80 years old Clinical indication: Chest pain; Type not specified TECHNIQUE: Imaging protocol: XR of the chest. Views: 1 view. COMPARISON: CR Chest, 2 view PA, Lat 04/20/2017 10:33 AM FINDINGS: Lungs: Unremarkable. No consolidation. Pleural spaces: Unremarkable. No pleural effusion. No pneumothorax. Heart/Mediastinum: Cardiomegaly. Bones/joints: Degenerative changes of the spine and bilateral shoulder joints. IMPRESSION: No acute abnormality. Electronically signed by: Wero Marcano On 10/17/2020 21:27:51 PM
[2020-10-17 21:28] LABS: BLOOD UREA NITROGEN 14 MG/DL (7-18); CALCIUM LEVEL 9.2 MG/DL (8.8-10.2); CARBON DIOXIDE LEVEL 33 MEQ/L (21-32); CHLORIDE LEVEL 101 MEQ/L (98-107); CK-MB VALUE MASS < 1.0 NG/ML (<3.6); CPK CREATINE PHOSPHOKINASE 72 U/L (26-192); FREE T4 1.24 NG/DL (0.76-1.46); GLOMERULAR FILTRATION RATE > 60.0 (>32); GLUCOSE, FASTING 118 MG/DL (70-100); MAGNESIUM LEVEL 2.2 MG/DL (1.8-2.4); MB/CK RELATIVE INDEX 1.39 (< OR =4); POTASSIUM SERUM 3.6 MEQ/L (3.5-5.1); SODIUM LEVEL 138 MEQ/L (136-145); TROPONIN I < 0.02 NG/ML (< 0.10)
--- NOTE | 2020-10-18 17:45 | ECGEPIP ---
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
== END 2020-10-17 23:00 | disposition home or self-care (01) ==
LOC: M ED 19:56
DX: R00.2 Palpitations (principal); I51.7 Cardiomegaly; E78.5 Hyperlipidemia, unspecified; M48.00 Spinal stenosis, site unspecified; E03.9 Hypothyroidism, unspecified; F10.10 Alcohol abuse, uncomplicated; Z88.0 Allergy status to penicillin; Z88.2 Allergy status to sulfonamides; Z91.040 Latex allergy status; Z79.899 Other long term (current) drug therapy

== ENCOUNTER → 2020-12-26 | Outpatient (CLI) | payer MEDICARE, BC ==
[~2020-12-26] MED LIST changes: +ACET1TAB55 PO; -CEFD1CAP8; +CEFD300C41; +HYDR25TA PO; +IMIQ1CRE6 EXT; -IMIQ5CRE EXT; +LOPR1TAB6 PO
== END ==
LOC: M WHC 11:04
PROVIDERS: ATTEND Surgery
DX: Z12.31 Encounter for screening mammogram for malignant neoplasm of breast (principal); R92.8 Other abnormal and inconclusive findings on diagnostic imaging of breast
CPT/HCPCS: 77066; G0279

== ENCOUNTER → 2021-01-10 | Outpatient (REF) | payer MEDICARE, BC ==
[~2021-01-10] MED LIST changes: -ACET1TAB55 PO; +CEFD1CAP8; -CEFD300C41; -HYDR25TA PO; -IMIQ1CRE6 EXT; +IMIQ5CRE EXT; -LOPR1TAB6 PO
[2021-01-10 16:32] LABS: APPEARANCE, URINE CLEAR (CLEAR); BACTERIA, URINE AUTO NEGATIVE (NEGATIVE); BILIRUBIN, URINE AUTO NEGATIVE (NEGATIVE); BLOOD, URINE BLOOD NEGATIVE (NEGATIVE); COLOR, URINE YELLOW (YELLOW); GLUCOSE, URINE (UA) AUTO NEGATIVE (NEGATIVE); KETONE, URINE AUTO NEGATIVE (NEGATIVE); LEUKOCYTE ESTERASE, URINE AUTO 2+ (NEGATIVE); MUCUS, URINE SMALL (NEGATIVE); NITRITE, URINE AUTO NEGATIVE (NEGATIVE); PROTEIN, URINE AUTO NEGATIVE (NEGATIVE); RBC, URINE AUTO 2 /HPF (0-3); SPECIFIC GRAVITY URINE AUTO 1.013 (1.002-1.035); SQUAMOUS EPITHELIAL CELL UR AU 2 /HPF (0-6); TRANSITIONAL EPITHELIAL AUTO <1 /HPF; UROBILINOGEN, URINE AUTO 0.2 mg/dL (0.0-2.0); WBC, URINE AUTO 9 /HPF (0-3)
== END ==
LOC: M LAB REF 15:57
PROVIDERS: ATTEND Physician Assistant Medical
DX: R35.0 Frequency of micturition (principal)

== ENCOUNTER 2021-01-13 13:41 | Inpatient (IN) | payer MEDICARE, BC ==
[~2021-01-13] VITALS: Ht 157.5 cm; Wt 81.8 kg
[~2021-01-13 13:41] MED LIST changes: -ACET1TAB55 PO
[2021-01-13 14:31] LABS: BASO % 0.3 % (0.0-1.0); EOS % 0.5 % (0.0-3.0); HEMATOCRIT 39.5 % (36.0-47.0); HEMOGLOBIN 12.4 g/dl (12.0-15.5); LYMPH # 1.9 10^3/uL (1.5-5.0); LYMPH % 24.7 % (24.0-44.0); MEAN CORPUSCULAR HEMOGLOBIN 27.7 pg (27.0-33.0); MEAN CORPUSCULAR HGB CONC 31.4 g/dl (32.0-36.5); MEAN CORPUSCULAR VOLUME 88.2 fl (80.0-96.0); MONO # 0.9 10^3/uL (0.0-0.8); NEUTROPHILS # 4.9 10^3/uL (1.5-8.5); NEUTROPHILS % 63.2 % (36.0-66.0); PLATELET COUNT, AUTOMATED 179 10^3/uL (150-450); RED BLOOD COUNT 4.48 10^6/uL (4.00-5.40); WHITE BLOOD COUNT 7.7 10^3/uL (4.0-10.0)
[2021-01-13] MEDS ORDERED: HOME MED LIST COMPLETE! XX SCH (14:55)
[2021-01-13 15:01] LABS: CALCIUM LEVEL 9.5 MG/DL (8.8-10.2); CREATININE FOR GFR 1.11 MG/DL (0.55-1.30); FREE T4 1.27 NG/DL (0.76-1.46); GLOMERULAR FILTRATION RATE 50.1 (>32); MAGNESIUM LEVEL 2.1 MG/DL (1.8-2.4); POTASSIUM SERUM 3.6 MEQ/L (3.5-5.1); THYROID STIMULATING HORMONE 2.25 uIU/ML (0.358-3.740)
--- NOTE | 2021-01-13 15:11 | REP ---
INDICATION: trauma. COMPARISON: Comparison study March 05, 2017.. TECHNIQUE: Four views. FINDINGS: Four views of the right knee demonstrate right knee arthroplasty components in good position. There is diffuse osteopenia. Alignment is unchanged. Some vascular calcification is noted. No fracture or subluxation is seen.. Scratch. No opaque foreign body noted. IMPRESSION: Status post right knee arthroplasty. No fracture or subluxation seen. Some vascular calcification is noted. There is diffuse osteopenia.. <Electronically signed by Shady Barcenas > 01/13/21 [id number]
--- NOTE | 2021-01-13 15:15 | REP ---
INDICATION: Syncope/near-syncope. COMPARISON: Comparison portable chest x-ray is from October 17, 2020. TECHNIQUE: Portable upright AP chest radiograph. FINDINGS: The lungs are well inflated and free of infiltrate. Pleural angles are sharp. Pulmonary vasculature is not increased. EKG monitoring electrodes overlie the chest. The heart is mildly enlarged. The aorta is tortuous. There are 2 granulomatous calcifications in the right lung. IMPRESSION: Mild cardiomegaly. Otherwise no acute disease.. <Electronically signed by Shady Barcenas > 01/13/21 [id number]
[2021-01-13] MEDS ORDERED: ACETAMINOPHEN 325 MG TAB PO ONE (16:25)
[2021-01-13 18:10] LABS: RSV AMPLIFICATION NEGATIVE (NEGATIVE)
[2021-01-13] MEDS ORDERED: MOM 30ML SUSPENSION UDC PO PRN (18:20)
[2021-01-13] MEDS ORDERED: SODIUM CHLORIDE NASAL 0.65% SPRAY BTL (OCEAN) PRN (18:30)
--- NOTE | 2021-01-13 18:31 | HPEPDOC ---
General Date of Admission 01/13/21 Date of Service: Jan 13, 2021 Primary Care Physician: CINDY HECK MD Attending Physician: Asa Verma MD Chief Complaint The patient is a 80-year-old female admitted with a reason for visit of Dizziness. Source: Patient, RN/MD, Old records Exam Limitations: No limitations History of Present Illness Ms. Lyles reports that she has had a several month history of feeling lightheaded. She reports that this is not related to positional change only. About 4 days ago she began having chills and occasional headache and had a sensation of "brain fog." On the day of admission she was shopping in the grocery store ([employer]) when she had a feeling like she was going to pass out. She hurriedly completed her transaction at the checkout and went to the bathroom's because she was afraid she might vomit. She reports feeling diaphoretic at this time. While sitting on one of the toilets in one of the bathroom stalls, she believes she passed out. She thinks perhaps she called for help, but she is not certain. When she regained alertness she was kneeling in the doorway of one of the bathroom stalls and a stranger who happened to be in the bathroom at the time was helping support her. She was brought from there to the emergency department for further evaluation. Home Medications Scheduled Cholecalciferol (Vitamin D3) (Vitamin D3) 1,000 Unit Tablet, 1,000 UNITS PO DAILY, (Reported) @ 1400 Desloratadine (Desloratadine) 5 Mg Tab, 5 MG PO DAILY, (Reported) @ 1400 Irbesartan/Hydrochlorothiazide (Irbesartan-Hctz 150-12.5 mg Tb) 1 Tab Tab, 2 TAB PO QAM, (Reported) Lactobacillus Acidophilus (Probiotic) 1 Each Capsule, 1 CAP PO DAILY, (Reported) @ 1400 Levothyroxine Sodium (Levothyroxine Sodium) 100 Mcg Tab, 100 MCG PO DAILY, (Reported) Metoprolol Tartrate (Metoprolol Tartrate) 25 Mg Tab, 25 MG PO QPM, (Reported) TAKES IN AFTERNOON Rosuvastatin Calcium (Crestor) 10 Mg Tab, 10 MG PO QHS, (Reported) Triamcinolone Acetonide (Nasacort) 10.8 Ml [place], 2 SPRAY NARES QAM, (Reported) Vit A/Vit C/Vit E/Zinc/Copper (Preservision Areds Softgel) 1 Cap Cap, 1 CAP PO BID, (Reported) Scheduled PRN Acetaminophen (Acetaminophen) 500 Mg Tab, 1,000 MG PO Q4H PRN for PAIN, (Reported) Carboxymethylcellulose Sodium (Refresh Tears) 0.5 % Prakash, 1 DROP OU QID PRN for DRY EYES, (Reported) Sodium Chloride (Saline Nasal [place]) 88 Ml [place], 1 SPRAY NARES QID PRN for CONGESTION, (Reported) Allergies Coded Allergies: Penicillins (Verified Allergy, Intermediate, Hives, 09/17/18) ibuprofen (Verified Allergy, Intermediate, Hives, 09/17/18) Motrin Brand. Generic Ibuprofen OK sulfamethoxazole (Verified Allergy, Intermediate, Hives, 09/17/18) trimethoprim (Verified Allergy, Intermediate, Hives, 09/17/18) Quinolones (Verified Allergy, Unknown, 09/17/18) latex (Verified Allergy, Unknown, 09/17/18) codeine (Verified Adverse Reaction, Mild, N+V, 09/17/18) Past Medical History Medical History Hypertension, hyperlipidemia, hypothyroidism, polymyalgia rheumatica treated with chronic prednisone, coronary artery disease, left breast cancer diagnosed 01/2017 (treated with lumpectomy but declined chemotherapy), history of melanoma and basal cell carcinoma on the face, history of cerumen impaction, spinal stenosis with neuropathy and some radiculopathy of the upper extremities Surgical History removal of right breast mass (04/1989), cholecystectomy (1993), D&C (11/1995), ARDEN/BSO for postmenopausal bleeding (03/1996), left cataract surgery (11/1998), right cataract surgery (01/1999), laser eye surgery (1999), incisional hernia repair, colonoscopy (05/2003), EGD showing mild inflammation (04/2013), colonoscopy (04/2013), cardiac angiography with no stent placement (03/2015), right carpal tunnel surgery (10/2015), left carpal tunnel surgery (02/2016), excision of melanoma from the face (02/2016), lumpectomy of the left breast (01/2017), right total knee arthroplasty (02/2018), right breast ultrasound-guided biopsy (06/2020) Family History Her mother at 71 years of age of an [place]; she was also known to have hypertension. She has 1 sister at 57 years of age of cancer in her liver/b reast/bone disease (primary unclear). She has 1 living brother and 2 living sisters who are healthy. Social History * Smoker: former Smoker She graduated from high school A-FIB/[employer] A-FIB History Current/History of A-Fib/PAF?: No Review of Systems Constitutional: Reports: Chills ENT: Reports: Head Aches Skin: Denies: Rash, Lesions Pulmonary: Denies: Dyspnea, Cough Cardiovascular: Reports: Other Symptoms (Diaphoresis); Denies: Chest Pain, Palpitations Gastrointestinal: Denies: Nausea, Vomiting Genitourinary: Denies: Dysuria, Hematuria Endocrine: Denies: Polydipsia, Polyphagia, Polyuria, Heat Intolerance, Cold Intolerance Musculoskeletal: Reports: Neck Pain Neurological: Reports: Weakness Psych: Reports: Mood Normal; Denies: Memory Issues Physical Examination General Exam: Positive: Alert, Cooperative (Lying in the ER stretcher when I entered the room), No Acute Distress (She is in fact quite talkative) Eye Exam: Positive: PERRLA, Conjunctiva & lids normal, EOMI; Negative: Sclera icteric ENT Exam: Positive: Atraumatic, Mucous membr. moist/pink, Pharynx Normal, Tongue Midline Neck Exam: Positive: Supple; Negative: JVD, +2 carotid pulse wo bruit, Lymphadenopathy Chest Exam: Positive: Clear to auscultation, Normal air movement Heart Exam: Positive: Rate Normal, Regular Rhythm, Normal S1, Normal S2, Murmurs (There is a 2/6 holosystolic ejection murmur noted loudest at the apex); Negative: Rubs Telemetry: Positive: No significant arrhythmia Abdomen Exam: Positive: Normal bowel sounds, Soft; Negative: Tenderness, Hepatospenomegaly Extremity Exam: Positive: Normal pulses; Negative: Clubbing, Cyanosis, Edema Skin Exam: Positive: Nl turgor and temperature; Negative: Breakdown, Lesion Neuro Exam: Positive: Normal Speech, Strength at 5/5 X4 ext, Normal Tone, 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 3-12 NL Psych Exam: Positive: Mental status NL, Mood NL, Memory Intact, Oriented x 3 Vital Signs Vital Signs Date Time Temp Pulse Resp B/P (MAP) Pulse Ox O2 Delivery O2 Flow Rate FiO2 01/13/21 18:16 98.0 88 18 159/72 (101) 96 Room Air Laboratory Data Labs 24H Laboratory Tests 2 01/13/21 14:13: POC Troponin I (Misc) 0.01 01/13/21 14:14: Immature Granulocyte % (Auto) 0.3, Neutrophils (%) (Auto) 63.2, Lymphocytes (%) (Auto) 24.7, Monocytes (%) (Auto) 11.0H, Eosinophils (%) (Auto) 0.5, Basophils (%) (Auto) 0.3, Neutrophils # (Auto) 4.9, Lymphocytes # (Auto) 1.9, Monocytes # (Auto) 0.9H, Eosinophils # (Auto) 0.0, Basophils # (Auto) 0.0, Nucleated Red Blood Cells % (auto) 0.0, Anion Gap 7L, Glomerular Filtration Rate 50.1, Calcium Level 9.5, Magnesium Level 2.1, MJ-Tsg-P-Type Natriuretic Peptide 568H, Thyroid Stimulating Hormone (TSH) 2.250, Free Thyroxine 1.27 01/13/21 14:23: Bedside Glucose (Misc Panel) 164H 01/13/21 17:15: Coronavirus (COVID-19)(PCR) NEGATIVE, Influenza Type A (RT-PCR) NEGATIVE, Influenza Type B (RT-PCR) NEGATIVE, Respiratory Syncytial Virus (PCR) NEGATIVE CBC/BMP Laboratory Tests 01/13/21 14:14 Problems (1) Syncope Status: Acute Discussed With: Patient Problem Text: She reports a history of a sense of disequilibrium lasting for some months which became more acute in the last several days and culminated in her syncopal event in the grocery store today. I will admit her to the hospital for further monitoring with telemetry. I will request orthostatic blood pressures done in the morning, and also order carotid duplex ultrasound. Given the length of her symptoms and the persistence of them I am going to order a CT of the head to try to rule out significant intracranial lesion. We will monitor her clinically at this time. (2) CAD (coronary artery disease) Status: Chronic Problem Text: While I do not think that coronary artery disease or myocardial infarction is the cause of her current symptoms, I will order another couple troponins to verify that there is no evidence of cardiac ischemia. (3) HTN (hypertension) Status: Chronic Problem Text: Her blood pressure is running a little high today, but under the circumstances I am not too surprised. I will continue her home regimen with the exception of the hydrochlorothiazide which I will leave off in case it is making her syncope worse. If her blood pressure becomes uncontrolled I certainly can add the hydrochlorothiazide back on. (4) Hyperlipidemia Status: Chronic Problem Text: Continue current regimen, monitor. (5) Hypothyroid Status: Chronic Problem Text: Continue current regimen, monitor. Plan / VTE VTE Prophylaxis Ordered?: Yes (Lovenox and TEDS) Plan Advanced Directives: MOLST Form is available (I filled this out with her today), Do Not Resuscitate (DNR), Trial form of Intubation, Health Care Proxy (HCP) (She identified her sister, Maddie Hagan [phone], as her alternate decision-maker if she was unable to make her own medical decisions.) Asa Verma MD Jan 13, 2021 18:31
--- NOTE | 2021-01-13 19:10 | REP ---
INDICATION: SYNCOPE. COMPARISON: None. TECHNIQUE: Color Doppler ultrasound evaluation of the carotid arterial system bilaterally. FINDINGS: Right, PSV: CCA, 62 cm/S CCA, 87 cm/S ICA, 78/19 cm/S ICA/CCA ratio 1.3/1.0 Vertebral, antegrade Minimal hard and soft plaque. Left, PSV: CCA, 80 cm/S ECA, 72 cm/S ICA, 57/13 cm/S ICA/CCA ratio 0.7/1.0 Vertebral, not identified. Minimal hard and soft plaque. IMPRESSION: No evidence of hemodynamically significant stenosis of either internal carotid artery. <Electronically signed by Nixon Gibbons > 01/13/21 1528
--- NOTE | 2021-01-13 19:57 | REPVR ---
PROCEDURE INFORMATION: Exam: CT Head Without Contrast Exam date and time: 01/13/2021 6:39 PM Age: 80 years old Clinical indication: Syncope and collapse; Additional info: Syncope, persistent feeling of dysequilibrium TECHNIQUE: Imaging protocol: Computed tomography of the head without contrast. Radiation optimization: All CT scans at this facility use at least one of these dose optimization techniques: automated exposure control; mA and/or kV adjustment per patient size (includes targeted exams where dose is matched to clinical indication); or iterative reconstruction. COMPARISON: Thyroid, ST head+neck US 08/30/2020 1:47 PM FINDINGS: Brain: The brain demonstrates diffuse volume loss. There is white matter hypodensity most consistent with chronic small vessel ischemic change. No visible evolving territorial infarct. No hemorrhage. Cerebral ventricles: The ventricles are enlarged in keeping with volum. e loss, in particular central volume loss. Paranasal sinuses: Visualized sinuses are unremarkable. No fluid levels. Mastoid air cells: Visualized mastoid air cells are well aerated. Bones/joints: Unremarkable. No acute fracture. Soft tissues: Unremarkable. IMPRESSION: No acute intracranial abnormality seen. Electronically signed by: Patti Hoskins On 01/13/2021 19:57:08 PM
[2021-01-13 21:47] VITALS: BP 164/78
[2021-01-13 22:20] LABS: INR 0.97; PROTHROMBIN TIME 13.3 SECONDS (12.7-14.5)
[2021-01-13] MEDS: OCUVITE 1 TAB PO SCH (22:23)
[2021-01-13] MEDS: ROSUVASTATIN 10 MG TAB (CRESTOR) PO SCH (22:23)
[2021-01-13] MEDS: METOPROLOL TART 25 MG TABLET PO SCH (22:23)
[2021-01-14] MEDS: ACETAMINOPHEN TAB 650MG DOSE (2X325MG) PO PRN ×4 (00:34→21:30)
[2021-01-14 06:00] VITALS: BP 133/70
[2021-01-14] MEDS: LEVOTHYROXINE 100MCG TABLET (0.1MG) PO SCH (06:16)
[2021-01-14 08:22] LABS: HEMATOCRIT 36.8 % (36.0-47.0); HEMOGLOBIN 11.7 g/dl (12.0-15.5); MEAN CORPUSCULAR HEMOGLOBIN 27.7 pg (27.0-33.0); MEAN CORPUSCULAR HGB CONC 31.8 g/dl (32.0-36.5); PLATELET COUNT, AUTOMATED 164 10^3/uL (150-450); RED BLOOD COUNT 4.23 10^6/uL (4.00-5.40); WHITE BLOOD COUNT 7.4 10^3/uL (4.0-10.0)
[2021-01-14 08:53] LABS: ALBUMIN 3.6 GM/DL (3.2-5.2); ALT/SGPT 17 U/L (12-78); BILIRUBIN,TOTAL 1.1 MG/DL (0.2-1.0); BLOOD UREA NITROGEN 20 MG/DL (7-18); CALCIUM LEVEL 9.4 MG/DL (8.8-10.2); CARBON DIOXIDE LEVEL 32 MEQ/L (21-32); CHLORIDE LEVEL 102 MEQ/L (98-107); CREATININE FOR GFR 0.88 MG/DL (0.55-1.30); GLOMERULAR FILTRATION RATE > 60.0 (>32); GLUCOSE, FASTING 122 MG/DL (70-100); MAGNESIUM LEVEL 1.9 MG/DL (1.8-2.4); POTASSIUM SERUM 3.3 MEQ/L (3.5-5.1); SODIUM LEVEL 139 MEQ/L (136-145); TOTAL PROTEIN 6.4 GM/DL (6.4-8.2); TROPONIN I < 0.02 NG/ML (< 0.10)
[2021-01-14] MEDS: IRBESARTAN 150MG TAB PO SCH ×2 (09:00→21:27)
--- NOTE | 2021-01-14 09:29 | ECGEPIP ---
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
[2021-01-14 09:44] VITALS: BP_SYST 115; BP_SYST 146; BP_SYST 154; BP_DIAS 66; BP_DIAS 69; BP_DIAS 81
[2021-01-14] MEDS: FLUTICASONE PROP 0.05% NASAL SPRAY 16 GM (FLONASE) NARES SCH (09:59)
[2021-01-14] MEDS: OCUVITE 1 TAB PO SCH ×2 (10:00→21:27)
[2021-01-14] MEDS: ENOXAPARIN 40MG/0.4ML SYRINGE (J1650 PER 10MG) SC SCH (10:00)
[2021-01-14] MEDS: LORATADINE 10 MG TAB PO SCH (10:00)
[2021-01-14] MEDS: POLYVINYL ALCOHOL OPHTH SOLN 15 ML(LIQUITEARS) OU SCH ×4 (13:00→21:28)
[2021-01-14 14:00] VITALS: BP 115/54
[2021-01-14] MEDS: METOPROLOL TART 25 MG TABLET PO SCH (14:00)
[2021-01-14] MEDS: VITAMIN D 1,000 INTERNATIONAL UNITS TABLET PO SCH (14:21)
[2021-01-14] MEDS ORDERED: POTASSIUM CHLORIDE 10 MEQ SR TABLET PO ONE (15:35)
--- NOTE | 2021-01-14 16:25 | IPNPDOC ---
Subjective Date Seen The patient was seen on 01/14/21. Subjective Chief Complaint/HPI Ms. Lyles is doing ok today, but her knee hurts more than it did yesterday. This is the knee that she fell on when she went down in the [employer] bathroom. Her orthostatic BPs were markedly positive (>20 / 15 difference in BPs with commensurate change in pulse). She did some work with P/T today, but she states that she doesn't feel that she could safely drive or go home alone in the next day or so. Constitutional: Reports: Weakness; Denies: Chills, Fever Skin: Reports: Bruising (around her R knee) Musculoskeletal: Reports: Joint Pain (R knee pain and swelling) Objective Physical Examination General Exam: Positive: Alert, Cooperative (Sitting in her hospital bed with the head elevated when I entered the room), No Acute Distress (She is in fact quite talkative) Eye Exam: Positive: PERRLA, Conjunctiva & lids normal, EOMI; Negative: Sclera icteric ENT Exam: Positive: Atraumatic, Mucous membr. moist/pink Neck Exam: Positive: Supple; Negative: Lymphadenopathy Chest Exam: Positive: Clear to auscultation, Normal air movement Heart Exam: Positive: Rate Normal, Regular Rhythm, Normal S1, Normal S2, Murm urs (There is a 2/6 holosystolic ejection murmur noted loudest at the apex); Negative: Rubs Telemetry: Positive: No significant arrhythmia Abdomen Exam: Positive: Normal bowel sounds, Soft; Negative: Tenderness Extremity Exam: Positive: Tenderness, Swelling (around her R knee); Negative: Edema Skin Exam: Positive: Nl turgor and temperature, Other skin issue (some ecchymosis over the R tibia today) Neuro Exam: Positive: Normal Speech, Normal Tone Psych Exam: Positive: Mental status NL, Mood NL, Memory Intact, Oriented x 3 Assessment /Plan Problems (1) Syncope Status: Acute Discussed With: Patient Problem Text: I suspect the cause of her problems is carotid bulb dysfunction. I spent quite a few minutes talking with her about this and how she can do the same things she wants to do, but she must slow down. She didn't like to hear she should slow down, but understood what I was saying to her. (2) Alteration in mobility due to weakness Status: Acute Problem Text: She is very concerned about her ability to function in her home environment or drive. I reviewed P/Ts note from today. They are suggesting home care as a possibility. I have asked them to reevaluate as she will likely be medically cleared tomorrow. I think ARU may be a possibility, though we can't get this evaluation done tomorrow (Saturday). Home P/T is a good option too, but the patient is currently quite resistant to going home in her current state. More to follow. (3) HTN (hypertension) Status: Chronic Problem Text: I will continue to hold the HCTZ given the orthostatic BPs. We may need to accept her running a little higher so she doesn't syncopize. (4) CAD (coronary artery disease) Status: Chronic Problem Text: No evidence of coronary ischemia at all. (5) Hyperlipidemia Status: Chronic Problem Text: Continue current regimen, monitor. (6) Hypothyroid Status: Chronic Problem Text: Continue current regimen, monitor. Plan/VTE VTE Prophylaxis Ordered?: Yes (Lovenox and TEDS) VS, I&O, 24H, Fishbone Vital Signs/I&O Vital Signs Date Time Temp Pulse Resp B/P (MAP) Pulse Ox O2 Delivery O2 Flow Rate FiO2 01/14/21 14:00 98.3 80 16 115/54 (74) 97 Room Air I&O- Last 24 Hours up to 6 AM 01/14/21 06:00 Intake Total 610 ml Output Total 200 ml Balance 410 ml Laboratory Data 24H LABS Laboratory Tests 2 01/13/21 17:15: Coronavirus (COVID-19)(PCR) NEGATIVE, Influenza Type A (RT-PCR) NEGATIVE, Influenza Type B (RT-PCR) NEGATIVE, Respiratory Syncytial Virus (PCR) NEGATIVE 01/13/21 22:01: Prothrombin Time 13.3, Prothromb Time International Ratio 0.97, Troponin I < 0.02 01/14/21 07:48: Troponin I < 0.02, Nucleated Red Blood Cells % (auto) 0.0, Anion Gap 5L, Glomerular Filtration Rate > 60.0, Calcium Level 9.4, Magnesium Level 1.9, Total Bilirubin 1.1H, Aspartate Amino Transf (AST/SGOT) 8, Alanine Aminotransferase (ALT/SGPT) 17, Alkaline Phosphatase 69, Total Protein 6.4, Albumin 3.6, Albumin/Globulin Ratio 1.3 CBC/BMP Laboratory Tests 01/14/21 07:48 Asa Verma MD Jan 14, 2021 16:24
[2021-01-14] MEDS: ROSUVASTATIN 10 MG TAB (CRESTOR) PO SCH (21:26)
[2021-01-14 22:00] VITALS: BP 114/73
[2021-01-15] MEDS: LEVOTHYROXINE 100MCG TABLET (0.1MG) PO SCH (05:27)
[2021-01-15 06:00] VITALS: BP 157/70
[2021-01-15 06:52] LABS: HEMATOCRIT 35.8 % (36.0-47.0); HEMOGLOBIN 11.2 g/dl (12.0-15.5); MEAN CORPUSCULAR HEMOGLOBIN 28.1 pg (27.0-33.0); MEAN CORPUSCULAR HGB CONC 31.3 g/dl (32.0-36.5); MEAN CORPUSCULAR VOLUME 89.7 fl (80.0-96.0); PLATELET COUNT, AUTOMATED 152 10^3/uL (150-450); RED BLOOD COUNT 3.99 10^6/uL (4.00-5.40); WHITE BLOOD COUNT 6.5 10^3/uL (4.0-10.0)
[2021-01-15 07:24] LABS: ALBUMIN 3.4 GM/DL (3.2-5.2); BLOOD UREA NITROGEN 17 MG/DL (7-18); CALCIUM LEVEL 8.9 MG/DL (8.8-10.2); CARBON DIOXIDE LEVEL 32 MEQ/L (21-32); CHLORIDE LEVEL 104 MEQ/L (98-107); CREATININE FOR GFR 0.85 MG/DL (0.55-1.30); GLOMERULAR FILTRATION RATE > 60.0 (>32); GLUCOSE, FASTING 108 MG/DL (70-100); PHOSPHORUS LEVEL 2.9 MG/DL (2.5-4.9); POTASSIUM SERUM 3.8 MEQ/L (3.5-5.1); SODIUM LEVEL 139 MEQ/L (136-145)
[2021-01-15 09:00] VITALS: BP_SYST 136; BP_SYST 153; BP_SYST 154; BP_DIAS 70; BP_DIAS 72; BP_DIAS 74
[2021-01-15] MEDS: OCUVITE 1 TAB PO SCH ×2 (09:22→21:23)
[2021-01-15] MEDS: LORATADINE 10 MG TAB PO SCH (09:22)
[2021-01-15] MEDS: ENOXAPARIN 40MG/0.4ML SYRINGE (J1650 PER 10MG) SC SCH (09:24)
[2021-01-15] MEDS: FLUTICASONE PROP 0.05% NASAL SPRAY 16 GM (FLONASE) NARES SCH (09:25)
[2021-01-15] MEDS: POLYVINYL ALCOHOL OPHTH SOLN 15 ML(LIQUITEARS) OU SCH ×4 (09:25→21:23)
[2021-01-15] MEDS: IRBESARTAN 150MG TAB PO SCH ×2 (09:26→21:24)
[2021-01-15] MEDS: ACETAMINOPHEN TAB 650MG DOSE (2X325MG) PO PRN ×3 (09:27→22:55)
[2021-01-15] MEDS: VITAMIN D 1,000 INTERNATIONAL UNITS TABLET PO SCH (13:44)
[2021-01-15 14:00] VITALS: BP_SYST 129; BP_SYST 144; BP_DIAS 55; BP_DIAS 87
[2021-01-15] MEDS: METOPROLOL TART 25 MG TABLET PO SCH (14:33)
--- NOTE | 2021-01-15 17:10 | IPNPDOC ---
Subjective Date Seen The patient was seen on 01/15/21. Subjective Chief Complaint/HPI Ms. Lyles is complaining of more right ankle pain today. This area was not carefully assessed after a fall because her primary complaint was knee pain. She's had no evidence of arrhythmia and her syncope workup is complete. General: Reports: Normal Appetite Pulmonary: Denies: Dyspnea, Cough Cardiovascular: Denies: Chest Pain, Palpitations Genitourinary: Denies: Dysuria, Hematuria Musculoskeletal: Reports: Joint Pain (right knee and now right ankle pain) Psych: Reports: Mood Normal Objective Physical Examination General Exam: Positive: Alert, Cooperative (Sitting in her hospital bed with the head elevated when I entered the room), No Acute Distress Eye Exam: Positive: PERRLA, Conjunctiva & lids normal, EOMI; Negative: Sclera icteric ENT Exam: Positive: Atraumatic, Mucous membr. moist/pink Neck Exam: Positive: Supple; Negative: Lymphadenopathy Chest Exam: Positive: Clear to auscultation, Normal air movement Heart Exam: Positive: Rate Normal, Regular Rhythm, Normal S1, Normal S2, Murmurs (There is a 2/6 holosystolic ejection murmur noted loudest at the apex); Negative: Rubs Telemetry: Positive: No significant arrhythmia Abdomen Exam: Positive: Normal bowel sounds, Soft; Negative: Tenderness Extremity Exam: Positive: Tenderness (this point tenderness over the right anterior talofibular ligament), Swelling (around her R knee and the lateral malleolus of the right ankle.); Negative: Edema Skin Exam: Positive: Nl turgor and temperature, Other skin issue (some ecchymosis over the R tibia) Neuro Exam: Positive: Normal Speech, Normal Tone Psych Exam: Positive: Mental status NL, Mood NL, Memory Intact, Oriented x 3 Assessment /Plan Problems (1) Syncope Status: Acute Discussed With: Patient Problem Text: Her work as is complete and I believe carotid bulb dysfunction is the answer to her ongoing episodes of lightheadedness and disequilibrium. I reinforced that she needs to just be more careful when she rises and to slow down a bit. (2) Right ankle pain Status: Acute Problem Text: Clinically I suspect a sprain of her right ankle. However, the [place] ankle rules are positive so I will order an x-ray. We'll treat as indicated. (3) Alteration in mobility due to weakness Status: Acute Problem Text: She is very concerned about her ability to function in her home environment or drive. I'm going to request an ARU screen. I think she'll do well in this environment. (4) HTN (hypertension) Status: Chronic Problem Text: Some of her blood pressures are running a little higher today, some of them are normal. I will continue to hold the HCTZ given the orthostatic BPs. We may need to accept her running a little higher so she doesn't syncopize. (5) CAD (coronary artery disease) Status: Chronic Problem Text: No evidence of coronary ischemia at all. (6) Hyperlipidemia Status: Chronic Problem Text: Continue current regimen, monitor. (7) Hypothyroid Status: Chronic Problem Text: Continue current regimen, monitor. Plan/VTE VTE Prophylaxis Ordered?: Yes (Lovenox and TEDS) VS, I&O, 24H, Fishbone Vital Signs/I&O Vital Signs Date Time Temp Pulse Resp B/P (MAP) Pulse Ox O2 Delivery O2 Flow Rate FiO2 01/15/21 14:33 80 129/55 01/15/21 14:00 98.2 16 97 Room Air I&O- Last 24 Hours up to 6 AM 01/15/21 06:00 Intake Total 1420 ml Output Total 975 ml Balance 445 ml Laboratory Data 24H LABS Laboratory Tests 2 01/15/21 06:33: Nucleated Red Blood Cells % (auto) 0.0, Anion Gap 3L, Glomerular Filtration Rate > 60.0, Calcium Level 8.9, Phosphorus Level 2.9, Albumin 3.4 CBC/BMP Laboratory Tests 01/15/21 06:33 Asa Verma MD Jan 15, 2021 17:10
--- NOTE | 2021-01-15 17:51 | REP ---
INDICATION: lateral pain after a fall, probably sprain. COMPARISON: None. TECHNIQUE: Four views of the right ankle were obtained. FINDINGS: There is an oblique fracture of the distal fibula. There is mild widening of the mortise joint medially and anteriorly, which may indicate ligamentous injury. There is multifocal arthropathy of the hindfoot. There is a large plantar spur. There is soft tissue swelling. IMPRESSION: 1. Oblique fracture of the distal fibula. 2. Mild widening of the mortise joint which may indicate a ligamentous injury. 3. Associated soft tissue swelling. <Electronically signed by Nixon Gibbons > 01/15/21 [id number]
[2021-01-15] MEDS: ROSUVASTATIN 10 MG TAB (CRESTOR) PO SCH (21:24)
[2021-01-15 22:00] VITALS: BP 157/64
[2021-01-16] MEDS: LEVOTHYROXINE 100MCG TABLET (0.1MG) PO SCH (05:32)
[2021-01-16 06:00] VITALS: BP 173/77
[2021-01-16 06:05] LABS: HEMATOCRIT 35.4 % (36.0-47.0); MEAN CORPUSCULAR HEMOGLOBIN 27.7 pg (27.0-33.0); MEAN CORPUSCULAR HGB CONC 31.1 g/dl (32.0-36.5); MEAN CORPUSCULAR VOLUME 89.2 fl (80.0-96.0); PLATELET COUNT, AUTOMATED 149 10^3/uL (150-450); RED BLOOD COUNT 3.97 10^6/uL (4.00-5.40); WHITE BLOOD COUNT 7.2 10^3/uL (4.0-10.0)
[2021-01-16] MEDS: ENOXAPARIN 40MG/0.4ML SYRINGE (J1650 PER 10MG) SC SCH (09:00)
[2021-01-16] MEDS: LORATADINE 10 MG TAB PO SCH (10:38)
[2021-01-16] MEDS: OCUVITE 1 TAB PO SCH ×2 (10:38→21:14)
[2021-01-16] MEDS: IRBESARTAN 150MG TAB PO SCH ×2 (10:39→21:14)
[2021-01-16] MEDS: POLYVINYL ALCOHOL OPHTH SOLN 15 ML(LIQUITEARS) OU SCH ×4 (10:39→21:14)
[2021-01-16] MEDS: FLUTICASONE PROP 0.05% NASAL SPRAY 16 GM (FLONASE) NARES SCH (10:39)
[2021-01-16] MEDS: ACETAMINOPHEN TAB 650MG DOSE (2X325MG) PO PRN ×3 (10:42→22:35)
[2021-01-16 11:00] VITALS: BP_SYST 154; BP_SYST 155; BP_SYST 161; BP_DIAS 75; BP_DIAS 78; BP_DIAS 85
--- NOTE | 2021-01-16 11:01 | DS.PDOC ---
Discharge Summary General Date of Admission Jan 13, 2021 at 18:17 Date of Discharge 01/16/2021 Primary Care Physician: CINDY HECK MD Attending Physician: Asa Verma MD Discharge Summary PROCEDURES PERFORMED DURING STAY: [None]. ADMITTING DIAGNOSES: 1. . DISCHARGE DIAGNOSES: 1. . COMPLICATIONS/CHIEF COMPLAINT: Syncope. HISTORY OF PRESENT ILLNESS: . HOSPITAL COURSE: . DISCHARGE MEDICATIONS: Please see below. ALLERGIES: Please see below. PHYSICAL EXAMINATION ON DISCHARGE: VITAL SIGNS: Please see below. GENERAL: HEENT: NECK: CARDIOVASCULAR EXAMINATION: RESPIRATORY EXAMINATION: ABDOMINAL EXAMINATION: EXTREMITIES: SKIN: NEUROLOGICAL EXAMINATION: PSYCHIATRIC EXAMINATION: LABORATORY DATA: Please see below. IMAGING: PROGNOSIS: ACTIVITY: [As tolerated]. DIET: DISCHARGE PLAN: DISPOSITION: . DISCHARGE INSTRUCTIONS: 1. . ITEMS TO FOLLOWUP ON ON OUTPATIENT: 1. . DISCHARGE CONDITION: [Stable]. TIME SPENT ON DISCHARGE: minutes. Vital Signs/I&Os Vital Signs Date Time Temp Pulse Resp B/P (MAP) Pulse Ox O2 Delivery O2 Flow Rate FiO2 01/16/21 10:39 143/72 01/16/21 06:00 97.5 76 16 96 Room Air I&O- Last 24 Hours up to 6 AM 01/16/21 06:00 Intake Total 1870 ml Output Total 1550 ml Balance 320 ml Laboratory Data Labs 24H Laboratory Tests 2 01/16/21 05:30: Nucleated Red Blood Cells % (auto) 0.0 CBC/BMP Laboratory Tests 01/16/21 05:30 Discharge Medications Scheduled Cholecalciferol (Vitamin D3) (Vitamin D3) 1,000 Unit Tablet, 1,000 UNITS PO DAILY, (Reported) @ 1400 Desloratadine (Desloratadine) 5 Mg Tab, 5 MG PO DAILY, (Reported) @ 1400 Irbesartan/Hydrochlorothiazide (Irbesartan-Hctz 150-12.5 mg Tb) 1 Tab Tab, 2 TAB PO QAM, (Reported) Lactobacillus Acidophilus (Probiotic) 1 Each Capsule, 1 CAP PO DAILY, (Reported) @ 1400 Levothyroxine Sodium (Levothyroxine Sodium) 100 Mcg Tab, 100 MCG PO DAILY, (Reported) Metoprolol Tartrate (Metoprolol Tartrate) 25 Mg Tab, 25 MG PO QPM, (Reported) TAKES IN AFTERNOON Rosuvastatin Calcium (Crestor) 10 Mg Tab, 10 MG PO QHS, (Reported) Triamcinolone Acetonide (Nasacort) 10.8 Ml [place], 2 SPRAY NARES QAM, (Reported) Vit A/Vit C/Vit E/Zinc/Copper (Preservision Areds Softgel) 1 Cap Cap, 1 CAP PO BID, (Reported) Scheduled PRN Acetaminophen (Acetaminophen) 500 Mg Tab, 1,000 MG PO Q4H PRN for PAIN, (Reported) Carboxymethylcellulose Sodium (Refresh Tears) 0.5 % Prakash, 1 DROP OU QID PRN for DRY EYES, (Reported) Sodium Chloride (Saline Nasal [place]) 88 Ml [place], 1 SPRAY NARES QID PRN for CONGESTION, (Reported) Allergies Coded Allergies: Penicillins (Verified Allergy, Intermediate, Hives, 09/17/18) ibuprofen (Verified Allergy, Intermediate, Hives, 09/17/18) Motrin Brand. Generic Ibuprofen OK sulfamethoxazole (Verified Allergy, Intermediate, Hives, 09/17/18) trimethoprim (Verified Allergy, Intermediate, Hives, 09/17/18) Quinolones (Verified Allergy, Unknown, 09/17/18) latex (Verified Allergy, Unknown, 09/17/18) codeine (Verified Adverse Reaction, Mild, N+V, 09/17/18) Asa Verma MD Jan 16, 2021 11:01
--- NOTE | 2021-01-16 12:41 | IPNPDOC ---
Subjective Date Seen The patient was seen on 01/16/21. Objective Physical Examination General Exam: Positive: Alert, Cooperative (Sitting in her hospital bed with the head elevated when I entered the room), No Acute Distress Eye Exam: Positive: PERRLA, Conjunctiva & lids normal, EOMI; Negative: Sclera icteric ENT Exam: Positive: Atraumatic, Mucous membr. moist/pink Neck Exam: Positive: Supple; Negative: Lymphadenopathy Chest Exam: Positive: Clear to auscultation, Normal air movement Heart Exam: Positive: Rate Normal, Regular Rhythm, Normal S1, Normal S2, Murmurs (There is a 2/6 holosystolic ejection murmur noted loudest at the apex); Negative: Rubs Telemetry: Positive: No significant arrhythmia Abdomen Exam: Positive: Normal bowel sounds, Soft; Negative: Tenderness Extremity Exam: Positive: Tenderness (this point tenderness over the right anterior talofibular ligament), Swelling (around her R knee and the lateral malleolus of the right ankle.); Negative: Edema Skin Exam: Positive: Nl turgor and temperature, Other skin issue (some ecchymosis over the R tibia) Neuro Exam: Positive: Normal Speech, Normal Tone Psych Exam: Positive: Mental status NL, Mood NL, Memory Intact, Oriented x 3 Assessment /Plan Problems (1) Syncope Status: Acute Discussed With: Patient Problem Text: Her work as is complete and I believe carotid bulb dysfunction is the answer to her ongoing episodes of lightheadedness and disequilibrium. I reinforced that she needs to just be more careful when she rises and to slow down a bit. (2) Right ankle pain Status: Acute Problem Text: Clinically I suspect a sprain of her right ankle. However, the [place] ankle rules are positive so I will order an x-ray. We'll treat as indicated. (3) Alteration in mobility due to weakness Status: Acute Problem Text: She is very concerned about her ability to function in her home environment or drive. I'm going to request an ARU screen. I think she'll do well in this environment. (4) HTN (hypertension) Status: Chronic Problem Text: Some of her blood pressures are running a little higher today, some of them are normal. I will continue to hold the HCTZ given the orthostatic BPs. We may need to accept her running a little higher so she doesn't syncopize. (5) CAD (coronary artery disease) Status: Chronic Problem Text: No evidence of coronary ischemia at all. (6) Hyperlipidemia Status: Chronic Problem Text: Continue current regimen, monitor. (7) Hypothyroid Status: Chronic Problem Text: Continue current regimen, monitor. Plan/VTE VTE Prophylaxis Ordered?: Yes (Lovenox and TEDS) VS, I&O, 24H, Fishbone Vital Signs/I&O Vital Signs Date Time Temp Pulse Resp B/P (MAP) Pulse Ox O2 Delivery O2 Flow Rate FiO2 01/16/21 10:39 143/72 01/16/21 06:00 97.5 76 16 96 Room Air I&O- Last 24 Hours up to 6 AM 01/16/21 06:00 Intake Total 1870 ml Output Total 1550 ml Balance 320 ml Laboratory Data 24H LABS Laboratory Tests 2 01/16/21 05:30: Nucleated Red Blood Cells % (auto) 0.0 01/16/21 10:59: Methicillin-Resist S.aureus DNA PCR NOT DETECTED CBC/BMP Laboratory Tests 01/16/21 05:30 Asa Verma MD Jan 16, 2021 12:41
[2021-01-16 14:00] VITALS: BP 161/79
[2021-01-16] MEDS: METOPROLOL TART 25 MG TABLET PO SCH (14:52)
[2021-01-16] MEDS: VITAMIN D 1,000 INTERNATIONAL UNITS TABLET PO SCH (14:52)
[2021-01-16] MEDS: ROSUVASTATIN 10 MG TAB (CRESTOR) PO SCH (21:14)
[2021-01-16 22:00] VITALS: BP 121/74
[2021-01-17 06:08] LABS: HEMATOCRIT 33.7 % (36.0-47.0); HEMOGLOBIN 10.8 g/dl (12.0-15.5); MEAN CORPUSCULAR HEMOGLOBIN 28.1 pg (27.0-33.0); MEAN CORPUSCULAR VOLUME 87.8 fl (80.0-96.0); PLATELET COUNT, AUTOMATED 163 10^3/uL (150-450); RED BLOOD COUNT 3.84 10^6/uL (4.00-5.40); WHITE BLOOD COUNT 6.7 10^3/uL (4.0-10.0)
[2021-01-17] MEDS: ACETAMINOPHEN TAB 650MG DOSE (2X325MG) PO PRN (06:30)
[2021-01-17] MEDS: LEVOTHYROXINE 100MCG TABLET (0.1MG) PO SCH (06:30)
[2021-01-17 06:32] LABS: BLOOD UREA NITROGEN 18 MG/DL (7-18); CALCIUM LEVEL 8.8 MG/DL (8.8-10.2); CARBON DIOXIDE LEVEL 32 MEQ/L (21-32); CHLORIDE LEVEL 105 MEQ/L (98-107); CREATININE FOR GFR 0.76 MG/DL (0.55-1.30); GLOMERULAR FILTRATION RATE > 60.0 (>32); GLUCOSE, FASTING 84 MG/DL (70-100); POTASSIUM SERUM 3.7 MEQ/L (3.5-5.1); SODIUM LEVEL 139 MEQ/L (136-145)
[2021-01-17] MEDS ORDERED: ACET1TAB55 PO (08:38)
[2021-01-17] MEDS: IRBESARTAN 150MG TAB PO SCH (08:56)
[2021-01-17] MEDS: LORATADINE 10 MG TAB PO SCH (08:56)
[2021-01-17] MEDS: OCUVITE 1 TAB PO SCH (08:56)
[2021-01-17] MEDS: ENOXAPARIN 40MG/0.4ML SYRINGE (J1650 PER 10MG) SC SCH (08:57)
[2021-01-17] MEDS: FLUTICASONE PROP 0.05% NASAL SPRAY 16 GM (FLONASE) NARES SCH (08:59)
[2021-01-17] MEDS: POLYVINYL ALCOHOL OPHTH SOLN 15 ML(LIQUITEARS) OU SCH ×3 (08:59→16:01)
[2021-01-17 10:00] VITALS: BP_SYST 150; BP_SYST 158; BP_SYST 166; BP_DIAS 72; BP_DIAS 74; BP_DIAS 78
[2021-01-17] MEDS: METOPROLOL TART 25 MG TABLET PO SCH (13:00)
[2021-01-17] MEDS: VITAMIN D 1,000 INTERNATIONAL UNITS TABLET PO SCH (13:00)
--- NOTE | 2021-01-17 13:52 | DSES ---
DISCHARGE SUMMARY DATE OF ADMISSION: 01/13/2021 DATE OF DISCHARGE: 01/17/2021 to acute rehab unit ACCEPTING PHYSICIAN: Marguerite Silva MD PRIMARY DISCHARGE DIAGNOSES: 1. Right ankle pain, status post syncopal episode. 2. Syncope. 3. Debility to right ankle pain and weakness. 4. Hypertension, controlled. 5. CAD. 6. Hyperlipidemia. 7. Chronic hypothyroidism. 8. Distal fibular oblique fracture on the right. DISCHARGE MEDICATIONS: 1. Acetaminophen 650 q.4 as needed for pain and fever. 2. Refresh eye drop 1 OU q.i.d. as needed. 3. Vitamin D 1000 units daily. 4. Loratadine 5 mg daily. 5. Irbesartan hydrochlorothiazide two tabs q.a.m. 6. Probiotic one cap daily. 7. Synthroid 100 mcg daily. 8. Metoprolol 25 mg q.p.m. 9. Crestor 10 q.h.s. 10. Saline nasal spray q.i.d. as needed. 11. Nasacort two sprays q.a.m. 12. PreserVision AREDS one cap b.i.d. HOSPITAL COURSE: This is an 80-year-old female admitted on 01/13/2021 with complaints of lightheadedness with chills, occasional headache and "brain fog" while she shopping at [employer], felt like she was going to pass out. The patient complained of persistent nausea, was diaphoretic. The patient was brought into the ER for further evaluation, was found to have near syncope with a right distal tib/fib fracture, and uncontrolled htn. Orthostatics were negative. CT of the head had no acute CVA. Dopplers showed no hemodynamically significant stenosis of either carotid artery. The x-ray and ankle x-ray showed no acute fracture dislocation, no subluxation, diffuse osteopenia. Distal fib oblique fracture was noted on the right with widening of the mortise joint which may indicate a ligamentous injury. She is discharged in stable condition to acute rehab unit. PHYSICAL EXAMINATION ON DISCHARGE: Vital signs: Temperature 97.9, pulse 64, respiratory rate 20, blood pressure 166/72, 96% on room air. General: The patient is awake, alert and oriented to person, place and time, answering questions appropriately. Lungs: Clear to auscultation, no wheezing, rales or rhonchi. Heart: S1, S2, systolic ejection murmur at the apex. Abdomen: Soft, nontender, nondistended. Extremities: No clubbing, cyanosis or pitting edema. Imaging studies and microbiology: See chart. Time spent on discharge: 30 minutes. MTDD
[2021-01-17 14:15] VITALS: BP 180/80
[2021-01-17] MEDS ORDERED: **hydrALAZINE** 50 MG TAB PO ONE (14:30)
[2021-01-17 15:35] VITALS: BP 182/80
[2021-01-17] MEDS ORDERED: FUROSEMIDE 40MG/4ML VIAL (J1940) IV ONE (15:40)
[2021-01-17] MEDS ORDERED: FUROSEMIDE 20 MG TAB PO ONE (15:45)
[2021-01-17] MEDS ORDERED: NITROGLYCERIN 2% OINT 1 GM *U/D* PKT TOP SCH ×2 (17:00)
[2021-01-17 17:04] VITALS: BP 182/88
[2021-01-17 17:55] VITALS: BP 160/78
== END 2021-01-17 18:26 | DRG 312 ==
LOC: M ED 13:41 → M ED INP 18:17 → M MSPAV 21:46
PROVIDERS: ADMIT Family Medicine; ATTEND General Practice
DX: R55 Syncope and collapse (principal); I25.10 Atherosclerotic heart disease of native coronary artery without angina pectoris; I10 Essential (primary) hypertension; E78.5 Hyperlipidemia, unspecified; S82.431A Displaced oblique fracture of shaft of right fibula, initial encounter for closed fracture; E03.9 Hypothyroidism, unspecified; M35.3 Polymyalgia rheumatica; Z85.3 Personal history of malignant neoplasm of breast; Z85.820 Personal history of malignant melanoma of skin; Z85.828 Personal history of other malignant neoplasm of skin; Z90.49 Acquired absence of other specified parts of digestive tract; Z20.822 Contact with and (suspected) exposure to COVID-19; Z79.899 Other long term (current) drug therapy; Z88.0 Allergy status to penicillin; Z88.2 Allergy status to sulfonamides; Z88.5 Allergy status to narcotic agent; Z88.1 Allergy status to other antibiotic agents; Z88.8 Allergy status to other drugs, medicaments and biological substances; R53.1 Weakness; Z74.09 Other reduced mobility; R53.81 Other malaise; W18.11XA Fall from or off toilet without subsequent striking against object, initial encounter; Y92.512 Supermarket, store or market as the place of occurrence of the external cause; Y99.8 Other external cause status; Y93.89 Activity, other specified

== ENCOUNTER → 2021-01-13 | Outpatient (CLI) | payer MEDICARE, BC ==
[~2021-01-13] MED LIST changes: +ACET1TAB55 PO
[2021-01-13 13:15] LABS: BASO % 0.4 % (0.0-1.0); EOS # 0.1 10^3/uL (0.0-0.5); EOS % 1.1 % (0.0-3.0); HEMATOCRIT 41.4 % (36.0-47.0); LYMPH # 2.8 10^3/uL (1.5-5.0); LYMPH % 37.1 % (24.0-44.0); MEAN CORPUSCULAR HGB CONC 31.4 g/dl (32.0-36.5); MEAN CORPUSCULAR VOLUME 89.2 fl (80.0-96.0); MONO # 0.7 10^3/uL (0.0-0.8); MONO % 9.8 % (2.0-8.0); NEUTROPHILS # 3.9 10^3/uL (1.5-8.5); NEUTROPHILS % 51.3 % (36.0-66.0); PLATELET COUNT, AUTOMATED 192 10^3/uL (150-450); RED BLOOD COUNT 4.64 10^6/uL (4.00-5.40); WHITE BLOOD COUNT 7.6 10^3/uL (4.0-10.0)
[2021-01-13 14:06] LABS: ALBUMIN 4.4 GM/DL (3.2-5.2); BILIRUBIN,TOTAL 0.9 MG/DL (0.2-1.0); CREATININE FOR GFR 0.97 MG/DL (0.55-1.30); FREE T4 1.45 NG/DL (0.76-1.46); GLOMERULAR FILTRATION RATE 58.5 (>32); POTASSIUM SERUM 4.1 MEQ/L (3.5-5.1); THYROID STIMULATING HORMONE 2.01 uIU/ML (0.358-3.740); TOTAL PROTEIN 7.4 GM/DL (6.4-8.2)
== END ==
LOC: M PLALAB 10:32
PROVIDERS: ATTEND Family Medicine
DX: E03.9 Hypothyroidism, unspecified (principal); R68.83 Chills (without fever)

== ENCOUNTER 2021-01-17 11:33 | Inpatient (IN) | payer MEDICARE, BC ==
[~2021-01-17] VITALS: Ht 157.5 cm; Wt 74.7 kg
[~2021-01-17 11:33] MED LIST changes: +ACET1TAB55 PO
[2021-01-17] MEDS ORDERED: MIRALAX *UNIT DOSE* 17GM PACKET PO PRN (12:30)
[2021-01-17] MEDS ORDERED: BISACODYL 10 MG SUPP PR PRN (12:30)
--- NOTE | 2021-01-17 12:40 | HPEPDOC ---
Clinical Unit Educator Note DATE OF ADMISSION: 01-17-21 DATE OF SERVICE: 01-18-21 TIME OF ADMISSION: Please refer to physician's admission order. SOURCE OF ADMISSION INFORMATION: [facility] record and patient CHIEF COMPLAINT: right ankle fracture HISTORY OF PRESENT ILLNESS: 80F pmh HTN, hypothyroidism, HLD, PMR on chronic prednisone, CAD, left breast surgery s/p lumpectomy, hx of skin cancer, spinal stenosis with peripheral polyneuropathy and radiculopathy who had ongoing dizziness with a syncopal episode at [employer], presented to [facility] ED on 01-13-21 complaining of light headedness and was admitted and placed on telemetry. CTH was negative for intracranial lesions or bleed and carotid US was negative for significant stenosis. She did have elevated blood pressures coupled with orthostatics and was noted to have pain when ambulating on her right foot. Xrays revealed a distal fibular fracture for which she was placed in a CAM boot per ortho recs and instructed to remain NWB. She had considerable mobility and ADL impairments and was deemed medically appropriate for discharge to ARU. REVIEW OF SYSTEMS: The following is a completed review of systems and has been reviewed. Review of systems otherwise unremarkable. PAIN: Patient self reports right ankle pain EYES: No recent vision changes EARS, NOSE, & THROAT: No throat pain, or dysphagia, or rhinorrhea CARDIOVASCULAR: Denies chest pain or palpitations PULMONARY: Denies shortness of breath GASTROINTESTINAL: Denies constipation/diarrhea GENITOURINARY: denies dysuria MUSCULOSKELETAL: right ankle fracture NEUROLOGICAL: +peripheral polyneuropathy, +dizziness HEMATOLOGICAL: denies easy bruising SKIN: denies rash PSYCHIATRIC: [Unremarkable]. All other review of systems found to be negative. PAST MEDICAL HISTORY: as per HPI PAST SURGICAL HISTORY: right breast lumpectomy, cholecystectomy, D&C, ARDEN/BSO, bilat cataract surgery, hernia repair, bilateral carpal tunnel surgery, melanoma excision, right TKR ALLERGIES: Please see below. MEDICATIONS: Please see below. FAMILY HISTORY: cardiac, cancer SOCIAL HISTORY:former smoker, no etoh/illicit drugs DIET: low sodium PHYSICAL EXAMINATION: VITAL SIGNS: Please see below. GENERAL: Pleasant and cooperative. No acute distress. HEENT: PERRL. Extraocular movements intact. Clear conjunctiva CARDIOVASCULAR: Regular rate and rhythm. No murmurs, rubs, or gallops LUNGS: Clear to auscultation bilaterally. No wheezes. No rhonchi ABDOMEN: Soft, nontender, nondistended. Positive bowel sounds. Normal active bowel sounds. NEUROLOGICAL: Alert and oriented times three. Cranial nerves II through XII grossly intact. Sensation grossly intact EXTREMITIES: 5-\5 strength bilateral upper extremities. 5-\5 strength right lower extremity. 5/5 strength in left lower extremity. (-) homans bilat SKIN: mild swelling and bruising right ankle LABORATORY DATA: Please see below. IMAGING: Imaging documentation personally reviewed by record FUNCTIONAL STATUS: Premorbid: Independent with all activities of daily life as well as mobility. On Admission: Contact guard for bed mobility, functional transfers, ambulation, dressing, toileting GOALS: Mod-I bed mobility, functional transfers, ambulation, dressing, toileting, bathing ASSESSMENT:80-year-old F with past medical history of HTN and CAD who presents status post syncopal episode with right ankle fracture now NWB PLAN: 1. Rehab- PT/OT advance moility and ADLS, strengthen/stretch/maintain ROM all 4 limbs 2. CArdiac- hx of CAD on metoprolol -HTN on irbesartan and HCTZ, monitor BPs -last ECHO on record showing signs of chronic diastolic CHF, will fluid restrict, monitor daily weights -HLD- statin -medicine consulted to assist in overall management 3. Resp- monitor for infection 4. Endo- hx of hypothyroidism c/u synthroid 5. Ortho- s/p fall with right ankle fracture , NWB, CAM boot when out of bed, f/u ortho on d/c 6. Neuro- hx of spinal stenosis with peripheral polyneuropathy contributing to overall mobility impairments and falls, CT cervical spine from 2010 showing cervical stenosis which has likely gotten worse and contributing to patient's feeling of light headedness, can consider very gentle ROM of neck for dixhallpike maneuver and eply's as may be BPPV component as well 7. DVT ppx- lovenox 8. GI ppx- protonix 9 Pain- tylenol and oxycodone 10. Dispo- TBD POST ADMISSION PHYSICIAN EVALUATION: Medical and functional status: Description of medical status, medical assessment: As above. Rehabilitation diagnosis and current and prior cold morbid medical conditions as above. Risk of complications and plans to mitigate them as above. Description of functional status current status is as above. Prior status as above. Status compared to preadmission: There are no clinically significant differences between the patient's current status and the information described on the preadmission screening document. Treatment plan anticipated: Treatment plan is as described above. Required disciplines including physical therapy, occupational therapy, others as noted above Intensity of services: 3 hours a day, 6 days a week. Special considerations:There are no specific special or safety considerations that would likely preclude immediate implementation of an intensive rehabilitation program or subsequently influence the plan of care. ATTESTATION: Considering all the information above, it is my best judgment that this patient requires intensive rehabilitation therapy as described above and an inpatient hospital environment due to the complexity of nursing, medical, and rehabilitation needs required by the patient. Furthermore, this patient can reasonably be expected to participate in an benefit from an inpatient rehabilitation stay with an interdisciplinary team approach to the delivery of rehabilitation care under the direction and supervision of rehabilitation physician PROGNOSIS: Excellent ESTIMATED LENGTH OF STAY:7-10 days. PROJECTED DISCHARGE DESTINATION: Home with family support and any durable medical equipment required to increase functional safety and mobility TIME SPENT COUNSELING AND COORDINATING INITIAL CARE: Greater than 70 minutes. Vital Signs Vital Signs Date Time Temp Pulse Resp B/P (MAP) Pulse Ox O2 Delivery O2 Flow Rate FiO2 01/17/21 18:30 98.2 78 18 135/68 (90) 94 Room Air Home Medications Scheduled Cholecalciferol (Vitamin D3) (Vitamin D3) 1,000 Unit Tablet, 1,000 UNITS PO DAILY, (Reported) @ 1400 Desloratadine (Desloratadine) 5 Mg Tab, 5 MG PO DAILY, (Reported) @ 1400 Irbesartan/Hydrochlorothiazide (Irbesartan-Hctz 150-12.5 mg Tb) 1 Tab Tab, 2 TAB PO QAM, (Reported) Lactobacillus Acidophilus (Probiotic) 1 Each Capsule, 1 CAP PO DAILY, (Reported) @ 1400 Levothyroxine Sodium (Levothyroxine Sodium) 100 Mcg Tab, 100 MCG PO DAILY, (Reported) Metoprolol Tartrate (Metoprolol Tartrate) 25 Mg Tab, 25 MG PO QPM, (Reported) TAKES IN AFTERNOON Rosuvastatin Calcium (Crestor) 10 Mg Tab, 10 MG PO QHS, (Reported) Triamcinolone Acetonide (Nasacort) 10.8 Ml [place], 2 SPRAY NARES QAM, (Reported) Vit A/Vit C/Vit E/Zinc/Copper (Preservision Areds Softgel) 1 Cap Cap, 1 CAP PO BID, (Reported) Scheduled PRN Acetaminophen (Acetaminophen) 500 Mg Tab, 1,000 MG PO Q4H PRN for PAIN, (Reported) Acetaminophen (Acetaminophen) 325 Mg Tablet, 650 MG PO Q4H PRN for MILD PAIN or TEMP > 101 Carboxymethylcellulose Sodium (Refresh Tears) 0.5 % Prakash, 1 DROP OU QID PRN for DRY EYES, (Reported) Sodium Chloride (Saline Nasal [place]) 88 Ml [place], 1 SPRAY NARES QID PRN for CONGESTION, (Reported) Allergies Coded Allergies: Penicillins (Verified Allergy, Intermediate, Hives, 09/17/18) ibuprofen (Verified Allergy, Intermediate, Hives, 09/17/18) Motrin Brand. Generic Ibuprofen [place] sulfamethoxazole (Verified Allergy, Intermediate, Hives, 09/17/18) trimethoprim (Verified Allergy, Intermediate, Hives, 09/17/18) Quinolones (Verified Allergy, Unknown, 09/17/18) latex (Verified Allergy, Unknown, 09/17/18) codeine (Verified Adverse Reaction, Mild, N+V, 09/17/18) A-FIB/CHADSVASC A-FIB History Current/History of A-Fib/PAF?: No Current PO Anticoag Therapy: No JOSE MARTINEZ MD Jan 17, 2021 12:40
[2021-01-17 18:30] VITALS: BP 135/68
[2021-01-17 20:00] VITALS: BP 116/66
[2021-01-17] MEDS: DOCUSATE SODIUM 100MG CAPSULE PO SCH (21:00)
[2021-01-17] MEDS: SENNA 8.6 MG TAB (SENOKOT) PO SCH (21:00)
[2021-01-17] MEDS: REMEDY PHYTOPLEX Z-GUARD PASTE 113GM TUBE (FROM STOREROOM PRODUCT) TOP SCH (21:00)
[2021-01-17] MEDS ORDERED: ROSUVASTATIN 10 MG TAB (CRESTOR) PO SCH (21:00)
[2021-01-17] MEDS ORDERED: IRBESARTAN 150MG TAB PO SCH (21:00)
[2021-01-17] MEDS: FLUTICASONE PROP 0.05% NASAL SPRAY 16 GM (FLONASE) NARES SCH (21:00)
[2021-01-17] MEDS: ACETAMINOPHEN 500 MG TAB PO SCH (21:27)
[2021-01-17] MEDS: ROSUVASTATIN 10 MG TAB (CRESTOR) PO SCH (21:30)
[2021-01-17] MEDS: POLYVINYL ALCOHOL OPHTH SOLN 15 ML(LIQUITEARS) OU SCH (21:31)
[2021-01-18] MEDS: LEVOTHYROXINE 100MCG TABLET (0.1MG) PO SCH (05:50)
[2021-01-18 06:00] VITALS: BP 128/69
[2021-01-18 07:02] LABS: BASO % 0.3 % (0.0-1.0); EOS # 0.1 10^3/uL (0.0-0.5); HEMATOCRIT 37.4 % (36.0-47.0); LYMPH # 3.1 10^3/uL (1.5-5.0); MEAN CORPUSCULAR HGB CONC 32.1 g/dl (32.0-36.5); MEAN CORPUSCULAR VOLUME 87.2 fl (80.0-96.0); MONO # 0.9 10^3/uL (0.0-0.8); MONO % 11.7 % (2.0-8.0); NEUTROPHILS # 3.3 10^3/uL (1.5-8.5); NEUTROPHILS % 44.7 % (36.0-66.0); PLATELET COUNT, AUTOMATED 204 10^3/uL (150-450); RED BLOOD COUNT 4.29 10^6/uL (4.00-5.40); WHITE BLOOD COUNT 7.4 10^3/uL (4.0-10.0)
[2021-01-18 07:30] LABS: ALBUMIN 3.8 GM/DL (3.2-5.2); BILIRUBIN,TOTAL 0.9 MG/DL (0.2-1.0); CALCIUM LEVEL 9.3 MG/DL (8.8-10.2); CREATININE FOR GFR 1.05 MG/DL (0.55-1.30); GLOMERULAR FILTRATION RATE 53.4 (>32); POTASSIUM SERUM 3.2 MEQ/L (3.5-5.1); TOTAL PROTEIN 7.4 GM/DL (6.4-8.2)
[2021-01-18] MEDS ORDERED: POTASSIUM CHLORIDE 10 MEQ SR TABLET PO ONE (08:30)
[2021-01-18] MEDS ORDERED: IRBESARTAN 150MG TAB PO SCH (09:00)
[2021-01-18] MEDS: PANTOPRAZOLE 40MG TAB (PROTONIX) PO SCH (09:00)
[2021-01-18] MEDS: DOCUSATE SODIUM 100MG CAPSULE PO SCH ×2 (09:00→20:43)
[2021-01-18] MEDS: REMEDY PHYTOPLEX Z-GUARD PASTE 113GM TUBE (FROM STOREROOM PRODUCT) TOP SCH ×3 (09:00→20:44)
--- NOTE | 2021-01-18 09:17 | IPNPDOC ---
Date Seen The patient was seen on 01/18/21. Progress Note Subjective: Patient request her home blood pressure medications to be taken at her home schedule. She denied any chest pain pressure tightness headache lightheadedness changes in vision this morning. Pain is controlled. She felt a little dizzy this morning getting up. blood pressure is 120. PHYSICAL EXAMINATION Vital signs: See below General: The patient is awake, alert and oriented to person, place and time, answering questions appropriately. No distress able to speak in full sentences HEENT: No JVD no carotid bruit no thyromegaly Lungs: Clear to auscultation, no wheezing, rales or rhonchi. Heart: S1, S2, systolic ejection murmur at the apex. Abdomen: Soft, nontender, nondistended. Extremities: No clubbing, cyanosis or pitting edema. Right ankle Imaging studies and microbiology: See chart. ASSESSMENT :80-year-old female admitted on 01/13/2021 with complaints of lightheadedness with chills, occasional headache and "brain fog" while she shopping at [employer], felt like she was going to pass out. The patient complained of persistent nausea, was diaphoretic. The patient was brought into the ER for further evaluation, was found to have near syncope with a right distal tib/fib fracture, and uncontrolled htn. Orthostatics were negative. CT of the head had no acute CVA. Dopplers showed no hemodynamically significant stenosis of either carotid artery. The x-ray and ankle x-ray showed no acute fracture dislocation, no subluxation, diffuse osteopenia. Distal fib oblique fracture was noted on the right with widening of the mortise joint which may indicate a ligamentous injury. She was discharged in stable condition to acute rehab unit on 01/17/2021. 1. Right ankle fracture/ Distal fibular oblique fracture 2. Syncope, resolved. 3. Debility due to to right ankle pain and weakness. 4. Hypertension, controlled. 5. CAD. 6. Hyperlipidemia. 7. Chronic hypothyroidism. PLAN: Continue all present medications. ARU for rehab services If patient continues to have dizziness, we can check for orthostasis. Syncope work-up was negative. VS, I&O, 24H, Fishbone Vital Signs/I&O Vital Signs Date Time Temp Pulse Resp B/P (MAP) Pulse Ox O2 Delivery O2 Flow Rate FiO2 01/18/21 06:00 97.5 84 18 128/69 (88) 96 Room Air I&O- Last 24 Hours up to 6 AM 01/18/21 06:00 Intake Total 120 ml Balance 120 ml Laboratory Data 24H LABS Laboratory Tests 2 01/18/21 06:40: Immature Granulocyte % (Auto) 0.3, Neutrophils (%) (Auto) 44.7, Lymphocytes (%) (Auto) 42.0, Monocytes (%) (Auto) 11.7H, Eosinophils (%) (Auto) 1.0, Basophils (%) (Auto) 0.3, Neutrophils # (Auto) 3.3, Lymphocytes # (Auto) 3.1, Monocytes # (Auto) 0.9H, Eosinophils # (Auto) 0.1, Basophils # (Auto) 0.0, Nucleated Red Blood Cells % (auto) 0.0, Anion Gap 7L, Glomerular Filtration Rate 53.4, Calcium Level 9.3, Total Bilirubin 0.9, Aspartate Amino Transf (AST/SGOT) 14, Alanine Aminotransferase (ALT/SGPT) 18, Alkaline Phosphatase 69, Total Protein 7.4, Albumin 3.8, Albumin/Globulin Ratio 1.1L CBC/BMP Laboratory Tests 01/18/21 06:40 KATY CORADO MD Jan 18, 2021 09:17
[2021-01-18] MEDS: ENOXAPARIN 40MG/0.4ML SYRINGE (J1650 PER 10MG) SC SCH (09:52)
[2021-01-18] MEDS: LACTOBACILLUS ACIDOPHILUS CAP (BACID) PO SCH (09:53)
[2021-01-18] MEDS: OCUVITE 1 TAB PO SCH (09:55)
[2021-01-18] MEDS: LORATADINE 10 MG TAB PO SCH (09:55)
[2021-01-18] MEDS: ACETAMINOPHEN 500 MG TAB PO SCH ×3 (09:55→20:44)
[2021-01-18] MEDS: POLYVINYL ALCOHOL OPHTH SOLN 15 ML(LIQUITEARS) OU SCH ×4 (09:56→20:45)
[2021-01-18] MEDS: FLUTICASONE PROP 0.05% NASAL SPRAY 16 GM (FLONASE) NARES SCH ×2 (09:56→20:44)
[2021-01-18 13:34] VITALS: BP 131/63
[2021-01-18] MEDS ORDERED: METOPROLOL TART 25 MG TABLET PO SCH (14:00)
[2021-01-18] MEDS: VITAMIN D 1,000 INTERNATIONAL UNITS TABLET PO SCH (14:31)
[2021-01-18] MEDS: METOPROLOL TART 25 MG TABLET PO SCH (14:37)
[2021-01-18] MEDS ORDERED: MECLIZINE 12.5 MG TAB PO PRN (14:40)
[2021-01-18 20:00] VITALS: BP 97/56
[2021-01-18] MEDS: SENNA 8.6 MG TAB (SENOKOT) PO SCH ×2 (20:43→20:47)
[2021-01-18] MEDS: ROSUVASTATIN 10 MG TAB (CRESTOR) PO SCH (20:43)
[2021-01-19] MEDS: LEVOTHYROXINE 100MCG TABLET (0.1MG) PO SCH (05:25)
[2021-01-19 06:00] VITALS: BP 136/72
[2021-01-19 06:02] LABS: CALCIUM LEVEL 9.4 MG/DL (8.8-10.2); CREATININE FOR GFR 1.29 MG/DL (0.55-1.30); GLOMERULAR FILTRATION RATE 42.1 (>32); POTASSIUM SERUM 3.5 MEQ/L (3.5-5.1)
[2021-01-19] MEDS: OCUVITE 1 TAB PO SCH (08:52)
[2021-01-19] MEDS: LORATADINE 10 MG TAB PO SCH (08:52)
[2021-01-19] MEDS: ACETAMINOPHEN 500 MG TAB PO SCH ×3 (08:52→21:39)
[2021-01-19] MEDS: LACTOBACILLUS ACIDOPHILUS CAP (BACID) PO SCH (08:52)
[2021-01-19] MEDS: IRBESARTAN HCTZ PO SCH (08:53)
[2021-01-19] MEDS: FLUTICASONE PROP 0.05% NASAL SPRAY 16 GM (FLONASE) NARES SCH ×2 (08:55→21:00)
[2021-01-19] MEDS: POLYVINYL ALCOHOL OPHTH SOLN 15 ML(LIQUITEARS) OU SCH ×4 (08:55→21:40)
[2021-01-19] MEDS: ENOXAPARIN 40MG/0.4ML SYRINGE (J1650 PER 10MG) SC SCH (08:56)
[2021-01-19] MEDS: DOCUSATE SODIUM 100MG CAPSULE PO SCH ×2 (09:00→21:00)
[2021-01-19] MEDS: PANTOPRAZOLE 40MG TAB (PROTONIX) PO SCH (09:00)
[2021-01-19] MEDS: REMEDY PHYTOPLEX Z-GUARD PASTE 113GM TUBE (FROM STOREROOM PRODUCT) TOP SCH ×3 (09:00→21:00)
--- NOTE | 2021-01-19 09:32 | IPNPDOC ---
PM&R Progress Note DATE OF SERVICE: Jan 19, 2021 Author'S Agent Progress Note Subjective: Patient reporting she is upset because she has on 3 occasions inserted the wrong word into a sentence and is not sure what is going on. She denies having any focal weakness and does not want an MRI because she is worried about having to go the bathroom during that time. She would like a cog eval and is open to collecting a urine specimen to see if an underlying UTI may be casing her to have some mild confusion. She admits to being a highly anxious person. REVIEW OF SYSTEMS: The following is a completed review of systems and has been reviewed. Review of systems otherwise unremarkable. PAIN: Patient self reports right ankle pain EYES: No recent vision changes EARS, NOSE, & THROAT: No throat pain, or dysphagia, or rhinorrhea CARDIOVASCULAR: Denies chest pain or palpitations PULMONARY: Denies shortness of breath GASTROINTESTINAL: Denies constipation/diarrhea GENITOURINARY: denies dysuria MUSCULOSKELETAL: right ankle fracture NEUROLOGICAL: +peripheral polyneuropathy, +dizziness HEMATOLOGICAL: denies easy bruising SKIN: denies rash PSYCHIATRIC: Unremarkable All other review of systems found to be negative. PHYSICAL EXAMINATION: VITAL SIGNS: Please see below. GENERAL: Pleasant and cooperative. No acute distress. HEENT: PERRL. Extraocular movements intact. Clear conjunctiva CARDIOVASCULAR: Regular rate and rhythm. No murmurs, rubs, or gallops LUNGS: Clear to auscultation bilaterally. No wheezes. No rhonchi ABDOMEN: Soft, nontender, nondistended. Positive bowel sounds. Normal active bowel sounds. NEUROLOGICAL: Alert and oriented times three. Cranial nerves II through XII grossly intact. Sensation grossly intact EXTREMITIES: 5-\5 strength bilateral upper extremities. 5-\5 strength right lower extremity. 5/5 strength in left lower extremity. (-) homans bilat SKIN: mild swelling and bruising right ankle ASSESSMENT:80-year-old F with past medical history of HTN and CAD who presents status post syncopal episode with right ankle fracture now NWB PLAN: 1. 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 CArdiac- hx of CAD on metoprolol -HTN on irbesartan and HCTZ, monitor BPs- stable -last ECHO on record showing signs of chronic diastolic CHF, will fluid restrict, monitor daily weights -HLD- statin -medicine consulted to assist in overall management 3. Resp- monitor for infection 4. Endo- hx of hypothyroidism c/u synthroid 5. Ortho- s/p fall with right ankle fracture , NWB, CAM boot when out of bed, f/u ortho on d/c 6. Neuro- hx of spinal stenosis with peripheral polyneuropathy contributing to overall mobility impairments and falls, CT cervical spine from 2010 showing cervical stenosis which has likely gotten worse and contributing to patient's feeling of light headedness which she reports getting while holding the phone to her ear for a prolonged time- patient educated on trying to relax her upper trapezius muscles, and work on improving her neck and shoulder posture, will add lidoderm patches to upper traps to encourage relaxation -vestibular eval performed by PT and was negative 7. DVT ppx- lovenox 8. GI ppx- protonix 9 Pain- tylenol and oxycodone 10. - will order UA with Ucx given patient's concern that her cognition is starting to decline 11. Dispo- TBD Allergies Coded Allergies: Penicillins (Verified Allergy, Intermediate, Hives, 09/17/18) ibuprofen (Verified Allergy, Intermediate, Hives, 09/17/18) Motrin Brand. Generic Ibuprofen [place] sulfamethoxazole (Verified Allergy, Intermediate, Hives, 09/17/18) trimethoprim (Verified Allergy, Intermediate, Hives, 09/17/18) Quinolones (Verified Allergy, Unknown, 09/17/18) latex (Verified Allergy, Unknown, 09/17/18) codeine (Verified Adverse Reaction, Mild, N+V, 09/17/18) Vital Signs Vital Signs Date Time Temp Pulse Resp B/P (MAP) Pulse Ox O2 Delivery O2 Flow Rate FiO2 01/19/21 06:00 97.4 72 20 136/72 (93) 98 Room Air Laboratory Data CBC/BMP Laboratory Tests 01/19/21 05:23 Labs 24H Laboratory Tests 2 01/19/21 05:23: Anion Gap 3L, Glomerular Filtration Rate 42.1, Calcium Level 9.4 Current Medications Current Medications Current Medications Medications (Trade) Dose Ordered Sig/Gifty Route PRN Reason Start Time Stop Time Status Last Admin Dose Admin Acetaminophen (Tylenol Tab) 1,000 mg TID PO 01/17/21 21:00 01/19/21 08:52 Artificial Tears (Akwa Tears) 2 drop QID OU 01/17/21 21:00 01/19/21 08:55 Bisacodyl (Dulcolax Suppository) 10 mg DAILYPRN PRN [place] CONSTIPATION 01/17/21 12:30 Docusate Sodium (Colace) 100 mg BID PO 01/17/21 21:00 01/18/21 20:43 Enoxaparin Sodium (Lovenox) 40 mg DAILY SC 01/18/21 09:00 01/19/21 08:56 Fluticasone Propionate (Flonase 0.05% Nasal [place]) 1 spray BID NARES 01/17/21 21:00 01/19/21 08:55 Hydrochlorothiazide (Hydrodiuril) 25 mg DAILY PO 01/18/21 09:00 01/18/21 16:31 DC 01/18/21 10:00 Irbesartan (Avapro) 150 mg BID PO 01/17/21 21:00 01/18/21 08:45 DC 01/17/21 21:28 Irbesartan (Avapro) 300 mg DAILY PO 01/18/21 09:00 01/18/21 16:32 DC 01/18/21 10:01 Lactobacillus Acidophilus (Bacid) 1 ea DAILY PO 01/18/21 09:00 01/19/21 08:52 Levothyroxine Sodium (Synthroid) 100 mcg DAILY@06 PO 01/18/21 06:00 01/19/21 05:25 Loratadine (Claritin) 10 mg DAILY PO 01/18/21 09:00 01/19/21 08:52 Meclizine HCl (Antivert) 12.5 mg TID PRN PO DIZZINESS 01/18/21 14:40 Metoprolol Tartrate (Lopressor) 25 mg DAILY@1400 PO 01/18/21 14:00 01/18/21 08:46 DC Metoprolol Tartrate (Lopressor) 25 mg DAILY@1500 PO 01/18/21 15:00 01/18/21 14:37 Multivitamins (Ocuvite(I-Cheri)) 1 tab DAILY PO 01/18/21 09:00 01/19/21 08:52 Pantoprazole Sodium (Protonix) 40 mg DAILY PO 01/18/21 09:00 Patient Own Medication (Patient'S Own Med) IRBESARTAN-HCTZ 150-12.5 MG TAKE 2 TABL... DAILY PO 01/19/21 09:00 01/19/21 08:53 Polyethylene Glycol (Miralax) 1 pkt DAILY PRN PO CONSTIPATION 01/17/21 12:30 Rosuvastatin Calcium (Crestor) 10 mg QHS PO 01/17/21 21:00 01/18/21 20:43 Rosuvastatin Calcium (Crestor) 40 mg QHS PO 01/17/21 21:00 01/17/21 12:39 DC Senna (Senokot) 1 tab QHS PO 01/17/21 21:00 Vitamin D (Vitamin D) 1,000 units DAILY@1400 PO 01/18/21 14:00 01/18/21 14:31 JOSE MARTINEZ MD Jan 19, 2021 09:32
[2021-01-19] MEDS ORDERED: LIDOCAINE 5% (LIDODERM) PATCH TD SCH (13:25)
[2021-01-19] MEDS: VITAMIN D 1,000 INTERNATIONAL UNITS TABLET PO SCH (13:49)
[2021-01-19] MEDS: LIDOCAINE 5% (LIDODERM) PATCH TD SCH (13:50)
[2021-01-19 14:00] VITALS: BP 150/66
[2021-01-19] MEDS: METOPROLOL TART 25 MG TABLET PO SCH (15:50)
[2021-01-19 20:00] VITALS: BP 156/72
[2021-01-19] MEDS: SENNA 8.6 MG TAB (SENOKOT) PO SCH (21:00)
[2021-01-19] MEDS ORDERED: **NOTE PATIENT COMMENT** MISC XX SCH (21:00)
[2021-01-19] MEDS: ROSUVASTATIN 10 MG TAB (CRESTOR) PO SCH (21:39)
[2021-01-19] MEDS: **NOTE PATIENT COMMENT** MISC XX SCH (21:40)
[2021-01-20] MEDS: LEVOTHYROXINE 100MCG TABLET (0.1MG) PO SCH (05:15)
[2021-01-20 05:52] VITALS: BP 138/56
[2021-01-20] MEDS: PANTOPRAZOLE 40MG TAB (PROTONIX) PO SCH (08:02)
[2021-01-20] MEDS: LACTOBACILLUS ACIDOPHILUS CAP (BACID) PO SCH (08:02)
[2021-01-20] MEDS: DOCUSATE SODIUM 100MG CAPSULE PO SCH ×3 (08:02→20:38)
[2021-01-20] MEDS: OCUVITE 1 TAB PO SCH (08:02)
[2021-01-20] MEDS: FLUTICASONE PROP 0.05% NASAL SPRAY 16 GM (FLONASE) NARES SCH ×2 (08:08→20:35)
[2021-01-20] MEDS: ENOXAPARIN 40MG/0.4ML SYRINGE (J1650 PER 10MG) SC SCH (08:08)
[2021-01-20] MEDS: LORATADINE 10 MG TAB PO SCH (08:08)
[2021-01-20] MEDS: ACETAMINOPHEN 500 MG TAB PO SCH ×3 (08:08→20:35)
[2021-01-20] MEDS: POLYVINYL ALCOHOL OPHTH SOLN 15 ML(LIQUITEARS) OU SCH ×4 (08:09→20:35)
[2021-01-20] MEDS: REMEDY PHYTOPLEX Z-GUARD PASTE 113GM TUBE (FROM STOREROOM PRODUCT) TOP SCH ×3 (08:09→20:35)
[2021-01-20] MEDS: LIDOCAINE 5% (LIDODERM) PATCH TD SCH (08:09)
[2021-01-20] MEDS: IRBESARTAN HCTZ PO SCH (08:10)
[2021-01-20 08:33] LABS: BASO % 0.6 % (0.0-1.0); EOS # 0.1 10^3/uL (0.0-0.5); EOS % 1.4 % (0.0-3.0); HEMATOCRIT 37.5 % (36.0-47.0); HEMOGLOBIN 12.1 g/dl (12.0-15.5); LYMPH # 2.9 10^3/uL (1.5-5.0); LYMPH % 45.9 % (24.0-44.0); MEAN CORPUSCULAR HEMOGLOBIN 28.2 pg (27.0-33.0); MEAN CORPUSCULAR HGB CONC 32.3 g/dl (32.0-36.5); MEAN CORPUSCULAR VOLUME 87.4 fl (80.0-96.0); MONO # 0.7 10^3/uL (0.0-0.8); MONO % 10.8 % (2.0-8.0); NEUTROPHILS # 2.6 10^3/uL (1.5-8.5); PLATELET COUNT, AUTOMATED 214 10^3/uL (150-450); RED BLOOD COUNT 4.29 10^6/uL (4.00-5.40); WHITE BLOOD COUNT 6.3 10^3/uL (4.0-10.0)
[2021-01-20 08:48] LABS: BLOOD UREA NITROGEN 25 MG/DL (7-18); CALCIUM LEVEL 9.4 MG/DL (8.8-10.2); CARBON DIOXIDE LEVEL 28 MEQ/L (21-32); CHLORIDE LEVEL 103 MEQ/L (98-107); CREATININE FOR GFR 0.88 MG/DL (0.55-1.30); GLOMERULAR FILTRATION RATE > 60.0 (>32); GLUCOSE, FASTING 106 MG/DL (70-100); POTASSIUM SERUM 3.7 MEQ/L (3.5-5.1); SODIUM LEVEL 139 MEQ/L (136-145)
--- NOTE | 2021-01-20 13:43 | IPNPDOC ---
PM&R Progress Note DATE OF SERVICE: Jan 20, 2021 Technical Account Representative Progress Note Subjective: Patient very upset because she states her left ankle is sore and swollen and that she fractured it 4 or 5 years ago, she would like to see an orthopedist. REVIEW OF SYSTEMS: The following is a completed review of systems and has been reviewed. Review of systems otherwise unremarkable. PAIN: Patient self reports right ankle pain EYES: No recent vision changes EARS, NOSE, & THROAT: No throat pain, or dysphagia, or rhinorrhea CARDIOVASCULAR: Denies chest pain or palpitations PULMONARY: Denies shortness of breath GASTROINTESTINAL: Denies constipation/diarrhea GENITOURINARY: denies dysuria MUSCULOSKELETAL: right ankle fracture, +left ankle pain NEUROLOGICAL: +peripheral polyneuropathy, +dizziness HEMATOLOGICAL: denies easy bruising SKIN: denies rash PSYCHIATRIC: Unremarkable All other review of systems found to be negative. PHYSICAL EXAMINATION: VITAL SIGNS: Please see below. GENERAL: Pleasant and cooperative. No acute distress. HEENT: PERRL. Extraocular movements intact. Clear conjunctiva CARDIOVASCULAR: Regular rate and rhythm. No murmurs, rubs, or gallops LUNGS: Clear to auscultation bilaterally. No wheezes. No rhonchi ABDOMEN: Soft, nontender, nondistended. Positive bowel sounds. Normal active bowel sounds. NEUROLOGICAL: Alert and oriented times three. Cranial nerves II through XII grossly intact. Sensation grossly intact EXTREMITIES: 5-\5 strength bilateral upper extremities. 5-\5 strength right lower extremity. 5/5 strength in left lower extremity. (-) homans bilat SKIN: mild swelling and bruising right ankle left ankle with TTP bilat malleolli, no TTP base of fifth metatarsal, no instability, +ecchymosis and swelling ASSESSMENT:80-year-old F with past medical history of HTN and CAD who presents status post syncopal episode with right ankle fracture now NWB PLAN: 1. 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 CArdiac- hx of CAD on metoprolol -HTN on irbesartan and HCTZ, monitor BPs- stable -last ECHO on record showing signs of chronic diastolic CHF, will fluid restrict, monitor daily weights -HLD- statin -medicine consulted to assist in overall management 3. Resp- monitor for infection 4. Endo- hx of hypothyroidism c/u synthroid 5. Ortho- s/p fall with right ankle fracture , NWB, CAM boot when out of bed, f/u ortho on d/c -patient complaining of left ankle soreness, low suspicion for fracture, more likely sprain from putting more weight through left limb, will order XRay and ask orthopedics to come and assess patient 6. Neuro- hx of spinal stenosis with peripheral polyneuropathy contributing to overall mobility impairments and falls, CT cervical spine from 2010 showing cervical stenosis which has likely gotten worse and contributing to patient's feeling of light headedness which she reports getting while holding the phone to her ear for a prolonged time- patient educated on trying to relax her upper trapezius muscles, and work on improving her neck and shoulder posture, cont lidoderm patches to upper traps to encourage relaxation -vestibular eval performed by PT and was negative 7. DVT ppx- lovenox 8. GI ppx- protonix 9 Pain- tylenol and oxycodone 10. - Ucx contaminated, will reorder 11. Dispo- TBD Allergies Coded Allergies: Penicillins (Verified Allergy, Intermediate, Hives, 09/17/18) ibuprofen (Verified Allergy, Intermediate, Hives, 09/17/18) Motrin Brand. Generic Ibuprofen OK sulfamethoxazole (Verified Allergy, Intermediate, Hives, 09/17/18) trimethoprim (Verified Allergy, Intermediate, Hives, 09/17/18) Quinolones (Verified Allergy, Unknown, 09/17/18) latex (Verified Allergy, Unknown, 09/17/18) codeine (Verified Adverse Reaction, Mild, N+V, 09/17/18) Vital Signs Vital Signs Date Time Temp Pulse Resp B/P (MAP) Pulse Ox O2 Delivery O2 Flow Rate FiO2 01/20/21 05:52 97.3 66 18 138/56 (83) 99 Room Air Laboratory Data CBC/BMP Laboratory Tests 01/20/21 07:56 Labs 24H Laboratory Tests 2 01/19/21 15:02: Urine Color YELLOW, Urine Appearance CLOUDYH, Urine pH 5.0, Urine Specific [place] 1.016, Urine Protein NEGATIVE, Urine Glucose (UA) NEGATIVE, Urine Ketones NEGATIVE, Urine Blood NEGATIVE, Urine Nitrite NEGATIVE, Urine Bilirubin NEGATIVE, Urine Urobilinogen 0.2, Urine Leukocyte Esterase 3+H, Urine WBC (Auto) 111H, Urine RBC (Auto) 7H, Urine Hyaline Casts (Auto) 3, Urine Bacteria (Auto) 1+H, Urine Squamous Epithelial Cells 11, Urine Transitional Epithelial Cells 2, Urine Renal Epithelial Cells 1, Urine Mucus (Auto) SMALL, Urine Sperm (Auto) 01/20/21 07:56: Immature Granulocyte % (Auto) 0.3, Neutrophils (%) (Auto) 41.0, Lymphocytes (%) (Auto) 45.9H, Monocytes (%) (Auto) 10.8H, Eosinophils (%) (Auto) 1.4, Basophils (%) (Auto) 0.6, Neutrophils # (Auto) 2.6, Lymphocytes # (Auto) 2.9, Monocytes # (Auto) 0.7, Eosinophils # (Auto) 0.1, Basophils # (Auto) 0.0, Nucleated Red Blood Cells % (auto) 0.0, Anion Gap 8, Glomerular Filtration Rate > 60.0, Calcium Level 9.4 Microbiology Microbiology 01/19/21 Urine Culture - Final, Complete Current Medications Current Medications Current Medications Medications (Trade) Dose Ordered Sig/Gifty Route PRN Reason Start Time Stop Time Status Last Admin Dose Admin Acetaminophen (Tylenol Tab) 1,000 mg TID PO 01/17/21 21:00 01/20/21 08:08 Artificial Tears (Akwa Tears) 2 drop QID OU 01/17/21 21:00 01/20/21 08:09 Bisacodyl (Dulcolax Suppository) 10 mg DAILYPRN PRN [place] CONSTIPATION 01/17/21 12:30 Docusate Sodium (Colace) 100 mg BID PO 01/17/21 21:00 01/18/21 20:43 Enoxaparin Sodium (Lovenox) 40 mg DAILY SC 01/18/21 09:00 01/20/21 08:08 Fluticasone Propionate (Flonase 0.05% Nasal [place]) 1 spray BID NARES 01/17/21 21:00 01/20/21 08:08 Hydrochlorothiazide (Hydrodiuril) 25 mg DAILY PO 01/18/21 09:00 01/18/21 16:31 DC 01/18/21 10:00 Irbesartan (Avapro) 150 mg BID PO 01/17/21 21:00 01/18/21 08:45 DC 01/17/21 21:28 Irbesartan (Avapro) 300 mg DAILY PO 01/18/21 09:00 01/18/21 16:32 DC 01/18/21 10:01 Lactobacillus Acidophilus (Bacid) 1 ea DAILY PO 01/18/21 09:00 01/20/21 08:02 Levothyroxine Sodium (Synthroid) 100 mcg DAILY@06 PO 01/18/21 06:00 01/20/21 05:15 Lidocaine (Lidoderm Patch) 2 patch DAILY TD 01/19/21 09:00 01/20/21 08:09 Lidocaine (Lidoderm Patch) 2 patch DAILY TD 01/19/21 13:25 01/19/21 13:35 DC Loratadine (Claritin) 10 mg DAILY PO 01/18/21 09:00 01/20/21 08:08 Meclizine HCl (Antivert) 12.5 mg TID PRN PO DIZZINESS 01/18/21 14:40 Metoprolol Tartrate (Lopressor) 25 mg DAILY@1400 PO 01/18/21 14:00 01/18/21 08:46 DC Metoprolol Tartrate (Lopressor) 25 mg DAILY@1500 PO 01/18/21 15:00 01/19/21 15:50 Multivitamins (Ocuvite(I-Cheri)) 1 tab DAILY PO 01/18/21 09:00 01/20/21 08:02 Non-Formulary Medication ( See Comment Field Below ) REMOVE LIDODERM PATCH DAILY@21 XX 01/19/21 21:00 01/19/21 13:35 DC Non-Formulary Medication ( See Comment Field Below ) REMOVE LIDODERM PATCH DAILY@21 XX 01/19/21 21:00 01/19/21 21:40 Pantoprazole Sodium (Protonix) 40 mg DAILY PO 01/18/21 09:00 01/20/21 08:02 Patient Own Medication (Patient'S Own Med) IRBESARTAN-HCTZ 150-12.5 MG TAKE 2 TABL... DAILY PO 01/19/21 09:00 01/20/21 08:10 Polyethylene Glycol (Miralax) 1 pkt DAILY PRN PO CONSTIPATION 01/17/21 12:30 Rosuvastatin Calcium (Crestor) 10 mg QHS PO 01/17/21 21:00 01/19/21 21:39 Rosuvastatin Calcium (Crestor) 40 mg QHS PO 01/17/21 21:00 01/17/21 12:39 DC Senna (Senokot) 1 tab QHS PO 01/17/21 21:00 Vitamin D (Vitamin D) 1,000 units DAILY@1400 PO 01/18/21 14:00 01/19/21 13:49 JOSE MARTINEZ MD Jan 20, 2021 13:43
[2021-01-20 14:00] VITALS: BP 146/70
--- NOTE | 2021-01-20 14:42 | REP ---
INDICATION: left, pain with ambulation, r/o fracture COMPARISON: None. TECHNIQUE: There are four views. FINDINGS: There is demineralization. There is circumferential soft tissue edema. No fractures or dislocations are identified. There are no calcifications or foreign bodies. The tibiotalar joint space is unremarkable. There is a calcaneal plantar spur. IMPRESSION: Demineralization. Circumferential soft tissue edema. No fracture or dislocation. Calcaneal plantar spur. <Electronically signed by Aniket Kessler > 01/20/21 [id number]
[2021-01-20] MEDS: VITAMIN D 1,000 INTERNATIONAL UNITS TABLET PO SCH (15:14)
[2021-01-20] MEDS: METOPROLOL TART 25 MG TABLET PO SCH (15:15)
--- NOTE | 2021-01-20 18:55 | REP ---
INDICATION: L ankle bruising/swelling COMPARISON: None. TECHNIQUE: There are four views. FINDINGS: There is no fracture or dislocation. Mineralization and joint spaces are normal. There are no calcifications or foreign bodies. IMPRESSION: Negative left tibia-fibula.. <Electronically signed by Aniket Kessler > 01/20/21 [id number]
[2021-01-20 20:00] VITALS: BP 133/63
[2021-01-20] MEDS: ROSUVASTATIN 10 MG TAB (CRESTOR) PO SCH (20:34)
[2021-01-20] MEDS: **NOTE PATIENT COMMENT** MISC XX SCH (20:36)
[2021-01-20] MEDS: SENNA 8.6 MG TAB (SENOKOT) PO SCH (20:38)
[2021-01-21] MEDS: LEVOTHYROXINE 100MCG TABLET (0.1MG) PO SCH (05:33)
[2021-01-21 06:10] VITALS: BP 152/72
[2021-01-21] MEDS: IRBESARTAN HCTZ PO SCH (08:32)
[2021-01-21] MEDS: LORATADINE 10 MG TAB PO SCH (08:33)
[2021-01-21] MEDS: LACTOBACILLUS ACIDOPHILUS CAP (BACID) PO SCH (08:33)
[2021-01-21] MEDS: ENOXAPARIN 40MG/0.4ML SYRINGE (J1650 PER 10MG) SC SCH (08:33)
[2021-01-21] MEDS: DOCUSATE SODIUM 100MG CAPSULE PO SCH ×2 (08:34→20:34)
[2021-01-21] MEDS: ACETAMINOPHEN 500 MG TAB PO SCH ×3 (08:34→20:34)
[2021-01-21] MEDS: OCUVITE 1 TAB PO SCH (08:34)
[2021-01-21] MEDS: FLUTICASONE PROP 0.05% NASAL SPRAY 16 GM (FLONASE) NARES SCH ×2 (08:35→20:35)
[2021-01-21] MEDS: POLYVINYL ALCOHOL OPHTH SOLN 15 ML(LIQUITEARS) OU SCH ×4 (08:35→20:35)
[2021-01-21] MEDS: PANTOPRAZOLE 40MG TAB (PROTONIX) PO SCH (08:35)
[2021-01-21] MEDS: REMEDY PHYTOPLEX Z-GUARD PASTE 113GM TUBE (FROM STOREROOM PRODUCT) TOP SCH ×3 (08:36→20:35)
[2021-01-21] MEDS: LIDOCAINE 5% (LIDODERM) PATCH TD SCH (08:37)
--- NOTE | 2021-01-21 13:05 | CR ---
CONSULTATION DATE: 01/21/2021 CONSULTING PHYSICIAN: GANESH GRIDER MD HISTORY OF PRESENT ILLNESS: This is an 80-year-old female who had a left Grade 1 ankle sprain and a right distal fibular fracture. Her right distal fibular fracture occurred approximately one week prior and she has been treated with toe-touch weightbearing to the right lower extremity with a CAM boot. Since her ambulation with assistive devices to include a walker have commenced, she twisted her left ankle sustaining a Grade 1 ankle sprain. PAST MEDICAL HISTORY: Hypertension, hypotension, hyperlipidemia. She is currently PMR on chronic prednisone and also has coronary artery disease, left wrist surgery, status post lumpectomy, history of skin cancer, spinal stenosis with peripheral polyneuropathy and radiculopathy with ongoing dizziness and syncopal episodes. She presented to [facility] Emergency Department on the December complaining of a syncopal episode and placed on telemetry. Orthopedic Surgery was consulted for her left ankle sprain and recommendations for continuing ambulation with assistive devices. PAST MEDICAL HISTORY: As listed above. PAST SURGICAL HISTORY: 1. Right breast lumpectomy. 2. Cholecystectomy. 3. D and C. 4. ARDEN/BSO. 5. Bilateral cataract surgery. 6. Hernia repair. 7. Bilateral carpal tunnel surgery. 8. Melanoma excision. 9. Right total knee replacement. ALLERGIES: Please see Dr. Lynne' note. MEDICATIONS: Please see Dr. Lynne' note. FAMILY HISTORY: Cardiac and cancer. SOCIAL HISTORY: Former smoker. No alcohol. No illicit drugs. PHYSICAL EXAMINATION: Alert and oriented to person, time and place. Left lower extremity: The patient had some mild ecchymosis about the distal fibula and tenderness on palpation about the distal fibula. She otherwise had a slightly positive talar toe exam with pain about the distal fibula indicative of an ATFL or anterior talofibular sprain. She had a negative anterior Drawer exam. Her left lower extremity was otherwise neurovascularly intact. She had a 5/5 motor strength in the EHL, FHL, tibialis anterior, gastrocnemius and peroneal musculature. Sensation intact to light touch to the deep and superficial peroneal, sural, saphenous and tibial nerve distributions. She had a 2+ dorsalis pedis and posterior tibial arterial pulse. Brisk capillary refill to the digits under 2 seconds. There are no breaks in the skin. RADIOGRAPHS: Left ankle radiographs demonstrate no osseous abnormalities. No fractures were appreciated. Her right ankle demonstrates a distal fibular very minimally displaced fracture. IMPRESSION: This is an 80-year-old female who was previously diagnosed with a right distal fibular minimally displaced fracture treated with toe touch weightbearing in a Cam boot and left ankle Grade 1 sprain of the ATFL and CFL. PLAN: At this point in time, given the patient's bilateral ankle injuries she will continue toe-touch weightbearing to the right lower extremity for five additional weeks for a total of six weeks of toe-touch weightbearing regarding the right ankle. She will continue to use the Cam boot while working with Physical Therapy and while she is not sleeping. Regarding her left Grade 1 ankle sprain she will be prescribed a lace-up ankle brace which can fit in a shoe in order to help stabilize her left ankle while she is continuing her Physical Therapy. Ideally, the patient would be toe-touch weightbearing to the right lower extremity for balance and weightbearing as tolerated to the left lower extremity and ankle with the use of a lace-up ankle brace. She will continue to use a walker while ambulating. The patient can follow-up with the Orthopedic Clinic on 02 February 2021 for continued follow-up at the [facility]. Dr. Lynne will continue her care while she is admitted to the rehabilitation floor. Please call with any questions or any concerns.
[2021-01-21 14:00] VITALS: BP 143/70
[2021-01-21] MEDS: VITAMIN D 1,000 INTERNATIONAL UNITS TABLET PO SCH (14:05)
[2021-01-21] MEDS: METOPROLOL TART 25 MG TABLET PO SCH (15:42)
[2021-01-21 20:34] VITALS: BP 150/71
[2021-01-21] MEDS: ROSUVASTATIN 10 MG TAB (CRESTOR) PO SCH (20:34)
[2021-01-21] MEDS: SENNA 8.6 MG TAB (SENOKOT) PO SCH (20:35)
[2021-01-21] MEDS: **NOTE PATIENT COMMENT** MISC XX SCH (20:37)
[2021-01-22] MEDS: LEVOTHYROXINE 100MCG TABLET (0.1MG) PO SCH (06:06)
[2021-01-22 06:31] VITALS: BP 140/67
[2021-01-22] MEDS: LORATADINE 10 MG TAB PO SCH (08:35)
[2021-01-22] MEDS: DOCUSATE SODIUM 100MG CAPSULE PO SCH ×2 (08:35→19:19)
[2021-01-22] MEDS: LACTOBACILLUS ACIDOPHILUS CAP (BACID) PO SCH (08:35)
[2021-01-22] MEDS: OCUVITE 1 TAB PO SCH (08:35)
[2021-01-22] MEDS: ENOXAPARIN 40MG/0.4ML SYRINGE (J1650 PER 10MG) SC SCH (08:36)
[2021-01-22] MEDS: ACETAMINOPHEN 500 MG TAB PO SCH ×3 (08:36→21:04)
[2021-01-22] MEDS: IRBESARTAN HCTZ PO SCH (08:37)
[2021-01-22] MEDS: FLUTICASONE PROP 0.05% NASAL SPRAY 16 GM (FLONASE) NARES SCH ×2 (08:38→21:00)
[2021-01-22] MEDS: POLYVINYL ALCOHOL OPHTH SOLN 15 ML(LIQUITEARS) OU SCH ×4 (08:38→21:05)
[2021-01-22] MEDS: LIDOCAINE 5% (LIDODERM) PATCH TD SCH (08:38)
[2021-01-22] MEDS: REMEDY PHYTOPLEX Z-GUARD PASTE 113GM TUBE (FROM STOREROOM PRODUCT) TOP SCH ×3 (08:39→21:00)
[2021-01-22] MEDS: PANTOPRAZOLE 40MG TAB (PROTONIX) PO SCH (08:39)
[2021-01-22] MEDS: VITAMIN D 1,000 INTERNATIONAL UNITS TABLET PO SCH (13:34)
[2021-01-22 14:00] VITALS: BP 170/76
[2021-01-22] MEDS: METOPROLOL TART 25 MG TABLET PO SCH (15:52)
[2021-01-22] MEDS: SENNA 8.6 MG TAB (SENOKOT) PO SCH (19:19)
[2021-01-22 20:00] VITALS: BP 158/74
[2021-01-22] MEDS: ROSUVASTATIN 10 MG TAB (CRESTOR) PO SCH (21:04)
[2021-01-22] MEDS: **NOTE PATIENT COMMENT** MISC XX SCH (21:06)
[2021-01-23] MEDS: LEVOTHYROXINE 100MCG TABLET (0.1MG) PO SCH (05:35)
[2021-01-23 06:00] VITALS: BP 157/72
[2021-01-23 06:47] LABS: BASO % 0.5 % (0.0-1.0); EOS # 0.1 10^3/uL (0.0-0.5); EOS % 1.1 % (0.0-3.0); HEMATOCRIT 35.5 % (36.0-47.0); HEMOGLOBIN 11.2 g/dl (12.0-15.5); LYMPH % 47.7 % (24.0-44.0); MEAN CORPUSCULAR HEMOGLOBIN 27.7 pg (27.0-33.0); MEAN CORPUSCULAR HGB CONC 31.5 g/dl (32.0-36.5); MEAN CORPUSCULAR VOLUME 87.9 fl (80.0-96.0); MONO # 0.7 10^3/uL (0.0-0.8); MONO % 11.1 % (2.0-8.0); NEUTROPHILS # 2.4 10^3/uL (1.5-8.5); NEUTROPHILS % 39.3 % (36.0-66.0); PLATELET COUNT, AUTOMATED 195 10^3/uL (150-450); RED BLOOD COUNT 4.04 10^6/uL (4.00-5.40); WHITE BLOOD COUNT 6.2 10^3/uL (4.0-10.0)
[2021-01-23 07:15] LABS: BLOOD UREA NITROGEN 24 MG/DL (7-18); CALCIUM LEVEL 9.3 MG/DL (8.8-10.2); CARBON DIOXIDE LEVEL 31 MEQ/L (21-32); CHLORIDE LEVEL 105 MEQ/L (98-107); CREATININE FOR GFR 0.84 MG/DL (0.55-1.30); GLOMERULAR FILTRATION RATE > 60.0 (>32); GLUCOSE, FASTING 89 MG/DL (70-100); POTASSIUM SERUM 3.5 MEQ/L (3.5-5.1); SODIUM LEVEL 141 MEQ/L (136-145)
[2021-01-23] MEDS: PANTOPRAZOLE 40MG TAB (PROTONIX) PO SCH (09:00)
[2021-01-23] MEDS: DOCUSATE SODIUM 100MG CAPSULE PO SCH ×2 (09:00→20:37)
[2021-01-23] MEDS: LACTOBACILLUS ACIDOPHILUS CAP (BACID) PO SCH (09:00)
[2021-01-23] MEDS: REMEDY PHYTOPLEX Z-GUARD PASTE 113GM TUBE (FROM STOREROOM PRODUCT) TOP SCH ×3 (09:00→20:38)
[2021-01-23] MEDS: POLYVINYL ALCOHOL OPHTH SOLN 15 ML(LIQUITEARS) OU SCH ×4 (09:11→20:38)
[2021-01-23] MEDS: FLUTICASONE PROP 0.05% NASAL SPRAY 16 GM (FLONASE) NARES SCH ×2 (09:11→20:38)
[2021-01-23] MEDS: IRBESARTAN HCTZ PO SCH (09:15)
[2021-01-23] MEDS: ENOXAPARIN 40MG/0.4ML SYRINGE (J1650 PER 10MG) SC SCH (09:15)
[2021-01-23] MEDS: OCUVITE 1 TAB PO SCH (09:16)
[2021-01-23] MEDS: ACETAMINOPHEN 500 MG TAB PO SCH ×3 (09:16→20:39)
[2021-01-23] MEDS: LORATADINE 10 MG TAB PO SCH (09:17)
--- NOTE | 2021-01-23 09:17 | IPNPDOC ---
PM&R Progress Note DATE OF SERVICE: Jan 23, 2021 Reconciliation Coordinator Progress Note Subjective: Patient seen in her room stating she was very anxious about getting in and out of the bathroom at home and believes she will need two walkers. She said she is still having intermittent light headedness, and that she is noticing after she speaks for a lengthy period of time and admitted she rarely stops to take a breath when she speaks. She was encouraged to pause more frequently and breathe as she might be hypoventilating as she has been noted to hold her breath for extended periods of time while talking. She was also instructed on starting to work on diaphragmatic breathing which she has been told to do in the past as she is noted to take very shallow breaths. Her left ankle pain is better today. REVIEW OF SYSTEMS: The following is a completed review of systems and has been reviewed. Review of systems otherwise unremarkable. PAIN: Patient self reports right ankle pain EYES: No recent vision changes EARS, NOSE, & THROAT: No throat pain, or dysphagia, or rhinorrhea CARDIOVASCULAR: Denies chest pain or palpitations PULMONARY: Denies shortness of breath GASTROINTESTINAL: Denies constipation/diarrhea GENITOURINARY: denies dysuria MUSCULOSKELETAL: right ankle fracture, +left ankle pain NEUROLOGICAL: +peripheral polyneuropathy, +light headedness HEMATOLOGICAL: denies easy bruising SKIN: denies rash PSYCHIATRIC: +anxious All other review of systems found to be negative. PHYSICAL EXAMINATION: VITAL SIGNS: Please see below. GENERAL: Pleasant and cooperative. No acute distress. HEENT: PERRL. Extraocular movements intact. Clear conjunctiva CARDIOVASCULAR: Regular rate and rhythm. No murmurs, rubs, or gallops LUNGS: Clear to auscultation bilaterally. No wheezes. No rhonchi ABDOMEN: Soft, nontender, nondistended. Positive bowel sounds. Normal active bowel sounds. NEUROLOGICAL: Alert and oriented times three. Cranial nerves II through XII grossly intact. Sensation grossly intact EXTREMITIES: 5-\5 strength bilateral upper extremities. 5-\5 strength right lower extremity. 5/5 strength in left lower extremity. (-) homans bilat SKIN: mild swelling and bruising right ankle left ankle with TTP bilat malleolli, no TTP base of fifth metatarsal, no instability, +ecchymosis and swelling (improving) ASSESSMENT:80-year-old F with past medical history of HTN and CAD who presents status post syncopal episode with right ankle fracture now NWB PLAN: 1. 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 CArdiac- hx of CAD on metoprolol -HTN on irbesartan and HCTZ, monitor BPs- stable -last ECHO on record showing signs of chronic diastolic CHF, will fluid restrict, monitor daily weights -HLD- statin -medicine consulted to assist in overall management 3. Resp- monitor for infection 4. Endo- hx of hypothyroidism c/u synthroid 5. Ortho- s/p fall with right ankle fracture , discussed with Dr. Johnson, patient can be TDQB to RLE with CAM boot when out of bed, f/u ortho on d/c -patient complaining of left ankle soreness, low suspicion for fracture, more likely sprain from putting more weight through left limb, Xray left ankle and tib-fib negative, ortho recs greatly appreciated, patient with grade one left ankle sprain, have consulted Tha Arshad to provide swedo ankle support, start gentle ROM and ankle strengthening exercises 6. Neuro- hx of spinal stenosis with peripheral polyneuropathy contributing to overall mobility impairments and falls, CT cervical spine from 2010 showing cervical stenosis which has likely gotten worse and contributing to patient's feeling of light headedness which she reports getting while holding the phone to her ear for a prolonged time- patient educated on trying to relax her upper trapezius muscles, and work on improving her neck and shoulder posture, cont lidoderm patches to upper traps to encourage relaxation -vestibular eval performed by PT and was negative 7. DVT ppx- lovenox 8. GI ppx- protonix 9 Pain- tylenol and oxycodone 10. - Ucx contaminated x2 collections, patient denies dysuria, no white count, no fever, will assume she does not have a UTI 11. Dispo- TBD Allergies Coded Allergies: Penicillins (Verified Allergy, Intermediate, Hives, 09/17/18) ibuprofen (Verified Allergy, Intermediate, Hives, 09/17/18) Motrin Brand. Generic Ibuprofen OK sulfamethoxazole (Verified Allergy, Intermediate, Hives, 09/17/18) trimethoprim (Verified Allergy, Intermediate, Hives, 09/17/18) Quinolones (Verified Allergy, Unknown, 09/17/18) latex (Verified Allergy, Unknown, 09/17/18) codeine (Verified Adverse Reaction, Mild, N+V, 09/17/18) Vital Signs Vital Signs Date Time Temp Pulse Resp B/P (MAP) Pulse Ox O2 Delivery O2 Flow Rate FiO2 01/23/21 06:00 97.5 73 20 157/72 (100) 97 Room Air Laboratory Data CBC/BMP Laboratory Tests 01/23/21 06:07 Labs 24H Laboratory Tests 2 01/23/21 06:07: Immature Granulocyte % (Auto) 0.3, Neutrophils (%) (Auto) 39.3, Lymphocytes (%) (Auto) 47.7H, Monocytes (%) (Auto) 11.1H, Eosinophils (%) (Auto) 1.1, Basophils (%) (Auto) 0.5, Neutrophils # (Auto) 2.4, Lymphocytes # (Auto) 3.0, Monocytes # (Auto) 0.7, Eosinophils # (Auto) 0.1, Basophils # (Auto) 0.0, Nucleated Red Blood Cells % (auto) 0.0, Anion Gap 5L, Glomerular Filtration Rate > 60.0, Calcium Level 9.3 Microbiology Microbiology 01/22/21 Urine Culture - Final, Complete 01/19/21 Urine Culture - Final, Complete Current Medications Current Medications Current Medications Medications (Trade) Dose Ordered Sig/Gifty Route PRN Reason Start Time Stop Time Status Last Admin Dose Admin Acetaminophen (Tylenol Tab) 1,000 mg TID PO 01/17/21 21:00 01/22/21 21:04 Artificial Tears (Akwa Tears) 2 drop QID OU 01/17/21 21:00 01/22/21 21:05 Bisacodyl (Dulcolax Suppository) 10 mg DAILYPRN PRN DC CONSTIPATION 01/17/21 12:30 Docusate Sodium (Colace) 100 mg BID PO 01/17/21 21:00 01/22/21 08:35 Enoxaparin Sodium (Lovenox) 40 mg DAILY SC 01/18/21 09:00 01/22/21 08:36 Fluticasone Propionate (Flonase 0.05% Nasal [place]) 1 spray BID NARES 01/17/21 21:00 01/22/21 08:38 Hydrochlorothiazide (Hydrodiuril) 25 mg DAILY PO 01/18/21 09:00 01/18/21 16:31 DC 01/18/21 10:00 Irbesartan (Avapro) 150 mg BID PO 01/17/21 21:00 01/18/21 08:45 DC 01/17/21 21:28 Irbesartan (Avapro) 300 mg DAILY PO 01/18/21 09:00 01/18/21 16:32 DC 01/18/21 10:01 Lactobacillus Acidophilus (Bacid) 1 ea DAILY PO 01/18/21 09:00 01/22/21 08:35 Levothyroxine Sodium (Synthroid) 100 mcg DAILY@06 PO 01/18/21 06:00 01/23/21 05:35 Lidocaine (Lidoderm Patch) 2 patch DAILY TD 01/19/21 09:00 01/22/21 08:38 Lidocaine (Lidoderm Patch) 2 patch DAILY TD 01/19/21 13:25 01/19/21 13:35 DC Loratadine (Claritin) 10 mg DAILY PO 01/18/21 09:00 01/22/21 08:35 Meclizine HCl (Antivert) 12.5 mg TID PRN PO DIZZINESS 01/18/21 14:40 Metoprolol Tartrate (Lopressor) 25 mg DAILY@1400 PO 01/18/21 14:00 01/18/21 08:46 DC Metoprolol Tartrate (Lopressor) 25 mg DAILY@1500 PO 01/18/21 15:00 01/22/21 15:52 Multivitamins (Ocuvite(I-Cheri)) 1 tab DAILY PO 01/18/21 09:00 01/22/21 08:35 Non-Formulary Medication ( See Comment Field Below ) REMOVE LIDODERM PATCH DAILY@21 XX 01/19/21 21:00 01/19/21 13:35 DC Non-Formulary Medication ( See Comment Field Below ) REMOVE LIDODERM PATCH DAILY@21 XX 01/19/21 21:00 01/22/21 21:06 Pantoprazole Sodium (Protonix) 40 mg DAILY PO 01/18/21 09:00 01/20/21 08:02 Patient Own Medication (Patient'S Own Med) IRBESARTAN-HCTZ 150-12.5 MG TAKE 2 TABL... DAILY PO 01/19/21 09:00 01/22/21 08:37 Polyethylene Glycol (Miralax) 1 pkt DAILY PRN PO CONSTIPATION 01/17/21 12:30 Rosuvastatin Calcium (Crestor) 10 mg QHS PO 01/17/21 21:00 01/22/21 21:04 Rosuvastatin Calcium (Crestor) 40 mg QHS PO 01/17/21 21:00 01/17/21 12:39 DC Senna (Senokot) 1 tab QHS PO 01/17/21 21:00 Vitamin D (Vitamin D) 1,000 units DAILY@1400 PO 01/18/21 14:00 01/22/21 13:34 JOSE MARTINEZ MD Jan 23, 2021 09:17
[2021-01-23] MEDS: LIDOCAINE 5% (LIDODERM) PATCH TD SCH (09:19)
[2021-01-23 14:00] VITALS: BP 146/67
[2021-01-23] MEDS: VITAMIN D 1,000 INTERNATIONAL UNITS TABLET PO SCH (14:01)
[2021-01-23] MEDS: METOPROLOL TART 25 MG TABLET PO SCH (16:07)
[2021-01-23 20:00] VITALS: BP 124/68
[2021-01-23] MEDS: SENNA 8.6 MG TAB (SENOKOT) PO SCH (20:38)
[2021-01-23] MEDS: ROSUVASTATIN 10 MG TAB (CRESTOR) PO SCH (20:39)
[2021-01-23] MEDS: **NOTE PATIENT COMMENT** MISC XX SCH (20:40)
[2021-01-24] MEDS: LEVOTHYROXINE 100MCG TABLET (0.1MG) PO SCH (05:30)
[2021-01-24 05:35] VITALS: BP 172/80
[2021-01-24 05:40] VITALS: BP 178/78
[2021-01-24] MEDS ORDERED: traMADol 50 MG TAB PO ONE (05:45)
[2021-01-24] MEDS: IRBESARTAN HCTZ PO SCH (05:56)
[2021-01-24] MEDS: LACTOBACILLUS ACIDOPHILUS CAP (BACID) PO SCH (08:01)
[2021-01-24] MEDS: PANTOPRAZOLE 40MG TAB (PROTONIX) PO SCH (08:02)
[2021-01-24] MEDS: LORATADINE 10 MG TAB PO SCH (08:02)
[2021-01-24] MEDS: OCUVITE 1 TAB PO SCH (08:02)
[2021-01-24] MEDS: ENOXAPARIN 40MG/0.4ML SYRINGE (J1650 PER 10MG) SC SCH (08:03)
[2021-01-24] MEDS: DOCUSATE SODIUM 100MG CAPSULE PO SCH ×2 (08:03→21:00)
[2021-01-24] MEDS: POLYVINYL ALCOHOL OPHTH SOLN 15 ML(LIQUITEARS) OU SCH ×4 (08:03→21:08)
[2021-01-24] MEDS: FLUTICASONE PROP 0.05% NASAL SPRAY 16 GM (FLONASE) NARES SCH ×2 (08:03→21:00)
[2021-01-24] MEDS: ACETAMINOPHEN 500 MG TAB PO SCH ×3 (08:03→21:06)
[2021-01-24] MEDS: LIDOCAINE 5% (LIDODERM) PATCH TD SCH (08:04)
[2021-01-24] MEDS: REMEDY PHYTOPLEX Z-GUARD PASTE 113GM TUBE (FROM STOREROOM PRODUCT) TOP SCH ×3 (08:05→21:00)
--- NOTE | 2021-01-24 11:54 | IPNPDOC ---
PM&R Progress Note DATE OF SERVICE: Jan 24, 2021 [place] Progress Note Subjective: Patient stating her left toes feel a little numb from wearing the swedo brace and was encouraged ot remove it every 2 hours and elevate her legs to reduce some of the swelling in her feet. REVIEW OF SYSTEMS: The following is a completed review of systems and has been reviewed. Review of systems otherwise unremarkable. PAIN: Patient self reports right ankle pain EYES: No recent vision changes EARS, NOSE, & THROAT: No throat pain, or dysphagia, or rhinorrhea CARDIOVASCULAR: Denies chest pain or palpitations PULMONARY: Denies shortness of breath GASTROINTESTINAL: Denies constipation/diarrhea GENITOURINARY: denies dysuria MUSCULOSKELETAL: right ankle fracture, +left ankle pain NEUROLOGICAL: +peripheral polyneuropathy, +light headedness HEMATOLOGICAL: denies easy bruising SKIN: denies rash PSYCHIATRIC: Unremarkable All other review of systems found to be negative. PHYSICAL EXAMINATION: VITAL SIGNS: Please see below. GENERAL: Pleasant and cooperative. No acute distress. HEENT: PERRL. Extraocular movements intact. Clear conjunctiva CARDIOVASCULAR: Regular rate and rhythm. No murmurs, rubs, or gallops LUNGS: Clear to auscultation bilaterally. No wheezes. No rhonchi ABDOMEN: Soft, nontender, nondistended. Positive bowel sounds. Normal active bowel sounds. NEUROLOGICAL: Alert and oriented times three. Cranial nerves II through XII grossly intact. Sensation grossly intact EXTREMITIES: 5-\5 strength bilateral upper extremities. 5-\5 strength right lower extremity. 5/5 strength in left lower extremity. (-) homans bilat SKIN: mild swelling and bruising right ankle left ankle with TTP bilat malleolli, no TTP base of fifth metatarsal, no instability, +ecchymosis and swelling (improving) ASSESSMENT:80-year-old F with past medical history of HTN and CAD who presents status post syncopal episode with right ankle fracture now NWB PLAN: 1. 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 CArdiac- hx of CAD on metoprolol -HTN on irbesartan and HCTZ, monitor BPs- stable -last ECHO on record showing signs of chronic diastolic CHF, will fluid restrict, monitor daily weights -HLD- statin -medicine consulted to assist in overall management 3. Resp- monitor for infection 4. Endo- hx of hypothyroidism c/u synthroid 5. Ortho- s/p fall with right ankle fracture , discussed with Dr. Johnson, patient can be TDQB to RLE with CAM boot when out of bed, f/u ortho on d/c -patient complaining of left ankle soreness, low suspicion for fracture, more likely sprain from putting more weight through left limb, Xray left ankle and tib-fib negative, ortho recs greatly appreciated, patient with grade one left ankle sprain, have consulted Tha Arshad to provide swedo ankle support, start gentle ROM and ankle strengthening exercises 6. Neuro- hx of spinal stenosis with peripheral polyneuropathy contributing to overall mobility impairments and falls, CT cervical spine from 2010 showing cervical stenosis which has likely gotten worse and contributing to patient's feeling of light headedness which she reports getting while holding the phone to her ear for a prolonged time- patient educated on trying to relax her upper trapezius muscles, and work on improving her neck and shoulder posture, cont lidoderm patches to upper traps to encourage relaxation -vestibular eval performed by PT and was negative 7. DVT ppx- lovenox 8. GI ppx- protonix 9 Pain- tylenol and oxycodone 10. - Ucx contaminated x2 collections, patient denies dysuria, no white count, no fever, will assume she does not have a UTI 11. Dispo- 01-28-21 DME Patient will require a wheelchair to complete her MRADLs in a timely and safe manner. She is unable to perform her MRADLs with a RW or cane given her weight bearing restrictions in setting of right ankle fracture and left ankle sprain. Her home is wheelchair accessible, she agrees to use wheelchair, and her family is able to provide some assistance. Allergies Coded Allergies: Penicillins (Verified Allergy, Intermediate, Hives, 09/17/18) ibuprofen (Verified Allergy, Intermediate, Hives, 09/17/18) Motrin Brand. Generic Ibuprofen OK sulfamethoxazole (Verified Allergy, Intermediate, Hives, 09/17/18) trimethoprim (Verified Allergy, Intermediate, Hives, 09/17/18) Quinolones (Verified Allergy, Unknown, 09/17/18) latex (Verified Allergy, Unknown, 09/17/18) codeine (Verified Adverse Reaction, Mild, N+V, 09/17/18) Vital Signs Vital Signs Date Time Temp Pulse Resp B/P (MAP) Pulse Ox O2 Delivery O2 Flow Rate FiO2 01/24/21 06:00 98.4 66 20 97 Room Air 01/24/21 05:40 178/78 (111) Microbiology Microbiology 01/22/21 Urine Culture - Final, Complete 01/19/21 Urine Culture - Final, Complete Current Medications Current Medications Current Medications Medications (Trade) Dose Ordered Sig/Gifty Route PRN Reason Start Time Stop Time Status Last Admin Dose Admin Acetaminophen (Tylenol Tab) 1,000 mg TID PO 01/17/21 21:00 01/24/21 08:03 Artificial Tears (Akwa Tears) 2 drop QID OU 01/17/21 21:00 01/24/21 08:03 Bisacodyl (Dulcolax Suppository) 10 mg DAILYPRN PRN SC CONSTIPATION 01/17/21 12:30 Docusate Sodium (Colace) 100 mg BID PO 01/17/21 21:00 01/22/21 08:35 Enoxaparin Sodium (Lovenox) 40 mg DAILY SC 01/18/21 09:00 01/24/21 08:03 Fluticasone Propionate (Flonase 0.05% Nasal [place]) 1 spray BID NARES 01/17/21 21:00 01/24/21 08:03 Hydrochlorothiazide (Hydrodiuril) 25 mg DAILY PO 01/18/21 09:00 01/18/21 16:31 DC 01/18/21 10:00 Irbesartan (Avapro) 150 mg BID PO 01/17/21 21:00 01/18/21 08:45 DC 01/17/21 21:28 Irbesartan (Avapro) 300 mg DAILY PO 01/18/21 09:00 01/18/21 16:32 DC 01/18/21 10:01 Lactobacillus Acidophilus (Bacid) 1 ea DAILY PO 01/18/21 09:00 01/24/21 08:01 Levothyroxine Sodium (Synthroid) 100 mcg DAILY@06 PO 01/18/21 06:00 01/24/21 05:30 Lidocaine (Lidoderm Patch) 2 patch DAILY TD 01/19/21 09:00 01/24/21 08:04 Lidocaine (Lidoderm Patch) 2 patch DAILY TD 01/19/21 13:25 01/19/21 13:35 DC Loratadine (Claritin) 10 mg DAILY PO 01/18/21 09:00 01/24/21 08:02 Meclizine HCl (Antivert) 12.5 mg TID PRN PO DIZZINESS 01/18/21 14:40 Metoprolol Tartrate (Lopressor) 25 mg DAILY@1400 PO 01/18/21 14:00 01/18/21 08:46 DC Metoprolol Tartrate (Lopressor) 25 mg DAILY@1500 PO 01/18/21 15:00 01/23/21 16:07 Multivitamins (Ocuvite(I-Cheri)) 1 tab DAILY PO 01/18/21 09:00 01/24/21 08:02 Non-Formulary Medication ( See Comment Field Below ) REMOVE LIDODERM PATCH DAILY@21 XX 01/19/21 21:00 01/19/21 13:35 DC Non-Formulary Medication ( See Comment Field Below ) REMOVE LIDODERM PATCH DAILY@21 XX 01/19/21 21:00 01/23/21 20:40 Pantoprazole Sodium (Protonix) 40 mg DAILY PO 01/18/21 09:00 01/24/21 08:02 Patient Own Medication (Patient'S Own Med) IRBESARTAN-HCTZ 150-12.5 MG TAKE 2 TABL... DAILY PO 01/19/21 09:00 01/24/21 05:56 Polyethylene Glycol (Miralax) 1 pkt DAILY PRN PO CONSTIPATION 01/17/21 12:30 Rosuvastatin Calcium (Crestor) 10 mg QHS PO 01/17/21 21:00 01/23/21 20:39 Rosuvastatin Calcium (Crestor) 40 mg QHS PO 01/17/21 21:00 01/17/21 12:39 DC Senna (Senokot) 1 tab QHS PO 01/17/21 21:00 Vitamin D (Vitamin D) 1,000 units DAILY@1400 PO 01/18/21 14:00 01/23/21 14:01 JOSE MARTINEZ MD Jan 24, 2021 11:54
[2021-01-24] MEDS: VITAMIN D 1,000 INTERNATIONAL UNITS TABLET PO SCH (15:09)
[2021-01-24] MEDS: METOPROLOL TART 25 MG TABLET PO SCH (15:10)
[2021-01-24 20:00] VITALS: BP 142/64
[2021-01-24] MEDS: SENNA 8.6 MG TAB (SENOKOT) PO SCH (21:00)
[2021-01-24] MEDS: ROSUVASTATIN 10 MG TAB (CRESTOR) PO SCH (21:06)
[2021-01-24] MEDS: **NOTE PATIENT COMMENT** MISC XX SCH (21:07)
[2021-01-25] MEDS: LEVOTHYROXINE 100MCG TABLET (0.1MG) PO SCH (05:22)
[2021-01-25 06:00] VITALS: BP 150/68
[2021-01-25 06:56] LABS: BASO % 0.5 % (0.0-1.0); EOS # 0.1 10^3/uL (0.0-0.5); EOS % 1.6 % (0.0-3.0); HEMATOCRIT 35.3 % (36.0-47.0); HEMOGLOBIN 11.3 g/dl (12.0-15.5); LYMPH # 3.2 10^3/uL (1.5-5.0); LYMPH % 49.8 % (24.0-44.0); MEAN CORPUSCULAR HEMOGLOBIN 28.4 pg (27.0-33.0); MEAN CORPUSCULAR VOLUME 88.7 fl (80.0-96.0); MONO # 0.7 10^3/uL (0.0-0.8); MONO % 10.7 % (2.0-8.0); NEUTROPHILS # 2.4 10^3/uL (1.5-8.5); NEUTROPHILS % 37.1 % (36.0-66.0); PLATELET COUNT, AUTOMATED 207 10^3/uL (150-450); RED BLOOD COUNT 3.98 10^6/uL (4.00-5.40); WHITE BLOOD COUNT 6.4 10^3/uL (4.0-10.0)
[2021-01-25 07:16] LABS: BLOOD UREA NITROGEN 21 MG/DL (7-18); CARBON DIOXIDE LEVEL 30 MEQ/L (21-32); CHLORIDE LEVEL 105 MEQ/L (98-107); CREATININE FOR GFR 0.88 MG/DL (0.55-1.30); GLOMERULAR FILTRATION RATE > 60.0 (>32); GLUCOSE, FASTING 89 MG/DL (70-100); POTASSIUM SERUM 3.5 MEQ/L (3.5-5.1); SODIUM LEVEL 142 MEQ/L (136-145)
[2021-01-25] MEDS: REMEDY PHYTOPLEX Z-GUARD PASTE 113GM TUBE (FROM STOREROOM PRODUCT) TOP SCH ×3 (09:00→20:49)
[2021-01-25] MEDS: DOCUSATE SODIUM 100MG CAPSULE PO SCH ×2 (09:00→20:48)
[2021-01-25] MEDS: PANTOPRAZOLE 40MG TAB (PROTONIX) PO SCH (09:00)
[2021-01-25] MEDS: LIDOCAINE 5% (LIDODERM) PATCH TD SCH ×2 (09:17→13:50)
[2021-01-25] MEDS: LACTOBACILLUS ACIDOPHILUS CAP (BACID) PO SCH (09:17)
[2021-01-25] MEDS: OCUVITE 1 TAB PO SCH (09:17)
[2021-01-25] MEDS: LORATADINE 10 MG TAB PO SCH (09:17)
[2021-01-25] MEDS: ACETAMINOPHEN 500 MG TAB PO SCH ×3 (09:17→20:48)
[2021-01-25] MEDS: ENOXAPARIN 40MG/0.4ML SYRINGE (J1650 PER 10MG) SC SCH (09:18)
[2021-01-25] MEDS: IRBESARTAN HCTZ PO SCH (09:18)
[2021-01-25] MEDS: FLUTICASONE PROP 0.05% NASAL SPRAY 16 GM (FLONASE) NARES SCH ×2 (09:19→20:49)
[2021-01-25] MEDS: POLYVINYL ALCOHOL OPHTH SOLN 15 ML(LIQUITEARS) OU SCH ×4 (09:19→20:49)
--- NOTE | 2021-01-25 09:55 | IPNPDOC ---
PM&R Progress Note DATE OF SERVICE: Jan 25, 2021 [place] Progress Note Subjective: Patient stating she feels more relaxed and that her episodes of being light headed have decreased in frequency. She would like a detailed desciption of what exercises to do with her left leg, right leg, and neck. REVIEW OF SYSTEMS: The following is a completed review of systems and has been reviewed. Review of systems otherwise unremarkable. PAIN: Patient self reports right ankle pain EYES: No recent vision changes EARS, NOSE, & THROAT: No throat pain, or dysphagia, or rhinorrhea CARDIOVASCULAR: Denies chest pain or palpitations PULMONARY: Denies shortness of breath GASTROINTESTINAL: Denies constipation/diarrhea GENITOURINARY: denies dysuria MUSCULOSKELETAL: right ankle fracture, +left ankle pain NEUROLOGICAL: +peripheral polyneuropathy, +light headedness HEMATOLOGICAL: denies easy bruising SKIN: denies rash PSYCHIATRIC: Unremarkable All other review of systems found to be negative. PHYSICAL EXAMINATION: VITAL SIGNS: Please see below. GENERAL: Pleasant and cooperative. No acute distress. HEENT: PERRL. Extraocular movements intact. Clear conjunctiva CARDIOVASCULAR: Regular rate and rhythm. No murmurs, rubs, or gallops LUNGS: Clear to auscultation bilaterally. No wheezes. No rhonchi ABDOMEN: Soft, nontender, nondistended. Positive bowel sounds. Normal active bowel sounds. NEUROLOGICAL: Alert and oriented times three. Cranial nerves II through XII grossly intact. Sensation grossly intact EXTREMITIES: 5-\5 strength bilateral upper extremities. 5-\5 strength right lower extremity. 5/5 strength in left lower extremity. (-) homans bilat SKIN: mild swelling and bruising right ankle left ankle with TTP bilat malleolli, no TTP base of fifth metatarsal, no instability, +ecchymosis and swelling (improving) ASSESSMENT:80-year-old F with past medical history of HTN and CAD who presents status post syncopal episode with right ankle fracture now NWB PLAN: 1. 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 CArdiac- hx of CAD on metoprolol -HTN on irbesartan and HCTZ, monitor BPs- stable -last ECHO on record showing signs of chronic diastolic CHF, will fluid restrict, monitor daily weights -HLD- statin -medicine consulted to assist in overall management 3. Resp- monitor for infection 4. Endo- hx of hypothyroidism c/u synthroid 5. Ortho- s/p fall with right ankle fracture , discussed with Dr. Johnson, patient can be TDQB to RLE with CAM boot when out of bed, f/u ortho on d/c -patient complaining of left ankle soreness, low suspicion for fracture, more likely sprain from putting more weight through left limb, Xray left ankle and tib-fib negative, ortho recs greatly appreciated, patient with grade one left ankle sprain, have consulted Tha Arshad to provide swedo ankle support, start gentle ROM and ankle strengthening exercises 6. Neuro- hx of spinal stenosis with peripheral polyneuropathy contributing to overall mobility impairments and falls, CT cervical spine from 2010 showing cerv ical stenosis which has likely gotten worse and contributing to patient's feeling of light headedness which she reports getting while holding the phone to her ear for a prolonged time- patient educated on trying to relax her upper trapezius muscles, and work on improving her neck and shoulder posture, cont lidoderm patches to upper traps to encourage relaxation -vestibular eval performed by PT and was negative 7. DVT ppx- lovenox -dopplers ordered to r/o dvt 8. GI ppx- protonix 9 Pain- tylenol and oxycodone 10. - Ucx contaminated x2 collections, patient denies dysuria, no white count, no fever, will assume she does not have a UTI 11. Dispo- 01-28-21 DME Patient will require a wheelchair to complete her MRADLs in a timely and safe manner. She is unable to perform her MRADLs with a RW or cane given her weight bearing restrictions in setting of right ankle fracture and left ankle sprain. Her home is wheelchair accessible, she agrees to use wheelchair, and her family is able to provide some assistance. Allergies Coded Allergies: Penicillins (Verified Allergy, Intermediate, Hives, 09/17/18) ibuprofen (Verified Allergy, Intermediate, Hives, 09/17/18) Motrin Brand. Generic Ibuprofen OK sulfamethoxazole (Verified Allergy, Intermediate, Hives, 09/17/18) trimethoprim (Verified Allergy, Intermediate, Hives, 09/17/18) Quinolones (Verified Allergy, Unknown, 09/17/18) latex (Verified Allergy, Unknown, 09/17/18) codeine (Verified Adverse Reaction, Mild, N+V, 09/17/18) Vital Signs Vital Signs Date Time Temp Pulse Resp B/P (MAP) Pulse Ox O2 Delivery O2 Flow Rate FiO2 01/25/21 06:00 97.6 65 18 150/68 (95) 94 Room Air Laboratory Data CBC/BMP Laboratory Tests 01/25/21 06:35 Labs 24H Laboratory Tests 2 01/25/21 06:35: Immature Granulocyte % (Auto) 0.3, Neutrophils (%) (Auto) 37.1, Lymphocytes (%) (Auto) 49.8H, Monocytes (%) (Auto) 10.7H, Eosinophils (%) (Auto) 1.6, Basophils (%) (Auto) 0.5, Neutrophils # (Auto) 2.4, Lymphocytes # (Auto) 3.2, Monocytes # (Auto) 0.7, Eosinophils # (Auto) 0.1, Basophils # (Auto) 0.0, Nucleated Red Blood Cells % (auto) 0.0, Anion Gap 7L, Glomerular Filtration Rate > 60.0, Calcium Level 9.0 Microbiology Microbiology 01/22/21 Urine Culture - Final, Complete 01/19/21 Urine Culture - Final, Complete Current Medications Current Medications Current Medications Medications (Trade) Dose Ordered Sig/Gifty Route PRN Reason Start Time Stop Time Status Last Admin Dose Admin Acetaminophen (Tylenol Tab) 1,000 mg TID PO 01/17/21 21:00 01/25/21 09:17 Artificial Tears (Akwa Tears) 2 drop QID OU 01/17/21 21:00 01/25/21 09:19 Bisacodyl (Dulcolax Suppository) 10 mg DAILYPRN PRN [place] CONSTIPATION 01/17/21 12:30 Docusate Sodium (Colace) 100 mg BID PO 01/17/21 21:00 01/22/21 08:35 Enoxaparin Sodium (Lovenox) 40 mg DAILY SC 01/18/21 09:00 01/25/21 09:18 Fluticasone Propionate (Flonase 0.05% Nasal [place]) 1 spray BID NARES 01/17/21 21:00 01/25/21 09:19 Hydrochlorothiazide (Hydrodiuril) 25 mg DAILY PO 01/18/21 09:00 01/18/21 16:31 DC 01/18/21 10:00 Irbesartan (Avapro) 150 mg BID PO 01/17/21 21:00 01/18/21 08:45 DC 01/17/21 21:28 Irbesartan (Avapro) 300 mg DAILY PO 01/18/21 09:00 01/18/21 16:32 DC 01/18/21 10:01 Lactobacillus Acidophilus (Bacid) 1 ea DAILY PO 01/18/21 09:00 01/25/21 09:17 Levothyroxine Sodium (Synthroid) 100 mcg DAILY@06 PO 01/18/21 06:00 01/25/21 05:22 Lidocaine (Lidoderm Patch) 2 patch DAILY TD 01/19/21 09:00 01/25/21 09:17 Lidocaine (Lidoderm Patch) 2 patch DAILY TD 01/19/21 13:25 01/19/21 13:35 DC Loratadine (Claritin) 10 mg DAILY PO 01/18/21 09:00 01/25/21 09:17 Meclizine HCl (Antivert) 12.5 mg TID PRN PO DIZZINESS 01/18/21 14:40 Metoprolol Tartrate (Lopressor) 25 mg DAILY@1400 PO 01/18/21 14:00 01/18/21 08:46 DC Metoprolol Tartrate (Lopressor) 25 mg DAILY@1500 PO 01/18/21 15:00 01/24/21 15:10 Multivitamins (Ocuvite(I-Cheri)) 1 tab DAILY PO 01/18/21 09:00 01/25/21 09:17 Non-Formulary Medication ( See Comment Field Below ) REMOVE LIDODERM PATCH DAILY@21 XX 01/19/21 21:00 01/19/21 13:35 DC Non-Formulary Medication ( See Comment Field Below ) REMOVE LIDODERM PATCH DAILY@21 XX 01/19/21 21:00 01/24/21 21:07 Pantoprazole Sodium (Protonix) 40 mg DAILY PO 01/18/21 09:00 01/24/21 08:02 Patient Own Medication (Patient'S Own Med) IRBESARTAN-HCTZ 150-12.5 MG TAKE 2 TABL... DAILY PO 01/19/21 09:00 01/25/21 09:18 Polyethylene Glycol (Miralax) 1 pkt DAILY PRN PO CONSTIPATION 01/17/21 12:30 Rosuvastatin Calcium (Crestor) 10 mg QHS PO 01/17/21 21:00 01/24/21 21:06 Rosuvastatin Calcium (Crestor) 40 mg QHS PO 01/17/21 21:00 01/17/21 12:39 DC Senna (Senokot) 1 tab QHS PO 01/17/21 21:00 Vitamin D (Vitamin D) 1,000 units DAILY@1400 PO 01/18/21 14:00 01/24/21 15:09 JOSE MARTINEZ MD Jan 25, 2021 09:55
[2021-01-25] MEDS: VITAMIN D 1,000 INTERNATIONAL UNITS TABLET PO SCH (12:59)
[2021-01-25 14:00] VITALS: BP 162/80
--- NOTE | 2021-01-25 14:59 | REP ---
INDICATION: immobility with recent fracture. COMPARISON: None. TECHNIQUE: Multiple ultrasonographic images of the deep venous structures of the bilateral lower extremity were obtained from the inguinal ligament to the ankle. Venous compression techniques, color doppler imaging, and augmentation techniques were also obtained where appropriate. As per the ACR guidelines the anterior tibial vein can not be effectively evaluated. Only compression techniques in the calf on the peroneal and posterior tibial veins was attempted/performed. FINDINGS: There is no abnormal echogenic material seen within any of the visualized deep venous structures that would suggest acute thrombosis. Coaptation is unremarkable throughout. Doppler interrogation shows an expected response to respiratory variability and augmentation in the thigh. Compression techniques in the calf showed no abnormality. The color flow images show what appears to be a normal vascular pattern throughout the thigh. IMPRESSION: There is no ultrasonographic evidence of deep venous thrombosis involving any of the visualized deep venous structures of the bilateral lower extremity as described above. <Electronically signed by Dawson Plaza > 01/25/21 [id number]
[2021-01-25] MEDS: METOPROLOL TART 25 MG TABLET PO SCH (15:26)
[2021-01-25 20:00] VITALS: BP 130/78
[2021-01-25] MEDS: ROSUVASTATIN 10 MG TAB (CRESTOR) PO SCH (20:48)
[2021-01-25] MEDS: **NOTE PATIENT COMMENT** MISC XX SCH (20:49)
[2021-01-25] MEDS: SENNA 8.6 MG TAB (SENOKOT) PO SCH (20:49)
[2021-01-26] MEDS: LEVOTHYROXINE 100MCG TABLET (0.1MG) PO SCH (05:16)
[2021-01-26 06:00] VITALS: BP 164/74
[2021-01-26] MEDS: LIDOCAINE 5% (LIDODERM) PATCH TD SCH (08:18)
[2021-01-26] MEDS: ENOXAPARIN 40MG/0.4ML SYRINGE (J1650 PER 10MG) SC SCH (08:19)
[2021-01-26] MEDS: OCUVITE 1 TAB PO SCH (08:20)
[2021-01-26] MEDS: IRBESARTAN HCTZ PO SCH (08:20)
[2021-01-26] MEDS: ACETAMINOPHEN 500 MG TAB PO SCH ×3 (08:20→21:47)
[2021-01-26] MEDS: FLUTICASONE PROP 0.05% NASAL SPRAY 16 GM (FLONASE) NARES SCH ×2 (08:20→21:00)
[2021-01-26] MEDS: LORATADINE 10 MG TAB PO SCH (08:20)
[2021-01-26] MEDS: LACTOBACILLUS ACIDOPHILUS CAP (BACID) PO SCH (08:20)
[2021-01-26] MEDS: PANTOPRAZOLE 40MG TAB (PROTONIX) PO SCH (08:21)
[2021-01-26] MEDS: REMEDY PHYTOPLEX Z-GUARD PASTE 113GM TUBE (FROM STOREROOM PRODUCT) TOP SCH ×3 (08:21→21:00)
[2021-01-26] MEDS: POLYVINYL ALCOHOL OPHTH SOLN 15 ML(LIQUITEARS) OU SCH ×4 (08:21→21:48)
[2021-01-26] MEDS: DOCUSATE SODIUM 100MG CAPSULE PO SCH ×2 (08:21→21:48)
[2021-01-26] MEDS ORDERED: LEVO100T5 PO (11:04)
[2021-01-26] MEDS ORDERED: PROBCAP14 PO (11:04)
[2021-01-26] MEDS ORDERED: METO1TAB87 PO (11:04)
[2021-01-26] MEDS ORDERED: CRES10TA PO (11:04)
[2021-01-26] MEDS ORDERED: IRBE150T14 PO (11:04)
[2021-01-26 14:00] VITALS: BP 160/84
[2021-01-26] MEDS: VITAMIN D 1,000 INTERNATIONAL UNITS TABLET PO SCH (14:43)
[2021-01-26] MEDS: METOPROLOL TART 25 MG TABLET PO SCH (14:44)
[2021-01-26] MEDS: SENNA 8.6 MG TAB (SENOKOT) PO SCH (21:00)
[2021-01-26] MEDS: ROSUVASTATIN 10 MG TAB (CRESTOR) PO SCH (21:47)
[2021-01-26] MEDS: **NOTE PATIENT COMMENT** MISC XX SCH (21:49)
[2021-01-26 22:00] VITALS: BP 175/70
[2021-01-26 23:27] VITALS: BP 177/70
[2021-01-26] MEDS ORDERED: **hydrALAZINE** 10 MG TAB PO PRN (23:35)
[2021-01-27] MEDS: LEVOTHYROXINE 100MCG TABLET (0.1MG) PO SCH (05:29)
[2021-01-27 06:00] VITALS: BP 170/75
[2021-01-27 06:53] LABS: BASO % 0.3 % (0.0-1.0); EOS # 0.1 10^3/uL (0.0-0.5); EOS % 1.4 % (0.0-3.0); HEMATOCRIT 34.9 % (36.0-47.0); HEMOGLOBIN 11.1 g/dl (12.0-15.5); LYMPH # 3.3 10^3/uL (1.5-5.0); LYMPH % 50.1 % (24.0-44.0); MEAN CORPUSCULAR HEMOGLOBIN 27.7 pg (27.0-33.0); MEAN CORPUSCULAR HGB CONC 31.8 g/dl (32.0-36.5); MONO # 0.7 10^3/uL (0.0-0.8); MONO % 10.7 % (2.0-8.0); NEUTROPHILS # 2.4 10^3/uL (1.5-8.5); NEUTROPHILS % 37.2 % (36.0-66.0); PLATELET COUNT, AUTOMATED 208 10^3/uL (150-450); RED BLOOD COUNT 4.01 10^6/uL (4.00-5.40); WHITE BLOOD COUNT 6.5 10^3/uL (4.0-10.0)
[2021-01-27 07:19] LABS: BLOOD UREA NITROGEN 16 MG/DL (7-18); CALCIUM LEVEL 9.1 MG/DL (8.8-10.2); CARBON DIOXIDE LEVEL 32 MEQ/L (21-32); CHLORIDE LEVEL 102 MEQ/L (98-107); CREATININE FOR GFR 0.82 MG/DL (0.55-1.30); GLOMERULAR FILTRATION RATE > 60.0 (>32); GLUCOSE, FASTING 91 MG/DL (70-100); POTASSIUM SERUM 3.4 MEQ/L (3.5-5.1); SODIUM LEVEL 141 MEQ/L (136-145)
[2021-01-27] MEDS: NEOSPORIN TOP OINT 15GM TOP SCH (09:00)
[2021-01-27] MEDS: REMEDY PHYTOPLEX Z-GUARD PASTE 113GM TUBE (FROM STOREROOM PRODUCT) TOP SCH ×3 (09:00→20:02)
[2021-01-27] MEDS: ENOXAPARIN 40MG/0.4ML SYRINGE (J1650 PER 10MG) SC SCH (09:18)
[2021-01-27] MEDS: OCUVITE 1 TAB PO SCH (09:18)
[2021-01-27] MEDS: DOCUSATE SODIUM 100MG CAPSULE PO SCH ×2 (09:19→20:02)
[2021-01-27] MEDS: ACETAMINOPHEN 500 MG TAB PO SCH ×3 (09:19→20:01)
[2021-01-27] MEDS: PANTOPRAZOLE 40MG TAB (PROTONIX) PO SCH (09:19)
[2021-01-27] MEDS: LACTOBACILLUS ACIDOPHILUS CAP (BACID) PO SCH (09:19)
[2021-01-27] MEDS: LORATADINE 10 MG TAB PO SCH (09:19)
[2021-01-27] MEDS: POLYVINYL ALCOHOL OPHTH SOLN 15 ML(LIQUITEARS) OU SCH ×4 (09:20→20:03)
[2021-01-27] MEDS: LIDOCAINE 5% (LIDODERM) PATCH TD SCH (09:20)
[2021-01-27] MEDS: FLUTICASONE PROP 0.05% NASAL SPRAY 16 GM (FLONASE) NARES SCH ×2 (09:20→20:02)
[2021-01-27] MEDS: IRBESARTAN HCTZ PO SCH (09:24)
[2021-01-27] MEDS: **hydrALAZINE HCL** 25 MG TAB PO SCH ×2 (11:40→17:49)
[2021-01-27 14:00] VITALS: BP 124/58
[2021-01-27] MEDS: METOPROLOL TART 50 MG TAB PO SCH (14:29)
[2021-01-27] MEDS: VITAMIN D 1,000 INTERNATIONAL UNITS TABLET PO SCH (14:30)
[2021-01-27 20:00] VITALS: BP 141/64
[2021-01-27] MEDS: **NOTE PATIENT COMMENT** MISC XX SCH (20:02)
[2021-01-27] MEDS: SENNA 8.6 MG TAB (SENOKOT) PO SCH (20:02)
[2021-01-27] MEDS: ROSUVASTATIN 10 MG TAB (CRESTOR) PO SCH (20:02)
[2021-01-27] MEDS ORDERED: POTASSIUM CHLORIDE 10 MEQ SR TABLET PO ONE (22:30)
--- NOTE | 2021-01-27 22:36 | IPNPDOC ---
PM&R Progress Note DATE OF SERVICE: Jan 26, 2021 Emergency Detail Driver Progress Note Subjective: Patient seen in the gym exercising stating she feels relieved knowing that she feels she will be able to navigate her home with her weight bearing limitations. REVIEW OF SYSTEMS: The following is a completed review of systems and has been reviewed. Review of systems otherwise unremarkable. PAIN: Patient self reports right ankle pain EYES: No recent vision changes EARS, NOSE, & THROAT: No throat pain, or dysphagia, or rhinorrhea CARDIOVASCULAR: Denies chest pain or palpitations PULMONARY: Denies shortness of breath GASTROINTESTINAL: Denies constipation/diarrhea GENITOURINARY: denies dysuria MUSCULOSKELETAL: right ankle fracture, +left ankle pain NEUROLOGICAL: +peripheral polyneuropathy, +light headedness HEMATOLOGICAL: denies easy bruising SKIN: denies rash PSYCHIATRIC: Unremarkable All other review of systems found to be negative. PHYSICAL EXAMINATION: VITAL SIGNS: Please see below. GENERAL: Pleasant and cooperative. No acute distress. HEENT: PERRL. Extraocular movements intact. Clear conjunctiva CARDIOVASCULAR: Regular rate and rhythm. No murmurs, rubs, or gallops LUNGS: Clear to auscultation bilaterally. No wheezes. No rhonchi ABDOMEN: Soft, nontender, nondistended. Positive bowel sounds. Normal active bowel sounds. NEUROLOGICAL: Alert and oriented times three. Cranial nerves II through XII grossly intact. Sensation grossly intact EXTREMITIES: 5-\5 strength bilateral upper extremities. 5-\5 strength right lower extremity. 5/5 strength in left lower extremity. (-) homans bilat SKIN: mild swelling and bruising right ankle left ankle with TTP bilat malleolli, no TTP base of fifth metatarsal, no instability, +ecchymosis and swelling (improving) ASSESSMENT:80-year-old F with past medical history of HTN and CAD who presents status post syncopal episode with right ankle fracture now NWB PLAN: 1. 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 CArdiac- hx of CAD on metoprolol -HTN on irbesartan and HCTZ, monitor BPs- stable -last ECHO on record showing signs of chronic diastolic CHF, will fluid restrict, monitor daily weights -HLD- statin -medicine consulted to assist in overall management 3. Resp- monitor for infection 4. Endo- hx of hypothyroidism c/u synthroid 5. Ortho- s/p fall with right ankle fracture , discussed with Dr. Johnson, patient can be TDQB to RLE with CAM boot when out of bed, f/u ortho on d/c -grade 1 left ankle sprain, Xray left ankle and tib-fib negative, ortho recs greatly appreciated, consulted Tha Arshad to provide swedo ankle support, start gentle ROM and ankle strengthening exercises, WBAT 6. Neuro- hx of spinal stenosis with peripheral polyneuropathy contributing to overall mobility impairments and falls, CT cervical spine from 2010 showing cervical stenosis which has likely gotten worse and contributing to patient's feeling of light headedness which she reports getting while holding the phone to her ear for a prolonged time- patient educated on trying to relax her upper trapezius muscles, and work on improving her neck and shoulder posture, cont lidoderm patches to upper traps to encourage relaxation -f/u with outpatient neurology as patient may have an autonomic component to her peripheral polyneuropathy causing her to feel light headed -vestibular eval performed by PT and was negative 7. DVT ppx- lovenox -dopplers negative for DVT 8. GI ppx- protonix 9 Pain- tylenol and oxycodone 10. - Ucx contaminated x2 collections, patient denies dysuria, no white count, no fever, will assume she does not have a UTI 11. Dispo- 01-28-21 DME Patient will require a wheelchair to complete her MRADLs in a timely and safe manner. She is unable to perform her MRADLs with a RW or cane given her weight bearing restrictions in setting of right ankle fracture and left ankle sprain. Her home is wheelchair accessible, she agrees to use wheelchair, and her family is able to provide some assistance. Allergies Coded Allergies: Penicillins (Verified Allergy, Intermediate, Hives, 09/17/18) ibuprofen (Verified Allergy, Intermediate, Hives, 09/17/18) Motrin Brand. Generic Ibuprofen OK sulfamethoxazole (Verified Allergy, Intermediate, Hives, 09/17/18) trimethoprim (Verified Allergy, Intermediate, Hives, 09/17/18) Quinolones (Verified Allergy, Unknown, 09/17/18) latex (Verified Allergy, Unknown, 09/17/18) codeine (Verified Adverse Reaction, Mild, N+V, 09/17/18) Vital Signs Vital Signs Date Time Temp Pulse Resp B/P (MAP) Pulse Ox O2 Delivery O2 Flow Rate FiO2 01/27/21 20:00 98.0 64 18 141/64 (89) 98 Room Air Laboratory Data CBC/BMP Laboratory Tests 01/27/21 06:25 Labs 24H Laboratory Tests 2 01/27/21 06:25: Immature Granulocyte % (Auto) 0.3, Neutrophils (%) (Auto) 37.2, Lymphocytes (%) (Auto) 50.1H, Monocytes (%) (Auto) 10.7H, Eosinophils (%) (Auto) 1.4, Basophils (%) (Auto) 0.3, Neutrophils # (Auto) 2.4, Lymphocytes # (Auto) 3.3, Monocytes # (Auto) 0.7, Eosinophils # (Auto) 0.1, Basophils # (Auto) 0.0, Nucleated Red Blood Cells % (auto) 0.0, Anion Gap 7L, Glomerular Filtration Rate > 60.0, Calcium Level 9.1 Microbiology Microbiology 01/22/21 Urine Culture - Final, Complete 01/19/21 Urine Culture - Final, Complete Current Medications Current Medications Current Medications Medications (Trade) Dose Ordered Sig/Gifty Route PRN Reason Start Time Stop Time Status Last Admin Dose Admin Acetaminophen (Tylenol Tab) 1,000 mg TID PO 01/17/21 21:00 01/27/21 20:01 Artificial Tears (Akwa Tears) 2 drop QID OU 01/17/21 21:00 01/27/21 20:03 Bisacodyl (Dulcolax Suppository) 10 mg DAILYPRN PRN [place] CONSTIPATION 01/17/21 12:30 Docusate Sodium (Colace) 100 mg BID PO 01/17/21 21:00 01/27/21 20:02 Enoxaparin Sodium (Lovenox) 40 mg DAILY SC 01/18/21 09:00 01/27/21 09:18 Fluticasone Propionate (Flonase 0.05% Nasal Melissa) 1 spray BID NARES 01/17/21 21:00 01/27/21 09:20 Hydralazine HCl (Apresoline) 10 mg BIDP PRN PO SBP >180 01/26/21 23:35 01/27/21 09:08 DC Hydralazine HCl (Apresoline) 25 mg Q6H PO 01/27/21 12:00 01/27/21 11:40 Hydrochlorothiazide (Hydrodiuril) 25 mg DAILY PO 01/18/21 09:00 01/18/21 16:31 DC 01/18/21 10:00 Irbesartan (Avapro) 150 mg BID PO 01/17/21 21:00 01/18/21 08:45 DC 01/17/21 21:28 Irbesartan (Avapro) 300 mg DAILY PO 01/18/21 09:00 01/18/21 16:32 DC 01/18/21 10:01 Lactobacillus Acidophilus (Bacid) 1 ea DAILY PO 01/18/21 09:00 01/27/21 09:19 Levothyroxine Sodium (Synthroid) 100 mcg DAILY@06 PO 01/18/21 06:00 01/27/21 05:29 Lidocaine (Lidoderm Patch) 1 patch DAILY TD 01/25/21 09:00 01/27/21 09:20 Lidocaine (Lidoderm Patch) 2 patch DAILY TD 01/19/21 09:00 01/25/21 13:21 DC 01/25/21 09:17 Lidocaine (Lidoderm Patch) 2 patch DAILY TD 01/19/21 13:25 01/19/21 13:35 DC Loratadine (Claritin) 10 mg DAILY PO 01/18/21 09:00 01/27/21 09:19 Meclizine HCl (Antivert) 12.5 mg TID PRN PO DIZZINESS 01/18/21 14:40 01/26/21 18:46 Metoprolol Tartrate (Lopressor) 25 mg DAILY@1400 PO 01/18/21 14:00 01/18/21 08:46 DC Metoprolol Tartrate (Lopressor) 25 mg DAILY@1500 PO 01/18/21 15:00 01/27/21 09:10 DC 01/26/21 14:44 Metoprolol Tartrate (Lopressor) 50 mg DAILY@1500 PO 01/27/21 15:00 01/27/21 14:29 Multivitamins (Ocuvite(I-Cheri)) 1 tab DAILY PO 01/18/21 09:00 01/27/21 09:18 Neomycin/ Polymyxin/ Bacitracin (Neosporin) Superficial scabs hands DAILY TOP 01/27/21 09:00 Non-Formulary Medication ( See Comment Field Below ) REMOVE LIDODERM PATCH DAILY@21 XX 01/19/21 21:00 01/19/21 13:35 DC Non-Formulary Medication ( See Comment Field Below ) REMOVE LIDODERM PATCH DAILY@21 XX 01/19/21 21:00 01/27/21 20:02 Pantoprazole Sodium (Protonix) 40 mg DAILY PO 01/18/21 09:00 01/27/21 09:19 Patient Own Medication (Patient'S Own Med) IRBESARTAN-HCTZ 150-12.5 MG TAKE 2 TABL... DAILY PO 01/19/21 09:00 01/27/21 09:24 Polyethylene Glycol (Miralax) 1 pkt DAILY PRN PO CONSTIPATION 01/17/21 12:30 Rosuvastatin Calcium (Crestor) 10 mg QHS PO 01/17/21 21:00 01/27/21 20:02 Rosuvastatin Calcium (Crestor) 40 mg QHS PO 01/17/21 21:00 01/17/21 12:39 DC Senna (Senokot) 1 tab QHS PO 01/17/21 21:00 Vitamin D (Vitamin D) 1,000 units DAILY@1400 PO 01/18/21 14:00 01/27/21 14:30 JOSE MARTINEZ MD Jan 27, 2021 22:36
[2021-01-28] MEDS: **hydrALAZINE HCL** 25 MG TAB PO SCH ×4 (00:03→17:11)
[2021-01-28] MEDS: LEVOTHYROXINE 100MCG TABLET (0.1MG) PO SCH (05:39)
[2021-01-28 06:00] VITALS: BP 160/78
[2021-01-28] MEDS: REMEDY PHYTOPLEX Z-GUARD PASTE 113GM TUBE (FROM STOREROOM PRODUCT) TOP SCH ×3 (09:00→20:27)
[2021-01-28] MEDS: NEOSPORIN TOP OINT 15GM TOP SCH (09:00)
[2021-01-28] MEDS: PANTOPRAZOLE 40MG TAB (PROTONIX) PO SCH (09:00)
[2021-01-28] MEDS: ENOXAPARIN 40MG/0.4ML SYRINGE (J1650 PER 10MG) SC SCH (09:15)
[2021-01-28] MEDS: IRBESARTAN HCTZ PO SCH (09:15)
[2021-01-28] MEDS: LIDOCAINE 5% (LIDODERM) PATCH TD SCH (09:15)
[2021-01-28] MEDS: DOCUSATE SODIUM 100MG CAPSULE PO SCH ×2 (09:16→20:26)
[2021-01-28] MEDS: OCUVITE 1 TAB PO SCH (09:16)
[2021-01-28] MEDS: FLUTICASONE PROP 0.05% NASAL SPRAY 16 GM (FLONASE) NARES SCH ×2 (09:16→20:27)
[2021-01-28] MEDS: LORATADINE 10 MG TAB PO SCH (09:16)
[2021-01-28] MEDS: LACTOBACILLUS ACIDOPHILUS CAP (BACID) PO SCH (09:16)
[2021-01-28] MEDS: ACETAMINOPHEN 500 MG TAB PO SCH ×3 (09:16→20:26)
[2021-01-28] MEDS: POLYVINYL ALCOHOL OPHTH SOLN 15 ML(LIQUITEARS) OU SCH ×4 (09:17→20:27)
[2021-01-28 09:23] LABS: BLOOD UREA NITROGEN 17 MG/DL (7-18); CALCIUM LEVEL 9.3 MG/DL (8.8-10.2); CARBON DIOXIDE LEVEL 31 MEQ/L (21-32); CHLORIDE LEVEL 105 MEQ/L (98-107); CREATININE FOR GFR 0.85 MG/DL (0.55-1.30); GLOMERULAR FILTRATION RATE > 60.0 (>32); GLUCOSE, FASTING 90 MG/DL (70-100); POTASSIUM SERUM 3.4 MEQ/L (3.5-5.1); SODIUM LEVEL 142 MEQ/L (136-145)
[2021-01-28 11:35] VITALS: BP 118/68
[2021-01-28] MEDS: VITAMIN D 1,000 INTERNATIONAL UNITS TABLET PO SCH (13:58)
[2021-01-28 14:00] VITALS: BP 134/64
[2021-01-28] MEDS: METOPROLOL TART 50 MG TAB PO SCH (14:00)
[2021-01-28 16:45] VITALS: BP 147/69
[2021-01-28 20:00] VITALS: BP 136/68
[2021-01-28] MEDS: ROSUVASTATIN 10 MG TAB (CRESTOR) PO SCH (20:26)
[2021-01-28] MEDS: SENNA 8.6 MG TAB (SENOKOT) PO SCH (20:27)
[2021-01-28] MEDS: **NOTE PATIENT COMMENT** MISC XX SCH (20:27)
[2021-01-29] MEDS: **hydrALAZINE HCL** 25 MG TAB PO SCH ×5 (00:31→23:26)
[2021-01-29] MEDS: LEVOTHYROXINE 100MCG TABLET (0.1MG) PO SCH (05:43)
[2021-01-29 06:00] VITALS: BP 172/82
[2021-01-29 08:42] VITALS: BP 138/65
[2021-01-29] MEDS: LIDOCAINE 5% (LIDODERM) PATCH TD SCH (08:44)
[2021-01-29] MEDS: LACTOBACILLUS ACIDOPHILUS CAP (BACID) PO SCH (08:44)
[2021-01-29] MEDS: ENOXAPARIN 40MG/0.4ML SYRINGE (J1650 PER 10MG) SC SCH (08:44)
[2021-01-29] MEDS: LORATADINE 10 MG TAB PO SCH (08:44)
[2021-01-29] MEDS: ACETAMINOPHEN 500 MG TAB PO SCH ×3 (08:44→20:06)
[2021-01-29] MEDS: OCUVITE 1 TAB PO SCH (08:44)
[2021-01-29] MEDS: POLYVINYL ALCOHOL OPHTH SOLN 15 ML(LIQUITEARS) OU SCH ×4 (08:45→20:08)
[2021-01-29] MEDS: DOCUSATE SODIUM 100MG CAPSULE PO SCH ×2 (08:45→20:06)
[2021-01-29] MEDS: IRBESARTAN HCTZ PO SCH (08:45)
[2021-01-29] MEDS: NEOSPORIN TOP OINT 15GM TOP SCH (08:45)
[2021-01-29] MEDS: FLUTICASONE PROP 0.05% NASAL SPRAY 16 GM (FLONASE) NARES SCH ×2 (08:45→20:07)
[2021-01-29] MEDS: PANTOPRAZOLE 40MG TAB (PROTONIX) PO SCH (08:52)
[2021-01-29] MEDS: REMEDY PHYTOPLEX Z-GUARD PASTE 113GM TUBE (FROM STOREROOM PRODUCT) TOP SCH ×3 (09:00→20:07)
[2021-01-29 11:48] VITALS: BP 126/70
[2021-01-29 14:00] VITALS: BP 140/78
[2021-01-29] MEDS: VITAMIN D 1,000 INTERNATIONAL UNITS TABLET PO SCH (14:07)
[2021-01-29] MEDS: METOPROLOL TART 50 MG TAB PO SCH (14:07)
[2021-01-29 17:03] VITALS: BP 138/70
[2021-01-29 20:00] VITALS: BP 140/82
[2021-01-29] MEDS: SENNA 8.6 MG TAB (SENOKOT) PO SCH (20:06)
[2021-01-29] MEDS: ROSUVASTATIN 10 MG TAB (CRESTOR) PO SCH (20:06)
[2021-01-29] MEDS: **NOTE PATIENT COMMENT** MISC XX SCH (20:08)
[2021-01-29] MEDS ORDERED: POTASSIUM CHLORIDE 10 MEQ SR TABLET PO ONE (21:30)
[2021-01-29] MEDS ORDERED: HYDR25TA PO (21:32)
[2021-01-29] MEDS ORDERED: LOPR1TAB6 PO (21:32)
[2021-01-30] MEDS: LEVOTHYROXINE 100MCG TABLET (0.1MG) PO SCH (05:19)
[2021-01-30] MEDS: **hydrALAZINE HCL** 25 MG TAB PO SCH ×2 (05:20→12:28)
[2021-01-30 06:00] VITALS: BP 132/72
[2021-01-30 07:27] LABS: BASO % 0.5 % (0.0-1.0); EOS # 0.1 10^3/uL (0.0-0.5); EOS % 1.5 % (0.0-3.0); HEMATOCRIT 36.1 % (36.0-47.0); HEMOGLOBIN 11.5 g/dl (12.0-15.5); LYMPH # 3.2 10^3/uL (1.5-5.0); MEAN CORPUSCULAR HGB CONC 31.9 g/dl (32.0-36.5); MEAN CORPUSCULAR VOLUME 87.8 fl (80.0-96.0); MONO # 0.6 10^3/uL (0.0-0.8); MONO % 9.1 % (2.0-8.0); NEUTROPHILS # 2.6 10^3/uL (1.5-8.5); NEUTROPHILS % 39.4 % (36.0-66.0); PLATELET COUNT, AUTOMATED 216 10^3/uL (150-450); RED BLOOD COUNT 4.11 10^6/uL (4.00-5.40); WHITE BLOOD COUNT 6.6 10^3/uL (4.0-10.0)
[2021-01-30] MEDS: LACTOBACILLUS ACIDOPHILUS CAP (BACID) PO SCH (07:58)
[2021-01-30] MEDS: OCUVITE 1 TAB PO SCH (07:58)
[2021-01-30] MEDS: ENOXAPARIN 40MG/0.4ML SYRINGE (J1650 PER 10MG) SC SCH (07:59)
[2021-01-30] MEDS: LIDOCAINE 5% (LIDODERM) PATCH TD SCH (08:00)
[2021-01-30] MEDS: ACETAMINOPHEN 500 MG TAB PO SCH (08:00)
[2021-01-30] MEDS: LORATADINE 10 MG TAB PO SCH (08:00)
[2021-01-30] MEDS: POLYVINYL ALCOHOL OPHTH SOLN 15 ML(LIQUITEARS) OU SCH (08:01)
[2021-01-30] MEDS: IRBESARTAN HCTZ PO SCH (08:01)
[2021-01-30] MEDS: FLUTICASONE PROP 0.05% NASAL SPRAY 16 GM (FLONASE) NARES SCH (08:01)
[2021-01-30] MEDS: DOCUSATE SODIUM 100MG CAPSULE PO SCH (08:02)
[2021-01-30] MEDS: PANTOPRAZOLE 40MG TAB (PROTONIX) PO SCH (08:02)
[2021-01-30] MEDS: NEOSPORIN TOP OINT 15GM TOP SCH (08:14)
[2021-01-30] MEDS: REMEDY PHYTOPLEX Z-GUARD PASTE 113GM TUBE (FROM STOREROOM PRODUCT) TOP SCH (08:14)
[2021-01-30 08:17] LABS: BLOOD UREA NITROGEN 20 MG/DL (7-18); CALCIUM LEVEL 9.4 MG/DL (8.8-10.2); CARBON DIOXIDE LEVEL 31 MEQ/L (21-32); CHLORIDE LEVEL 104 MEQ/L (98-107); CREATININE FOR GFR 0.85 MG/DL (0.55-1.30); GLOMERULAR FILTRATION RATE > 60.0 (>32); GLUCOSE, FASTING 89 MG/DL (70-100); POTASSIUM SERUM 3.9 MEQ/L (3.5-5.1); SODIUM LEVEL 140 MEQ/L (136-145)
[2021-01-30 12:28] VITALS: BP 142/76
[2021-01-30 12:58] LABS: BLOOD UREA NITROGEN 23 MG/DL (7-18); CALCIUM LEVEL 9.7 MG/DL (8.8-10.2); CARBON DIOXIDE LEVEL 30 MEQ/L (21-32); CHLORIDE LEVEL 102 MEQ/L (98-107); CREATININE FOR GFR 0.93 MG/DL (0.55-1.30); GLOMERULAR FILTRATION RATE > 60.0 (>32); GLUCOSE, FASTING 95 MG/DL (70-100); POTASSIUM SERUM 3.7 MEQ/L (3.5-5.1); SODIUM LEVEL 137 MEQ/L (136-145)
[2021-01-31] MEDS ORDERED: POTASSIUM CHLORIDE 10 MEQ SR TABLET PO SCH (09:00)
--- NOTE | 2021-02-01 11:18 | PMRDS ---
NAME: [facility] WT ID#: [id number] JOB: [id number] GHISLAINE: 01/30/2021 ACCT: [id number] DOCTOR: JOSE MARTINEZ MD PMR DISCHARGE SUMMARY DATE OF ADMISSION: 01/17/2021 DATE OF DISCHARGE: 01/30/2021 CHIEF COMPLAINT/DISCHARGE DIAGNOSES: Right ankle fracture and left ankle grade 1 sprain. HISTORY OF PRESENT ILLNESS: An 80-year-old female with a past medical history of hypertension, hypothyroidism, hyperlipidemia, polymyalgia rheumatica on chronic prednisone, CAD, left breast cancer; status post lumpectomy, history of skin cancer, spinal stenosis with peripheral polyneuropathy and radiculopathy, who had ongoing dizziness with a syncopal episode at the grocery store, who presented to [facility] ED on 01/13/2021 complaining of lightheadedness and was admitted and placed on telemetry. CTH was negative for intracranial lesions or bleed and carotid ultrasound was negative for significant stenosis. She did have elevated blood pressures coupled with orthostatics and was noted to have pain when ambulating on her right foot. X-rays revealed a distal fibular fracture on the right, for which she was placed in a CAM boot per ortho recommendations and instructed to remain nonweightbearing. She had considerable mobility and ADL impairments and was deemed medically appropriate for discharge to ARU. PAST MEDICAL HISTORY: As per HPI. HOSPITAL COURSE: Patient was admitted and enrolled in a comprehensive PT/OT program. She received 24 hour nursing supervision and weekly team meetings were held to discuss her progress. Patient's blood pressures were initially well controlled on her home medication of Irbesartan and Hydrochlorothiazide in addition to Metoprolol. Gradually her blood pressures did increase and she was started on an increased dose of Metoprolol and Hydralazine. Blood pressures were improved following that alteration in medication. Patient was note to have left ankle swelling and ecchymosis with pain after a few days of inpatient rehab, for which x-rays were ordered, showing no fracture. Orthopedic surgeon, Dr. Holley, came and consulted on the patient and diagnosed her with a grade 1 ankle sprain. She was placed in a Swede-O ankle support and encouraged to ambulate weightbearing as tolerated on the left side with toe touch down to the right lower extremity while wearing the CAM boot. Patient continued to complain of lightheadedness. She said that, however, it did improve while she was here in the rehab unit. She was instructed to work on stretching and strengthening her neck muscles as it was likely that her history of cervical stenosis was contributing to her lightheadedness. Vestibular evaluation was performed and she did not show any signs of any BPPV. Patient requested a speech/language pathology consult because she noticed that on a few occasions she inserted inappropriate word into her sentences. Patient was deemed to be very high functioning with no cognitive impairment per speech therapy. She did quite well in therapy and was deemed medically and functionally stable to return home. DISCHARGE MEDICATIONS: As per instructions. FUNCTIONAL HISTORY: On discharge, the patient was modified independent for ambulating, functional transfers and ADLs. Thank you for this referral.
== END 2021-01-30 13:00 | disposition home health service (06) | DRG 560 ==
LOC: EEVIPCON 18:28 → M PM&R 18:28
PROVIDERS: ADMIT Physical Medicine & Rehabilitation; ATTEND Physical Medicine & Rehabilitation
DX: S82.431D Displaced oblique fracture of shaft of right fibula, subsequent encounter for closed fracture with routine healing (principal); I50.32 Chronic diastolic (congestive) heart failure; I11.0 Hypertensive heart disease with heart failure; E03.9 Hypothyroidism, unspecified; E78.5 Hyperlipidemia, unspecified; M35.3 Polymyalgia rheumatica; I25.10 Atherosclerotic heart disease of native coronary artery without angina pectoris; W18.30XD Fall on same level, unspecified, subsequent encounter; Y92.512 Supermarket, store or market as the place of occurrence of the external cause; Y99.8 Other external cause status; Y93.9 Activity, unspecified; Z85.820 Personal history of malignant melanoma of skin; G62.9 Polyneuropathy, unspecified; Z74.09 Other reduced mobility; Z74.1 Need for assistance with personal care; R42 Dizziness and giddiness; Z90.49 Acquired absence of other specified parts of digestive tract; Z98.41 Cataract extraction status, right eye; Z98.42 Cataract extraction status, left eye; Z96.651 Presence of right artificial knee joint; Z66 Do not resuscitate; Z88.0 Allergy status to penicillin; Z88.5 Allergy status to narcotic agent; Z91.040 Latex allergy status; Z88.2 Allergy status to sulfonamides; Z79.899 Other long term (current) drug therapy; Z88.6 Allergy status to analgesic agent; R29.6 Repeated falls

== ENCOUNTER → 2021-02-02 | Outpatient (CLI) | payer MEDICARE, BC ==
[~2021-02-02] MED LIST changes: +HYDR25TA PO; +LOPR1TAB6 PO
--- NOTE | 2021-02-02 14:17 | REP ---
INDICATION: RT ANKLE PAIN. COMPARISON: 01/15/2021 TECHNIQUE: Four views FINDINGS: The distal fibular fracture seen previously is again noted with slightly obscured margins suggesting early callus formation and healing. There are no other significant changes compared to the prior exam. IMPRESSION: As above <Electronically signed by Dawson Plaza > 02/02/21 [id number]
--- NOTE | 2021-02-02 15:43 | REP ---
INDICATION: PAIN. COMPARISON: 01/20/2021 TECHNIQUE: AP and lateral views only FINDINGS: There are plantar and retrocalcaneal heel spurs status quo. No gross fracture is seen on this limited two view exam. Soft tissue swelling seen previously has significantly improved possibly resolved. There are stable chronic changes. IMPRESSION: As above <Electronically signed by Dawson Plzaa > 02/02/21 [id number]
--- NOTE | 2021-02-02 15:59 | REP ---
INDICATION: PAIN. COMPARISON: None. TECHNIQUE: AP and lateral FINDINGS: Two views cannot rule out a fracture. The bones are demineralized. Plantar and retrocalcaneal heel spurs are present. Two limited view show no evidence of a gross fracture. Degenerative changes are seen throughout the foot. There is a type 1 os naviculare. IMPRESSION: Chronic changes and limitations as described above. If a fracture is of clinical concern a four view trauma series is recommended. <Electronically signed by Dawson Plaza > 02/02/21 [id number]
== END ==
LOC: M SOG 13:12
PROVIDERS: ATTEND Orthopaedic Surgery
DX: M25.571 Pain in right ankle and joints of right foot (principal); M25.572 Pain in left ankle and joints of left foot

== ENCOUNTER → 2021-02-14 | Outpatient (REF) | payer MEDICARE, BC ==
[2021-02-14 15:35] LABS: APPEARANCE, URINE CLEAR (CLEAR); BACTERIA, URINE AUTO NEGATIVE (NEGATIVE); BILIRUBIN, URINE AUTO NEGATIVE (NEGATIVE); BLOOD, URINE BLOOD NEGATIVE (NEGATIVE); COLOR, URINE YELLOW (YELLOW); GLUCOSE, URINE (UA) AUTO NEGATIVE (NEGATIVE); KETONE, URINE AUTO NEGATIVE (NEGATIVE); LEUKOCYTE ESTERASE, URINE AUTO 1+ (NEGATIVE); MUCUS, URINE SMALL (NEGATIVE); NITRITE, URINE AUTO NEGATIVE (NEGATIVE); PROTEIN, URINE AUTO NEGATIVE (NEGATIVE); RBC, URINE AUTO 1 /HPF (0-3); SPECIFIC GRAVITY URINE AUTO 1.018 (1.002-1.035); SQUAMOUS EPITHELIAL CELL UR AU 2 /HPF (0-6); UROBILINOGEN, URINE AUTO 0.2 mg/dL (0.0-2.0); WBC, URINE AUTO 4 /HPF (0-3)
== END ==
LOC: M SFHCPLAZ 14:51
PROVIDERS: ATTEND Family Medicine
DX: R39.198 Other difficulties with micturition (principal)

== ENCOUNTER → 2021-03-02 | Outpatient (CLI) | payer MEDICARE, BC ==
--- NOTE | 2021-03-02 14:56 | REP ---
INDICATION: LT ANKLE PAIN. COMPARISON: 02/02/2021 TECHNIQUE: AP and lateral views FINDINGS: Age-related arthritic degenerative changes to the ankle and visualized mid/hindfoot again noted. Ankle mortise is relatively intact. No obvious acute fracture or dislocation. No significant swelling. IMPRESSION: Chronic degenerative changes similar to prior examination. No obvious acute fracture or dislocation. <Electronically signed by Ovi Negrete > 03/02/21 [id number]
--- NOTE | 2021-03-02 15:11 | REP ---
INDICATION: RT ANKLE PAIN. COMPARISON: 02/02/2021 TECHNIQUE: Three views FINDINGS: The distal fibular fracture seen previously is now barely perceptible consistent with continued healing. There is no evidence of an acute fracture. There are chronic degenerative changes status quo. IMPRESSION: Healing <Electronically signed by Dawson Plaza > 03/02/21 [id number]
== END ==
LOC: M SOG 12:46
PROVIDERS: ATTEND Orthopaedic Surgery
DX: M25.571 Pain in right ankle and joints of right foot (principal); M25.572 Pain in left ankle and joints of left foot

== ENCOUNTER 2021-03-22 13:36 | Emergency (ER) | payer MEDICARE, BC ==
[~2021-03-22] VITALS: Ht 162.6 cm; Wt 76.7 kg
--- NOTE | 2021-03-22 15:20 | REP ---
INDICATION: right calf pain, LLE pain COMPARISON: None. TECHNIQUE: Jones scale and color Doppler evaluation using linear high frequency transducer. FINDINGS: Ultrasound examination of the right and left lower extremity deep venous structures from the common femoral vein through the popliteal veins demonstrates normal compressibility flow and wave patterns in response to respiration and augmentation. Right calf veins and distal left calf veins are also normal in appearance. There is no evidence for deep venous thrombosis. Complex fluid collection along the medial aspect of the left popliteal fossa measures 3.4 x 1.1 x 1.7 cm. IMPRESSION: No evidence for deep venous thrombosis. Jensen's cyst in the left popliteal fossa. <Electronically signed by Ovi Negrete > 03/22/21 [id number]
--- NOTE | 2021-03-22 18:50 | REP ---
INDICATION: R knee pain COMPARISON: 01/14/2020 TECHNIQUE: Five views FINDINGS: The examination is under penetrated with radiographic beam causing exam limitations. The knee arthroplasty is unchanged in alignment and position. There is no evidence of an acute fracture this limited exam. IMPRESSION: No acute abnormalities or significant changes compared to the prior exam. <Electronically signed by Dawson Plaza > 03/22/21 [id number]
--- NOTE | 2021-03-22 18:52 | REP ---
INDICATION: R tibial pain. COMPARISON: None. TECHNIQUE: AP and lateral views FINDINGS: There is no acute fracture or destructive osseous lesion. IMPRESSION: No acute osseous abnormality <Electronically signed by Dawson Plaza > 03/22/21 [id number]
--- NOTE | 2021-03-22 18:54 | REP ---
INDICATION: L ankle pain. COMPARISON: None. TECHNIQUE: Four views FINDINGS: Degenerative changes are seen at the ankle. There are plantar and retrocalcaneal heel spurs. Midfoot degenerative changes are identified. There is no acute fracture, dislocation, or subluxation. IMPRESSION: Chronic changes <Electronically signed by Dawson Plaza > 03/22/21 [id number]
[2021-03-22 20:09] VITALS: BP 170/90
== END 2021-03-22 19:30 | disposition home or self-care (01) ==
LOC: M ED 13:36
DX: M71.22 Synovial cyst of popliteal space [Baker], left knee (principal); M79.661 Pain in right lower leg; M25.561 Pain in right knee; M19.072 Primary osteoarthritis, left ankle and foot; I13.0 Hypertensive heart and chronic kidney disease with heart failure and stage 1 through stage 4 chronic kidney disease, or unspecified chronic kidney disease; I25.10 Atherosclerotic heart disease of native coronary artery without angina pectoris; N18.9 Chronic kidney disease, unspecified; J45.909 Unspecified asthma, uncomplicated; E03.9 Hypothyroidism, unspecified; Z85.820 Personal history of malignant melanoma of skin; G62.9 Polyneuropathy, unspecified; Z90.49 Acquired absence of other specified parts of digestive tract; G89.29 Other chronic pain; M50.90 Cervical disc disorder, unspecified, unspecified cervical region; M54.50 Low back pain, unspecified; Z87.891 Personal history of nicotine dependence; Z88.0 Allergy status to penicillin; Z88.1 Allergy status to other antibiotic agents; Z88.2 Allergy status to sulfonamides; Z88.6 Allergy status to analgesic agent; Z88.8 Allergy status to other drugs, medicaments and biological substances; Z79.899 Other long term (current) drug therapy

== ENCOUNTER → 2021-06-19 | Outpatient (REF) | payer MEDICARE, BC | LOC: M LAB REF 14:25 | PROVIDERS: ATTEND Physician Assistant | DX: L57.0 Actinic keratosis (principal) ==

== ENCOUNTER → 2021-07-31 | Outpatient (CLI) | payer MEDICARE, BC ==
[~2021-07-31] MED LIST changes: -CEFD1CAP8; +CEFD300C41; +IMIQ1CRE6 EXT; -IMIQ5CRE EXT
[2021-07-31 15:22] LABS: CALCIUM LEVEL 9.7 MG/DL (8.8-10.2); CHOLESTEROL RISK RATIO 2.049 (<5); CREATININE FOR GFR 1.05 MG/DL (0.55-1.30); GLOMERULAR FILTRATION RATE 53.3 (>32); POTASSIUM SERUM 3.7 MEQ/L (3.5-5.1)
== END ==
LOC: M PLALAB 12:35
PROVIDERS: ATTEND Family Medicine
DX: I10 Essential (primary) hypertension (principal)

== ENCOUNTER → 2021-09-18 | Outpatient (REF) | payer MEDICARE, BC ==
[~2021-09-18] MED LIST changes: -D31000TA2 PO; +VITA100093 PO
== END ==
LOC: M LAB REF 21:46
PROVIDERS: ATTEND Physician Assistant
DX: R30.0 Dysuria (principal)

== ENCOUNTER → 2021-09-27 | Outpatient (CLI) | payer MEDICARE, BC ==
[2021-09-27 20:23] LABS: BASO % 0.3 % (0.0-1.0); EOS # 0.1 10^3/uL (0.0-0.5); EOS % 1.6 % (0.0-3.0); HEMATOCRIT 39.4 % (36.0-47.0); HEMOGLOBIN 12.5 g/dl (12.0-15.5); LYMPH % 31.9 % (24.0-44.0); MEAN CORPUSCULAR HEMOGLOBIN 28.4 pg (27.0-33.0); MEAN CORPUSCULAR HGB CONC 31.7 g/dl (32.0-36.5); MEAN CORPUSCULAR VOLUME 89.5 fl (80.0-96.0); MONO # 0.8 10^3/uL (0.0-0.8); NEUTROPHILS # 3.4 10^3/uL (1.5-8.5); PLATELET COUNT, AUTOMATED 188 10^3/uL (150-450); WHITE BLOOD COUNT 6.2 10^3/uL (4.0-10.0)
[2021-09-27 20:26] LABS: MONO REFLEX EBV COMP NEGATIVE (NEGATIVE)
[2021-09-27 20:35] LABS: ALT/SGPT 19 U/L (12-78); BILIRUBIN,TOTAL 0.5 MG/DL (0.2-1.0); BLOOD UREA NITROGEN 22 MG/DL (7-18); CALCIUM LEVEL 9.3 MG/DL (8.8-10.2); CARBON DIOXIDE LEVEL 34 MEQ/L (21-32); CHLORIDE LEVEL 101 MEQ/L (98-107); CREATININE FOR GFR 1.07 MG/DL (0.55-1.30); GLOMERULAR FILTRATION RATE 52.1 (>32); GLUCOSE, FASTING 141 MG/DL (70-100); POTASSIUM SERUM 3.3 MEQ/L (3.5-5.1); SODIUM LEVEL 138 MEQ/L (136-145)
[2021-09-27 21:15] LABS: ERYTHROCYTE SEDIMENTATION RATE 23 mm/hr (0-30)
[2021-09-29 14:10] LABS: EBV AB TO NUCLEAR ANTIGEN 73.4 U/mL (0.0-17.9); EBV VIRAL CAPSID AG IgG >600.0 U/mL (0.0-17.9); EBV VIRAL CAPSID AG IgM <36.0 U/mL (0.0-35.9)
== END ==
LOC: M WUC 15:11
PROVIDERS: ATTEND Family Medicine
DX: R68.89 Other general symptoms and signs (principal); R68.83 Chills (without fever); R53.83 Other fatigue

== ENCOUNTER → 2021-10-23 | Outpatient (REF) | payer MEDICARE, BC ==
[2021-10-23 16:41] LABS: APPEARANCE, URINE HAZY (CLEAR); BACTERIA, URINE AUTO 1+ (NEGATIVE); BILIRUBIN, URINE AUTO NEGATIVE (NEGATIVE); BLOOD, URINE BLOOD NEGATIVE (NEGATIVE); COLOR, URINE YELLOW (YELLOW); GLUCOSE, URINE (UA) AUTO NEGATIVE (NEGATIVE); KETONE, URINE AUTO NEGATIVE (NEGATIVE); LEUKOCYTE ESTERASE, URINE AUTO 2+ (NEGATIVE); MUCUS, URINE SMALL (NEGATIVE); NITRITE, URINE AUTO NEGATIVE (NEGATIVE); PROTEIN, URINE AUTO NEGATIVE (NEGATIVE); RBC, URINE AUTO 1 /HPF (0-3); SPECIFIC GRAVITY URINE AUTO 1.019 (1.002-1.035); SQUAMOUS EPITHELIAL CELL UR AU 3 /HPF (0-6); UROBILINOGEN, URINE AUTO 0.2 mg/dL (0.0-2.0); WBC, URINE AUTO 6 /HPF (0-3)
== END ==
LOC: M LAB REF 16:13
PROVIDERS: ATTEND Obstetrics & Gynecology
DX: N39.41 Urge incontinence (principal)

== ENCOUNTER → 2021-11-14 | Outpatient (CLI) | payer MEDICARE, BC ==
[2021-11-14 15:34] LABS: CREATININE FOR GFR 1.11 MG/DL (0.55-1.30)
== END ==
LOC: M LAB 14:14
PROVIDERS: ATTEND Otolaryngology
DX: R13.10 Dysphagia, unspecified (principal)

== ENCOUNTER → 2021-11-16 | Outpatient (CLI) | payer MEDICARE, BC ==
[~2021-11-16] MED LIST changes: +ISOVUE-370 76% 100ML VIAL As Ordered ONE
== END ==
LOC: M RAD 08:51
PROVIDERS: ATTEND Otolaryngology
DX: R13.10 Dysphagia, unspecified (principal)
CPT/HCPCS: 70491; Q9967

== ENCOUNTER → 2021-11-24 | Outpatient (CLI) | payer MEDICARE, BC ==
[~2021-11-24] MED LIST changes: +E-Z-GAS II EFFERVESCENT PACKET (SODIUM BICARB./CITRIC ACID/SIMETHICONE) As Ordered ONE; +E-Z-HD 98% w/w 340GM SUSP BTL As Ordered ONE; +E-Z-PAQUE 96% w/w SUSP 176GM BTL As Ordered ONE; -ISOVUE-370 76% 100ML VIAL As Ordered ONE
== END ==
LOC: M RAD 08:46
PROVIDERS: ATTEND Otolaryngology
DX: J39.2 Other diseases of pharynx (principal); K21.9 Gastro-esophageal reflux disease without esophagitis; M50.30 Other cervical disc degeneration, unspecified cervical region; K22.2 Esophageal obstruction

== ENCOUNTER → 2021-12-20 | Outpatient (CLI) | payer MEDICARE, BC ==
[~2021-12-20] MED LIST changes: -E-Z-GAS II EFFERVESCENT PACKET (SODIUM BICARB./CITRIC ACID/SIMETHICONE) As Ordered ONE; -E-Z-HD 98% w/w 340GM SUSP BTL As Ordered ONE; -E-Z-PAQUE 96% w/w SUSP 176GM BTL As Ordered ONE
[2021-12-20 17:02] LABS: ALBUMIN 3.8 GM/DL (3.2-5.2); BILIRUBIN,TOTAL 0.7 MG/DL (0.2-1.0); CALCIUM LEVEL 9.5 MG/DL (8.8-10.2); CHOLESTEROL RISK RATIO 2.376 (<5); CREATININE FOR GFR 1.09 MG/DL (0.55-1.30); POTASSIUM SERUM 3.4 MEQ/L (3.5-5.1); THYROID STIMULATING HORMONE 1.67 uIU/ML (0.358-3.740); TOTAL PROTEIN 6.9 GM/DL (6.4-8.2)
[2021-12-20 17:08] LABS: TOTAL 25(OH) VITAMIN D 34.5 NG/ML (30.0-100.0)
[2021-12-20 17:33] LABS: HEMOGLOBIN A1c 6.1 %
== END ==
LOC: M WUC 11:39
PROVIDERS: ATTEND Nurse Practitioner Adult Health
DX: I10 Essential (primary) hypertension (principal); E03.9 Hypothyroidism, unspecified; E55.9 Vitamin D deficiency, unspecified; Z83.3 Family history of diabetes mellitus; I25.10 Atherosclerotic heart disease of native coronary artery without angina pectoris

== ENCOUNTER → 2021-12-27 | Outpatient (CLI) | payer MEDICARE, BC | LOC: M WHC 12:59 | PROVIDERS: ATTEND Nurse Practitioner Women's Health | DX: Z12.31 Encounter for screening mammogram for malignant neoplasm of breast (principal) ==

== ENCOUNTER → 2022-01-08 | Outpatient (CLI) | payer MEDICARE, BC ==
[~2022-01-08] MED LIST changes: +BARIUM SULFATE 700 MG TABLET (E-Z-DISK) As Ordered ONE; +E-Z-PAQUE 96% w/w SUSP 176GM BTL As Ordered ONE; +VARIBAR NECTAR 40% w/v 240ML SUSP BTL As Ordered ONE; +VARIBAR PUDDING 40% w/v 230ML TUBE As Ordered ONE
== END ==
LOC: M RAD 11:09
PROVIDERS: ATTEND Physician Assistant Medical
DX: R13.10 Dysphagia, unspecified (principal)

== ENCOUNTER → 2022-01-29 | Outpatient (CLI) | payer MEDICARE, BC ==
[~2022-01-29] MED LIST changes: -BARIUM SULFATE 700 MG TABLET (E-Z-DISK) As Ordered ONE; -E-Z-PAQUE 96% w/w SUSP 176GM BTL As Ordered ONE; +OMEP-173 PO; +POTA1TAB23 PO; +ROSU10TA6 PO; +SYNT100T PO; -VARIBAR NECTAR 40% w/v 240ML SUSP BTL As Ordered ONE; -VARIBAR PUDDING 40% w/v 230ML TUBE As Ordered ONE
== END ==
LOC: M LABSMTC 10:59
PROVIDERS: ATTEND Anesthesiology
DX: Z01.812 Encounter for preprocedural laboratory examination (principal)

== ENCOUNTER 2022-02-01 09:33 | Day surgery (SDC) | payer MEDICARE, BC ==
[~2022-02-01] VITALS: Ht 160 cm; Wt 77.6 kg
[~2022-02-01 09:33] MED LIST changes: +NS 1,000 ML IV ONE
[2022-02-01] MEDS ORDERED: LIDOCAINE 2% 100MG/5ML SDV (FOR ANES.) As Ordered ONE (11:35)
[2022-02-01] MEDS ORDERED: propofoL 200 MG/20 ML VIAL As Ordered ONE (11:35)
[2022-02-01] MEDS ORDERED: fentaNYL 100 MCG/2 ML INJECTION As Ordered ONE (11:36)
[2022-02-01 11:57] VITALS: BP 194/81
== END 2022-02-01 12:07 | disposition home or self-care (01) ==
LOC: M OPP 09:33
PROVIDERS: ATTEND Internal Medicine Gastroenterology
DX: K29.70 Gastritis, unspecified, without bleeding (principal); K20.90 Esophagitis, unspecified without bleeding; K44.9 Diaphragmatic hernia without obstruction or gangrene; K22.2 Esophageal obstruction; I10 Essential (primary) hypertension; E03.9 Hypothyroidism, unspecified; Z79.51 Long term (current) use of inhaled steroids; Z79.82 Long term (current) use of aspirin; Z79.02 Long term (current) use of antithrombotics/antiplatelets; Z79.899 Other long term (current) drug therapy; Z88.0 Allergy status to penicillin; Z88.1 Allergy status to other antibiotic agents; Z88.5 Allergy status to narcotic agent; Z88.6 Allergy status to analgesic agent; Z87.891 Personal history of nicotine dependence; Z85.3 Personal history of malignant neoplasm of breast; Z86.14 Personal history of Methicillin resistant Staphylococcus aureus infection; Z87.19 Personal history of other diseases of the digestive system
CPT/HCPCS: 43239; 88305; J3010

== ENCOUNTER → 2022-03-05 | Outpatient (REF) | payer MEDICARE, BC ==
[~2022-03-05] MED LIST changes: -NS 1,000 ML IV ONE
== END ==
LOC: M SFHCPLAZ 10:12
PROVIDERS: ATTEND Nurse Practitioner Adult Health
DX: R10.2 Pelvic and perineal pain (principal)

== ENCOUNTER → 2022-03-06 | Outpatient (CLI) | payer MEDICARE, BC ==
[2022-03-07 17:03] LABS: HEMOGLOBIN A1c 6.1 %
[2022-03-07 17:29] LABS: ALBUMIN 3.9 GM/DL (3.2-5.2); BILIRUBIN,TOTAL 0.9 MG/DL (0.2-1.0); CALCIUM LEVEL 9.4 MG/DL (8.8-10.2); CHOLESTEROL RISK RATIO 2.208 (<5); CREATININE FOR GFR 1.04 MG/DL (0.55-1.30); GLOMERULAR FILTRATION RATE 53.9 (>32); POTASSIUM SERUM 3.6 MEQ/L (3.5-5.1); THYROID STIMULATING HORMONE 2.67 uIU/ML (0.358-3.740); TOTAL PROTEIN 7.1 GM/DL (6.4-8.2)
== END ==
LOC: M WUC 13:48
PROVIDERS: ATTEND Nurse Practitioner Adult Health
DX: I25.10 Atherosclerotic heart disease of native coronary artery without angina pectoris (principal); I10 Essential (primary) hypertension; Z83.3 Family history of diabetes mellitus; E03.9 Hypothyroidism, unspecified; E55.9 Vitamin D deficiency, unspecified; M25.551 Pain in right hip; Z79.899 Other long term (current) drug therapy

== ENCOUNTER → 2022-03-08 | Outpatient (REF) | payer MEDICARE, BC | LOC: M SFHCPLAZ 16:31 | PROVIDERS: ATTEND Nurse Practitioner Adult Health | DX: R19.7 Diarrhea, unspecified (principal) ==

== ENCOUNTER 2022-03-25 20:39 | Inpatient (IN) | payer MEDICARE, BC ==
[~2022-03-25] VITALS: Ht 162.6 cm; Wt 76.2 kg
[2022-03-25 21:29] LABS: BASO % 0.1 % (0.0-1.0); EOS % 0.1 % (0.0-3.0); HEMATOCRIT 36.5 % (36.0-47.0); HEMOGLOBIN 11.6 g/dl (12.0-15.5); LYMPH # 0.8 10^3/uL (1.5-5.0); LYMPH % 10.5 % (24.0-44.0); MEAN CORPUSCULAR HGB CONC 31.8 g/dl (32.0-36.5); MONO # 1.1 10^3/uL (0.0-0.8); MONO % 14.3 % (2.0-8.0); NEUTROPHILS # 5.8 10^3/uL (1.5-8.5); NEUTROPHILS % 74.4 % (36.0-66.0); PLATELET COUNT, AUTOMATED 155 10^3/uL (150-450); RED BLOOD COUNT 4.15 10^6/uL (4.00-5.40); WHITE BLOOD COUNT 7.8 10^3/uL (4.0-10.0)
[2022-03-25 21:53] LABS: CPK CREATINE PHOSPHOKINASE 86 U/L (26-192)
[2022-03-25 22:10] LABS: ALBUMIN 3.8 GM/DL (3.2-5.2); BILIRUBIN,TOTAL 0.7 MG/DL (0.2-1.0); CALCIUM LEVEL 9.4 MG/DL (8.8-10.2); CREATININE FOR GFR 1.13 MG/DL (0.55-1.30); POTASSIUM SERUM 3.7 MEQ/L (3.5-5.1); THYROID STIMULATING HORMONE 1.36 uIU/ML (0.358-3.740)
[2022-03-25] MEDS ORDERED: ACETAMINOPHEN TAB 650MG DOSE (2X325MG) PO ONE (22:45)
[2022-03-25 23:02] LABS: RSV AMPLIFICATION NEGATIVE (NEGATIVE)
[2022-03-25 23:10] LABS: CPK CREATINE PHOSPHOKINASE 100 U/L (26-192)
[2022-03-25] MEDS ORDERED: NS 1,000 ML IV SCH (23:35)
[2022-03-25 23:58] LABS: INR 1.09; PARTIAL THROMBOPLASTIN TIME 28.5 SECONDS (25.9-37.0); PROTHROMBIN TIME 14.5 SECONDS (12.7-14.5)
[2022-03-26] VITALS (7 sets, daily range): BP systolic 136–172; BP diastolic 64–82; O2SAT 85–94
[2022-03-26 00:01] LABS: D-DIMER QUANT 1398.62 ng/ml (<500)
[2022-03-26] MEDS ORDERED: PROBCAP14 PO (00:04)
[2022-03-26] MEDS ORDERED: DOCU100C16 PO (00:04)
[2022-03-26] MEDS ORDERED: HOME MED LIST COMPLETE! XX SCH (00:05)
[2022-03-26] MEDS ORDERED: guaiFENesin ER 600 MG TAB PO PRN (00:50)
[2022-03-26] MEDS ORDERED: COMBIVENT RESPIMAT 100-20MCG INHALER 4GM INH PRN (00:50)
[2022-03-26] MEDS: LIDOCAINE 5% (LIDODERM) PATCH TD SCH ×2 (01:50→21:45)
[2022-03-26] MEDS ORDERED: REMDESIVIR 200 MG in NS 250 ML IV ONE (02:00)
[2022-03-26] MEDS ORDERED: **hydrALAZINE** 10 MG TAB PO PRN (02:45)
[2022-03-26] MEDS ORDERED: SODIUM CHLORIDE 0.9% INJ 10 ML SYR IV ONE (04:00)
[2022-03-26 05:25] LABS: BASO % 0.2 % (0.0-1.0); HEMATOCRIT 36.1 % (36.0-47.0); HEMOGLOBIN 11.1 g/dl (12.0-15.5); LYMPH # 1.1 10^3/uL (1.5-5.0); LYMPH % 19.2 % (24.0-44.0); MEAN CORPUSCULAR HEMOGLOBIN 27.2 pg (27.0-33.0); MEAN CORPUSCULAR HGB CONC 30.7 g/dl (32.0-36.5); MEAN CORPUSCULAR VOLUME 88.5 fl (80.0-96.0); MONO % 16.6 % (2.0-8.0); NEUTROPHILS # 3.8 10^3/uL (1.5-8.5); NEUTROPHILS % 63.7 % (36.0-66.0); PLATELET COUNT, AUTOMATED 139 10^3/uL (150-450); RED BLOOD COUNT 4.08 10^6/uL (4.00-5.40); WHITE BLOOD COUNT 5.9 10^3/uL (4.0-10.0)
[2022-03-26 05:45] LABS: HEMOGLOBIN A1c 5.9 %
[2022-03-26 06:13] LABS: ALBUMIN 3.6 GM/DL (3.2-5.2); ALT/SGPT 15 U/L (12-78); BILIRUBIN,DIRECT 0.2 MG/DL (0.0-0.2); BILIRUBIN,TOTAL 0.7 MG/DL (0.2-1.0); BLOOD UREA NITROGEN 17 MG/DL (7-18); C REACTIVE PROTEIN QUANTITATIV 3.24 MG/DL (0.00-0.30); CALCIUM LEVEL 8.8 MG/DL (8.8-10.2); CARBON DIOXIDE LEVEL 30 MEQ/L (21-32); CHLORIDE LEVEL 98 MEQ/L (98-107); FERRITIN 149 NG/ML (8-252); GLOMERULAR FILTRATION RATE > 60.0 (>32); GLUCOSE, FASTING 108 MG/DL (70-100); MAGNESIUM LEVEL 1.8 MG/DL (1.8-2.4); POTASSIUM SERUM 3.2 MEQ/L (3.5-5.1); SODIUM LEVEL 135 MEQ/L (136-145); TOTAL PROTEIN 6.4 GM/DL (6.4-8.2)
[2022-03-26] MEDS: LEVOTHYROXINE 100MCG TABLET (0.1MG) PO SCH (06:43)
[2022-03-26] MEDS: ACETAMINOPHEN TAB 650MG DOSE (2X325MG) PO PRN (06:48)
[2022-03-26] MEDS ORDERED: POTASSIUM CHLORIDE 10MEQ SR TABLET PO ONE (08:00)
[2022-03-26] MEDS: METOPROLOL TART 25 MG TABLET PO SCH (08:31)
[2022-03-26] MEDS: ENOXAPARIN 40MG/0.4ML SYRINGE (J1650 PER 10MG) SC SCH (08:32)
[2022-03-26] MEDS: OCUVITE 1 TAB PO SCH ×2 (08:32→21:45)
[2022-03-26] MEDS: VITAMIN D 1,000 INTERNATIONAL UNITS TABLET PO SCH (08:32)
[2022-03-26] MEDS: OMEPRAZOLE 20MG CAP PO SCH (08:32)
[2022-03-26] MEDS: **NOTE PATIENT COMMENT** MISC XX SCH (09:00)
[2022-03-26] MEDS: POLYVINYL ALCOHOL OPHTH SOLN 15 ML(LIQUITEARS) OU PRN (10:12)
[2022-03-26] MEDS ORDERED: DOCUSATE SODIUM 100MG CAPSULE PO SCH (21:00)
[2022-03-26] MEDS ORDERED: ROSUVASTATIN 10 MG TAB (CRESTOR) PO SCH (21:00)
[2022-03-26] MEDS ORDERED: amLODIPine 5 MG TAB PO SCH (21:00)
[2022-03-26] MEDS ORDERED: REMDESIVIR 100 MG in NS 250 ML IV SCH (22:00)
[2022-03-26] MEDS: CEPACOL LOZENGE PO PRN (22:41)
[2022-03-26] MEDS ORDERED: SODIUM CHLORIDE 0.9% INJ 10 ML SYR IV SCH (23:00)
[2022-03-27 04:00] VITALS: BP 168/73
[2022-03-27 04:31] LABS: BASO % 0.3 % (0.0-1.0); HEMATOCRIT 34.1 % (36.0-47.0); HEMOGLOBIN 10.6 g/dl (12.0-15.5); LYMPH # 1.5 10^3/uL (1.5-5.0); LYMPH % 37.3 % (24.0-44.0); MEAN CORPUSCULAR HEMOGLOBIN 27.7 pg (27.0-33.0); MEAN CORPUSCULAR HGB CONC 31.1 g/dl (32.0-36.5); MEAN CORPUSCULAR VOLUME 89.3 fl (80.0-96.0); MONO # 1.2 10^3/uL (0.0-0.8); MONO % 29.7 % (2.0-8.0); NEUTROPHILS # 1.3 10^3/uL (1.5-8.5); NEUTROPHILS % 32.4 % (36.0-66.0); PLATELET COUNT, AUTOMATED 129 10^3/uL (150-450); RED BLOOD COUNT 3.82 10^6/uL (4.00-5.40)
[2022-03-27 04:46] LABS: INR 1.02; PROTHROMBIN TIME 13.6 SECONDS (12.5-14.5)
[2022-03-27 04:47] LABS: PARTIAL THROMBOPLASTIN TIME 32.7 SECONDS (24.8-34.2)
[2022-03-27 05:09] LABS: ALBUMIN 3.4 GM/DL (3.2-5.2); ALT/SGPT 19 U/L (12-78); BILIRUBIN,DIRECT 0.2 MG/DL (0.0-0.2); BILIRUBIN,TOTAL 0.4 MG/DL (0.2-1.0); BLOOD UREA NITROGEN 16 MG/DL (7-18); CALCIUM LEVEL 8.6 MG/DL (8.8-10.2); CARBON DIOXIDE LEVEL 30 MEQ/L (21-32); CHLORIDE LEVEL 95 MEQ/L (98-107); CREATININE FOR GFR 0.81 MG/DL (0.55-1.30); FERRITIN 211 NG/ML (8-252); GLOMERULAR FILTRATION RATE > 60.0 (>32); GLUCOSE, FASTING 85 MG/DL (70-100); LDH LACTATE DEHYDROGENASE 199 U/L (84-246); MAGNESIUM LEVEL 1.7 MG/DL (1.8-2.4); NT-PRO BNP 918 PG/ML (<450); POTASSIUM SERUM 3.3 MEQ/L (3.5-5.1); SODIUM LEVEL 131 MEQ/L (136-145); TOTAL PROTEIN 6.3 GM/DL (6.4-8.2)
[2022-03-27] MEDS: LEVOTHYROXINE 100MCG TABLET (0.1MG) PO SCH (05:58)
[2022-03-27] MEDS ORDERED: LR 1,000 ML IV SCH (06:10)
[2022-03-27] MEDS ORDERED: POTASSIUM CHLORIDE 10MEQ SR TABLET PO ONE (06:10)
[2022-03-27 07:02] LABS: OSMOLALITY SERUM 272 MOSM/KG (280-301)
[2022-03-27 08:00] VITALS: BP 170/78
[2022-03-27 08:51] VITALS: BP 170/78
[2022-03-27] MEDS: METOPROLOL TART 25 MG TABLET PO SCH (08:51)
[2022-03-27] MEDS: ENOXAPARIN 40MG/0.4ML SYRINGE (J1650 PER 10MG) SC SCH (08:51)
[2022-03-27] MEDS: OCUVITE 1 TAB PO SCH (08:51)
[2022-03-27] MEDS: OMEPRAZOLE 20MG CAP PO SCH (08:51)
[2022-03-27] MEDS: VITAMIN D 1,000 INTERNATIONAL UNITS TABLET PO SCH (08:52)
[2022-03-27] MEDS: **NOTE PATIENT COMMENT** MISC XX SCH (08:55)
[2022-03-27] MEDS: ACETAMINOPHEN TAB 650MG DOSE (2X325MG) PO PRN (08:59)
[2022-03-27] MEDS: CEPACOL LOZENGE PO PRN ×2 (08:59→16:40)
[2022-03-27] MEDS: POLYVINYL ALCOHOL OPHTH SOLN 15 ML(LIQUITEARS) OU PRN (09:00)
[2022-03-27 11:31] LABS: POTASSIUM RANDOM URINE 14.5 MEQ/L
[2022-03-27 12:00] VITALS: BP 145/71
[2022-03-27 14:04] LABS: BLOOD UREA NITROGEN 15 MG/DL (7-18); CALCIUM LEVEL 8.7 MG/DL (8.8-10.2); CARBON DIOXIDE LEVEL 31 MEQ/L (21-32); CHLORIDE LEVEL 96 MEQ/L (98-107); CREATININE FOR GFR 0.76 MG/DL (0.55-1.30); GLOMERULAR FILTRATION RATE > 60.0 (>32); GLUCOSE, FASTING 99 MG/DL (70-100); POTASSIUM SERUM 3.9 MEQ/L (3.5-5.1); SODIUM LEVEL 132 MEQ/L (136-145)
[2022-03-27] MEDS ORDERED: LOSA50TA28 PO (15:02)
[2022-03-27] MEDS ORDERED: BENZ1LOZ9 PO (15:02)
== END 2022-03-27 17:03 | disposition home or self-care (01) | DRG 312 ==
LOC: EDBD 20:39 → M ED 20:39 → M ED INP 20:40 → ENRESERV 03-26 00:06 → M PCU 03-26 01:02 → OBSVTOIN 03-26 16:22
PROVIDERS: ADMIT Family Medicine; ATTEND Internal Medicine
PROC: XW033E5 Introduction of Remdesivir Anti-infective into Peripheral Vein, Percutaneous Approach, New Technology Group 5 (ICD-10-PCS; principal; 2022-03-25)
DX: R55 Syncope and collapse (principal); U07.1 COVID-19; E87.1 Hypo-osmolality and hyponatremia; I10 Essential (primary) hypertension; E78.5 Hyperlipidemia, unspecified; E03.9 Hypothyroidism, unspecified; I71.40 Abdominal aortic aneurysm, without rupture, unspecified; F41.9 Anxiety disorder, unspecified; I44.0 Atrioventricular block, first degree; H91.93 Unspecified hearing loss, bilateral; D64.9 Anemia, unspecified; K57.90 Diverticulosis of intestine, part unspecified, without perforation or abscess without bleeding; H35.30 Unspecified macular degeneration; M54.50 Low back pain, unspecified; E87.6 Hypokalemia; K21.9 Gastro-esophageal reflux disease without esophagitis; M19.90 Unspecified osteoarthritis, unspecified site; E86.0 Dehydration; Z97.4 Presence of external hearing-aid; Z79.899 Other long term (current) drug therapy; Z88.0 Allergy status to penicillin; Z88.5 Allergy status to narcotic agent; Z88.1 Allergy status to other antibiotic agents; Z88.2 Allergy status to sulfonamides; Z88.8 Allergy status to other drugs, medicaments and biological substances; Z91.040 Latex allergy status; Z98.41 Cataract extraction status, right eye; Z98.42 Cataract extraction status, left eye; Z85.828 Personal history of other malignant neoplasm of skin; Z90.49 Acquired absence of other specified parts of digestive tract; Z87.891 Personal history of nicotine dependence; Z79.890 Hormone replacement therapy

== ENCOUNTER → 2022-04-03 | Outpatient (REF) | payer MEDICARE, BC ==
[~2022-04-03] MED LIST changes: +BENZ1LOZ9 PO; +LOSA50TA28 PO
[2022-04-03 16:16] LABS: BLOOD UREA NITROGEN 17 MG/DL (7-18); CALCIUM LEVEL 9.1 MG/DL (8.8-10.2); CARBON DIOXIDE LEVEL 30 MEQ/L (21-32); CHLORIDE LEVEL 103 MEQ/L (98-107); GLOMERULAR FILTRATION RATE > 60.0 (>32); GLUCOSE, FASTING 91 MG/DL (70-100); POTASSIUM SERUM 4.4 MEQ/L (3.5-5.1); SODIUM LEVEL 138 MEQ/L (136-145)
== END ==
LOC: M SHH 14:52
PROVIDERS: ATTEND Internal Medicine
DX: E87.6 Hypokalemia (principal)

== ENCOUNTER → 2022-11-23 | Outpatient (CLI) | payer MEDICARE, BC | LOC: M PLARAD 10:01 | PROVIDERS: ATTEND Nurse Practitioner Adult Health | DX: R42 Dizziness and giddiness (principal); R26.89 Other abnormalities of gait and mobility ==

== ENCOUNTER → 2022-12-25 | Outpatient (CLI) | payer MEDICARE, BC ==
[2022-12-25 18:27] LABS: BLOOD UREA NITROGEN 20 MG/DL (9-23); CALCIUM LEVEL 9.1 MG/DL (8.3-10.6); CARBON DIOXIDE LEVEL 33 MMOL/L (20-31); CHLORIDE LEVEL 103 MMOL/L (98-107); CREATININE FOR GFR 0.84 MG/DL (0.55-1.30); GLOMERULAR FILTRATION RATE > 60.0 (>32); GLUCOSE, FASTING 105 MG/DL (74-106); POTASSIUM SERUM 3.5 MMOL/L (3.5-5.1); SODIUM LEVEL 141 MMOL/L (136-145)
== END ==
LOC: M WUC 12:06
PROVIDERS: ATTEND Physician Assistant
DX: I10 Essential (primary) hypertension (principal)

== ENCOUNTER → 2022-12-26 | Outpatient (REF) | payer MEDICARE, BC | LOC: M SFHCWAGY 16:51 | PROVIDERS: ATTEND Nurse Practitioner Family | DX: N39.0 Urinary tract infection, site not specified (principal) ==

== ENCOUNTER → 2022-12-28 | Outpatient (CLI) | payer MEDICARE, BC | LOC: M WHC 13:05 | PROVIDERS: ATTEND Nurse Practitioner Women's Health | DX: Z12.31 Encounter for screening mammogram for malignant neoplasm of breast (principal) ==

== ENCOUNTER → 2023-04-08 | Outpatient (CLI) | payer MEDICARE, BC ==
[~2023-04-08] MED LIST changes: -CEFD300C41; +CEFD300C42
== END ==
LOC: M RAD 14:03
PROVIDERS: ATTEND Physician Assistant
DX: R42 Dizziness and giddiness (principal)

== ENCOUNTER 2023-07-26 11:01 | Emergency (ER) | payer MEDICARE, BC ==
[~2023-07-26] VITALS: Ht 162.6 cm; Wt 79.1 kg
[~2023-07-26 11:01] MED LIST changes: +CEFD1CAP9; -CEFD300C42
[2023-07-26] MEDS ORDERED: ASPI81TA26 PO (11:21)
[2023-07-26 12:57] LABS: RSV AMPLIFICATION NEGATIVE (NEGATIVE)
[2023-07-26 13:01] LABS: HEMATOCRIT 38.3 % (36.0-47.0); MEAN CORPUSCULAR HEMOGLOBIN 28.2 pg (27.0-33.0); MEAN CORPUSCULAR HGB CONC 31.3 g/dl (32.0-36.5); MEAN CORPUSCULAR VOLUME 89.9 fl (80.0-96.0); PLATELET COUNT, AUTOMATED 182 10^3/uL (150-450); RED BLOOD COUNT 4.26 10^6/uL (4.00-5.40); WHITE BLOOD COUNT 7.3 10^3/uL (4.0-10.0)
[2023-07-26 13:27] LABS: BLOOD UREA NITROGEN 21 MG/DL (9-23); CALCIUM LEVEL 9.2 MG/DL (8.3-10.6); CARBON DIOXIDE LEVEL 32 MMOL/L (20-31); CHLORIDE LEVEL 103 MMOL/L (98-107); CREATININE FOR GFR 0.83 MG/DL (0.55-1.30); GLOMERULAR FILTRATION RATE > 60.0 (>32); GLUCOSE, FASTING 111 MG/DL (74-106); POTASSIUM SERUM 3.6 MMOL/L (3.5-5.1); SODIUM LEVEL 140 MMOL/L (136-145)
[2023-07-26] MEDS ORDERED: MACR100C43 PO (13:33)
[2023-07-26 13:50] VITALS: BP 130/90; TEMP 97.1; O2SAT 97
== END 2023-07-26 13:52 | disposition home or self-care (01) ==
LOC: M ED 11:01
DX: N39.0 Urinary tract infection, site not specified (principal); E78.5 Hyperlipidemia, unspecified; E03.9 Hypothyroidism, unspecified; C50.919 Malignant neoplasm of unspecified site of unspecified female breast; E87.6 Hypokalemia; I12.9 Hypertensive chronic kidney disease with stage 1 through stage 4 chronic kidney disease, or unspecified chronic kidney disease; Z88.8 Allergy status to other drugs, medicaments and biological substances; Z88.0 Allergy status to penicillin; Z91.040 Latex allergy status; Z88.7 Allergy status to serum and vaccine; Z79.899 Other long term (current) drug therapy; Z79.1 Long term (current) use of non-steroidal anti-inflammatories (NSAID)

== ENCOUNTER 2023-08-03 14:03 | Emergency (ER) | payer MEDICARE, BC ==
[~2023-08-03] VITALS: Ht 162.6 cm; Wt 78.0 kg
[~2023-08-03 14:03] MED LIST changes: +ASPI81TA26 PO; -HYDR25TA PO; +HYDR25TA88 PO; +MACR100C43 PO
[2023-08-03 16:23] LABS: BASO % 0.4 % (0.0-1.0); EOS # 0.1 10^3/uL (0.0-0.5); HEMATOCRIT 38.9 % (36.0-47.0); HEMOGLOBIN 12.3 g/dl (12.0-15.5); LYMPH % 25.9 % (24.0-44.0); MEAN CORPUSCULAR HEMOGLOBIN 28.1 pg (27.0-33.0); MEAN CORPUSCULAR HGB CONC 31.6 g/dl (32.0-36.5); MEAN CORPUSCULAR VOLUME 88.8 fl (80.0-96.0); MONO # 1.2 10^3/uL (0.0-0.8); MONO % 15.1 % (2.0-8.0); NEUTROPHILS # 4.4 10^3/uL (1.5-8.5); NEUTROPHILS % 57.5 % (36.0-66.0); PLATELET COUNT, AUTOMATED 200 10^3/uL (150-450); RED BLOOD COUNT 4.38 10^6/uL (4.00-5.40); WHITE BLOOD COUNT 7.7 10^3/uL (4.0-10.0)
[2023-08-03 16:31] LABS: LIPASE 58 U/L (12-53)
[2023-08-03 16:33] LABS: ALKALINE PHOSPHATASE 83 U/L (46-116); ALT/SGPT 15 U/L (7.0-40); AST/SGOT 10 U/L (<34); BILIRUBIN,DIRECT 0.2 MG/DL (<0.4); BILIRUBIN,TOTAL 0.8 MG/DL (0.3-1.2); BLOOD UREA NITROGEN 18 MG/DL (9-23); CALCIUM LEVEL 9.3 MG/DL (8.3-10.6); CARBON DIOXIDE LEVEL 33 MMOL/L (20-31); CHLORIDE LEVEL 100 MMOL/L (98-107); CREATININE FOR GFR 0.83 MG/DL (0.55-1.30); GLOMERULAR FILTRATION RATE > 60.0 (>32); GLUCOSE, FASTING 113 MG/DL (74-106); POTASSIUM SERUM 3.5 MMOL/L (3.5-5.1); SODIUM LEVEL 137 MMOL/L (136-145); TOTAL PROTEIN 7.1 G/DL (5.7-8.2)
[2023-08-03] MEDS ORDERED: CLOT1CRE71 TOP (18:30)
[2023-08-03 18:56] VITALS: BP 158/72; TEMP 97.4; O2SAT 99
[2023-08-03] MEDS: CLOTRIMAZOLE 1% VAG CR 45 GM TOP STA (19:03)
[2023-08-03] MEDS: BETAMETHASONE VAL 0.1% CR 15 GM TOP STA (19:03)
== END 2023-08-03 19:17 | disposition home or self-care (01) ==
LOC: M ED 14:03
DX: N76.89 Other specified inflammation of vagina and vulva (principal); I10 Essential (primary) hypertension; E78.5 Hyperlipidemia, unspecified; F41.9 Anxiety disorder, unspecified; N18.30 Chronic kidney disease, stage 3 unspecified; J45.909 Unspecified asthma, uncomplicated; Z88.7 Allergy status to serum and vaccine; Z88.5 Allergy status to narcotic agent; Z88.6 Allergy status to analgesic agent; Z88.8 Allergy status to other drugs, medicaments and biological substances; Z91.040 Latex allergy status

== ENCOUNTER → 2023-08-08 | Outpatient (REF) | payer MEDICARE, BC ==
[~2023-08-08] MED LIST changes: +CLOT1CRE71 TOP
== END ==
LOC: M SFHCWAGY 16:49
PROVIDERS: ATTEND Nurse Practitioner Family
DX: R30.0 Dysuria (principal); N73.9 Female pelvic inflammatory disease, unspecified

== ENCOUNTER → 2023-09-04 | Outpatient (REF) | payer MEDICARE, BC ==
[2023-09-04 18:16] LABS: AMORPHOUS SEDIMENT SMALL (NEGATIVE); APPEARANCE, URINE HAZY (CLEAR); BACTERIA, URINE AUTO NEGATIVE (NEGATIVE); BILIRUBIN, URINE AUTO NEGATIVE (NEGATIVE); BLOOD, URINE BLOOD NEGATIVE (NEGATIVE); COLOR, URINE YELLOW (YELLOW); GLUCOSE, URINE (UA) AUTO NEGATIVE (NEGATIVE); KETONE, URINE AUTO NEGATIVE (NEGATIVE); LEUKOCYTE ESTERASE, URINE AUTO 2+ (NEGATIVE); MUCUS, URINE SMALL (NEGATIVE); NITRITE, URINE AUTO NEGATIVE (NEGATIVE); PROTEIN, URINE AUTO 1+ mg/dL (NEGATIVE); RBC, URINE AUTO 1 /HPF (0-3); SQUAMOUS EPITHELIAL CELL UR AU 2 /HPF (0-6); UROBILINOGEN, URINE AUTO 0.2 mg/dL (0.0-2.0); WBC, URINE AUTO 30 /HPF (0-3)
== END ==
LOC: M SMT 16:59
PROVIDERS: ATTEND Nurse Practitioner Family
DX: Z87.440 Personal history of urinary (tract) infections (principal); Z79.899 Other long term (current) drug therapy

== ENCOUNTER → 2023-09-06 | Outpatient (REF) | payer MEDICARE, BC ==
[2023-09-06 15:41] LABS: APPEARANCE, URINE CLEAR (CLEAR); BACTERIA, URINE AUTO NEGATIVE (NEGATIVE); BILIRUBIN, URINE AUTO NEGATIVE (NEGATIVE); BLOOD, URINE BLOOD NEGATIVE (NEGATIVE); COLOR, URINE YELLOW (YELLOW); GLUCOSE, URINE (UA) AUTO NEGATIVE (NEGATIVE); KETONE, URINE AUTO NEGATIVE (NEGATIVE); LEUKOCYTE ESTERASE, URINE AUTO 2+ (NEGATIVE); MUCUS, URINE SMALL (NEGATIVE); NITRITE, URINE AUTO NEGATIVE (NEGATIVE); PROTEIN, URINE AUTO NEGATIVE (NEGATIVE); RBC, URINE AUTO 1 /HPF (0-3); SPECIFIC GRAVITY URINE AUTO 1.016 (1.002-1.035); SQUAMOUS EPITHELIAL CELL UR AU 1 /HPF (0-6); UROBILINOGEN, URINE AUTO 0.2 mg/dL (0.0-2.0); WBC, URINE AUTO 27 /HPF (0-3)
== END ==
LOC: M SMT 15:09
PROVIDERS: ATTEND Nurse Practitioner Family
DX: Z87.440 Personal history of urinary (tract) infections (principal)

== ENCOUNTER → 2023-09-18 | Outpatient (CLI) | payer MEDICARE, BC | LOC: M RAD 14:45 | PROVIDERS: ATTEND Nurse Practitioner Family | DX: Z87.440 Personal history of urinary (tract) infections (principal) ==

== ENCOUNTER → 2023-09-26 | Outpatient (REF) | payer MEDICARE, BC ==
[2023-09-26 18:13] LABS: APPEARANCE, URINE CLEAR (CLEAR); BACTERIA, URINE AUTO NEGATIVE (NEGATIVE); BILIRUBIN, URINE AUTO NEGATIVE (NEGATIVE); BLOOD, URINE BLOOD NEGATIVE (NEGATIVE); COLOR, URINE YELLOW (YELLOW); GLUCOSE, URINE (UA) AUTO NEGATIVE (NEGATIVE); KETONE, URINE AUTO NEGATIVE (NEGATIVE); LEUKOCYTE ESTERASE, URINE AUTO NEGATIVE (NEGATIVE); MUCUS, URINE SMALL (NEGATIVE); NITRITE, URINE AUTO NEGATIVE (NEGATIVE); PROTEIN, URINE AUTO NEGATIVE (NEGATIVE); RBC, URINE AUTO 1 /HPF (0-3); SPECIFIC GRAVITY URINE AUTO 1.016 (1.002-1.035); SQUAMOUS EPITHELIAL CELL UR AU 2 /HPF (0-6); UROBILINOGEN, URINE AUTO 0.2 mg/dL (0.0-2.0); WBC, URINE AUTO 6 /HPF (0-3)
== END ==
LOC: M SMT 17:04
PROVIDERS: ATTEND Nurse Practitioner Family
DX: R39.89 Other symptoms and signs involving the genitourinary system (principal)

== ENCOUNTER → 2023-10-22 | Outpatient (REF) | payer MEDICARE, BC ==
[~2023-10-22] MED LIST changes: -ROSU10TA6 PO; +ROSU10TA61 PO
[2023-10-22 19:22] LABS: HEMOGLOBIN A1c 5.5 % (4.0-6.0)
[2023-10-22 19:37] LABS: ALBUMIN 3.9 G/DL (3.2-5.2); ALKALINE PHOSPHATASE 75 U/L (46-116); ALT/SGPT 16 U/L (7.0-40); AST/SGOT 12 U/L (<34); BILIRUBIN,TOTAL 0.7 MG/DL (0.3-1.2); BLOOD UREA NITROGEN 22 MG/DL (9-23); CALCIUM LEVEL 9.4 MG/DL (8.3-10.6); CARBON DIOXIDE LEVEL 32 MMOL/L (20-31); CHLORIDE LEVEL 101 MMOL/L (98-107); CREATININE FOR GFR 0.88 MG/DL (0.55-1.30); GLOMERULAR FILTRATION RATE > 60.0 (>32); GLUCOSE, FASTING 100 MG/DL (74-106); MAGNESIUM LEVEL 1.9 MG/DL (1.8-2.4); POTASSIUM SERUM 3.7 MMOL/L (3.5-5.1); SODIUM LEVEL 138 MMOL/L (136-145); TOTAL PROTEIN 6.6 G/DL (5.7-8.2)
[2023-10-22 19:39] LABS: FREE T4 1.46 NG/DL (0.89-1.76); THYROID STIMULATING HORMONE 1.726 uIU/ML (0.55-4.78)
== END ==
LOC: M LABWUC 17:09
PROVIDERS: ATTEND Nurse Practitioner Adult Health
DX: I10 Essential (primary) hypertension (principal); E03.9 Hypothyroidism, unspecified; Z83.3 Family history of diabetes mellitus; Z79.899 Other long term (current) drug therapy

== ENCOUNTER 2023-11-10 13:20 | Inpatient (IN) | payer MEDICARE, BC ==
[~2023-11-10] VITALS: Ht 162.6 cm; Wt 75.4 kg
[2023-11-10 14:26] LABS: BASO % 0.3 % (0.0-1.0); EOS # 0.1 10^3/uL (0.0-0.5); EOS % 0.6 % (0.0-3.0); HEMATOCRIT 39.8 % (36.0-47.0); HEMOGLOBIN 12.8 g/dl (12.0-15.5); LYMPH % 25.3 % (24.0-44.0); MEAN CORPUSCULAR HEMOGLOBIN 28.1 pg (27.0-33.0); MEAN CORPUSCULAR HGB CONC 32.2 g/dl (32.0-36.5); MEAN CORPUSCULAR VOLUME 87.5 fl (80.0-96.0); MONO # 0.6 10^3/uL (0.0-0.8); MONO % 7.9 % (2.0-8.0); NEUTROPHILS # 5.2 10^3/uL (1.5-8.5); NEUTROPHILS % 65.8 % (36.0-66.0); PLATELET COUNT, AUTOMATED 189 10^3/uL (150-450); RED BLOOD COUNT 4.55 10^6/uL (4.00-5.40); WHITE BLOOD COUNT 7.9 10^3/uL (4.0-10.0)
[2023-11-10] MEDS: LIDOCAINE 2% 5ML JELLY UROJET TOP ONE (14:35)
[2023-11-10] MEDS: ONDANSETRON 4MG 2ML VIAL IV ONE ×2 (14:37→18:13)
[2023-11-10 14:49] LABS: LIPASE 49 U/L (12-53)
[2023-11-10 14:51] LABS: ALKALINE PHOSPHATASE 70 U/L (46-116); ALT/SGPT 15 U/L (7.0-40); AST/SGOT 9 U/L (<34); BILIRUBIN,DIRECT 0.3 MG/DL (<0.4); BILIRUBIN,TOTAL 1.1 MG/DL (0.3-1.2); BLOOD UREA NITROGEN 17 MG/DL (9-23); CALCIUM LEVEL 9.6 MG/DL (8.3-10.6); CARBON DIOXIDE LEVEL 32 MMOL/L (20-31); CHLORIDE LEVEL 98 MMOL/L (98-107); CPK CREATINE PHOSPHOKINASE 98 U/L (34-145); GLOMERULAR FILTRATION RATE > 60.0 (>32); GLUCOSE, FASTING 123 MG/DL (74-106); MB/CK RELATIVE INDEX 1.02 (< OR =4); POTASSIUM SERUM 3.3 MMOL/L (3.5-5.1); SODIUM LEVEL 136 MMOL/L (136-145); TOTAL PROTEIN 7.2 G/DL (5.7-8.2)
[2023-11-10] MEDS ORDERED: AZIT-12 (14:52)
[2023-11-10] MEDS ORDERED: ISOVUE-370 76% 100ML VIAL As Ordered ONE (14:52)
[2023-11-10] MEDS ORDERED: DOXY-323 (14:52)
[2023-11-10] MEDS ORDERED: ALBU8.5H (14:52)
[2023-11-10] MEDS ORDERED: HYDR-3490 PO (14:52)
[2023-11-10] MEDS ORDERED: HYDR12.55 PO (14:52)
[2023-11-10 14:53] LABS: THYROID STIMULATING HORMONE 2.932 uIU/ML (0.55-4.78)
[2023-11-10] MEDS: MORPHINE 2 MG/ML 1ML VIAL IV PRN (15:54)
[2023-11-10 16:13] LABS: CK-MB VALUE MASS < 1.0 NG/ML (<3.6)
[2023-11-10 16:14] LABS: CPK CREATINE PHOSPHOKINASE 90 U/L (34-145); MB/CK RELATIVE INDEX 1.11 (< OR =4)
[2023-11-10] MEDS: ACETAMINOPHEN 325 MG TAB PO ONE (16:22)
[2023-11-10 17:36] LABS: C REACTIVE PROTEIN QUANTITATIV < 0.40 MG/DL (<1.0)
[2023-11-10 17:49] LABS: PROCALCITONIN <0.04 ng/ml
[2023-11-10] MEDS: hydrALAZINE 20MG/ML 1ML VIAL IV STA (18:15)
[2023-11-10] MEDS: MAALOX 30 ML SUSP *UDC PO ONE (18:37)
[2023-11-10] MEDS ORDERED: HOME MED LIST COMPLETE! XX SCH (18:45)
[2023-11-10] MEDS ORDERED: ACETAMINOPHEN 325 MG TAB PO PRN (20:05)
[2023-11-10] MEDS ORDERED: hydrALAZINE 20MG/ML 1ML VIAL IV PRN (20:05)
[2023-11-10] MEDS ORDERED: ALBUTEROL 90 MCG/ACT 8GM HFA INHALER INH PRN (20:05)
[2023-11-10] MEDS: MIDAZOLAM INJ 2MG/2ML VIAL IV ONE (20:40)
[2023-11-10] MEDS ORDERED: LOSA100T46 PO (21:15)
[2023-11-10] MEDS ORDERED: ASPI81TA26 PO (21:17)
[2023-11-10 23:06] VITALS: BP 160/74; TEMP 98.1; O2SAT 97
[2023-11-10] MEDS: ROSUVASTATIN 10 MG TAB (CRESTOR) PO SCH (23:23)
[2023-11-11] VITALS (9 sets, daily range): BP systolic 139–174; BP diastolic 56–78; TEMP 96.9–97.9; O2SAT 93–98
[2023-11-11] MEDS: LEVOTHYROXINE 100MCG TABLET (0.1MG) PO SCH (06:04)
[2023-11-11 07:29] LABS: HEMATOCRIT 36.6 % (36.0-47.0); HEMOGLOBIN 11.6 g/dl (12.0-15.5); MEAN CORPUSCULAR HEMOGLOBIN 27.6 pg (27.0-33.0); MEAN CORPUSCULAR HGB CONC 31.7 g/dl (32.0-36.5); MEAN CORPUSCULAR VOLUME 86.9 fl (80.0-96.0); PLATELET COUNT, AUTOMATED 166 10^3/uL (150-450); RED BLOOD COUNT 4.21 10^6/uL (4.00-5.40); WHITE BLOOD COUNT 6.5 10^3/uL (4.0-10.0)
[2023-11-11 07:51] LABS: ALBUMIN 3.5 G/DL (3.2-5.2); ALKALINE PHOSPHATASE 60 U/L (46-116); ALT/SGPT 13 U/L (7.0-40); AST/SGOT 11 U/L (<34); BILIRUBIN,TOTAL 0.8 MG/DL (0.3-1.2); BLOOD UREA NITROGEN 14 MG/DL (9-23); CALCIUM LEVEL 9.2 MG/DL (8.3-10.6); CARBON DIOXIDE LEVEL 31 MMOL/L (20-31); CHLORIDE LEVEL 101 MMOL/L (98-107); CREATININE FOR GFR 0.76 MG/DL (0.55-1.30); GLOMERULAR FILTRATION RATE > 60.0 (>32); GLUCOSE, FASTING 100 MG/DL (74-106); MAGNESIUM LEVEL 1.9 MG/DL (1.8-2.4); POTASSIUM SERUM 3.4 MMOL/L (3.5-5.1); SODIUM LEVEL 137 MMOL/L (136-145); TOTAL PROTEIN 6.3 G/DL (5.7-8.2)
[2023-11-11] MEDS ORDERED: hydroCHLOROthiazide 12.5 MG CAPSULE PO SCH (09:00)
[2023-11-11] MEDS: ENOXAPARIN 40MG/0.4ML SYRINGE (J1650 PER 10MG) SC SCH (09:01)
[2023-11-11] MEDS: LOSARTAN 50MG TABLET PO SCH (09:02)
[2023-11-11] MEDS: ACETAMINOPHEN TAB 650MG DOSE (2X325MG) PO PRN (09:15)
[2023-11-11] MEDS: cefTRIAXone SOD 1 GM in D5W MINI-BAG PLUS 50 ML IV SCH (10:43)
[2023-11-11 11:14] LABS: HEPATITIS B SURFACE ANTIGEN NEGATIVE (NEGATIVE)
[2023-11-11 11:27] LABS: HIV SCREEN CENTAUR SOURCE NEGATIVE (NEGATIVE)
[2023-11-11] MEDS: KCL 10MEQ/100ML SWI (KRUN) 10 MEQ in IV 1 EA IV SCH (11:43)
[2023-11-11] MEDS ORDERED: BISACODYL 10MG SUPP PR PRN (14:50)
[2023-11-11] MEDS: DICLOFENAC EPOLAMINE 1.3% PATCH TOP SCH (14:55)
[2023-11-11] MEDS: VITAMIN D 1,000 INTERNATIONAL UNITS TABLET PO SCH (14:55)
[2023-11-11] MEDS: METOPROLOL TART 25 MG TABLET PO SCH (14:58)
[2023-11-11] MEDS: MIRALAX *UNIT DOSE* 17GM PACKET PO SCH (16:49)
[2023-11-11] MEDS: METOPROLOL TART 12.5 MG PER 1/2 TAB PO SCH (16:49)
[2023-11-11] MEDS: ONDANSETRON 4MG 2ML VIAL IV PRN (17:04)
[2023-11-11] MEDS: DOCUSATE SODIUM 100MG CAPSULE PO SCH (20:10)
[2023-11-11] MEDS: ASPIRIN 81MG ENTERIC TABLET PO SCH (20:12)
[2023-11-11] MEDS ORDERED: METOPROLOL TART 12.5 MG PER 1/2 TAB PO SCH (21:00)
[2023-11-12] VITALS (9 sets, daily range): BP systolic 110–170; BP diastolic 52–70; TEMP 96.5–97.7; O2SAT 88–99
[2023-11-12] MEDS: LABETALOL 100MG/20ML VIAL IV PRN (00:37)
[2023-11-12 08:48] LABS: BASO % 0.3 % (0.0-1.0); EOS % 0.7 % (0.0-3.0); HEMATOCRIT 35.2 % (36.0-47.0); HEMOGLOBIN 11.6 g/dl (12.0-15.5); LYMPH # 2.3 10^3/uL (1.5-5.0); LYMPH % 38.1 % (24.0-44.0); MEAN CORPUSCULAR HEMOGLOBIN 28.4 pg (27.0-33.0); MEAN CORPUSCULAR VOLUME 86.3 fl (80.0-96.0); MONO # 0.9 10^3/uL (0.0-0.8); MONO % 14.9 % (2.0-8.0); NEUTROPHILS # 2.8 10^3/uL (1.5-8.5); NEUTROPHILS % 45.8 % (36.0-66.0); PLATELET COUNT, AUTOMATED 177 10^3/uL (150-450); RED BLOOD COUNT 4.08 10^6/uL (4.00-5.40); WHITE BLOOD COUNT 6.1 10^3/uL (4.0-10.0)
[2023-11-12] MEDS: MOM 30ML SUSPENSION UDC PO PRN (08:49)
[2023-11-12 09:20] LABS: ALBUMIN 3.6 G/DL (3.2-5.2); ALKALINE PHOSPHATASE 60 U/L (46-116); ALT/SGPT 13 U/L (7.0-40); AST/SGOT 10 U/L (<34); BILIRUBIN,TOTAL 0.8 MG/DL (0.3-1.2); BLOOD UREA NITROGEN 11 MG/DL (9-23); CALCIUM LEVEL 9.5 MG/DL (8.3-10.6); CARBON DIOXIDE LEVEL 30 MMOL/L (20-31); CHLORIDE LEVEL 98 MMOL/L (98-107); CREATININE FOR GFR 0.79 MG/DL (0.55-1.30); GLOMERULAR FILTRATION RATE > 60.0 (>32); GLUCOSE, FASTING 107 MG/DL (74-106); MAGNESIUM LEVEL 1.9 MG/DL (1.8-2.4); POTASSIUM SERUM 3.4 MMOL/L (3.5-5.1); SODIUM LEVEL 135 MMOL/L (136-145); TOTAL PROTEIN 6.4 G/DL (5.7-8.2)
[2023-11-12] MEDS ORDERED: KCL 10MEQ/100ML SWI (KRUN) 10 MEQ in IV 1 EA IV ONE (10:00)
[2023-11-12] MEDS: POTASSIUM CHLORIDE 10MEQ SR TABLET PO ONE (11:07)
[2023-11-12] MEDS: SCOPOLAMINE 1MG TRANSDERMAL PATCH TOP SCH (12:09)
[2023-11-12] MEDS: LACTULOSE 20GM/30ML SYRUP UDC PO ONE (16:19)
[2023-11-12] MEDS: MIRALAX *UNIT DOSE* 17GM PACKET PO SCH (20:46)
[2023-11-12] MEDS: amLODIPine 5 MG TAB PO SCH (20:46)
[2023-11-12] MEDS: METOCLOPRAMIDE 10MG TAB PO SCH (21:28)
[2023-11-13 05:20] VITALS: BP 141/66; TEMP 97.9; O2SAT 96
[2023-11-13 06:00] VITALS: BP_SYST 126; BP_SYST 130; BP_SYST 133; BP_DIAS 56; BP_DIAS 67; BP_DIAS 69
[2023-11-13 08:24] LABS: BASO % 0.3 % (0.0-1.0); EOS # 0.1 10^3/uL (0.0-0.5); EOS % 0.8 % (0.0-3.0); HEMATOCRIT 34.5 % (36.0-47.0); HEMOGLOBIN 11.3 g/dl (12.0-15.5); LYMPH # 2.5 10^3/uL (1.5-5.0); LYMPH % 38.3 % (24.0-44.0); MEAN CORPUSCULAR HEMOGLOBIN 28.4 pg (27.0-33.0); MEAN CORPUSCULAR HGB CONC 32.8 g/dl (32.0-36.5); MEAN CORPUSCULAR VOLUME 86.7 fl (80.0-96.0); MONO % 15.5 % (2.0-8.0); NEUTROPHILS # 2.9 10^3/uL (1.5-8.5); NEUTROPHILS % 44.8 % (36.0-66.0); PLATELET COUNT, AUTOMATED 154 10^3/uL (150-450); RED BLOOD COUNT 3.98 10^6/uL (4.00-5.40); WHITE BLOOD COUNT 6.6 10^3/uL (4.0-10.0)
[2023-11-13 08:52] LABS: ALBUMIN 3.5 G/DL (3.2-5.2); BILIRUBIN,TOTAL 0.7 MG/DL (0.3-1.2); CALCIUM LEVEL 9.4 MG/DL (8.3-10.6); CREATININE FOR GFR 0.96 MG/DL (0.55-1.30); GLOMERULAR FILTRATION RATE 58.8 (>32); MAGNESIUM LEVEL 1.9 MG/DL (1.8-2.4); POTASSIUM SERUM 3.5 MMOL/L (3.5-5.1)
[2023-11-13 11:08] VITALS: BP 114/54
[2023-11-13] MEDS ORDERED: METO10TA2 PO ×2 (11:19→12:30)
[2023-11-13] MEDS ORDERED: ONDA-83 PO (11:19)
[2023-11-13] MEDS ORDERED: DICL1PAT6 TOP (11:19)
[2023-11-13] MEDS ORDERED: AMLO2.5T3 PO (11:19)
[2023-11-13] MEDS ORDERED: MECL-209 PO (12:30)
[2023-11-13] MEDS ORDERED: AMLO10TA PO (12:32)
[2023-11-13 14:00] VITALS: BP 104/53; TEMP 98.1; O2SAT 96
== END 2023-11-13 14:31 | disposition home or self-care (01) | DRG 305 ==
LOC: EDBD 13:20 → M ED 13:20 → M ED INP 20:05 → M PCU 23:00 → M MSPAV 11-12 15:26
PROVIDERS: ADMIT Internal Medicine; ATTEND Student in an Organized Health Care Education/Training Program
DX: I16.9 Hypertensive crisis, unspecified (principal); T46.5X6A Underdosing of other antihypertensive drugs, initial encounter; M35.3 Polymyalgia rheumatica; I10 Essential (primary) hypertension; E78.5 Hyperlipidemia, unspecified; E03.9 Hypothyroidism, unspecified; K21.9 Gastro-esophageal reflux disease without esophagitis; I71.21 Aneurysm of the ascending aorta, without rupture; H91.93 Unspecified hearing loss, bilateral; M54.50 Low back pain, unspecified; H35.30 Unspecified macular degeneration; K57.90 Diverticulosis of intestine, part unspecified, without perforation or abscess without bleeding; R55 Syncope and collapse; R11.2 Nausea with vomiting, unspecified; E87.6 Hypokalemia; K59.00 Constipation, unspecified; Z88.0 Allergy status to penicillin; Z79.82 Long term (current) use of aspirin; Z88.1 Allergy status to other antibiotic agents; Z88.5 Allergy status to narcotic agent; Z88.6 Allergy status to analgesic agent; Z97.4 Presence of external hearing-aid; Z85.3 Personal history of malignant neoplasm of breast; Z91.040 Latex allergy status; Z90.49 Acquired absence of other specified parts of digestive tract; Z79.890 Hormone replacement therapy; Z98.41 Cataract extraction status, right eye; Z79.899 Other long term (current) drug therapy; Z98.42 Cataract extraction status, left eye; Z85.828 Personal history of other malignant neoplasm of skin; Z87.891 Personal history of nicotine dependence

== ENCOUNTER → 2023-12-31 | Outpatient (CLI) | payer MEDICARE, BC ==
[~2023-12-31] MED LIST changes: +ALBU8.5H; +AMLO10TA PO; +AZIT-12; +DICL1PAT6 TOP; +DOXY-323; +HYDR-3490 PO; +HYDR12.55 PO; +LOSA100T46 PO; +MECL-209 PO; +METO10TA2 PO; +ONDA-83 PO
== END ==
LOC: M WHC 13:20
PROVIDERS: ATTEND Nurse Practitioner Women's Health
DX: Z85.3 Personal history of malignant neoplasm of breast (principal); Z12.31 Encounter for screening mammogram for malignant neoplasm of breast

== ENCOUNTER → 2024-01-09 | Outpatient (CLI) | payer MEDICARE, BC | LOC: M RAD 12:45 | PROVIDERS: ATTEND Nurse Practitioner Adult Health | DX: I25.10 Atherosclerotic heart disease of native coronary artery without angina pectoris (principal); M79.662 Pain in left lower leg; M79.661 Pain in right lower leg ==

== ENCOUNTER → 2024-03-04 | Outpatient (REF) | payer MEDICARE, BC | LOC: M SFHCDERM 17:20 | PROVIDERS: ATTEND Physician Assistant | DX: C44.319 Basal cell carcinoma of skin of other parts of face (principal) ==

== ENCOUNTER → 2024-04-13 | Outpatient (CLI) | payer MEDICARE, BC ==
[~2024-04-13] MED LIST changes: -DOXY-323; +DOXY-441; -SIME180C25 PO; +SIME1CAP4 PO
[2024-04-13 17:16] LABS: HEMATOCRIT 38.6 % (36.0-47.0); HEMOGLOBIN 12.1 g/dl (12.0-15.5); MEAN CORPUSCULAR HEMOGLOBIN 28.2 pg (27.0-33.0); MEAN CORPUSCULAR HGB CONC 31.3 g/dl (32.0-36.5); PLATELET COUNT, AUTOMATED 183 10^3/uL (150-450); RED BLOOD COUNT 4.29 10^6/uL (4.00-5.40); WHITE BLOOD COUNT 5.7 10^3/uL (4.0-10.0)
[2024-04-13 17:38] LABS: HEMOGLOBIN A1c 5.9 % (4.0-6.0)
[2024-04-13 17:43] LABS: ALBUMIN 3.7 G/DL (3.2-5.2); ALKALINE PHOSPHATASE 78 U/L (35-104); ALT/SGPT 11 U/L (7.0-40); AST/SGOT < 8 U/L (<34); BILIRUBIN,TOTAL 0.7 MG/DL (0.3-1.2); BLOOD UREA NITROGEN 22 MG/DL (9-23); CALCIUM LEVEL 9.8 MG/DL (8.3-10.6); CARBON DIOXIDE LEVEL 33 MMOL/L (20-31); CHLORIDE LEVEL 103 MMOL/L (98-107); CHOLESTEROL LEVEL 149 MG/DL (<200); CHOLESTEROL RISK RATIO 2.48 (<5); CREATININE FOR GFR 0.83 MG/DL (0.55-1.30); GLOMERULAR FILTRATION RATE > 60.0 (>32); GLUCOSE, FASTING 108 MG/DL (74-106); HDL CHOLESTEROL 59.9 MG/DL (>40); LDL CHOLESTEROL 68.5 MG/DL (<100); NON-HDL-C 89.1 MG/DL; POTASSIUM SERUM 3.5 MMOL/L (3.5-5.1); SODIUM LEVEL 141 MMOL/L (136-145); THYROID STIMULATING HORMONE 2.559 uIU/ML (0.55-4.78); TOTAL 25(OH) VITAMIN D 37.1 NG/ML (20.0-100.0); TOTAL PROTEIN 6.7 G/DL (5.7-8.2); TRIGLYCERIDES LEVEL 103 MG/DL (<150)
[2024-04-13 17:45] LABS: FREE T4 1.41 NG/DL (0.89-1.76)
== END ==
LOC: M WUC 13:21
PROVIDERS: ATTEND Nurse Practitioner Adult Health
DX: I10 Essential (primary) hypertension (principal); E03.9 Hypothyroidism, unspecified; E55.9 Vitamin D deficiency, unspecified; D50.9 Iron deficiency anemia, unspecified

== ENCOUNTER 2024-08-25 08:37 | Emergency (ER) | payer MEDICARE, BC ==
[~2024-08-25] VITALS: Ht 165.1 cm; Wt 77.7 kg
[2024-08-25 13:25] LABS: BASO % 0.6 % (0.0-1.0); EOS # 0.1 10^3/uL (0.0-0.5); EOS % 1.1 % (0.0-3.0); HEMATOCRIT 40.1 % (36.0-47.0); HEMOGLOBIN 12.8 g/dl (12.0-15.5); LYMPH # 2.5 10^3/uL (1.5-5.0); LYMPH % 35.7 % (24.0-44.0); MEAN CORPUSCULAR HEMOGLOBIN 28.1 pg (27.0-33.0); MEAN CORPUSCULAR HGB CONC 31.9 g/dl (32.0-36.5); MEAN CORPUSCULAR VOLUME 88.1 fl (80.0-96.0); MONO # 0.9 10^3/uL (0.0-0.8); MONO % 12.7 % (2.0-8.0); NEUTROPHILS # 3.5 10^3/uL (1.5-8.5); NEUTROPHILS % 49.6 % (36.0-66.0); PLATELET COUNT, AUTOMATED 192 10^3/uL (150-450); RED BLOOD COUNT 4.55 10^6/uL (4.00-5.40); WHITE BLOOD COUNT 7.1 10^3/uL (4.0-10.0)
[2024-08-25 13:30] LABS: ERYTHROCYTE SEDIMENTATION RATE 74 mm/hr (0-30)
[2024-08-25 13:49] LABS: BLOOD UREA NITROGEN 24 MG/DL (9-23); C REACTIVE PROTEIN QUANTITATIV < 0.50 MG/DL (<1.0); CARBON DIOXIDE LEVEL 31 MMOL/L (20-31); CHLORIDE LEVEL 98 MMOL/L (98-107); GLOMERULAR FILTRATION RATE > 60.0 (>32); GLUCOSE, FASTING 106 MG/DL (74-106); POTASSIUM SERUM 3.5 MMOL/L (3.5-5.1); SODIUM LEVEL 138 MMOL/L (136-145)
[2024-08-25 15:34] VITALS: BP 133/78; TEMP 97.3; O2SAT 99
[2024-08-28] MEDS ORDERED: LEVOTAB10 PO (09:45)
[2024-08-28] MEDS ORDERED: DOXY100C3 PO (09:45)
== END 2024-08-25 15:42 | disposition home or self-care (01) ==
LOC: M ED 08:37
DX: L03.011 Cellulitis of right finger (principal); E78.5 Hyperlipidemia, unspecified; I12.9 Hypertensive chronic kidney disease with stage 1 through stage 4 chronic kidney disease, or unspecified chronic kidney disease; I71.40 Abdominal aortic aneurysm, without rupture, unspecified; Z88.0 Allergy status to penicillin; Z88.2 Allergy status to sulfonamides; Z88.5 Allergy status to narcotic agent; Z88.6 Allergy status to analgesic agent; Z88.7 Allergy status to serum and vaccine; Z88.8 Allergy status to other drugs, medicaments and biological substances; Z91.040 Latex allergy status; Z79.1 Long term (current) use of non-steroidal anti-inflammatories (NSAID); Z79.2 Long term (current) use of antibiotics; Z79.51 Long term (current) use of inhaled steroids; Z79.899 Other long term (current) drug therapy

== ENCOUNTER 2024-08-31 13:19 | Day surgery (SDC) | payer MEDICARE, BC ==
[~2024-08-31] VITALS: Ht 162.6 cm; Wt 77.4 kg
[~2024-08-31 13:19] MED LIST changes: +DOXY100C3 PO; +LEVOTAB10 PO; +LIDOCAINE W/EPINEPHRINE 1% 20ML VIAL XX ONE; +SODIUM BICARBONATE 8.4% INJ 50MEQ 50ML VIAL XX ONE
[2024-08-31] MEDS ORDERED: LIDOCAINE 1% MDV 20ML VIAL As Ordered ONE (15:19)
[2024-08-31] MEDS: BACITRACIN OINTMENT 30GM TUBE As Ordered ONE (16:00)
[2024-08-31 16:10] VITALS: BP 178/80; TEMP 96.8; O2SAT 97
== END 2024-08-31 16:30 | disposition home or self-care (01) ==
LOC: M SDC 13:19
PROVIDERS: ATTEND Orthopaedic Surgery Hand Surgery
DX: L60.8 Other nail disorders (principal); L92.8 Other granulomatous disorders of the skin and subcutaneous tissue; L03.011 Cellulitis of right finger

== ENCOUNTER → 2024-09-11 | Outpatient (CLI) | payer MEDICARE, BC ==
[~2024-09-11] MED LIST changes: -LIDOCAINE W/EPINEPHRINE 1% 20ML VIAL XX ONE; -SODIUM BICARBONATE 8.4% INJ 50MEQ 50ML VIAL XX ONE
[2024-09-11 14:16] LABS: HEMATOCRIT 36.9 % (36.0-47.0); HEMOGLOBIN 11.6 g/dl (12.0-15.5); MEAN CORPUSCULAR HEMOGLOBIN 27.8 pg (27.0-33.0); MEAN CORPUSCULAR HGB CONC 31.4 g/dl (32.0-36.5); MEAN CORPUSCULAR VOLUME 88.3 fl (80.0-96.0); PLATELET COUNT, AUTOMATED 178 10^3/uL (150-450); RED BLOOD COUNT 4.18 10^6/uL (4.00-5.40); WHITE BLOOD COUNT 5.9 10^3/uL (4.0-10.0)
[2024-09-11 14:35] LABS: HEMOGLOBIN A1c 6.1 % (4.0-6.0)
[2024-09-11 15:00] LABS: ALBUMIN 3.7 G/DL (3.2-5.2); ALKALINE PHOSPHATASE 71 U/L (35-104); ALT/SGPT 17 U/L (7.0-40); AST/SGOT 14 U/L (<34); BILIRUBIN,TOTAL 0.7 MG/DL (0.3-1.2); BLOOD UREA NITROGEN 22 MG/DL (9-23); CALCIUM LEVEL 9.3 MG/DL (8.3-10.6); CARBON DIOXIDE LEVEL 34 MMOL/L (20-31); CHLORIDE LEVEL 100 MMOL/L (98-107); CHOLESTEROL LEVEL 150 MG/DL (<200); CHOLESTEROL RISK RATIO 2.12 (<5); CREATININE FOR GFR 0.86 MG/DL (0.55-1.30); GLOMERULAR FILTRATION RATE > 60.0 (>32); GLUCOSE, FASTING 116 MG/DL (74-106); HDL CHOLESTEROL 70.5 MG/DL (>40); LDL CHOLESTEROL 63.7 MG/DL (<100); NON-HDL-C 79.5 MG/DL; POTASSIUM SERUM 3.6 MMOL/L (3.5-5.1); SODIUM LEVEL 140 MMOL/L (136-145); TOTAL PROTEIN 6.8 G/DL (5.7-8.2); TRIGLYCERIDES LEVEL 79 MG/DL (<150)
[2024-09-11 15:04] LABS: TOTAL 25(OH) VITAMIN D 37.1 NG/ML (20.0-100.0)
== END ==
LOC: M WUC 11:57
PROVIDERS: ATTEND Nurse Practitioner Adult Health
DX: I10 Essential (primary) hypertension (principal); E03.9 Hypothyroidism, unspecified; E55.9 Vitamin D deficiency, unspecified; I25.10 Atherosclerotic heart disease of native coronary artery without angina pectoris; Z83.3 Family history of diabetes mellitus; Z79.899 Other long term (current) drug therapy

== ENCOUNTER → 2024-09-29 | Outpatient (REF) | payer MEDICARE, BC | LOC: M SFHCDERM 18:18 | PROVIDERS: ATTEND Physician Assistant | DX: D48.9 Neoplasm of uncertain behavior, unspecified (principal) ==

== ENCOUNTER → 2025-01-26 | Outpatient (CLI) | payer MEDICARE, BC ==
[~2025-01-26] MED LIST changes: +AMLO-751 PO; -AMLO10TA PO
== END ==
LOC: M WHC 14:03
PROVIDERS: ATTEND Obstetrics & Gynecology
DX: Z12.31 Encounter for screening mammogram for malignant neoplasm of breast (principal)

== ENCOUNTER → 2025-05-03 | Outpatient (REF) | payer MEDICARE, BC ==
[~2025-05-03] MED LIST changes: -ROSU10TA61 PO; +ROSU10TA90 PO
== END ==
LOC: M SFHCPLAZ 12:03
PROVIDERS: ATTEND Nurse Practitioner Adult Health
DX: R35.0 Frequency of micturition (principal)

== ENCOUNTER → 2025-05-17 | Outpatient (CLI) | payer MEDICARE, BC ==
[2025-05-17 18:35] LABS: ALT/SGPT 15.0 U/L (7.0-40); AST/SGOT 17.0 U/L (<34); CALCIUM LEVEL 9.3 MG/DL (8.3-10.6); CARBON DIOXIDE LEVEL 33.0 MMOL/L (20-31); CHLORIDE LEVEL 100.0 MMOL/L (98-107); CHOLESTEROL LEVEL 157.0 MG/DL (<200); CHOLESTEROL RISK RATIO 2.52 (<5); CREATININE FOR GFR 0.98 MG/DL (0.55-1.30); GLOMERULAR FILTRATION RATE 56.2 (>32); LDL CHOLESTEROL 73.1 MG/DL (<100); MAGNESIUM LEVEL 1.9 MG/DL (1.8-2.4); NON-HDL-C 94.7 MG/DL; POTASSIUM SERUM 3.7 MMOL/L (3.5-5.1); SODIUM LEVEL 143.0 MMOL/L (136-145); TRIGLYCERIDES LEVEL 108.0 MG/DL (<150)
[2025-05-17 18:37] LABS: FREE T4 1.56 NG/DL (0.89-1.76)
[2025-05-17 18:52] LABS: ESTIMATED AVERAGE GLUCOSE 123.0 MG/DL (60-110)
[2025-05-17 19:01] LABS: PLATELET COUNT, AUTOMATED 196 10^3/uL (150-450)
== END ==
LOC: M WUC 13:20
PROVIDERS: ATTEND Nurse Practitioner Adult Health
DX: I10 Essential (primary) hypertension (principal); I25.10 Atherosclerotic heart disease of native coronary artery without angina pectoris; Z85.3 Personal history of malignant neoplasm of breast; E03.9 Hypothyroidism, unspecified